=== PATIENT | female | born 1965 | race Caucasian/White ===

== ENCOUNTER 2019-11-01 12:27 | Outpatient (RCR) | payer MEDICAID, SELFPAY | END 2019-11-01 23:59 | disposition home or self-care (01) | LOC: ANHAUDIO 12:27 | PROVIDERS: PCP Internal Medicine Infectious Disease; Visit Provider Internal Medicine Infectious Disease | DX: Z46.1 Encounter for fitting and adjustment of hearing aid (principal) | CPT/HCPCS: 99199 ==

== ENCOUNTER 2020-02-15 16:50 | Emergency (ER) | payer MEDICARE, MEDICAID, SELFPAY ==
--- NOTE | ~2020-02-15 | XR_ITS ---
EXAMINATION: XR chest 1V EXAM DATE: 02/15/2020 19:14 INDICATION: Pacemaker, chest discomfort. Feels like pacemaker is displaced. TECHNIQUE: Portable AP frontal chest x-ray was obtained. Comparison is made to prior examination from 01/20/2019. FINDINGS: There is a dual lead pacemaker/AICD seen with leads projecting over the expected locations of the right atrial appendage and right ventricle. The lungs are clear. There are no pleural effusio ns. Cardiac silhouette is prominent but magnified on this AP technique. There is no pneumothorax s uspected. The bones and soft tissues are unremarkable. IMPRESSION: No acute cardiopulmonary findings. Reviewed, dictated and finalized at location A.
[2020-02-15 18:11] VITALS: BP 144/76; PULSE 72; RESP 15; TEMP 36.2; O2SAT 98
[2020-02-15 19:01] VITALS: BP 115/74; PULSE 72; PULSE 74; PULSE 76; RESP 14; RESP 17; O2SAT 96; O2SAT 98
[2020-02-15 19:15] VITALS: BP 129/78; PULSE 77; RESP 20; O2SAT 95
--- NOTE | 2020-02-15 19:20 | PC.NURSE ---
Report to JARON Johnson, to continue care.
--- NOTE | 2020-02-15 19:43 | ED.GENADULT ---
HPI - General Adult General Chief complaint: Unspecified Stated complaint: SKIN TISSUE MOVED IN MY SHOULDER - PAIN AT SITE Time Seen by Provider: 02/15/20 19:06 Source: patient Mode of arrival: ambulatory Limitations: no limitations History of Present Illness HPI narrative: This patient is a 54 year old female who presents for evaluation of the location of his pacemaker. She states she normally is able to feel her pacemaker in her left upper chest. She states it is more difficult for her to feel it. She reports that she sleeps on her left side with a pillow due to having issues with pacemaker rubbing on her left arm. She reports commonly having soreness at the location of her pacemaker and it was placed in 2013. She denies fever, chills, nausea or vomiting. She reports chronic sob but states her symptoms are not worsening. She does not know of any trauma. Related Data Home Medications Medication Instructions Recorded Confirmed albuterol sulfate [Ventolin HFA] INHALATION 02/15/20 aripiprazole mg 02/15/20 atorvastatin 40 mg PO DAILY 02/15/20 02/15/20 benztropine 0.5 mg PO TID 02/15/20 02/15/20 budesonide-formoterol [Symbicort] INHALATION 02/15/20 buspirone 15 mg PO TID 02/15/20 02/15/20 cholestyramine (with sugar) ea 02/15/20 clonazepam 0.5 mg PO TID 02/15/20 02/15/20 cyclobenzaprine mg 02/15/20 ergocalciferol (vitamin D2) 1,250 mcg PO WEEKLY 02/15/20 02/15/20 escitalopram oxalate mg 02/15/20 famotidine 02/15/20 fluticasone propionate [Flovent INHALATION 02/15/20 HFA] furosemide 02/15/20 isosorbide mononitrate mg PO 02/15/20 levetiracetam PO 02/15/20 losartan-hydrochlorothiazide tablet 02/15/20 magnesium oxide mg 02/15/20 melatonin mg 02/15/20 metoprolol tartrate 02/15/20 nitroglycerin mg 02/15/20 omeprazole 02/15/20 pantoprazole PO 02/15/20 potassium chloride meq PO 02/15/20 tramadol mg 02/15/20 Allergies Allergy/AdvReac Type Severity Reaction Status Date / Time No Known Allergies Allergy Verified 02/15/20 19:06 Review of Systems Review of Systems: All systems reviewed & are unremarkable except as noted in HPI and below PMFSH Past Medical History Medical History (Updated 02/16/20 @ 00:00 by Guille Interiano) Anxiety Depression Hypertension Seizures Surgical History Surgical History (Updated 02/15/20 @ 19:49 by Luciana Edward MD) History of cholecystectomy History of permanent cardiac pacemaker placement Social History Social History Gender identity (if verbalized by the patient): Female Exam Const: General: well developed, alert, awake and Physically active; No acute distress Nutritional Appearance: obese Orientation/consciousness: patient oriented x3 HENMT: Face and sinus: face symmetric Mouth: Yes Normal oral and palatal mucosa present, Yes lip normal, Yes oropharynx normal and Yes moist mucous membranes Throat: uvula midline Chest: Chest palpation & inspection: other (left upper chest, no erythema, no fluctuance, able to feel pacemaker) Resp: Effort & Inspection: normal respiratory effort and able to speak in complete sentences Course Reevaluation(s) Reevaluation #1: I have discussed with patient that pacemaker appears to be in place. On examination, no redness, no induration noted. She is obesity but i can feel pacemaker Date: 02/15/20 Time: 19:49 Vital Signs Vital signs: Vital Signs Temperature 97.2 F L 02/15/20 18:11 Pulse Rate 72 02/15/20 18:11 Respiratory Rate 15 02/15/20 18:11 Blood Pressure 144/76 H 02/15/20 18:11 Pulse Oximetry 98 02/15/20 18:11 Temperature 98.2 F 02/15/20 19:59 Pulse Rate 83 02/15/20 19:59 Respiratory Rate 18 02/15/20 19:59 Blood Pressure 134/81 02/15/20 19:59 Pulse Oximetry 98 02/15/20 19:59 Medical Decision Making Vital Signs Vital Signs: Vital Signs Temperature 97.2 F L 02/15/20 18:11 Pulse Rate 72 02/15/20 18:11 Respiratory Rate 15 02/15/20
[2020-02-15 19:59] VITALS: BP 134/81; PULSE 83; RESP 18; TEMP 36.8; O2SAT 98
== END 2020-02-15 19:59 | disposition home or self-care (01) ==
PROVIDERS: Emergency Provider General Practice; PCP Internal Medicine Infectious Disease
DX: Z45.018 Encounter for adjustment and management of other part of cardiac pacemaker (principal)
CPT/HCPCS: 71045; 99283

== ENCOUNTER 2020-10-03 16:07 | Outpatient (CLI) | payer MEDICARE, MEDICAID, SELFPAY ==
--- NOTE | ~2020-10-03 | XR_ITS ---
XR cervical spine 4-5V DATE: 10/03/2020 16:31 INDICATION: Cervical radiculopathy TECHNIQUE: AP, open-mouth, lateral and swimmer views COMPARISON: None FINDINGS: Diffuse osteopenia. C1 and C2 are normally aligned and the odontoid process is intact. No fracture or dislocation or locked facet is evident. No prevertebral soft tissue swelling. There is prominent degenerative disc disease and uncovertebral joint spurring at C5-6 and C6-7. Left cardiac pacemaker dual leads are noted. IMPRESSION: Prominent degenerative disc disease and uncovertebral joint spurring at C5-6 and C6-7 Reviewed, dictated and finalized at location A. IMPRESSION: Prominent degenerative disc disease and uncovertebral joint spurrin g at C5-6 and C6-7
--- NOTE | ~2020-10-03 | XR_ITS ---
XR lumbar spine 2-3V DATE: 10/03/2020 16:32 INDICATION: Lumbar radiculopathy. No known injury. TECHNIQUE: AP, lateral, coned lateral lumbosacral views COMPARISON: None FINDINGS: There is moderate osteopenia. No fracture or bone destruction is evident. The lumbar pedicles are intact. There is mild degenerative disc disease and lumbosacral interspaces are relatively preserved. There is degenerative change of the lower lumbar apophyseal joints with associated slight grade 1 ant erolisthesis at L4-5. The sacroiliac joints are normal. Status post cholecystectomy. IMPRESSION: Mild degenerative disc disease Reviewed, dictated and finalized at location A.
== END 2020-10-03 16:08 | disposition home or self-care (01) ==
LOC: ANHIMG 16:13
PROVIDERS: PCP Internal Medicine Infectious Disease; Visit Provider Pain Medicine Interventional Pain Medicine
DX: M54.16 Radiculopathy, lumbar region (principal); M54.12 Radiculopathy, cervical region; M51.36 Other intervertebral disc degeneration, lumbar region; M50.322 Other cervical disc degeneration at C5-C6 level
CPT/HCPCS: 72050; 72100

== ENCOUNTER 2021-06-19 14:49 | Emergency (ER) | payer MEDICARE, SELFPAY ==
--- NOTE | ~2021-06-19 | XR_ITS ---
EXAMINATION: XR foot RT min 3V DATE: 06/19/2021 15:24 INDICATION: Right foot pain TECHNIQUE: Dorsoplantar, lateral, and 2 oblique views of the right foot were obtained. COMPARISON: None FINDINGS: There is no fracture, dislocation, or subluxation. Mild osteoarthritis is noted in the midf oot as well as multiple interphalangeal joints. The soft tissues are unremarkable. Posterior and plan tar calcaneal enthesophytes are noted. IMPRESSION: 1. No acute osseous abnormality. Reviewed, dictated and finalized at location A. STAFF
[2021-06-19 14:52] VITALS: BP 147/85; PULSE 93; RESP 16; TEMP 36.6; O2SAT 98
--- NOTE | 2021-06-19 15:14 | ED.EXTPRO ---
HPI - Extremity Problem General Chief complaint: Extremity Problem,Nontraumatic Stated complaint: edema Time Seen by Provider: 06/19/21 15:07 Source: patient Mode of arrival: ambulatory Limitations: no limitations History of Present Illness HPI Narrative: Patient is 55 years old white female presented to the ED complaining of pain of the right foot medially for over a month. Patient is a status post left foot surgery March 2021. Patient been putting more weight on the right foot over the last 2 to 3 months after the surgery.. Patient denies any trauma, fever, chills, nausea, vomiting, pain anywhere else. Patient is disabled Related Data Home Medications Medication Instructions Recorded Confirmed albuterol sulfate [Ventolin HFA] INHALATION 02/15/20 12/04/20 aripiprazole mg 02/15/20 12/04/20 atorvastatin 40 mg PO DAILY 02/15/20 12/04/20 benztropine 0.5 mg PO TID 02/15/20 12/04/20 budesonide-formoterol [Symbicort] INHALATION 02/15/20 12/04/20 buspirone 15 mg PO TID 02/15/20 12/04/20 cholestyramine (with sugar) ea 02/15/20 12/04/20 clonazepam 0.5 mg PO TID 02/15/20 12/04/20 cyclobenzaprine mg 02/15/20 12/04/20 ergocalciferol (vitamin D2) 1,250 mcg PO WEEKLY 02/15/20 12/04/20 escitalopram oxalate mg 02/15/20 12/04/20 famotidine 02/15/20 12/04/20 fluticasone propionate [Flovent INHALATION 02/15/20 12/04/20 HFA] furosemide 02/15/20 12/04/20 isosorbide mononitrate mg PO 02/15/20 12/04/20 losartan-hydrochlorothiazide tablet 02/15/20 12/04/20 magnesium oxide mg 02/15/20 12/04/20 melatonin mg 02/15/20 12/04/20 metoprolol tartrate 02/15/20 12/04/20 nitroglycerin mg 02/15/20 12/04/20 omeprazole 02/15/20 12/04/20 pantoprazole PO 02/15/20 12/04/20 potassium chloride meq PO 02/15/20 12/04/20 tramadol mg 02/15/20 12/04/20 Allergies Allergy/AdvReac Type Severity Reaction Status Date / Time No Known Allergies Allergy Verified 12/04/20 16:16 Review of Systems Review of Systems: CONSTITUTIONAL: Denies fever, chills, or sweats. EYES: Denies visual changes, redness, or discharge. ENT: Denies rhinorrhea, congestion, sore throat, or otalgia. CARDIOVASCULAR: Denies chest pain, palpitations, or edema. RESPIRATORY: Denies cough or dyspnea. GASTROINTESTINAL: Denies abdominal pain, nausea, vomiting, or diarrhea. GENITOURINARY: Denies dysuria or hematuria. SKIN: Denies rash or itching. MUSCULOSKELETAL: Denies back pain, joint pain, or myalgia. NEUROLOGIC: Denies headache, numbness, or weakness. PSYCHIATRIC: Denies anxiety or depression. [facility] Past Medical History Medical History Anxiety Depression Hypertension Seizures Surgical History Surgical History History of cholecystectomy History of permanent cardiac pacemaker placement Social History Social History Smoking status: Never smoker Alcohol intake: never Gender identity (if verbalized by the patient): Female Exam Narrative: General appearance: Well-developed, well-nourished Skin: Normal color Chest and respiratory: Airway patent, no respiratory distress, no accessory muscle use Heart: Regular rate/rhythm Vascular: Normal peripheral pulses, normal capillary refill. Musculoskeletal: Right foot showed diffuse tenderness medially close to the heel area, no bruises, no erythema, no swelling, no deformity. 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
== END 2021-06-19 16:33 | disposition home or self-care (01) ==
LOC: ANHED 16:22
PROVIDERS: Emergency Provider Emergency Medicine; PCP Internal Medicine Infectious Disease
DX: M72.2 Plantar fascial fibromatosis (principal); F41.9 Anxiety disorder, unspecified; F32.A Depression, unspecified; I10 Essential (primary) hypertension; Z95.0 Presence of cardiac pacemaker
CPT/HCPCS: 73630; 99283

== ENCOUNTER 2021-08-06 20:31 | Emergency (ER) | payer MEDICARE, MEDICAID, SELFPAY ==
--- NOTE | ~2021-08-06 | XR_ITS ---
EXAMINATION: XR ankle RT min 3V DATE: 08/07/2021 00:03 INDICATION: Right ankle pain and swelling. TECHNIQUE: 3 views of right ankle were obtained. COMPARISON: Right foot radiographs 06/19/2021 FINDINGS: Bone alignment is normal. No fracture. There is mild osteoarthritis of talonavicular joint. There are enthesophytes at posterior and plantar aspects of calcaneal tuberosity. Ankle soft tissue swelling is noted. IMPRESSION: 1. Mild osteoarthritis of talonavicular joint. Reviewed, dictated and finalized at location A.
[2021-08-06 21:27] VITALS: BP 124/101; PULSE 84; RESP 18; TEMP 36.6; O2SAT 98
[2021-08-06 23:31] VITALS: BP 123/109; PULSE 72; RESP 98; O2SAT 98
[2021-08-07 00:05] LABS: Basophils Percent Auto 0.3 % (0.2-1.2); Eosinophils Absolute Auto 0.2 K/mm3 (0-0.3); Eosinophils Percent Auto 1.3 % (0-4.4); Hematocrit 39.2 % (37.0-47.0); Hemoglobin 11.8 g/dL (12.0-15.0); Immature Granulocyte Absolute 0.07 K/mm3 (0.00-0.031); Immature Granulocyte Percent A 0.6 % (0-0.5); Lymphocytes Absolute Auto 3.15 K/mm3 (0.9-3.2); Mean Corpuscular HGB Conc 30.1 g/dl (32-36); Mean Corpuscular Hemoglobin 24.8 pg (26-34); Mean Corpuscular Volume 82.5 fl (80-100); Mean Platelet Volume 10.8 fl (7.4-10.4); Monocytes Absolute Auto 0.8 K/mm3 (0.1-0.6); Monocytes Percent Auto 6.3 % (2.6-8.5); Neutrophils Absolute Auto 7.9 K/mm3 (1.3-6.7); Neutrophils Percent Auto 65.5 % (45.5-73.1); Platelet Count Result 323 k/mm3 (150-375); Red Blood Count 4.75 M/mm3 (4.2-5.4); Red Cell Distribution Width 16.8 % (11.5-14.5); White Blood Count 12.1 K/mm3 (4.5-10.0)
--- NOTE | 2021-08-07 00:05 | ED.LOWEXIN ---
HPI - Extremity Injury (Lower) General Chief Complaint: Extremity Injury, Lower Stated Complaint: BLE swelling Time Seen by Provider: 08/06/21 23:27 Source: patient Mode of arrival: ambulatory Limitations: no limitations History of Present Illness HPI Narrative: This is a 56 year old female who presents for evaluation of ankle swelling. She reports having bilateral ankle swelling for 1 month. She has been unable to see her PCP for her swelling. She states she was taking water pills 1 year ago for ankle swelling but it was stopped for an unknown reason. She came to ER today because she heard pop in her right ankle and she was having pain with bearing weight. She has since been able to walk and bear weight. She denies chest pain, shortness, nausea, vomiting. Related Data Home Medications Medication Instructions Recorded Confirmed albuterol sulfate [Ventolin HFA] INHALATION 02/15/20 12/04/20 aripiprazole mg 02/15/20 12/04/20 atorvastatin 40 mg PO DAILY 02/15/20 12/04/20 benztropine 0.5 mg PO TID 02/15/20 12/04/20 budesonide-formoterol [Symbicort] INHALATION 02/15/20 12/04/20 buspirone 15 mg PO TID 02/15/20 12/04/20 cholestyramine (with sugar) ea 02/15/20 12/04/20 clonazepam 0.5 mg PO TID 02/15/20 12/04/20 cyclobenzaprine mg 02/15/20 12/04/20 ergocalciferol (vitamin D2) 1,250 mcg PO WEEKLY 02/15/20 12/04/20 escitalopram oxalate mg 02/15/20 12/04/20 famotidine 02/15/20 12/04/20 fluticasone propionate [Flovent INHALATION 02/15/20 12/04/20 HFA] furosemide 02/15/20 12/04/20 isosorbide mononitrate mg PO 02/15/20 12/04/20 losartan-hydrochlorothiazide tablet 02/15/20 12/04/20 magnesium oxide mg 02/15/20 12/04/20 melatonin mg 02/15/20 12/04/20 metoprolol tartrate 02/15/20 12/04/20 nitroglycerin mg 02/15/20 12/04/20 omeprazole 02/15/20 12/04/20 pantoprazole PO 02/15/20 12/04/20 potassium chloride meq PO 02/15/20 12/04/20 tramadol mg 02/15/20 12/04/20 Allergies Allergy/AdvReac Type Severity Reaction Status Date / Time No Known Allergies Allergy Verified 08/06/21 21:32 Review of Systems Review of Systems: All systems reviewed & are unremarkable except as noted in HPI and below PMFSH Past Medical History Medical History Anxiety Depression Hypertension Seizures Surgical History Surgical History History of cholecystectomy History of permanent cardiac pacemaker placement Social History Social History Smoking status: Never smoker Alcohol intake: never Gender identity (if verbalized by the patient): Female Exam Const: General: no acute distress and alert Orientation/consciousness: patient oriented x3 Eyes: EOM: EOMs intact bilaterally Resp: Effort & Inspection: normal respiratory effort and no retractions Auscultation: clear to auscultation bilaterally Cardio: Rate: regular rate Rhythm: regular rhythm Heart sounds: no murmurs Neuro: General: patient oriented x3, moves all extremities and CN's II-XI intact bilaterally Extrem: Other: bilateral mild ankle Course Reevaluation(s) Reevaluation #1: I Discussed with patient no acute fracture on preliminary xray. She will get ankle brace at home and compression socks. I discussed discharge plan and she denies any other questions or concerns. Date: 08/07/21 Time: 00:47 Vital Signs Vital signs: Vital Signs Temperature 97.8 F 08/06/21 21:27 Pulse Rate 84 08/06/21 21:27 Respiratory Rate 18 08/06/21 21:27 Blood Pressure 124/101 H 08/06/21 21:27 Pulse Oximetry 98 08/06/21 21:27 Temperature 97.8 F 08/06/21 21:27 Pulse Rate 72 08/06/21 23:31 Respiratory Rate 98 H 08/06/21 23:31 Blood Pressure 123/109 H 08/06/21 23:31 Pulse Oximetry 98 04/05/22 23:31 MDM - Extremity Injury (Lower) Lab Data Attestation: I reviewed the patient's lab results. Result d
[2021-08-07 00:06] LABS: Alanine Aminotransferase 48 U/L (4-35); Albumin Level 4.2 g/dL (3.5-5.1); Alkaline Phosphatase 209 U/L (38-126); Anion Gap 7 mmol/L (8-16); Aspartate Amino Transferase 63 U/L (14-36); Bilirubin,Total 0.6 mg/dL (0.2-1.3); Blood Urea Nitrogen 15 mg/dL (7-17); Calcium 8.5 mg/dL (8.4-10.2); Carbon Dioxide 29 mmol/L (22-30); Chloride 99 mmol/L (98-107); Estimated CRCL calculation 69 ml/min; Estimated Glomerular Filt Rate 57; Glucose 99 mg/dL (65-110); Potassium 3.6 mmol/L (3.4-5.0); Sodium 135 mmol/L (137-145)
[2021-08-07 00:13] LABS: NT Pro B Type Natriuretic Pept 186 pg/mL (5-100)
== END 2021-08-07 01:13 | disposition home or self-care (01) ==
PROVIDERS: Emergency Provider General Practice; PCP Internal Medicine Infectious Disease
DX: S93.401A Sprain of unspecified ligament of right ankle, initial encounter (principal); M19.90 Unspecified osteoarthritis, unspecified site; F41.9 Anxiety disorder, unspecified; F32.A Depression, unspecified; I10 Essential (primary) hypertension; R56.9 Unspecified convulsions; Z79.899 Other long term (current) drug therapy; Z90.49 Acquired absence of other specified parts of digestive tract; Z95.0 Presence of cardiac pacemaker; X58.XXXA Exposure to other specified factors, initial encounter
CPT/HCPCS: 36415; 73610; 80053; 83880; 85025; 99283

== ENCOUNTER 2022-01-02 14:44 | Emergency (ER) | payer MEDICARE, MEDICAID, SELFPAY ==
[2022-01-02] VITALS (20 sets, daily range): BP systolic 111–140; BP diastolic 66–93; PULSE 72–87; RESP 15–21; TEMP 36.4; O2SAT 92–99
--- NOTE | ~2022-01-02 | XR_ITS ---
XR chest 2V DATE: 01/02/2022 18:23 INDICATION: Dizziness TECHNIQUE: 2 views COMPARISON: 02/15/2020 portable AP chest FINDINGS: Left-sided dual lead pacemaker device with leads overlying right atrium and right ventricle . Heart size appears within upper normal limits. No pulmonary vascular congestion or pleural effusion . No pulmonary infiltrate or consolidation. Osteopenia. Surgical clips, right upper quadrant likely due to cholecystectomy. IMPRESSION: Minimally pacemaker No active cardiopulmonary disease Reviewed, dictated and finalized at location B.
--- NOTE | ~2022-01-02 | CT_ITS ---
EXAMINATION: CT brain wo con DATE: 01/02/2022 19:05 INDICATION: Dizziness TECHNIQUE: Computed tomography (CT) of the head was performed without intravenous contrast. Sagittal and coronal reconstructions were performed. The mA was adjusted according to patient size. Iterative reconstruction technique was employed. The dose-length product was 605.33 mGy-cm. COMPARISON: head CT dated 05/27/2014 FINDINGS: No acute intracranial hemorrhage, acute infarction or abnormal extra axial fluid collection. There is mild scattered white matter hypoattenuation consistent with chronic small vessel ischemic disease. Ventricles are normal and symmetric. No mass/mass effect. The orbits, paranasal sinuses and mastoid a ir cells are normal. IMPRESSION: 1. Mild nonspecific white matter hypoattenuation consistent with chronic small vessel ischemic diseas e. No acute intracranial process. Reviewed, dictated and finalized at location A. IMPRESSION: 1. Mild nonspecific white matter hypoattenuation consistent with chronic small vessel ischemic disease. No acute intracranial process.
--- NOTE | 2022-01-02 14:59 | ECG_ITS ---
Measurements Intervals [place] Rate: 73 P: 4 ID: 189 QRS: 8 QRSD: 85 T: 18 QT: 422 QTc: 466 Interpretive Statements SINUS RHYTHM ELECTRONIC ATRIAL COMPLEX BASELINE ARTIFACT- I, III, AVL ATYPICAL ECG COMPARED TO ECG 01/20/2019 14:13:07 SINUS RHYTHM NOW PRESENT Electronically Signed On 01-02-2022 20:38:39 CDT by Neil Dao D.O.
[2022-01-02 18:45] LABS: Basophils Absolute Auto 0.1 K/mm3 (0.0-0.1); Basophils Percent Auto 0.4 % (0.2-1.2); Eosinophils Absolute Auto 0.2 K/mm3 (0-0.3); Eosinophils Percent Auto 1.6 % (0-4.4); Hematocrit 38.1 % (37.0-47.0); Hemoglobin 11.5 g/dL (12.0-15.0); Immature Granulocyte Absolute 0.06 K/mm3 (0.00-0.031); Immature Granulocyte Percent A 0.4 % (0-0.5); Lymphocytes Absolute Auto 3.26 K/mm3 (0.9-3.2); Lymphocytes Percent Auto 23.1 % (18.3-44.2); Mean Corpuscular HGB Conc 30.2 g/dl (32-36); Mean Corpuscular Volume 82.8 fl (80-100); Mean Platelet Volume 10.3 fl (7.4-10.4); Monocytes Absolute Auto 0.8 K/mm3 (0.1-0.6); Monocytes Percent Auto 5.4 % (2.6-8.5); Neutrophils Absolute Auto 9.8 K/mm3 (1.3-6.7); Neutrophils Percent Auto 69.1 % (45.5-73.1); Platelet Count Result 322 k/mm3 (150-375); White Blood Count 14.1 K/mm3 (4.5-10.0)
[2022-01-02 18:56] LABS: Alanine Aminotransferase 21 U/L (6-35); Albumin Level 4.5 g/dL (3.5-5.1); Alkaline Phosphatase 145 U/L (38-126); Anion Gap 13 mmol/L (8-16); Aspartate Amino Transferase 24 U/L (14-36); Bilirubin,Total 0.4 mg/dL (0.2-1.3); Blood Urea Nitrogen 12 mg/dL (7-17); Calcium 8.5 mg/dL (8.4-10.2); Carbon Dioxide 27 mmol/L (22-30); Chloride 98 mmol/L (98-107); Estimated CRCL calculation 68 ml/min; Estimated Glomerular Filt Rate 57; Glucose 92 mg/dL (65-110); Sodium 138 mmol/L (137-145)
[2022-01-02 18:57] LABS: Appearance Urine Clear (Clear); Bilirubin Urine 1+ (Negative); Blood Urine Negative (Negative); Color Urine Yellow (Yellow); Glucose Urine UA Negative (Negative); Ketones Urine Trace mg/dL (Negative); Leukocyte Esterase Ur 1+ LEU/UL (Negative); Nitrate Urine Positive (Negative); Protein Urine 1+ mg/dL (Negative); Specific Grav Ur >= 1.030 (1.001-1.035); Urobilinogen Urine 0.2 mg/dL (<2.0); pH Urine 5.5 (5.0-9.0)
[2022-01-02 19:07] LABS: Troponin I < 0.012 ng/mL (0.000-0.034)
[2022-01-02 19:11] LABS: Bacteria Urine Trace /hpf; Mucus Urine Few /lpf; Squamous Epithelial Cell Urine Many /hpf (Few)
[2022-01-02 19:13] LABS: Add Urine Microscopic? YES
--- NOTE | 2022-01-02 19:25 | ED.DIZZY ---
HPI - Dizziness General Chief Complaint: Dizziness <Nereida Yusuf PA-C - Last Filed: 01/02/22 22:43> Stated Complaint: dizzy, light headed x 3 weeks <Nereida Yusuf PA-C - Last Filed: 01/02/22 22:43> Time Seen by Provider: 01/02/22 18:36 <Nereida Yusuf PA-C - Last Filed: 01/02/22 22:43> Source: patient <PALMER Hernandez Last Filed: 01/02/22 22:43> Mode of arrival: ambulatory <PALMER Hernandez Last Filed: 01/02/22 22:43> Limitations: no limitations <PALMER Hernandez Last Filed: 01/02/22 22:43> History of Present Illness HPI Narrative: This is a 56 year old female that presents to the ER for lightheadedness. Reports constant lightheadedness ongoing for weeks. Also reports intermittent room spinning dizziness. She has not been taking anything for her symptoms. Reports history of vertigo in the past. Reports intermittent chest pain and shortness of breath over the last week as well. She denies any current chest pain or shortness of breath. Reports she has had a negative stress test in the last year. She also reports urinary frequency. Denies lower extremity edema. <Nereida Yusuf PA-C - Last Filed: 01/02/22 22:43> Related Data Home Medications: Home Medications Medication Instructions Recorded Confirmed albuterol sulfate 90 mcg/actuation inhalation 02/15/20 12/04/20 aerosol inhaler (Ventolin HFA) budesonide-formoterol HFA 160 inhalation 02/15/20 12/04/20 mcg-4.5 mcg/actuation aerosol inhaler (Symbicort) buspirone 15 mg tablet 15 mg PO TID 02/15/20 12/04/20 cholestyramine (with sugar) 4 gram ea 02/15/20 12/04/20 oral powder ergocalciferol (vitamin D2) 1,250 1,250 mcg PO WEEKLY 02/15/20 12/04/20 mcg (50,000 unit) capsule escitalopram oxalate 20 mg tablet mg 02/15/20 12/04/20 aripiprazole 10 mg tablet 10 mg PO QHS 12/16/21 atorvastatin 40 mg tablet 40 mg PO DAILY 12/16/21 benztropine 0.5 mg tablet 0.5 mg PO DAILY 12/16/21 clonazepam 0.5 mg tablet 0.5 mg PO TID PRN 12/16/21 famotidine 40 mg tablet 40 mg PO DAILY 12/16/21 fluticasone propionate 110 1 puff inhalation BID PRN 12/16/21 mcg/actuation HFA aerosol inhaler (Flovent HFA) furosemide 40 mg tablet 40 mg PO BID 12/16/21 isosorbide mononitrate 60 mg 60 mg PO DAILY 12/16/21 tablet,extended release 24 hr losartan 25 mg tablet 25 mg PO DAILY 12/16/21 magnesium oxide 400 mg (241.3 mg 400 mg PO DAILY 12/16/21 magnesium) tablet melatonin 3 mg tablet 3 mg PO QHS 12/16/21 metoprolol tartrate 75 mg tablet 75 mg PO BID 12/16/21 nitroglycerin 0.4 mg sublingual 0.4 mg sublingual ONCE PRN 12/16/21 tablet omeprazole 40 mg capsule,delayed 40 mg PO DAILY 12/16/21 release pantoprazole 40 mg tablet,delayed 40 mg PO DAILY 12/16/21 release potassium chloride 20 mEq 20 meq PO DAILY 12/16/21 tablet,extended release <Nereida Yusuf PA-C - Last Filed: 01/02/22 22:43> Allergies/Adverse Reactions: Allergies Allergy/AdvReac Type Severity Reaction Status Date / Time No Known Allergies Allergy Verified 12/16/21 14:22 <Nereida Yusuf PA-C - Last Filed: 01/02/22 22:43> Review of Systems Review of Systems: CONSTITUTIONAL: Denies fever EYES: Denies visual changes ENT: Denies otalgia. CARDIOVASCULAR: Reports chest pain. Denies edema. RESPIRATORY: Reports dyspnea. GASTROINTESTINAL: Denies vomiting NEUROLOGIC: Denies headache, numbness, or weakness. <PALMER Hernandez Last Filed: 01/02/22 22:43> All systems reviewed & are unremarkable except as noted in HPI and below <Nereida Yusuf PA-C - Last Filed: 01/02/22 22:43> PMFSH Past Medical History Medical History: Medical History (Updated 01/03/22 @ 00:00 by Background Daemon) Anxiety Depression History of asthma History of hyperlipidemia Hypertension Seizures <Nereida Yusuf PA-C - Last Filed: 01/02/22 22:43> Surgical History Surgical History: Surgical History (Reviewed 12/02
--- NOTE | 2022-01-02 19:39 | PC.NURSE ---
Interrogated [employer] Pacemaker
--- NOTE | 2022-01-02 20:02 | PC.NURSE ---
Called [employer] for interrogation report
[2022-01-02 20:05] LABS: NT Pro B Type Natriuretic Pept 94 pg/mL (5-100)
[2022-01-02 20:07] LABS: D Dimer 0.35 ug/mL (<0.48)
[2022-01-02] MEDS: SODIUM CHLORIDE 0.9% IV 500 ML 999 ML IV CONT (20:09)
[2022-01-02] MEDS: ONDANSETRON INJ 4 MG/2 ML VIAL IV PUSH (20:12)
[2022-01-02] MEDS: MECLIZINE HCL 25 MG TABLET PO (20:12)
--- NOTE | 2022-01-02 21:55 | PC.NURSE ---
Ambulated pt in [place]. Steady gait. Denies dizziness. Nereida provider notified.
[2022-01-02 22:13] LABS: Troponin I < 0.012 ng/mL (0.000-0.034)
== END 2022-01-02 22:59 | disposition home or self-care (01) ==
PROVIDERS: Emergency Medicine; Physician Assistant; Emergency Provider Emergency Medicine; PCP Internal Medicine Infectious Disease
DX: N39.0 Urinary tract infection, site not specified (principal); R42 Dizziness and giddiness; J45.909 Unspecified asthma, uncomplicated; E78.5 Hyperlipidemia, unspecified; I10 Essential (primary) hypertension; F41.9 Anxiety disorder, unspecified; F32.A Depression, unspecified; D64.9 Anemia, unspecified; Z95.0 Presence of cardiac pacemaker; R93.0 Abnormal findings on diagnostic imaging of skull and head, not elsewhere classified
CPT/HCPCS: 36415; 70450; 71046; 80053; 81001; 83880; 84484; 85025; 85380; 87086; 93005; 96365; 96367; 96375; 99284; A9270; J0131; J0696; J2405; J7040

== ENCOUNTER 2022-01-10 21:33 | Emergency (ER) | payer MEDICARE, MEDICAID, SELFPAY ==
[2022-01-10] VITALS (7 sets, daily range): BP systolic 116–154; BP diastolic 63–82; PULSE 73–90; RESP 12–19; TEMP 36.4; O2SAT 95–98
--- NOTE | ~2022-01-10 | XR_ITS ---
EXAMINATION: XR chest 1V portable DATE: 01/10/2022 22:06 INDICATION: Cough. TECHNIQUE: frontal view of the chest was obtained. COMPARISON: Chest radiograph dated 01/02/2022 FINDINGS: Small lung volumes. No focal airspace opacities, pulmonary edema, pleural effusion or pneumothorax. B orderline cardiac silhouette likely exaggerated by AP technique and a left paracardial fat pad. Dual lead pacemaker seen with leads projecting over the expected locations of the right atrium and right v entricle. Cholecystectomy clips in right upper quadrant. IMPRESSION: 1. No acute cardiopulmonary disease. Reviewed, dictated and finalized at location A.
--- NOTE | 2022-01-10 21:50 | ED.GENADULT ---
HPI - General Adult General Chief complaint: Shortness of Breath/Dyspnea Stated complaint: FOOD BOLUS Source: RN notes reviewed History of Present Illness HPI narrative: Patient presents emergency department from home via EMS for food impaction. Patient states she was eating a cheeseburger prior to arrival she states she took a bite cheeseburger and swallowed and felt like it became lodged in her throat she has been able to swallow since that time patient's had to spit out her own secretions. States she has had problems with food impactions before in the past states she has had EGDs before in the past denies any fevers or chills notes a feeling of fullness in her mid chest with some mild shortness of breath Related Data Home Medications Medication Instructions Recorded Confirmed albuterol sulfate 90 mcg/actuation inhalation 02/15/20 12/04/20 aerosol inhaler (Ventolin HFA) budesonide-formoterol HFA 160 inhalation 02/15/20 12/04/20 mcg-4.5 mcg/actuation aerosol inhaler (Symbicort) buspirone 15 mg tablet 15 mg PO TID 02/15/20 12/04/20 cholestyramine (with sugar) 4 gram ea 02/15/20 12/04/20 oral powder ergocalciferol (vitamin D2) 1,250 1,250 mcg PO WEEKLY 02/15/20 12/04/20 mcg (50,000 unit) capsule escitalopram oxalate 20 mg tablet mg 02/15/20 12/04/20 aripiprazole 10 mg tablet 10 mg PO QHS 12/16/21 atorvastatin 40 mg tablet 40 mg PO DAILY 12/16/21 benztropine 0.5 mg tablet 0.5 mg PO DAILY 12/16/21 clonazepam 0.5 mg tablet 0.5 mg PO TID PRN 12/16/21 famotidine 40 mg tablet 40 mg PO DAILY 12/16/21 fluticasone propionate 110 1 puff inhalation BID PRN 12/16/21 mcg/actuation HFA aerosol inhaler (Flovent HFA) furosemide 40 mg tablet 40 mg PO BID 12/16/21 isosorbide mononitrate 60 mg 60 mg PO DAILY 12/16/21 tablet,extended release 24 hr losartan 25 mg tablet 25 mg PO DAILY 12/16/21 magnesium oxide 400 mg (241.3 mg 400 mg PO DAILY 12/16/21 magnesium) tablet melatonin 3 mg tablet 3 mg PO QHS 12/16/21 metoprolol tartrate 75 mg tablet 75 mg PO BID 12/16/21 nitroglycerin 0.4 mg sublingual 0.4 mg sublingual ONCE PRN 12/16/21 tablet omeprazole 40 mg capsule,delayed 40 mg PO DAILY 12/16/21 release pantoprazole 40 mg tablet,delayed 40 mg PO DAILY 12/16/21 release potassium chloride 20 mEq 20 meq PO DAILY 12/16/21 tablet,extended release Allergies Allergy/AdvReac Type Severity Reaction Status Date / Time No Known Allergies Allergy Verified 12/16/21 14:22 Review of Systems Review of Systems: Gen.: Denies fevers or chills ENT: Denies congestion Respiratory: Reports mild shortness of breath CV: Denies chest pain or palpitations GI: Reports food impaction Musculoskeletal: Denies back pain or muscle pain Neuro: Denies numbness, tingling, weakness or focal weakness Skin: Denies rash Except as documented, all other systems reviewed and negative [facility] Past Medical History Medical History Anxiety Depression History of asthma History of hyperlipidemia Hypertension Seizures Surgical History Surgical History History of cholecystectomy History of permanent cardiac pacemaker placement Social History Social History Smoking status: Never smoker Alcohol intake: never Gender identity (if verbalized by the patient): Female Exam Narrative: APPEARANCE: No acute distress, nontoxic, resting in bed EYES: EOMI HEENT: Normocephalic, atraumatic, or mucosa moist spitting out own secretions unable to swallow own secretions airway patent RESPIRATORY: No respiratory distress Clear to auscultation bilaterally with no rhonchi wheezing or rales. CARDIOVASCULAR: Regular rate and rhythm without murmurs rubs or gallops. ABDOMINAL: Soft, nontender, nondistended, no rebound or guarding MUSCULOSKELETAl: Moves all extremities. No clubbing,
[2022-01-10] MEDS: GLUCAGON FOR INJ 1 MG VIAL IV PUSH (21:54)
== END 2022-01-10 23:30 | disposition home or self-care (01) ==
PROVIDERS: Emergency Provider Emergency Medicine; PCP Internal Medicine Infectious Disease
DX: T18.128A Food in esophagus causing other injury, initial encounter (principal); I10 Essential (primary) hypertension; E78.5 Hyperlipidemia, unspecified; J45.909 Unspecified asthma, uncomplicated; F41.9 Anxiety disorder, unspecified; F32.A Depression, unspecified; Z95.0 Presence of cardiac pacemaker
CPT/HCPCS: 71045; 96374; 99284; J1610

== ENCOUNTER 2022-10-26 12:07 | Emergency (ER) | payer MEDICARE, MEDICAID, SELFPAY ==
[2022-10-26] VITALS (17 sets, daily range): BP systolic 95–122; BP diastolic 62–83; PULSE 70–81; RESP 11–24; TEMP 36.4; O2SAT 93–97
--- NOTE | ~2022-10-26 | XR_ITS ---
XR chest 2V DATE: 10/26/2022 12:53 INDICATION: Chest pain TECHNIQUE: PA and lateral views COMPARISON: 01/10/2022 portable AP chest FINDINGS: Left-sided dual-lead pacemaker with leads overlying right atrium and right ventricle. Heart size appears within normal range. No pulmonary infiltrate or consolidation is evident. Mild atelectasis is suggested at the left lung b ase. No pleural effusion or pulmonary vascular congestion or pneumothorax. Surgical clips, right upper quadrant, consistent with cholecystectomy. IMPRESSION: Mild atelectasis at the left lung base; otherwise no active cardiopulmonary disease Dual lead left pacemaker Reviewed, dictated and finalized at location A. IMPRESSION: Mild atelectasis at the left lung base; otherwise no active cardiop ulmonary disease Dual lead left pacemaker
--- NOTE | 2022-10-26 12:24 | ED.CHESTPAIN ---
HPI - Chest Pain General Chief Complaint: Chest Pain <Gracia Dey APRN - Last Filed: 10/26/22 17:06> Stated Complaint: cp <Gracia Dey APRN - Last Filed: 10/26/22 17:06> Time Seen by Provider: 10/26/22 12:17 <Gracia Dey DIRECTOR RISK - Last Filed: 10/26/22 17:06> History of Present Illness HPI narrative: 57-year-old female presents to the emergency room today for complaints of left-sided chest pain that started around 1130. She has a history of angina. She says that this feels like previous episodes she has had in the past but usually she can get it to resolve with nitro. She took one of her sublingual nitros when the chest pain started but did not get any relief so she called EMS. She continues to have the pain at this time. She describes it as a sharp pain. No radiation to shoulder neck jaw or back. Denies having any shortness of breath. No numbness or tingling. <Gracia Dey APRN - Last Filed: 10/26/22 17:06> Related Data Home Medications: Home Medications Medication Instructions Recorded Confirmed albuterol sulfate 90 mcg/actuation inhalation 02/15/20 12/04/20 aerosol inhaler (Ventolin HFA) budesonide-formoterol HFA 160 inhalation 02/15/20 12/04/20 mcg-4.5 mcg/actuation aerosol inhaler (Symbicort) buspirone 15 mg tablet 15 mg PO TID 02/15/20 12/04/20 cholestyramine (with sugar) 4 gram ea 02/15/20 12/04/20 oral powder ergocalciferol (vitamin D2) 1,250 1,250 mcg PO WEEKLY 02/15/20 12/04/20 mcg (50,000 unit) capsule escitalopram oxalate 20 mg tablet mg 02/15/20 12/04/20 aripiprazole 10 mg tablet 10 mg PO QHS 12/16/21 atorvastatin 40 mg tablet 40 mg PO DAILY 12/16/21 benztropine 0.5 mg tablet 0.5 mg PO DAILY 12/16/21 clonazepam 0.5 mg tablet 0.5 mg PO TID PRN 12/16/21 famotidine 40 mg tablet 40 mg PO DAILY 12/16/21 fluticasone propionate 110 1 puff inhalation BID PRN 12/16/21 mcg/actuation HFA aerosol inhaler (Flovent HFA) furosemide 40 mg tablet 40 mg PO BID 12/16/21 isosorbide mononitrate 60 mg 60 mg PO DAILY 12/16/21 tablet,extended release 24 hr losartan 25 mg tablet 25 mg PO DAILY 12/16/21 magnesium oxide 400 mg (241.3 mg 400 mg PO DAILY 12/16/21 magnesium) tablet melatonin 3 mg tablet 3 mg PO QHS 12/16/21 metoprolol tartrate 75 mg tablet 75 mg PO BID 12/16/21 nitroglycerin 0.4 mg sublingual 0.4 mg sublingual ONCE PRN 12/16/21 tablet omeprazole 40 mg capsule,delayed 40 mg PO DAILY 12/16/21 release pantoprazole 40 mg tablet,delayed 40 mg PO DAILY 12/16/21 release potassium chloride 20 mEq 20 meq PO DAILY 12/16/21 tablet,extended release multivitamin (Multiple Vitamins 1 tablet PO DAILY 09/08/22 tablet) <Gracia Dey, DIRECTOR RISK - Last Filed: 10/26/22 17:06> Allergies/Adverse Reactions: Allergies Allergy/AdvReac Type Severity Reaction Status Date / Time No Known Allergies Allergy Verified 09/08/22 11:10 <Gracia Dey DIRECTOR RISK - Last Filed: 10/26/22 17:06> Review of Systems Review of Systems: CONSTITUTIONAL: Denies fever, chills, or sweats. EYES: Denies visual changes, redness, or discharge. ENT: Denies rhinorrhea, congestion, sore throat, or otalgia. CARDIOVASCULAR: As per HPI RESPIRATORY: Denies cough or dyspnea. GASTROINTESTINAL: Denies abdominal pain, nausea, vomiting, or diarrhea. GENITOURINARY: Denies dysuria or hematuria. SKIN: Denies rash or itching. MUSCULOSKELETAL: Denies back pain, joint pain, or myalgia. NEUROLOGIC: Denies headache, numbness, dizziness, or weakness. PSYCHIATRIC: Denies anxiety or depression. <Gracia Dey DIRECTOR RISK - Last Filed: 10/26/22 17:06> [facility] Past Medical History Medical History: Medical History Anxiety Depression History of asthma History of hyperlipidemia Hypertension Seizures <Gracia Dey, DIRECTOR RISK - Last Filed: 10/26/22 17:06> Surgical History Surgical History: Surg
--- NOTE | 2022-10-26 12:26 | ECG_ITS ---
Measurements Intervals [place] Rate: 70 P: 119 ND: 236 QRS: 3 QRSD: 88 T: 12 QT: 395 QTc: 427 Interpretive Statements ELECTRONIC ATRIAL PACEMAKER NONSPECIFIC T-WAVE ABNORMALITY ABNORMAL ECG COMPARED TO ECG 01/02/2022 16:57:43 NO SIGNIFICANT CHANGES Electronically Signed On 10-27-2022 10:34:16 CDT by Tae Reynolds M.D.
[2022-10-26] MEDS: NITROGLYCERIN OINTMENT 1 INCH DOSE TRANSDERM (12:55)
[2022-10-26] MEDS: ONDANSETRON INJ 4 MG/2 ML VIAL IV PUSH (12:56)
[2022-10-26] MEDS: MORPHINE SULFATE (*CRX) 4 MG/ML INJ IV PUSH (12:59)
[2022-10-26 13:24] LABS: Basophils Percent Auto 0.4 % (0.2-1.2); Eosinophils Absolute Auto 0.2 K/mm3 (0-0.3); Eosinophils Percent Auto 1.5 % (0-4.4); Hematocrit 39.7 % (37.0-47.0); Hemoglobin 12.1 g/dL (12.0-15.0); Immature Granulocyte Absolute 0.04 K/mm3 (0.00-0.031); Immature Granulocyte Percent A 0.4 % (0-0.5); Lymphocytes Percent Auto 25.2 % (18.3-44.2); Mean Corpuscular HGB Conc 30.5 g/dl (32-36); Mean Corpuscular Hemoglobin 26.5 pg (26-34); Mean Corpuscular Volume 87.1 fl (80-100); Monocytes Absolute Auto 0.8 K/mm3 (0.1-0.6); Monocytes Percent Auto 7.7 % (2.6-8.5); Neutrophils Absolute Auto 6.4 K/mm3 (1.3-6.7); Neutrophils Percent Auto 64.8 % (45.5-73.1); Platelet Count Result 305 k/mm3 (150-375); Red Blood Count 4.56 M/mm3 (4.2-5.4); Red Cell Distribution Width 17.8 % (11.5-14.5); White Blood Count 9.9 K/mm3 (4.5-10.0)
[2022-10-26 13:35] LABS: Alanine Aminotransferase 74 U/L (6-35); Albumin Level 4.1 g/dL (3.5-5.1); Alkaline Phosphatase 108 U/L (38-126); Anion Gap 8 mmol/L (8-16); Aspartate Amino Transferase 97 U/L (14-36); Bilirubin,Total 0.4 mg/dL (0.2-1.3); Blood Urea Nitrogen 8 mg/dL (7-17); Calcium 8.8 mg/dL (8.4-10.2); Carbon Dioxide 28 mmol/L (22-30); Chloride 102 mmol/L (98-107); Estimated CRCL calculation 82 ml/min; Estimated Glomerular Filt Rate > 60; Glucose 77 mg/dL (65-110); Lipase 39 U/L (23-300); Partial Thromboplastin Time 32.6 SECONDS (22.3-36.8); Potassium 4.5 mmol/L (3.4-5.0); Prothrombin Time 13.7 Seconds (11.1-14.7); Sodium 138 mmol/L (137-145)
[2022-10-26 13:45] LABS: NT Pro B Type Natriuretic Pept 138 pg/mL (19.9-100); Troponin I < 0.012 ng/mL (0.000-0.034)
[2022-10-26 13:46] LABS: D Dimer 0.37 ug/mL (<0.48)
[2022-10-26 16:53] LABS: Troponin I < 0.012 ng/mL (0.000-0.034)
== END 2022-10-26 17:50 | disposition home or self-care (01) ==
PROVIDERS: Emergency Provider Nurse Practitioner Family; PCP Internal Medicine Infectious Disease
DX: R07.9 Chest pain, unspecified (principal); F41.8 Other specified anxiety disorders; J45.909 Unspecified asthma, uncomplicated; E78.5 Hyperlipidemia, unspecified; I10 Essential (primary) hypertension
CPT/HCPCS: 36415; 71046; 80053; 83690; 83880; 84484; 85025; 85380; 85610; 85730; 93005; 96374; 96375; 99284; A9270; J2270; J2405

== ENCOUNTER 2023-01-01 10:51 | Outpatient (CLI) | payer MEDICARE, MEDICAID, SELFPAY ==
--- NOTE | ~2023-01-01 | XR_ITS ---
Clinical Indication: Asthma PA and lateral views of the chest: Comparison: 10/26/2022 Findings: The lungs are clear, without evidence of focal consolidation or pleural effusion. Cardiome diastinal silhouette is stable, with pacemaker device. Bones and soft tissues are unremarkable. Impression: Clear lungs. Reviewed, dictated and finalized at location . Impression: Clear lungs.
== END 2023-01-01 10:52 | disposition home or self-care (01) ==
PROVIDERS: PCP Internal Medicine Infectious Disease; Visit Provider Nurse Practitioner
DX: J45.909 Unspecified asthma, uncomplicated (principal)
CPT/HCPCS: 71046

== ENCOUNTER 2023-01-09 10:00 | Outpatient (CLI) | payer MEDICARE, MEDICAID, SELFPAY ==
--- NOTE | 2023-01-12 10:27 | WPDPFTINT ---
PFT Procedure Performed PFT Procedure Performed Spirometry with Pre/Post Bronchodilator Plethysmography (Lung Vol) Diffusing Cap (DLCO) Flow Vol Loop PFT Interpretation Lung volumes were measured with the body plethysmography method. The diminished expiratory reserve volume is related to obesity. The remaining lung volumes are unremarkable. Spirometry showed normal expiratory flow rates and a normal FEV1 to FVC ratio 77%. Following administration of a bronchodilator there was no significant increase in the expiratory flow rates. Lung diffusion capacity is within the normal range at 84% predicted. The flow volume loop is unremarkable. Impression: Spirometry, lung volumes, and lung diffusion capacity all within the normal range.
--- NOTE | 2023-01-12 10:29 | WPDSIXMINUTE ---
Six Minute Walk Procedure Procedure Performed Pulmonary Stress Test (6 min walk) Six Minute Walk Six Minute Walk: This 6 minute walk test was carried out with the patient breathing ambient air. The baseline pre walk oxyhemoglobin saturation was 94%. The patient walked 274 m with no stops during testing. During the walk oxyhemoglobin saturation remained in the range of 92%-95%. The perceived dyspnea on the Valencia scale at baseline was 0.5 and increased to 3 at the end of testing. Impression: No evidence of oxyhemoglobin desaturation on this testing
== END 2023-01-09 10:01 | disposition home or self-care (01) ==
LOC: ANHPFT 10:01
PROVIDERS: PCP Internal Medicine Infectious Disease; Visit Provider Nurse Practitioner
DX: R06.09 Other forms of dyspnea (principal); J45.909 Unspecified asthma, uncomplicated
CPT/HCPCS: 94060; 94618; 94726; 94729

== ENCOUNTER 2023-03-02 11:57 | Outpatient (CLI) | payer MEDICARE, MEDICAID, SELFPAY ==
--- NOTE | 2023-03-03 12:32 | P.METCHAL_ITS ---
Methacholine Procedure Perform Procedure Performed Methacholine Challenge Methacholine Challenge Methacholine Challenge: This is a methacholine challenge test. The test was performed and interpreted in accordance with the 2017 ERS technical standard, endorsed by the ATS, using the GLI 2012 reference equations. Testing was performed with increasing doses of nebulized methacholine following a quadrupling dosage protocol. The methacholine dose was delivered via the [employer] Micromist nebulizer using a 1-minutes tidal breathing protocol. The best post-methacholine FEV1 values were used to determine the change from the post diluent FEV1. The delivered dose of methacholine was used to calculate the provocative dose causing a 20% fall in FEV1 (PD 20). Of note, the patient's medication list states that she took Symbicort at 9:00 p.m., Symbicort at 7:00 a.m. and Incruse at 7:00 a.m. on the day of the study. Findings: Baseline FEV1 2.20 L, 86% predicted. Post diluent FEV1 2.26 L Post 1.81 mcg methacholine FEV1 2.24 L, decreased 1% Post 7.26 mcg methacholine FEV1 2.24 L, decreased 1% Post 29.03 mcg methacholine FEV1 2.25 L, decreased 0% Post 116.1 mcg methacholine FEV1 2.23 L, decreased 2% Post 464.4 mcg methacholine FEV1 2.13 L, decreased 6% Post albuterol nebulization FEV1 2.13 L Impression: The PD20 is > 400 mcg which is categorized as normal airway hyperresponsiveness. There are no prior methacholine challenge studies for comparison
== END 2023-03-02 11:58 | disposition home or self-care (01) ==
LOC: ANHPFT 11:58
PROVIDERS: PCP Internal Medicine Infectious Disease; Visit Provider Nurse Practitioner
DX: J45.909 Unspecified asthma, uncomplicated (principal)
CPT/HCPCS: 94070; J7674

== ENCOUNTER 2023-05-22 13:56 | Emergency (ER) | payer MEDICARE, MEDICAID, SELFPAY ==
--- NOTE | ~2023-05-22 | XR_ITS ---
EXAMINATION: XR chest 1V INDICATION: Shoulder injury, pain TECHNIQUE: Frontal view of the chest is obtained. COMPARISON: None available FINDINGS: The lung volumes are low. The lungs are free of acute opacities. No pleural effusion or pne umothorax. A dual-lead cardiac pacemaker of the left chest wall ends with leads in expected locations . A fracture of the proximal right humerus lobe described on the shoulder radiographs. IMPRESSION: 1. No acute cardiopulmonary abnormality. Reviewed, dictated and finalized at location F. [employer]
--- NOTE | ~2023-05-22 | XR_ITS ---
EXAMINATION: XR shoulder RT min 2V INDICATION: Right shoulder pain TECHNIQUE: Three views of the right shoulder are submitted. COMPARISON: None FINDINGS: There is an acute, traumatic, closed surgical neck fracture of the proximal humerus. The gr eater tuberosity appears to be a separate fracture fragment. There is moderate osteoarthritis of the acromioclavicular joint. Soft tissues are unremarkable. IMPRESSION: 1. Acute surgical neck fracture of the proximal right humerus with greater tuberosity suspected to be a separate fracture fragment. Reviewed, dictated and finalized at location F. NG MACHINE TENDER IMPRESSION: 1. Acute surgical neck fracture of the proximal right humerus with greater tube rosity suspected to be a separate fracture fragment.
[2023-05-22 14:10] VITALS: BP 128/81; PULSE 69; RESP 18; TEMP 36.6; O2SAT 95
--- NOTE | 2023-05-22 17:26 | ED.GENADULT ---
HPI - General Adult General Chief complaint: Extremity Injury, Upper Stated complaint: fall/right arm pain Time Seen by Provider: 05/22/23 16:22 Source: patient Mode of arrival: ambulatory Limitations: no limitations History of Present Illness HPI narrative: This is a 49-year-old female who presents to the ED with chief complaint of right shoulder injury. Reports that she was walking outside today when she slipped on a patch of ice. Reports she fell directly onto the right shoulder and has subsequent pain there. denies numbness, weakness, head injury or any further sites of pain or injury. Related Data Home Medications Medication Instructions Recorded Confirmed albuterol sulfate 90 mcg/actuation inhalation 02/15/20 12/04/20 aerosol inhaler (Ventolin HFA) budesonide-formoterol HFA 160 inhalation 02/15/20 12/04/20 mcg-4.5 mcg/actuation aerosol inhaler (Symbicort) buspirone 15 mg tablet 15 mg PO TID 02/15/20 12/04/20 cholestyramine (with sugar) 4 gram ea 02/15/20 12/04/20 oral powder ergocalciferol (vitamin D2) 1,250 1,250 mcg PO WEEKLY 02/15/20 12/04/20 mcg (50,000 unit) capsule escitalopram oxalate 20 mg tablet mg 02/15/20 12/04/20 aripiprazole 10 mg tablet 10 mg PO QHS 12/16/21 atorvastatin 40 mg tablet 40 mg PO DAILY 12/16/21 benztropine 0.5 mg tablet 0.5 mg PO DAILY 12/16/21 clonazepam 0.5 mg tablet 0.5 mg PO TID PRN 12/16/21 famotidine 40 mg tablet 40 mg PO DAILY 12/16/21 fluticasone propionate 110 1 puff inhalation BID PRN 12/16/21 mcg/actuation HFA aerosol inhaler (Flovent HFA) furosemide 40 mg tablet 40 mg PO BID 12/16/21 isosorbide mononitrate 60 mg 60 mg PO DAILY 12/16/21 tablet,extended release 24 hr losartan 25 mg tablet 25 mg PO DAILY 12/16/21 magnesium oxide 400 mg (241.3 mg 400 mg PO DAILY 12/16/21 magnesium) tablet melatonin 3 mg tablet 3 mg PO QHS 12/16/21 metoprolol tartrate 75 mg tablet 75 mg PO BID 12/16/21 nitroglycerin 0.4 mg sublingual 0.4 mg sublingual ONCE PRN 12/16/21 tablet omeprazole 40 mg capsule,delayed 40 mg PO DAILY 12/16/21 release pantoprazole 40 mg tablet,delayed 40 mg PO DAILY 12/16/21 release potassium chloride 20 mEq 20 meq PO DAILY 12/16/21 tablet,extended release multivitamin (Multiple Vitamins 1 tablet PO DAILY 09/08/22 tablet) Allergies Allergy/AdvReac Type Severity Reaction Status Date / Time No Known Allergies Allergy Verified 05/22/23 13:56 Review of Systems Review of Systems: All systems as dictated in [facility] Past Medical History Medical History Anxiety Depression History of asthma History of hyperlipidemia Hypertension Seizures Surgical History Surgical History History of cholecystectomy History of permanent cardiac pacemaker placement Social History Social History Smoking status: Never smoker Alcohol intake: never Substance use: current Substance use type: does not use Lack of Transportation: No Lack of Food: Sometimes True Current Housing: I Have Housing Concerned About Future Housing: No Difficulty Paying Gas/Electric Bills: No Difficulty Paying for Meds: YES Currently Unemployed: No Education: High School Diploma/GED Difficulty w/ Childcare or Family Care: No Gender identity (if verbalized by the patient): Female Exam Narrative: GENERAL: Well-appearing, well-nourished, and in no acute distress. HEAD: Normocephalic, atraumatic. EYES: PERRLA and EOMI. ENT: Nares clear, no rhinorrhea or epistaxis. Mucous membranes moist. Oropharynx without tonsillar hypertrophy exudate or other lesions. NECK: Supple. No adenopathy or masses. CHEST: No respiratory distress. Clear to auscultation. No wheezes rales or rhonchi HEART: Regular rate and rhythm. No murmur heard. Normal peripheral pulses. ABDOMEN: Soft,
[2023-05-22] MEDS: HYDROcodone/acetaminophen (*CRX) 7.5-325 MG TABLET 1 TAB PO (17:41)
[2023-05-22 17:56] VITALS: BP 146/78; PULSE 75; RESP 18; TEMP 36.6; O2SAT 94
== END 2023-05-22 19:01 | disposition home or self-care (01) ==
PROVIDERS: Emergency Provider Physician Assistant
DX: S42.211A Unspecified displaced fracture of surgical neck of right humerus, initial encounter for closed fracture (principal); J45.909 Unspecified asthma, uncomplicated; E78.5 Hyperlipidemia, unspecified; I10 Essential (primary) hypertension; F41.9 Anxiety disorder, unspecified; F32.A Depression, unspecified; Z95.0 Presence of cardiac pacemaker; Z90.49 Acquired absence of other specified parts of digestive tract; W00.0XXA Fall on same level due to ice and snow, initial encounter
CPT/HCPCS: 71045; 73030; 99284; A4565; A9270

== ENCOUNTER 2023-06-26 00:23 | Emergency (ER) | payer MEDICARE, MEDICAID, SELFPAY ==
--- NOTE | ~2023-06-26 | XR_ITS ---
Clinical Indication: Chest pain PA and lateral views of the chest: Comparison: 05/22/2023 Findings: There are low lung volumes. The lungs are clear, without evidence of focal consolidation or pleural effusion. Cardiomediastinal silhouette is stable, with pacemaker device. Bones and soft tis sues are unremarkable. Impression: Low lung volumes. Clear lungs. Pacemaker device. Reviewed, dictated and finalized at location M. ICES COORDINATOR Impression: Low lung volumes. Clear lungs. Pacemaker device.
[2023-06-26 00:21] VITALS: BP 150/82; PULSE 72; RESP 15; TEMP 36.6; O2SAT 99
--- NOTE | 2023-06-26 00:47 | ED.CHESTPAIN ---
HPI - Chest Pain General Chief Complaint: Chest Pain Stated Complaint: CP Time Seen by Provider: 06/26/23 00:45 Source: patient Limitations: no limitations History of Present Illness HPI narrative: Patient is a 58-year-old female with past medical history asthma (on inhaler) and angina status post pacemaker placement approximately 10 years ago. Which presents with an episode of chest pain and is concerned that his her angina. She took 2 nitro. Pain is located left side of her chest and happened at rest without exertion. She is on isosorbide as well as furosemide 40mg/day, not missing doses. Dental Assistant Instructor Dr Palm. Episode not associated with shortness of breath. She has had a cough but no phlegm. No fevers. Related Data Home Medications Medication Instructions Recorded Confirmed albuterol sulfate 90 mcg/actuation inhalation 02/15/20 05/28/23 aerosol inhaler (Ventolin HFA) budesonide-formoterol HFA 160 inhalation 02/15/20 05/28/23 mcg-4.5 mcg/actuation aerosol inhaler (Symbicort) buspirone 15 mg tablet 15 mg PO TID 02/15/20 05/28/23 cholestyramine (with sugar) 4 gram ea 02/15/20 05/28/23 oral powder ergocalciferol (vitamin D2) 1,250 1,250 mcg PO WEEKLY 02/15/20 05/28/23 mcg (50,000 unit) capsule escitalopram oxalate 20 mg tablet mg 02/15/20 05/28/23 aripiprazole 10 mg tablet 10 mg PO QHS 12/16/21 05/28/23 benztropine 0.5 mg tablet 0.5 mg PO DAILY 12/16/21 05/28/23 clonazepam 0.5 mg tablet 0.5 mg PO TID PRN 12/16/21 05/28/23 famotidine 40 mg tablet 40 mg PO DAILY 12/16/21 05/28/23 furosemide 40 mg tablet 40 mg PO BID 12/16/21 05/28/23 losartan 25 mg tablet 25 mg PO DAILY 12/16/21 05/28/23 magnesium oxide 400 mg (241.3 mg 400 mg PO DAILY 12/16/21 05/28/23 magnesium) tablet melatonin 3 mg tablet 3 mg PO QHS 12/16/21 05/28/23 metoprolol tartrate 75 mg tablet 75 mg PO BID 12/16/21 05/28/23 nitroglycerin 0.4 mg sublingual 0.4 mg sublingual ONCE PRN 12/16/21 05/28/23 tablet omeprazole 40 mg capsule,delayed 40 mg PO DAILY 12/16/21 05/28/23 release potassium chloride 20 mEq 20 meq PO DAILY 12/16/21 05/28/23 tablet,extended release acidophilus 100 million cap PO 05/28/23 05/28/23 cell-pectin, citrus 10 mg capsule ferrous sulfate 325 mg (65 mg 325 mg PO DAILY 05/28/23 05/28/23 iron) tablet (FeroSul) ranolazine 1,000 mg 1,000 mg PO Q12H 05/28/23 05/28/23 tablet,extended release,12 hr umeclidinium 62.5 mcg/actuation 1 inh inhalation DAILY 05/28/23 05/28/23 blister powder for inhalation (Incruse Ellipta) venlafaxine 37.5 mg 37.5 mg PO DAILY 05/28/23 05/28/23 capsule,extended release 24 hr Allergies Allergy/AdvReac Type Severity Reaction Status Date / Time No Known Allergies Allergy Verified 05/28/23 12:13 [facility] Past Medical History Medical History (Updated 06/28/23 @ 11:36 by Marga Chairez MD) Angina pectoris Anxiety Depression History of asthma History of hyperlipidemia Hypertension Pacemaker Prediabetes Seizures Surgical History Surgical History (Updated 06/28/23 @ 11:36 by Marga Chairez MD) History of cholecystectomy History of hysterectomy History of permanent cardiac pacemaker placement 02/04/2014 Family History Family History (Updated 05/28/23 @ 12:14 by Divina Reyes CMA) Other Heart disease Social History Social History (Updated 05/28/23 @ 12:15 by Divina Reyes CMA) Smoking status: Never smoker Alcohol intake: current Alcohol use details: occasional Substance use type: does not use Do You Feel Safe in your Home?: Yes Lack of Transportation: No Lack of Food: Sometimes True Current Housing: I Have Housing Concerned About Future Housing: No Difficulty Paying Gas/Electric Bills: No Difficulty Paying for Meds: No Currently Unemployed: YES Education: High School Diploma/GED Difficulty w/ Childcare or Family Care: No Living arrangements: alone Occupation/Education: unemployed Additional oc
[2023-06-26 00:51] LABS: Basophils Percent Auto 0.2 % (0.2-1.2); Eosinophils Absolute Auto 0.3 K/mm3 (0-0.3); Hematocrit 39.2 % (37.0-47.0); Hemoglobin 12.1 g/dL (12.0-15.0); Immature Granulocyte Absolute 0.04 K/mm3 (0.00-0.031); Immature Granulocyte Percent A 0.3 % (0-0.5); Lymphocytes Absolute Auto 2.78 K/mm3 (0.9-3.2); Lymphocytes Percent Auto 22.8 % (18.3-44.2); Mean Corpuscular HGB Conc 30.9 g/dl (32-36); Mean Corpuscular Hemoglobin 28.7 pg (26-34); Mean Corpuscular Volume 92.9 fl (80-100); Mean Platelet Volume 10.5 fl (7.4-10.4); Monocytes Absolute Auto 0.9 K/mm3 (0.1-0.6); Neutrophils Absolute Auto 8.3 K/mm3 (1.3-6.7); Neutrophils Percent Auto 67.7 % (45.5-73.1); Platelet Count Result 277 k/mm3 (150-375); Red Blood Count 4.22 M/mm3 (4.2-5.4); Red Cell Distribution Width 15.4 % (11.5-14.5); White Blood Count 12.2 K/mm3 (4.5-10.0)
[2023-06-26 01:03] LABS: Alanine Aminotransferase 65 U/L (6-35); Alkaline Phosphatase 175 U/L (38-126); Anion Gap 8 mmol/L (8-16); Aspartate Amino Transferase 30 U/L (14-36); Bilirubin,Total 0.4 mg/dL (0.2-1.3); Blood Urea Nitrogen 12 mg/dL (7-17); Calcium 8.9 mg/dL (8.4-10.2); Carbon Dioxide 26 mmol/L (22-30); Chloride 105 mmol/L (98-107); Estimated CRCL calculation 92 ml/min; Estimated Glomerular Filt Rate > 60; Glucose 143 mg/dL (65-110); Lipase 48 U/L (23-300); Partial Thromboplastin Time 33.4 SECONDS (22.3-36.8); Potassium 3.6 mmol/L (3.4-5.0); Prothrombin Time 13.9 Seconds (11.1-14.7); Sodium 139 mmol/L (137-145)
--- NOTE | 2023-06-26 01:06 | PC.NURSE ---
EMS administered 324 mg baby ASA prior to arrival.
[2023-06-26 01:14] LABS: Troponin I < 0.012 ng/mL (0.000-0.034)
[2023-06-26 02:02] LABS: Influenza A QL RT-PCR Negative (Negative); Influenza B QL RT-PCR Negative (Negative); RSV RNA, RT-PCR Negative (Negative); SARS-CoV-2 RNA PCR Negative (Negative)
[2023-06-26 02:21] LABS: NT Pro B Type Natriuretic Pept 236 pg/mL (19.9-100)
--- NOTE | 2023-06-26 03:24 | ECG_ITS ---
Measurements Intervals [place] Rate: 75 P: 197 PA: 116 QRS: -7 QRSD: 84 T: 16 QT: 418 QTc: 469 Interpretive Statements SINUS RHYTHM MINIMAL VOLTAGE CRITERIA FOR LVH, CONSIDER NORMAL VARIANT [MEETS CRITERIA IN ONE OF: R(aVL), S(V1), R(V5), R(V5/V6)+S(V1)] ABNORMAL RHYTHM ECG COMPARED TO ECG 10/26/2022 12:17:29 ATRIAL PACEMAKER APPEARS TO BE INHIBITED WITH SINUS RHYTHM Electronically Signed On 06-26-2023 12:36:24 MATH AND SCIENCE DIVISION CHAIR by Walter Sanchez M.D.
--- NOTE | 2023-06-26 03:31 | ECG_ITS ---
Measurements Intervals [place] Rate: 74 P: 87 [place]: 208 QRS: -1 QRSD: 94 T: 18 QT: 431 QTc: 479 Interpretive Statements ELECTRONIC ATRIAL PACEMAKER WITH APPROPRIATE SENSING AND CAPTURE ABNORMAL RHYTHM ECG COMPARED TO ECG 06/26/2023 00:41:37 NO SIGNIFICANT CHANGES Electronically Signed On 06-26-2023 12:37:56 WIND TURBINE MECHANIC by Walter Sanchez M.D.
[2023-06-26 03:50] LABS: Troponin I < 0.012 ng/mL (0.000-0.034)
[2023-06-26 04:30] VITALS: BP 131/68; PULSE 74; RESP 17; O2SAT 98
== END 2023-06-26 04:31 | disposition home or self-care (01) ==
PROVIDERS: Emergency Provider Student in an Organized Health Care Education/Training Program
DX: I20.0 Unstable angina (principal); D72.829 Elevated white blood cell count, unspecified; Z20.822 Contact with and (suspected) exposure to COVID-19; J45.909 Unspecified asthma, uncomplicated; I10 Essential (primary) hypertension; E78.5 Hyperlipidemia, unspecified; R73.03 Prediabetes; F41.9 Anxiety disorder, unspecified; F32.A Depression, unspecified; Z95.0 Presence of cardiac pacemaker; Z90.49 Acquired absence of other specified parts of digestive tract; Z90.710 Acquired absence of both cervix and uterus; R94.31 Abnormal electrocardiogram [ECG] [EKG]
CPT/HCPCS: 36415; 71046; 80053; 83690; 83880; 84484; 85025; 85610; 85730; 87637; 93005; 99284

== ENCOUNTER 2023-08-27 07:52 | Outpatient (CLI) | payer MEDICARE, MEDICAID, SELFPAY ==
[2023-08-27 09:17] LABS: Basophils Percent Auto 0.3 % (0.2-1.2); Eosinophils Absolute Auto 0.2 K/mm3 (0-0.3); Eosinophils Percent Auto 1.9 % (0-4.4); Hematocrit 41.7 % (37.0-47.0); Hemoglobin 12.9 g/dL (12.0-15.0); Immature Granulocyte Absolute 0.05 K/mm3 (0.00-0.031); Immature Granulocyte Percent A 0.4 % (0-0.5); Lymphocytes Absolute Auto 2.37 K/mm3 (0.9-3.2); Lymphocytes Percent Auto 20.4 % (18.3-44.2); Mean Corpuscular HGB Conc 30.9 g/dl (32-36); Mean Corpuscular Hemoglobin 28.8 pg (26-34); Mean Corpuscular Volume 93.1 fl (80-100); Mean Platelet Volume 11.5 fl (7.4-10.4); Monocytes Absolute Auto 0.8 K/mm3 (0.1-0.6); Monocytes Percent Auto 6.4 % (2.6-8.5); Neutrophils Absolute Auto 8.2 K/mm3 (1.3-6.7); Neutrophils Percent Auto 70.6 % (45.5-73.1); Platelet Count Result 278 k/mm3 (150-375); Red Blood Count 4.48 M/mm3 (4.2-5.4); Red Cell Distribution Width 15.4 % (11.5-14.5); White Blood Count 11.6 K/mm3 (4.5-10.0)
[2023-08-27 09:56] LABS: Anion Gap 8 mmol/L (4-12); Blood Urea Nitrogen 12 mg/dL (7-17); Calcium 8.8 mg/dL (8.4-10.2); Carbon Dioxide 25 mmol/L (22-30); Chloride 104 mmol/L (98-107); Estimated Glomerular Filt Rate > 60; Glucose 121 mg/dL (65-110); Sodium 137 mmol/L (137-145)
== END 2023-08-27 07:53 | disposition home or self-care (01) ==
LOC: ANHLAB 07:57
PROVIDERS: Visit Provider Internal Medicine Cardiovascular Disease
DX: R06.09 Other forms of dyspnea (principal); R60.0 Localized edema
CPT/HCPCS: 36415; 80048; 85025

== ENCOUNTER 2023-09-10 09:00 | Outpatient (RCR) | payer MEDICARE, MEDICAID, SELFPAY ==
--- NOTE | 2023-06-18 13:58 | PTOPEVAL1 ---
Assessment and note entered by Stalin Castro, PT Evaluation Information Assessment Status Evaluation Diagnosis Right Proximal Humerus Fracture Onset 05/21/23 Subjective Information Reports that she fell on ice at end of May. She is right handed and having difficulty with majority of activity. Pain at rest and activity. Feels she is weak in both the arm and hand. She is sleeping for about 4 hours at a time with the sling. Reported Pain Level Pain Score 7: Self Report Assessment PT Clinical Summary Patient presents with significant loss in shoulder motion and limited by protective protocol. Pain was controlled with motion today. Demonstrates need for postural reinforcement and passive motion as she is apprehensive. No concerns with current HEP. Plan of Care Interventions Hot Pack/Cold Pack,Manual Therapy,Neuro Re- education,Therapeutic Activities,Therapeutic Exercise PT Services Indicated Yes Treatment Frequency and 2x/week for 10 visits Duration These treatments will address the objective and functional deficits as defined above. The patient will be advanced safely and appropriately in order for the patient to progress towards his/her prior level of function. Additional exercises will be introduced and as well as a comprehensive home exercise program upon discharge, if needed, ?to ensure carryover of functional gains achieved in the clinic. This treatment plan has been reviewed and agreement upon by the patient.
--- NOTE | 2023-06-18 13:58 | OPREHPOC ---
Outpatient Therapy Plan of Care This is a Multidisciplinary Plan of Care that may contain components documented by all disciplines (PT, OT, and ST.) PT Problem 1 PT Problem #1 Knowledge Deficit PT Goal 1 Goal [place] with HEP Target Visit 4 PT Problem 2 PT Problem #2 Pain PT Goal 1 Goal Patient will report ability to sleep in bed with 0 /10 pain Target Visit 4 PT Problem 3 PT Problem #3 Impaired Range of Motion PT Goal 1 Goal Patient will achieve 165 degrees of R shoulder flexion when allowed per protocol to assist with active reaching Target Visit 10 PT Goal 2 Goal Patient will achieve 80 degrees of R shoulder external rotation when allowed per protocol to allow for improved dressing Target Visit 10
--- NOTE | 2023-07-03 09:54 | PCPTNOTE ---
faxed blank order to dr, for clarification as to when pt is able to progress from PROM to active assisted and active ROM of shoulder.
--- NOTE | 2023-07-20 11:10 | PCPTNOTE ---
Patient cancelled today's therapy session.
[2023-08-18 08:00] VITALS: BP_SYST 95
--- NOTE | 2023-08-18 08:52 | OPREHPOC ---
Outpatient Therapy Plan of Care This is a Multidisciplinary Plan of Care that may contain components documented by all disciplines (PT, OT, and ST.) PT Problem 1 PT Problem #1 Knowledge Deficit PT Goal 1 Goal Curry with HEP Target Visit 4 Progress Met Comment 08-18-23 progress met goal continue towards goal PT Goal 2 Target Visit 10 PT Problem 2 PT Problem #2 Pain PT Goal 1 Goal Patient will report ability to sleep in bed with 0 /10 pain Target Visit 4 Progress Met Comment 08-18-23 progress met goal NEW GOAL: *pt report pain rating of 3/10 with increased activity level PT Goal 2 Target Visit 10 PT Problem 3 PT Problem #3 Impaired Range of Motion PT Goal 1 Goal Patient will achieve 165 degrees of R shoulder flexion when allowed per protocol to assist with active reaching Target Visit 10 Progress Not Met Comment 08-18-23 progress goal not met NEW goal * active R shoulder flexion in standing 130' PT Goal 2 Goal Patient will achieve 80 degrees of R shoulder external rotation when allowed per protocol to allow for improved dressing Target Visit 10 Progress Not Met Comment 08-18-23 progress goal not met; continue towards goal PT Problem 4 PT Problem #4 Impaired Strength PT Goal 1 Goal 08-18-23 progress NEW GOALS: to increase use of R arm with home and self care activities standing R shoulder x 5 reps 1* flexion to 90' with 4# hand wt
--- NOTE | 2023-08-18 08:52 | PTOPPROG ---
Assessment and note entered by Carolina Wasserman, PT Progress Information Assessment Status Progress Diagnosis Right Proximal Humerus Fracture Onset 05/21/23 Subjective Information shoulder is doing better, but still weak; have been crocheting and doing more; problems opening a jar; PAIN: range of 0-4/10; is sleeping OK at night in the bed; stiff and sore in shoulder, exercises loosen it up and help; problems reaching behind back and across her body is hard to do; Assessment PT Clinical Summary Glendy has received 10 PT sessions. 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 R shoulder active ROM: flexion 95', abduction 85', IR- reach behind back, palm to lateral hip. The goals were partially achieved. Continue PT treatment. Progress strengthening of shoulder. Plan of Care Interventions Hot Pack/Cold Pack,Manual Therapy,Neuro Re- education,Therapeutic Activities,Therapeutic Exercise PT Services Indicated Yes Treatment Frequency and 2x/wk for 10 more visits Duration These treatments will address the objective and functional deficits as defined above. The patient will be advanced safely and appropriately in order for the patient to progress towards his/her prior level of function. Additional exercises will be introduced and as well as a comprehensive home exercise program upon discharge, if needed, ?to ensure carryover of functional gains achieved in the clinic. This treatment plan has been reviewed and agreement upon by the patient.
--- NOTE | 2023-08-20 15:04 | PCPTNOTE ---
Patient no show today.
--- NOTE | 2023-09-01 09:27 | PCPTNOTE ---
NS, Called pt to remind her of her next appt. She was apologetic for forgetting her appt today.
--- NOTE | 2023-09-14 16:11 | PCPTNOTE ---
This treatment is being continued on visit number [id number]. Please see documentation on both accounts to view progress. Completed interventions, outcomes, and problems have been marked as Inactive to facilitate the copying of the Care plan routine for recurring accounts.
== END 2023-09-14 12:38 | disposition home or self-care (01) ==
LOC: ANHPT 09:00
DX: S42.291D Other displaced fracture of upper end of right humerus, subsequent encounter for fracture with routine healing (principal)
CPT/HCPCS: 97016; 97110; 97140; 97161; 97530; 99199

== ENCOUNTER 2023-09-10 10:22 | Outpatient (CLI) | payer MEDICARE, MEDICAID, SELFPAY ==
[2023-09-10 11:28] LABS: Anion Gap 8 mmol/L (4-12); Blood Urea Nitrogen 11 mg/dL (7-17); Calcium 8.7 mg/dL (8.4-10.2); Carbon Dioxide 24 mmol/L (22-30); Chloride 107 mmol/L (98-107); Estimated Glomerular Filt Rate > 60; Glucose 101 mg/dL (65-110); Potassium 3.6 mmol/L (3.4-5.0); Sodium 139 mmol/L (137-145)
== END 2023-09-10 10:23 | disposition home or self-care (01) ==
LOC: ANHLAB 10:25
PROVIDERS: Visit Provider Internal Medicine Cardiovascular Disease
DX: R60.0 Localized edema (principal); R06.09 Other forms of dyspnea
CPT/HCPCS: 36415; 80048

== ENCOUNTER 2023-10-19 10:00 | Outpatient (RCR) | payer MEDICARE, MEDICAID, SELFPAY ==
[2023-09-14 12:39] VITALS: BP_SYST 95
--- NOTE | 2023-09-14 16:12 | PCPTNOTE ---
This treatment is being continued from visit number [id number]. Please see documentation on both accounts to view progress. Completed interventions, outcomes, and problems have been marked as Inactive to facilitate the copying of the Care plan routine for recurring accounts.
--- NOTE | 2023-09-17 10:00 | PTOPPROG ---
Assessment and note entered by Walter Obrien Evaluation Information Assessment Status Progress Diagnosis Right proximal humerus fracture Onset 05/21/23 Subjective Information Pt. reports that she recently saw her doctor. The doctor requested that she continue to work on strength and ROM and provided an order, however she left the order at home. She states that she still notices weakness with reaching overhead and stiffness with reaching behind her back. She has difficulty with lifting anything of minimal weight overhead. She reports that she would like to continue to improve ROM to assist with ease of reaching behind her back and improve strength with reaching overhead. Assessment PT Clinical Summary Mrs. Gorman has attended a total of 17 treatments thus far. Treatment has primarily focused on ROM yazidi thus far. She has demonstrated progress in regards to strength and active mobility, however deficits still remain, making completion of ADL's and IADL's difficult. Recommend continued skilled PT to address remaining deficits in right shoulder strength and mobility to improve pt. overhead function. Continue to focus on remaining goals listed below regarding strength and mobility. Plan of Care Interventions Hot Pack/Cold Pack,Manual Therapy,Neuro Re- education,Patient/Caregiver Educati,Therapeutic Activities,Therapeutic Exercise PT Services Indicated Yes Treatment Frequency and 1x/week x 6 visits Duration These treatments will address the objective and functional deficits as defined above. The patient will be advanced safely and appropriately in order for the patient to progress towards his/her prior level of function. Additional exercises will be introduced and as well as a comprehensive home exercise program upon discharge, if needed, ?to ensure carryover of functional gains achieved in the clinic. This treatment plan has been reviewed and agreement upon by the patient.
--- NOTE | 2023-10-01 08:35 | PCPTNOTE ---
No call No show, reason unknown. AKEran
--- NOTE | 2023-10-01 12:49 | PCPTNOTE ---
Addendum: 10-01-23 Pt came at wrong time this date and was seen at a later time. JACLYNS
--- NOTE | 2023-10-13 10:41 | PCPTNOTE ---
Cancelled due to no transportation.
--- NOTE | 2023-10-19 10:52 | PTOPDC ---
Assessment and note entered by Carolina Wasserman, PT Discharge Report Assessment Status Discharge Diagnosis Right proximal humerus fracture Onset 05/21/23 Subjective Information been doing the exercises at home; still have problems with reaching up into cabinets and across body; is able to do everything she needs to do at home and taking care of herself; ready to be finished with therapy; Reported Pain Level Pain Score Self Report Additional Pain Score Comments pain range of 1-3/10, tight and stiff- pointed to top and lateral shoulder sleeping is not bothered by shoulder pain; increase pain--using arm decrease pain: ibuprofen, rest, have not been using the heat or ice at home- reinforced PRN use for pain control reinforced breaks with crocheting-- is doing about 15 minutes, then take a break; Assessment PT Clinical Summary Glendy has received a total of 23 PT sessions. Compared to the last progress reports: pain now 1-3/10, over top and anterior shoulder and upper biceps; increase use of R UE for home tasks, but reports problems with reaching overhead and across her body; increase ROM and strength of R shoulder; education completed for HEP. R shoulder active/passive ROM: flexion 100'/ 130' and abduction 80'/ 100' standing active ER- reach to back of head; IR- reaching behind back, palm to R SIJ. strength in standing: flexion to 80' with 3# hand wt x 5 reps & abduction to 80' with 2# hand wt x 5 reps. The goals were partially met. Discharge PT services. She is to continue with her HEP. Plan of Care PT Services Indicated No
--- NOTE | 2023-10-30 15:04 | PTOPDC ---
Assessment and note entered by Carolina Wasserman, PT Discharge Report Assessment Status Discharge Diagnosis Right proximal humerus fracture Onset 05/21/23 Subjective Information been doing the exercises at home; still have problems with reaching up into cabinets and across body; is able to do everything she needs to do at home and taking care of herself; ready to be finished with therapy; Assessment PT Clinical Summary Glendy has received a total of 23 PT sessions. Compared to the last progress reports: pain now 1 -3/10, over top and anterior shoulder and upper biceps; increase use of R UE for home tasks, but reports problems with reaching overhead and across her body; increase ROM and strength of R shoulder; education completed for HEP. R shoulder active/passive ROM: flexion 100'/ 130' and abduction 80'/ 100' standing active ER- reach to back of head; IR- reaching behind back, palm to R SIJ. strength in standing: flexion to 80' with 3# hand wt x 5 reps & abduction to 80' with 2# hand wt x 5 reps. The goals were partially met. Discharge PT services. She is to continue with her HEP. Plan of Care PT Services Indicated No
== END 2023-10-19 12:46 | disposition home or self-care (01) ==
LOC: ANHPT 10:00
DX: S42.291D Other displaced fracture of upper end of right humerus, subsequent encounter for fracture with routine healing (principal)
CPT/HCPCS: 97014; 97110; 97140; 97530; 99199; G0283

== ENCOUNTER 2023-10-30 08:04 | Outpatient (CLI) | payer MEDICARE, MEDICAID, SELFPAY ==
--- NOTE | 2023-11-02 11:12 | WPDNEUROLOGY ---
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 This appears mildly formed. Anteriorly low amplitude mixed frequency activity was seen. There is no significant anteroposterior gradient. Hyperventilation was not performed. Photic Stimulation was performed during which no significant abnormal background changes were seen. Stage I and 2 sleep were recorded during which vertex waves sleep spindles and K complexes were seen. No events were driving response was noted. IMPRESSION This is a normal EEG obtained during awake and sleep states.
== END 2023-10-30 08:05 | disposition home or self-care (01) ==
LOC: ANHNEURO 08:05
PROVIDERS: Visit Provider Student in an Organized Health Care Education/Training Program
DX: G40.909 Epilepsy, unspecified, not intractable, without status epilepticus (principal)
CPT/HCPCS: 95816

== ENCOUNTER 2023-11-24 09:02 | Outpatient (CLI) | payer MEDICARE, MEDICAID, SELFPAY ==
--- NOTE | ~2023-11-24 | US_ITS ---
EXAMINATION: US_VDOPREFBI_US DATE: 11/24/2023 10:16 INDICATION: Lower limb swelling TECHNIQUE: Grayscale ultrasound images without and with compression and Doppler ultrasound images of the bilateral lower extremity veins were obtained. COMPARISON: None. FINDINGS: The visualized portions of right common femoral vein, profunda (deep) femoral vein, femoral vein, pop liteal vein, posterior tibial veins, peroneal veins, gastrocnemius vein and greater saphenous vein ou tflow are patent. Right standing venous mapping: reflux seconds duration; vein size. Greater saphenous origin: 0 seconds; 6.3 mm. Greater saphenous mid thigh:------ 0 seconds; 4.3 mm. Greater saphenous below knee:--- 0 seconds; 3.5 mm. Lesser saphenous proximally:------ 0 seconds; 3.2 mm. Lesser saphenous distally: 0 seconds; 2.1 mm. The visualized portions of left common femoral vein, profunda femoral vein, femoral vein, popliteal v ein, posterior tibial veins, peroneal veins, gastrocnemius vein and greater saphenous vein outflow ar e patent. Right standing venous mapping: reflux seconds duration; vein size. Greater saphenous origin: 0 seconds; 8.5 mm. Greater saphenous mid thigh:------ 0.6 seconds; 4.6 mm. Greater saphenous below knee:--- 0 seconds; 2.9 mm. Lesser saphenous proximally:------ 0 seconds; 2.3 mm. Lesser saphenous distally: 0 seconds; 2.0 mm. IMPRESSION: 1. No deep venous thrombosis in either lower limb. 2. No significant reflux in the bilateral greater and lesser saphenous veins. Reviewed, dictated and finalized at location A.
== END 2023-11-24 09:03 | disposition home or self-care (01) ==
LOC: ANHIMG 09:05
PROVIDERS: Visit Provider Nurse Practitioner Adult Health
DX: R60.0 Localized edema (principal)
CPT/HCPCS: 93970

== ENCOUNTER 2024-02-08 14:39 | Outpatient (CLI) | payer MEDICARE, MEDICAID, SELFPAY ==
--- NOTE | ~2024-02-08 | CT_ITS ---
CT of the Abdomen and Pelvis: Indication: Pelvic pain Technique: 2.5 mm axial scans were obtained through the abdomen and pelvis following intravenous adm inistration of 100 cc of Omnipaque 350. Dose reduction technique was used on this scan by utilizing a utomated exposure control and iterative reconstruction technique. The dose-length product (DLP) was 1 158.55 mGy-cm. Findings: Scans through the lung bases demonstrate atelectatic change at the lingula. The liver, spleen, pancreas, adrenals and right kidney are within normal limits. Cholecystectomy clip s present. 2.5 cm probable left renal cyst. No evidence of aortic aneurysm. No lymphadenopathy. No bowel obstruction or bowel wall thickening. There is no evidence to suggest acute appendicitis. Images through the pelvis were performed. Urinary bladder unremarkable. Probable fibroid uterus. Smal l bilateral fat-containing hernias present. No ascites. Impression: No acute abnormality evident. Fibroid uterus. Small fat-containing bilateral inguinal hernias. 2.5 cm probable left renal cyst. Consider ultrasound to confirm cystic lesion. Reviewed, dictated and finalized at location . Impression: No acute abnormality evident. Fibroid uterus. Small fat-containing bilateral inguinal hernias. 2.5 cm probable left renal cyst. Consider ultrasound to confirm cystic lesion.
[2024-02-08 14:57] LABS: Estimated Glomerular Filt Rate > 60
== END 2024-02-08 14:40 | disposition home or self-care (01) ==
LOC: MICIMG 14:41
PROVIDERS: PCP Obstetrics & Gynecology; Visit Provider Obstetrics & Gynecology
DX: R10.2 Pelvic and perineal pain (principal); D25.9 Leiomyoma of uterus, unspecified; K40.20 Bilateral inguinal hernia, without obstruction or gangrene, not specified as recurrent
CPT/HCPCS: 74177; Q9967

== ENCOUNTER 2024-03-03 15:14 | Outpatient (CLI) | payer MEDICARE, MEDICAID, SELFPAY | END 2024-03-03 15:15 | disposition home or self-care (01) | LOC: ANHLAB 15:16 | PROVIDERS: PCP Obstetrics & Gynecology; Visit Provider Nurse Practitioner Adult Health | DX: I10 Essential (primary) hypertension (principal) | CPT/HCPCS: 36415 ==

== ENCOUNTER 2024-07-22 12:46 | Outpatient (CLI) | payer MEDICARE, MEDICAID, SELFPAY ==
--- OUTSIDE RECORDS SUMMARY | 2024-07-22 13:27 | XMS_ITS | Clinical Summary ---
Author Organization [facility] Address [facility] [place] [address] Care Team Providers Care Dyeing Machine Feeder Name Role Phone Carolyn Aggarwal NP Primary Care Provider [phone] Alex Hoskins MD Unavailable Allergies No known active allergies Medications clonazePAM (KlonoPIN) 0.5 mg tabletIndication s:anxiety Take 1 tablet (0.5 mg total) by mouth 2 (two) times a day Active escitalopram (LEXAPRO) 20 mg tabletIndication s:Anxiety with Depression Take 1 tablet (20 mg total) by mouth every morning Active magnesium oxide (MAG-OX) 400 mg (241.3 mg elemental magnesium) tabletIndication s:hypomagnesemia Take 1 tablet (400 mg total) by mouth every morning Active famotidine (PEPCID) 40 mg tabletIndication s:gastroesophage al reflux disease Take 1 tablet (40 mg total) by mouth 2 (two) times a day Active atorvastatin (LIPITOR) 40 mg tabletIndication s:hyperlipidemia Take 1 tablet (40 mg total) by mouth every morning Active omeprazole (PriLOSEC) 40 mg capsuleIndicatio ns:Treatment of Non-Bleeding Gastric Disorder Take 1 capsule (40 mg total) by mouth 2 (two) times a day Active melatonin tablet Take 1 tablet (3 mg total) by mouth nightly Active albuterol HFA (PROVENTIL HFA,VENTOLIN HFA,PROAIR HFA) 90 mcg/actuation inhalerIndicatio ns:Chronic Obstructive Pulmonary Disease Inhale 2 puffs every 6 (six) hours as needed for wheezing Active benztropine (COGENTIN) 0.5 mg tabletIndication s:Parkinsonism Take 1 tablet (0.5 mg total) by mouth every morning 020 Active ergocalciferol (VITAMIN D) 50,000 unit capsuleIndicatio ns:supplement Take 1 capsule (50,000 Units total) by mouth once a week Wednesdays 021 Active losartan (COZAAR) 25 mg tabletIndication s:hypertension Take 1 tablet (25 mg total) by mouth every morning 021 Active FeroSuL 325 mg (65 mg iron) tabletIndication s:supplement Take 1 tablet (325 mg total) by mouth every morning 023 Active venlafaxine XR (EFFEXOR-XR) 37.5 mg 24 hr capsuleIndicatio ns:Anxiety with Depression Take 1 capsule (37.5 mg total) by mouth every morning 023 Active HYDROcodone-acet aminophen (NORCO) 5-325 mg per tabletIndication s:Pain Take 1 tablet by mouth every 6 (six) hours as needed for pain 28 tablet 024 Active ranolazine ER (RANEXA) 1,000 mg 12 hr tablet TAKE 1 TABLET(1000 MG) BY MOUTH TWICE DAILY 180 tablet 3 024 Active torsemide (DEMADEX) 20 mg tablet Take 1 tablet (20 mg total) by mouth 2 (two) times a day 60 tablet 11 024 Active primidone (MYSOLINE) 50 mg tabletIndication s:Essential Tremor Take 1 tablet (50 mg total) by mouth nightly 024 Active diphenoxylate-at ropine (LOMOTIL) 2.5-0.025 mg per tabletIndication s:diarrhea Take 1 tablet by mouth 2 (two) times a day as needed for diarrhea Active gabapentin (NEURONTIN) 300 mg capsuleIndicatio ns:Neuropathic Pain Take 1 capsule (300 mg total) by mouth 2 (two) times a day 024 Active ARIPiprazole (ABILIFY) 10 mg tabletIndication s:Depression Treatment Adjunct Take 1 tablet (10 mg total) by mouth every morning 024 Active busPIRone (BUSPAR) 15 mg tabletIndication s:Generalized Anxiety Disorder Take 1 tablet (15 mg total) by mouth 3 (three) times a day Active levETIRAcetam (KEPPRA) 750 mg tabletIndication s:psuedo-seizure s Take 1 tablet (750 mg total) by mouth 2 (two) times a day Active metoprolol tartrate (LOPRESSOR) 50 mg immediate release tablet TAKE 1 AND 1/2 TABLETS(75 MG) BY MOUTH TWICE DAILY 270 tablet 3 024 Active Safety Lancets 28 gauge misc TEST 3 TIMES A DAY Active cholestyramine (QUESTRAN) 4 gram powderIndication s: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 Take 1 g by mouth 2 (two) times a day with meals 024 Active OneTouch Ultra Test strip 1 each by other route Active ascorbic acid with paige hips 500 mg tabletIndication s:supplement Take 1 tablet/chew tab (500 mg total) by mouth every morning 024 Active potassium chloride ER 20 mEq CR tabletIndication s:supplement Take 1 tablet (20 mEq total) by mouth 2 (two) times a day 180 tablet 025 Active acetaminophen (TYLENOL) 500 mg tablet Take 2 tablets (1,000 mg total) by mouth every 6 (six) hours as needed for pain for up to 30 doses 60 tablet 025 Active ibuprofen (ADVIL,MOTRIN) 600 mg tabletIndication s:Pain Take 1 tablet (600 mg total) by mouth every 6 (six) hours as needed for pain for up to 30 doses 30 tablet 025 Active oxyCODONE (ROXICODONE) 5 mg immediate release tabletIndication s:Pain Take 1 tablet (5 mg total) by mouth every 4 (four) hours as needed for pain for up to 15 doses 15 tablet 025 Active Additional Information Patient not taking.Reported on 07/08/2024 polyethylene glycol (MIRALAX) 17 gram/dose bulk powder Take 17 g by mouth daily As needed to have one bowel movement daily. 510 g 025 Active Additional Information Patient not taking.Reported on 07/08/2024 nitroglycerin (NITROSTAT) 0.4 mg SL tabletIndication s:acute episode of anginal pain Place 1 tablet (0.4 mg total) under the tongue every 5 (five) minutes as needed for chest pain 25 tablet 2 025 Active cholestyramine light 4 gram packet MIX 1 PACKET IN 2-6 OZ OF WATER/NONCARBO NATED BEVERAGE AND DRINK TWICE DAILY 025 Active hydrOXYzine (ATARAX) 25 mg tablet 025 Active isosorbide mononitrate ER (IMDUR) 120 mg 24 hr tablet TAKE 1 TABLET(120 MG) BY MOUTH EVERY MORNING 30 tablet 2 025 Active nitroglycerin (NITROSTAT) 0.[address] 1 tablet (0.4 mg total) under the tongue every 5 (five) minutes as needed for chest pain 25 tablet 3 023 2024 Discontinued(R eorder) isosorbide mononitrate ER (IMDUR) 120 mg 24 hr tabletIndication s:prevention of anginal pain in coronary artery disease Take 1 tablet (120 mg total) by mouth every morning 30 tablet 2 024 2024 Discontinued Active Problems Problem Noted Date Diagnosed Date Post-operative state 06/16/2024 Pelvic mass 03/01/2024 Periodic limb movement disorder 09/23/2023 Localized edema 05/05/2023 Coronary vasospasm 03/04/2023 PAT (paroxysmal atrial tachycardia) 10/08/2022 Sensorineural hearing loss, bilateral 06/20/2022 Sinus tarsi syndrome of right ankle 11/24/2021 Vertigo 10/18/2021 Congenital pes planus 10/04/2021 Polypharmacy 07/03/2021 Mixed hyperlipidemia 07/03/2021 Uncomplicated asthma 07/03/2021 Morbid obesity with BMI of 45.0-49.9, adult /0 06/2021 RORO on CPAP 07/03/2021 Accessory navicular bone of foot 01/11/2021 Tibialis posterior tendinitis 01/11/2021 Sinoatrial node dysfunction (CMS/HCC) 04/06/2020 Pacemaker 12/22/2019 Overview (01/05/2020): [employer] Dual Pacemaker. Dx; SSS, Sinus Bradycardia. DOI 02/04/2014-Dr Smith. Latitude remote monitoring. Other chest pain 11/23/2019 ALEMAN (dyspnea on exertion) 11/23/2019 HTN (hypertension), benign 11/23/2019 Coronary-myocardial bridge 11/23/2019 Chronic fatigue 11/23/2019 Congestive heart failure 07/29/2019 Overweight 06/29/2017 Gonzalez's esophagus 04/21/2017 Depressive disorder 09/03/2016 Seizure disorder 05/14/2015 Gastroesophageal reflux disease 01/09/2015 Atrioventricular block, complete 03/03/2014 Syncope and collapse 03/03/2014 Resolved Problems Problem Noted Date Diagnosed Date Resolved Date Dyslipidemia 11/23/2019 06/25/2022 Encounters Date Type Department Care Team Description 07/12/2024 Telephone [facility] Cardiology [address] [place] [address] [place] [phone] Carlita Huizar NP 07/08/2024 2:00 PM FLEET DIRECTOR Office Visit [facility] Cardiology [address] [place] [address] [place] [phone] Carlita Huizar NP ALEMAN (dyspnea on exertion) (Primary Dx); Edema, lower extremity; Class 3 severe obesity due to excess calories with serious comorbidity and body mass index (BMI) of 45.0 to 49.9 in adult (HCC) 07/07/2024 Telephone [facility] Cardiology [address] [place] [address] [address] [place] [phone] Walter Sanchez MD 07/01/2024 10:10 AM FLEET DIRECTOR Office Visit [facility] [address] [place] [address] 13th [place] [address] Dolores Lopez MD Postop check (Primary Dx) 06/29/2024 7:45 AM FLEET DIRECTOR Ancillary Procedure [facility] Cardiology [facility] [address], [place] [phone] SSS (sick sinus syndrome) (HCC); Pacemaker; Bradycardia 06/22/2024 Results Follow-Up [facility] Medicine 13th [place] [address] Dolores Lopez MD 06/16/2024 5:13 PM FLEET DIRECTOR Anesthesia Event [facility] Operating Room [address] [place] [address] Farida Najera MD Horton Machelle Cindy SHANITA Blackman 06/16/2024 2:20 PM FLEET DIRECTOR - 06/16/2024 5:50 PM FLEET DIRECTOR Surgery [facility] Operating Room [address] [place] [address] Dolores Lopez MD XI EXCISION PELVIC MASS - LAPAROSCOPIC ROBOTIC ASSISTED 06/16/2024 11:08 AM FLEET DIRECTOR - 06/17/2024 12:35 PM FLEET DIRECTOR Hospital [address] [address] Dolores Lopez MD Hagemann, Andrea Ruth, MD Pelvic mass Discharge Disposition: Discharge to home or self care 06/16/2024 Orders Only [address] [address] Dolores Lopez MD 06/16/2024 Orders Only [address] [address] Dolores Lopez MD 06/15/2024 Telephone [facility] [address] [facility] 13th [place] [address] Dolores Lopez MD Surgery Confirmation 06/14/2024 Telephone [facility] [address] [facility] 13th [place] [address] Idania Emmanuel RN 06/10/2024 Telephone [facility] [address] [facility] 13th [place] [address] Myrtle Ellison RN 06/10/2024 Telephone [facility] [address] [facility] 13th [place] [address] Debra Castellanos, JARON 06/09/2024 Telephone [facility] [address] [facility] [address]th [place] [address] Idania Emmanuel RN 06/07/2024 Telephone [facility] Cardiology [address] [facility] [address], [place] [phone] Walter Sanchez MD 05/20/2024 Telephone [facility] [address] [facility] [address]th [place] [address] Debra Castellanos, JARON 05/09/2024 Telephone [facility] [address] [facility] 13th [place] [phone] Debra Castellanos, JARON 05/09/2024 Telephone [facility] Operating Room [address] [place] [address] Dolores Lopez MD 05/06/2024 Telephone [facility] [address] [place] [address] Dolores Loepz MD Surgery Confirmation from Last 3 Months Immunizations Immunization Administration Dates Next Due Influenza, Quadrivalent, Spl it, Intramuscular 01/14/2019,02/19/2017,01/11/2016,03/20 Influenza, Quadrivalent, Spl it, Preservative Free, Intramuscular 02/27/2020,01/14/2018 Influenza, Trivalent, High D ose, Split, Preservative Free, Intramuscular 02/01/2014 Influenza, Trivalent, Preser vative Free, Intramuscular 06/16/2024 Moderna SARS-CoV-2 Monovalen t Vaccination (12+ YRS) 08/28/2020,07/31/2020 Pneumococcal Polysaccharide PPV23 02/01/2014 Tdap 05/04/2008 Surgical History Surgery Date Site/Laterality Comments CARDIAC CATHETERIZATION INSERT / REPLACE / REMOVE PACEMAKER HYSTERECTOMY 06/04/2024 - 07/01/2024 Medical History Medical History Date Comments Hypertension Hyperlipidemia Acid reflux Anxiety Depression Sleep apnea Asthma Family History Medical History Relation Name Comments Diabetes type II Mother Hypertension Mother Relation Name Status Comments Father Mother Alive Social History Tobacco Use Types Packs/Day Years Used Date Smoking Tobacco: Former Cigarettes 0.3 0.1 1 06/1980 - 1981 Smokeless Tobacco: Never Tobacco Cessation:Counseling Given: Not Answered Alcohol Use Standard Drinks/Week Comments Not Currently 0 (1 standard drink = 0.6 oz pur e alcohol) AUDIT-C Answer Date Recorded Q1: How often do you have a drink containing alcohol? Never 04/20/2024 Q2: How many drinks containi ng alcohol do you have on a typical day when you are drinking? Patient does not drink Q3: How often do you have si x or more drinks on one occasion? Never 04/20/2024 Personal Safety Answer Date Recorded Have you ever been in or are you currently in a harmful physical or emotional relationship or is someone making you feel afraid or unsafe? Denies 06/16/2024 Comments No Sex and Gender Information Value Date Recorded Sex Assigned at Not on file Legal Sex Female 3:33 AM FLEET DIRECTOR Gender Identity Not on file Sexual Orientation Not on file Obstetrics History Para Term AB IAB SAB Ectopic Multiple Livin g Live Births 3 3 3 3 Date Outcome GA Total Labor Labor/2nd/3rd Weight Sex Type Anes PTL Lulu A1 A5 Name Clin Term Term Term Last Filed Vital Signs Vital Sign Reading Time Taken Comments Blood Pressure 110/60 07/08/2024 2:07 PM FLEET DIRECTOR Pulse 79 07/08/2024 2:07 PM FLEET DIRECTOR Temperature 36.5 C (97.7 F) 07/01/2024 10:29 AM FLEET DIRECTOR Respiratory Rate 18 06/17/2024 9:00 AM FLEET DIRECTOR Oxygen Saturation 96% 07/08/2024 2:07 PM FLEET DIRECTOR Inhaled Oxygen Concentration - - Weight 121.7 kg (268 lb 4.8 oz) 07/08/2024 2:07 PM FLEET DIRECTOR Height 157.5 cm (5' 2 ) 07/08/2024 2:07 PM FLEET DIRECTOR Body Mass Index 49.07 07/08/2024 2:07 PM FLEET DIRECTOR Plan of Treatment Health Maintenance Due Date Last Done Comments Breast Cancer Screening-Mammogram 1965 Colon Cancer Screening-Colonoscopy 1965 Depression Screening 1965 Hepatitis C Screening 1965 Hepatitis B Screening 1982 Regular Well Visit/Exam 18-64 1982 Zoster Vaccine (1 of 2) 2014 Pneumococcal vaccine <65 (2 of 2 - PCV) 02/01/2015 02/01/2014 DTaP/Tdap/Td Vaccine (2 - Td or Tdap) 05/04/2018 05/04/2008 Covid-19 Vaccine (3 - 2023-2 5 season) 2024 08/28/2020, 07/31/2020 Influenza Vaccine Completed 06/16/2024, , 01/14/2019, Additional history exists Medical Devices Implanted Type Area Pacs Administrator Device Identifier Shelf Expiration Date Model / Serial / Lot Pacemaker Pacemaker Left: Chest Procedures Procedure Name Priority Date/Time Associated Diagnosis Comments DEVICE CHECK - REMOTE Routine 06/30/2024 1:49 PM FLEET DIRECTOR SSS (sick sinus syndrome) (HCC) Pacemaker Bradycardia POCT GLUCOSE DEVICE Routine 06/16/2024 8 :11 PM FLEET DIRECTOR CYTOLOGY Routine 06/16/2024 6:06 PM FLEET DIRECTOR SURGICAL PATHOLOGY Routine 06/16/2024 6: 06 PM FLEET DIRECTOR IA AN PROCEDURE PLACEHOLDER Routine 06/16/2024 6:01 PM FLEET DIRECTOR IA AN PROCEDURE PLACEHOLDER Routine 06/16/2024 5:59 PM FLEET DIRECTOR IA AN ELECTIVE ENDOTRACHEAL AIRWAY Routine 06/16/2024 5:59 PM FLEET DIRECTOR LYSIS OF ADHESIONS 06/16/2024 5: 17 PM FLEET DIRECTOR Pelvic mass Case Notes 03/15@1326- Blank [facility] email sent to Carmen via email (EF) XI SALPINGO/OOPHORECTOM Y - LAPAROSCOPIC ROBOTIC ASSISTED 06/16/2024 5:17 PM FLEET DIRECTOR Pelvic mass Case Notes 03/[email or web address]- Blank [facility] email sent to Carmen via email (EF) XI EXCISION PELVIC MASS - LAPAROSCOPIC ROBOTIC ASSISTED 06/16/2024 5:17 PM FLEET DIRECTOR Pelvic mass Case Notes 03/15@1326- Blank [facility] email sent to Carmen via email (EF) from Last 3 Months Results * DEVICE CHECK - REMOTE (06/30/2024 1:49 PM FLEET DIRECTOR) Anatomical Region Laterality Modality Other Narrative 07/08/2024 8:34 AM FLEET DIRECTOR [employer] Dual Pacemaker. Dx; SSS, Sinus Bradycardia. DOI 02/04/2014-Dr Smith. Latitude remote monitoring. Routine DDD Pacemaker remote. Normal device function. Battery function-Ok, 3.5 years remaining battery life to DYLAN Appropriate lead measurements noted. Presenting rhythm: -VS, regular. AP-24%, CHALK TESTER-0%. 6-Atrial high rate episode noted, longest 1 minute duration, iegm's ATach. No ventricular high rate episodes noted. Medications; Lopressor, Imdur. See scanned report. Office pacemaker f/u 07/26/2025. Latitude remote f/u 09/28/2024. Mitra Emanuel RN us Walter Sanchez MD CV CARDIAC SERVICES PROC EDURES Final Result * POCT glucose (06/16/2024 8:11 PM FLEET DIRECTOR) Glucose, POC 138 70 - 199 mg/dL Blood 06/16/2024 8:11 PM FLEET DIRECTOR 06/16/2024 8:11 PM FLEET DIRECTOR us Dolores Lopez MD LAB POCT ORDERABLES - D SAMMIEICE Final Result [facility] Department [place] [address] * Cytology (06/16/2024 6:06 PM FLEET DIRECTOR) Pelvis (Cytology) 06/16/2024 6:06 PM FLEET DIRECTOR 06/17/2024 8:11 AM FLEET DIRECTOR Narrative 06/21/2024 2:14 PM FLEET DIRECTOR EPIC results best viewed via link to PDF [facility] [place] [address] Note to Patients: This report may contain a detailed description of human tissue sent by a health care provider to the laboratory for pathologic evaluation. The content of this report is essential for diagnosis and may provide important critical findings. This information may be unfamiliar to patients to review without a medical professional present. It is advised that the patient review this report in the presence of a health care provider who can answer questions and explain the details. CYTOPATHOLOGY REPORT FINAL Patient Name: GLENDY GREGG Gender: F : 1965 (Age: 58) [address]: [address] [place] [phone] Hospital #: [id number] Taken:06/16/2024 Received:06/17/2024 Reported: 06/21/2024 Patient Type: [facility] OP In Bed Service: Gynecology Location: [place] [address] Physician(s): Niurka Park NP FINAL DIAGNOSIS A. Pelvic washings: - Negative for malignancy 06/20/2024 14:43 By this signature, I attest that the above diagnosis is based upon my personal examination of the slides(and/or other material indicated in the diagnosis). Marcial Villa M.D. Report Electronically Reviewed and Signed Out By Marcial Villa M.D. 06/21/2024 14:14:03 Baldemar Sevilla [facility](ASCP) Gross Description A. Pelvic washings: 35 ml bloody fluid - 1 Pap stained ThinPrep. (ep) Clinical Diagnosis and History pelvic mass REPORT IMAGES AND SCANNED DOCUMENTS, IF INCLUDED, ONLY VIEWABLE IN PDF VERSION OF REPORT The performance characteristics of some immunohistochemical stains, in-situ hybridization and fluorescence in-situ hybridization tests and immunophenotyping by flow cytometry cited in this report (if any) were determined by the Surgical Pathology and Flow Cytometry Departments at [facility] as part of an ongoing billing and quality technician program and in compliance with federally mandated regulations drawn from the Clinical Laboratory Improvement Act of 1988 (CLIA '88). Some of these tests rely on the use of analyte specific reagents and are subject to specific labeling requirements by the US Food and Drug Administration. Such diagnostic tests may only be performed in a facility that is certified by the Department of Health and Human Services as a high complexity laboratory under CLIA '88. The FDA has determined that such clearance or approval is not necessary. This test is used for clinical purposes. It should not be regarded as investigational or for research. Nevertheless, federal rules concerning the medical use of analyte specific reagents require that the following disclaimer be attached to the report: This test was developed and its performance characteristics determined by the Surgical Pathology and Flow Cytometry Departments of [facility]. It has not been cleared or approved by the U. S. Food and Drug Administration. Dolores Lopez MD LAB CYTOLOGY ORDERABLES Final Result * Surgical pathology (06/16/2024 6:06 PM FLEET DIRECTOR) Ovary(ies) with or without tube, non-tumor 06/16/2024 6:06 PM FLEET DIRECTOR 06/17/2024 8:14 AM FLEET DIRECTOR Narrative 06/21/2024 2:49 PM FLEET DIRECTOR EPIC results best viewed via link to PDF [facility] [place] [address] Note to Patients: This report may contain a detailed description of human tissue sent by a health care provider to the laboratory for pathologic evaluation. The content of this report is essential for diagnosis and may provide important critical findings. This information may be unfamiliar to patients to review without a medical professional present. It is advised that the patient review this report in the presence of a health care provider who can answer questions and explain the details. SURGICAL PATHOLOGY REPORT FINAL Patient Name: GLENDY GREGG Gender: F : 1965 (Age: 58) Address: [address] [place] [phone] Hospital #: [id number] Taken:06/16/2024 Received:06/17/2024 Reported: 06/21/2024 Patient Type: [facility] OP In Bed Service: Gynecology Location: [facility] Physician(s): Dolores Lopez M.D. Carolyn Arroyo NP Diagnosis: A. Ovary and fallopian tube, right, salpingo-oophorectomy - Right ovary with no histopathologic abnormality - Right fallopian tube with paratubal cysts B. Ovary, left, oophorectomy - Ovary with fibroma - No fallopian tube identified in specimen (see comment) jebe/06/21/2024 06:54 By this signature, I attest that the above diagnosis is based upon my personal examination of the slides(and/or other material indicated in the diagnosis). Navid Ritchie M.D., Ph.D. Report Electronically Reviewed and Signed Out By Navid Ritchie M.D., Ph.D. 06/21/2024 14:49:57 Microscopic Description and Comment: Microscopic examination substantiates the diagnosis. Although container B is labeled as left tube and ovary, per the operative note, discussion with the surgeon, and gross examination, there is no left tube present. Case reviewed with Brittani Figueroa MD. Monique Guajardo M.D. History: The patient is a 58-year-old woman who presents with a pelvic/left ovarian mass abutting the vaginal cuff. Operative procedure: Laparoscopic robotic assisted excision of pelvic mass, salpingo-oophorectomy. Specimen(s) Received: A: Right tube & ovary B: Left Tube & ovary Gross Description: Received in two formalin jars labeled with the patient's identifiers. A. Designated right tube and ovary is an intact hilario-damon, glistening and lobular ovary (3.2 g, 2.6 x 1.7 x 1.2 cm) with an overlying convoluted red-hilario fallopian tube with fimbriated end (3.8 x 0.7 cm). The fallopian tube displays multiple opaque paratubal simple cysts clustered near the fimbriated end (0.2-0.8 cm). The attached vascular adnexal soft tissue is red-hilario, soft and grossly free of discrete lesions. Sections through the tube find a patent lumen, and sections through the ovary find the usual features. Final Inspector Motorcyles sections are submitted: A1 = accounting representative ovary; A2 = accounting representative fallopian tube including entire fimbriated end. Jar 1. B. Designated left tube and ovary is a 242 g, 10 x 10 x 7 cm aggregate of irregular essentially homogeneous white-pale red fibrous soft tissue fragments. There is a small amount of attached fibromembranous and fatty soft tissue on one fragment of the mass. No fallopian tube is identified or additionally provided in the container. Sections through the fragments find white-pale red rubbery and fibrous cut surfaces. No unusually soft, hemorrhagic, necrotic or otherwise suspicious foci are identified. No ovarian parenchyma or fallopian tube is identified. Final Inspector Motorcyles sections are submitted in B1-8. Jar 2. sxv/06/17/2024 11:35 PA(s): Alban Justin MS, GREY ([facility])CM By this signature, I attest that the above diagnosis is based upon my personal examination of the slides(and/or other material). Addenda/Procedures The performance characteristics of some immunohistochemical stains, fluorescence in-situ hybridization tests and immunophenotyping by flow cytometry cited in this report (if any) were determined by the Surgical Pathology and Flow Cytometry Departments at [facility] as part of an ongoing billing and quality technician program and in compliance with federally mandated regulations drawn from the Clinical Laboratory Improvement Act of 1988 (CLIA '88). Some of these tests rely on the use of analyte specific reagents and are subject to specific labeling requirements by the US Food and Drug Administration. Such diagnostic tests may only be performed in a facility that is certified by the Department of Health and Human Services as a high complexity laboratory under CLIA '88. The FDA has determined that such clearance or approval is not necessary. This test is used for clinical purposes. It should not be regarded as investigational or for research. Nevertheless, federal rules concerning the medical use of analyte specific reagents require that the following disclaimer be attached to the report: This test was developed and its performance characteristics determined by the Surgical Pathology and Flow Cytometry Departments of [facility]. It has not been cleared or approved by the U. S. Food and Drug Administration. IMAGES AND SCANNED DOCUMENTS, IF INCLUDED, ONLY VIEWABLE IN PDF VERSION OF REPORT us Dolores Lopez MD LAB PATHOLOGY ORDERABLE S Final Result * IA AN PROCEDURE PLACEHOLDER (06/16/2024 6:01 PM FLEET DIRECTOR) Glendy Queen CRNA - 06/16/2024 6:01 PM FLEET DIRECTOR Glendy Del Castillo CRNA 06/16/2024 6:02 PM Peripheral IV Catheter Patient location: OR Staff: Supervising provider: Farida Najera MD Preprocedure prep: Prep solution: chlorhexadine PPE: gloves and provider hat/mask PIV line: Site: hand Catheter size: 18 g Technique: anatomical landmarks Procedure details: good blood return and occlusive dressing applied Number of attempts: 1 Assessment: Events: patient tolerated procedure well with no complications Additional comments: Placed by SUPERVISOR METALIZING us Farida Najera MD ANESTHESIA ORDERABLES Final R esult * IA AN ELECTIVE ENDOTRACHEAL AIRWAY, IA AN PROCEDURE PLACEHOLDER (06/16/2024 5:59 PM FLEET DIRECTOR) Glendy Queen CRNA - 06/16/2024 5:59 PM FLEET DIRECTOR Glendy Del Castillo CRNA 06/16/2024 6:01 PM Airway Patient location: OR Urgency: elective Indications for airway management: anesthesia Difficult airway: no Staff: Supervising provider: Farida Najera MD Placed by: SOLAR FABRICATION TECHNICIAN: Glendy Del Castillo CRNA Emergent airway documentation: Risks and benefits discussed: yes Consent obtained: yes Consent given by: patient Airway prep: Preoxygenated: yes Patient position: sniffing Mask difficulty assessment: 0 - not attempted Spontaneous ventilation during airway: absent Sedation level during airway: GA Final airway details: Final airway type: endotracheal airway Tube type: ETT ETT size: 7.0 mm Cuffed: yes Technique used for successful ETT placement: video laryngoscopy Devices/Methods used in placement: intubating stylet and cricoid pressure Insertion site: oral Video blade type: Sandoval Blade size: 3 Cormack-Lehane (video): grade I - full view of glottis Initial cuff pressure: 30 cm H2O Cuff volume: 7 mL Cuff inflated with: air ETT to teeth: 20 cm Placement verified by: auscultation and CO2 detection Airway secured with: silk tape Number of attempts: 1 us Farida Najera MD ANESTHESIA ORDERABLES Final R esult from Last 3 Months Insurance [facility] MEDIC[facility] ADVANTAGE [employer] [facility] MEDIC[facility] ADVANTAGE Advance Directives For more information, please contact: [phone] * Full Code (Latest Code Status on File) Date Activated Date Inactivated Comments 06/16/2024 10:17 PM 06/17/2024 4:40 PM Care Teams Dyeing Machine Feeder Relationship Specialty Start Date End Date Carolyn Aggarwal NP [facility] [place] [address] PCP - General Family Medicine 11/16/23 Alex Hoskins MD [address] [place] [address] Referring Physician Obstetrics and Gynecology 02/23/24
--- OUTSIDE RECORDS SUMMARY | 2024-07-22 13:27 | XMS_ITS | Clinical Summary ---
Author Organization [facility] Address [address] [place] [address] Care Team Providers Care Drug Coordinator Name Role Phone Unavailable Primary Care Provider Unavailabl e Social History Tobacco Use Types Packs/Day Years Used Date Smoking Tobacco: Never Assessed Comments Unknown Sex and Gender Information Value Date Recorded Sex Assigned at Not on file Legal Sex Female 7:10 PM CDT Gender Identity Not on file Sexual Orientation Not on file Plan of Treatment Health Maintenance Due Date Last Done Comments Cervical Cancer Screening Pa p Smear (Age 30 to 64) Every 3 Years 1964 Colorectal Cancer Screening Colonoscopy (10 Years) 1964 Annual Physical 1967 Hepatitis C 1982 DTaP, Tdap and Td Vaccines ( 1 - Tdap) 1983 Cervical Cancer Screening Pa p with HPV Testing (Age 30 to 64) Every 5 Years 1994 Cervical Cancer Screening with HPV 1994 Mammogram Screening 2004 Zoster Vaccines (1 of 2) 2014 COVID-19 Vaccine (2023-2 5 season) 2024 Influenza Adult (#1) 2024 RSV Immunization or 60+ Years (1 - 1-dose 75+ series) 2039 Meningococcal B Vaccine Aged Out No l onger eligible based on patient's age to complete this topic Meningococcal Vaccine Aged Out No lexie rhys eligible based on patient's age to complete this topic Pneumococcal Vaccine: Pediat rics (0 to 5 Years) and At-Risk Patients (6 to 64 Years) Aged Out No longer eligible b ased on patient's age to complete this topic RSV Immunizations Under 20 Months Aged Out No longer eligible based on patient's age to complete this topic
--- OUTSIDE RECORDS SUMMARY | 2024-07-22 13:27 | XMS_ITS ---
Author Organization [facility] Address [address] [place] [address] Care Team Providers Care Damaged Freight Inspector Name Role Phone Omar REHMAN, Jamee Primary Care Provider UnavailMonique Bloom Unavailable [phone] Brianne Rios Unavailable [phone] Social History Sex Assigned At : Social History Observation Description Sex Assigned At Female Encounters Encounter Location Date Provider Diagnosis [facility] [address] [facility] [address] [place] [address] 07/14/2024 Brianne Rios Plan Of Treatment Next Appt Details Provider Name:Brianne Rios , 08/12/2024 11:00:00 AM, [address], [address], [address], Provider Name:Monique Guadalupe , 10/03/2024 01:00:00 PM, [facility], [address], [address], Provider Name:Brianne Rios , 04/06/2025 02:00:00 PM, [facility], [address], [address], Provider Name:Brianne Rios , 04/20/2025 02:00:00 PM, [facility], [address], [address], Provider Name:Brianne Rios , 05/11/2025 02:00:00 PM, [address], [address], [address], Provider Name:Brianne Rios , 05/18/2025 02:00:00 PM, [address], [address], [place], [address], Provider Name:Brianne Rios , 05/25/2025 02:00:00 PM, [address], [address], [place], [address], Provider Name:Brianne Rios , 06/01/2025 02:00:00 PM, [address], [address], [place], [address], Provider Name:Brianne Rios , 06/08/2025 02:00:00 PM, [address], [address], [place], [address], Provider Name:Brianne Rios , 06/15/2025 02:00:00 PM, [facility], [address], [place], [address], Provider Name:Brianne Rios , 06/22/2025 02:00:00 PM, [address], [address], [place], [address], Provider Name:Brianne Rios , 06/29/2025 02:00:00 PM, [address], [address], [place], [address], Provider Name:Brianne Rios , 07/06/2025 02:00:00 PM, [facility], [address], [place], [address], Provider Name:Brianne Rios , 07/13/2025 02:00:00 PM, [facility], [address], [place], [address], Provider Name:Brianne Rios , 07/20/2025 02:00:00 PM, [address], [address], [place], [address], Provider Name:Brianne Rios , 07/27/2025 02:00:00 PM, [address], [address], [place], [address], Provider Name:Brianne Rios , 08/03/2025 02:00:00 PM, [address], [address], [place], [address], Provider Name:Brianne Rios , 08/10/2025 02:00:00 PM, [address], [address], [place], [address], Provider Name:Brianne Rios , 08/17/2025 02:00:00 PM, [address], [address], [place], [address], Provider Name:Brianne Rios , 08/24/2025 02:00:00 PM, [address], [address], [place], [address], Provider Name:Brianne Rios , 08/31/2025 02:00:00 PM, [address], [address], [place], [address], Provider Name:Brianne Rios , 09/07/2025 02:00:00 PM, [address], [address], [place], [address], Provider Name:Brianne Rios , 09/14/2025 02:00:00 PM, [address], [address], [place], [address], Provider Name:Brianne Rios , 09/21/2025 02:00:00 PM, [address], [address], [place], [address], Progress Notes * LISA GREGGB:[birth year] (59 yo F)Acc No.[id number]:07/14/2024 Patient: LISA WEST Provider: Roverto RIOS LCSW :1965 A ge:59 Y S ex:Female Date:07/14/2024 Phone: Address:[address] [place] [id number] Pcp:Jamee Nelson MD Data: * Chief Complaints: * * Medical History: * Surgical History: * Hospitalization/Major Diagno stic Procedure: * Medications: * Vitals: Assessment: Plan: * Treatment: * Procedure Codes: * Billing Information: * Visit Code: * Procedure Codes: Care Plan Details* Group Therapy Template Group Summary F ocus on negative self-talks and strategies to counter them. How many clients in group 3 Discussion Topic T herapist facilitated a discussion on countering negative self-talk. Group members discussed various comments/strategies they can use to make self-talk healthier. Participation E ngaged Plan a gree to meet for next group PTSD Topic of the day C ountering negative self-talk. * Sign off status: Completed true * Provider: Roverto RIOS LCSW Date: 0 07/14/2024 Generated for Sabine foy/Lupe/Keilaitting on: 0 07/22/2024 01:27 PM CDT
--- OUTSIDE RECORDS SUMMARY | 2024-07-22 13:27 | XMS_ITS | Referral Summary ---
Author Organization [facility] Address [address] [place] [address] Care Team Providers Care Caustic Strength Inspector Name Role Phone Jasen Carolyn Winnie LICENSED MARRIAGE AND FAMILY THERAPIST Primary Care Provider Alex Hoskins MD Unavailable [phone] Encounters Date Type Department Care Team Description 07/12/2024 Telephone [facility] Cardiology [address] [facility] [address] [place] [phone] Carlita Huizar NP 07/08/2024 2:00 PM REPRESENTATIVE PERSONAL SERVICE Office Visit [facility] Cardiology [address] [place] [address] [place] [phone] Carlita Huizar NP ALEMAN (dyspnea on exertion) (Primary Dx); Edema, lower extremity; Class 3 severe obesity due to excess calories with serious comorbidity and body mass index (BMI) of 45.0 to 49.9 in adult (HCC) 07/07/2024 Telephone [facility] Cardiology [address] [place] [phone] Walter Sanchez MD 07/01/2024 10:10 AM REPRESENTATIVE PERSONAL SERVICE Office Visit [facility] Obstetrics and Gynecology [address] [place] [address] Advanced Medicine 13th [place] [address] [place] [address] Dolores Lopez MD Postop check (Primary Dx) 06/29/2024 7:45 AM REPRESENTATIVE PERSONAL SERVICE Ancillary Procedure [facility] Cardiology [address] [place] [address] [place] [phone] SSS (sick sinus syndrome) (HCC); Pacemaker; Bradycardia 06/22/2024 Results Follow-Up [facility] Obstetrics and Gynecology [address] [facility] Advanced Medicine 13th [place] [address] Dolores Lopez MD 06/16/2024 11:08 AM REPRESENTATIVE PERSONAL SERVICE - 06/17/2024 12:35 PM REPRESENTATIVE PERSONAL SERVICE Hospital Encounter [address] [address] Dolores Lopez MD Hagemann, Andrea Ruth, MD Pelvic mass Discharge Disposition: Discharge to home or self care 06/16/2024 Orders Only [address] [address] Dolores Lopez MD 06/16/2024 Orders Only [address] [address] Dolores Lopez MD 06/16/2024 2:20 PM REPRESENTATIVE PERSONAL SERVICE - 06/16/2024 5:50 PM REPRESENTATIVE PERSONAL SERVICE Surgery [facility] Operating Room [address] [place] [address] Dolores Lopez MD XI EXCISION PELVIC MASS - LAPAROSCOPIC ROBOTIC ASSISTED 06/16/2024 5:13 PM REPRESENTATIVE PERSONAL SERVICE Anesthesia Event [facility] Operating Room [address] [place] [address] Farida Najera MD Horton, Cheryl Renee Hill, NP 06/15/2024 Telephone [facility] Obstetrics and Gynecology [address] [facility] Advanced Medicine 13th [place] [phone] Dolores Lopez MD Surgery Confirmation 06/14/2024 Telephone [facility] Obstetrics and Gynecology [address] [facility] Advanced Medicine 13th [place] [phone] Idania Emmanuel, JARON 06/10/2024 Telephone [facility] Obstetrics and Gynecology [address] [facility] Advanced Medicine 13th [place] [phone] Myrtle Ellison, JARON 06/10/2024 Telephone [facility] Obstetrics and Gynecology [address] [place] [phone] Debra Castellanos, JARON 06/09/2024 Telephone [facility] Obstetrics and Gynecology [address] [place] [address] Idania Emmanuel, JARON 06/07/2024 Telephone [facility] Cardiology [address] [place] [phone] Walter Sanchez MD 05/20/2024 Telephone [facility] Obstetrics and Gynecology [address] [place] [phone] Debra Castellanos, JARON 05/09/2024 Telephone [facility] Obstetrics and Gynecology [address] [place] [address] Debra Castellanos, JARON 05/09/2024 Telephone [facility] Operating Room [address] [place] [address] Dolores Lopez MD 05/06/2024 Telephone [facility] Obstetrics and Gynecology [address] [facility] Medicine [facility] [place] [address] Dolores Lopez MD Surgery Confirmation from Last 3 Months Allergies No known active allergies Medications clonazePAM [...] (two) times a day 60 tablet 11 Active primidone (MYSOLINE) 50 mg tabletIndication s:Essential Tremor Take 1 tablet (50 mg total) by mouth nightly Active diphenoxylate-at ropine (LOMOTIL) 2.5-0.025 mg per [...] (10 mg total) by mouth every morning Active busPIRone (BUSPAR) 15 mg tabletIndication s:Generalized Anxiety Disorder Take 1 tablet (15 mg total) by mouth 3 (three) times a day 024 Active levETIRAcetam (KEPPRA) 750 mg tabletIndication s:psuedo-seizure s Take 1 tablet (750 mg total) by mouth 2 (two) times a day Active metoprolol tartrate (LOPRESSOR) 50 mg immediate release tablet TAKE 1 AND 1/2 TABLETS(75 MG) BY MOUTH TWICE DAILY 270 tablet 3 Active Safety Lancets 28 gauge misc TEST [...] 2 (two) times a day 180 tablet Active acetaminophen (TYLENOL) 500 mg tablet Take [...] Morbid obesity with BMI of 45.0-49.9, adult 03/0 06/2021 RORO on CPAP 07/03/2021 Accessory navicular bone of foot 01/11/2021 Tibialis posterior tendinitis 01/11/2021 Sinoatrial node dysfunction (CMS/HCC) 04/06/2020 Pacemaker 12/22/2019 Overview (01/05/2020): [employer] Dual Pacemaker. Dx; SSS, Sinus Bradycardia. [...] Diagnosed Date Resolved Date Dyslipidemia 11/23/2019 06/25/2022 Immunizations Immunization Administration Dates Next Due Influenza, Quadrivalent, Spl it, Intramuscular 01/14/2019,02/19/2017,01/11/2016,03/20 Influenza, Quadrivalent, Spl it, Preservative Free, Intramuscular 02/27/2020,01/14/2018 Influenza, Trivalent, High D ose, Split, Preservative Free, Intramuscular 02/01/2014 Influenza, Trivalent, Preser vative Free, Intramuscular 06/16/2024 Moderna SARS-CoV-2 Monovalen t Vaccination (12+ YRS) 08/28/2020,07/31/2020 Pneumococcal Polysaccharide PPV23 02/01/2014 Tdap 05/04/2008 Social History Tobacco Use Types Packs/Day Years [...] on file Legal Sex Female 3:33 AM REPRESENTATIVE PERSONAL SERVICE Gender Identity Not on file Sexual Orientation Not on file Last Filed Vital Signs Vital Sign Reading Time Taken Comments Blood Pressure 110/60 07/08/2024 2:07 PM REPRESENTATIVE PERSONAL SERVICE Pulse 79 07/08/2024 2:07 PM REPRESENTATIVE PERSONAL SERVICE Temperature 36.5 C (97.7 F) 07/01/2024 10:29 AM REPRESENTATIVE PERSONAL SERVICE Respiratory Rate 18 06/17/2024 9:00 AM REPRESENTATIVE PERSONAL SERVICE Oxygen Saturation 96% 07/08/2024 2:07 PM REPRESENTATIVE PERSONAL SERVICE Inhaled Oxygen Concentration - - Weight 121.7 kg (268 lb 4.8 oz) 07/08/2024 2:07 PM REPRESENTATIVE PERSONAL SERVICE Height 157.5 cm (5' 2 ) 07/08/2024 2:07 PM REPRESENTATIVE PERSONAL SERVICE Body Mass Index 49.07 07/08/2024 2:07 PM REPRESENTATIVE PERSONAL SERVICE Plan of Treatment Not on file Medical Devices Implanted Type Area Warp Changer Device Identifier Shelf Expiration Date Model / Serial / Lot Pacemaker Pacemaker Left: Chest Procedures Procedure Name Priority Date/Time Associated Diagnosis Comments DEVICE CHECK - REMOTE Routine 06/30/2024 1:49 PM REPRESENTATIVE PERSONAL SERVICE SSS (sick sinus syndrome) (HCC) Pacemaker Bradycardia POCT GLUCOSE DEVICE Routine 06/16/2024 8 :11 PM REPRESENTATIVE PERSONAL SERVICE CYTOLOGY Routine 06/16/2024 6:06 PM REPRESENTATIVE PERSONAL SERVICE SURGICAL PATHOLOGY Routine 06/16/2024 6: 06 PM REPRESENTATIVE PERSONAL SERVICE DE AN PROCEDURE PLACEHOLDER Routine 06/16/2024 6:01 PM REPRESENTATIVE PERSONAL SERVICE DE AN PROCEDURE PLACEHOLDER Routine 06/16/2024 5:59 PM REPRESENTATIVE PERSONAL SERVICE DE AN ELECTIVE ENDOTRACHEAL AIRWAY Routine 06/16/2024 5:59 PM REPRESENTATIVE PERSONAL SERVICE LYSIS OF ADHESIONS 06/16/2024 5: 17 PM REPRESENTATIVE PERSONAL SERVICE Pelvic mass Case Notes [email or web address] email sent to Carmen via email (EF) XI SALPINGO/OOPHORECTOM Y - LAPAROSCOPIC ROBOTIC ASSISTED 06/16/2024 5:17 PM REPRESENTATIVE PERSONAL SERVICE Pelvic mass Case Notes [email or web address] email sent to Carmen via email (EF) XI EXCISION PELVIC MASS - LAPAROSCOPIC ROBOTIC ASSISTED 06/16/2024 5:17 PM REPRESENTATIVE PERSONAL SERVICE Pelvic mass Case Notes [email or web address] email sent to Carmen via email (EF) from Last 3 Months Results * DEVICE CHECK - REMOTE (06/30/2024 1:49 PM REPRESENTATIVE PERSONAL SERVICE) Anatomical Region Laterality Modality Other Narrative 07/08/2024 8:34 AM REPRESENTATIVE PERSONAL SERVICE [employer] Dual Pacemaker. Dx; SSS, Sinus Bradycardia. DOI 02/04/2014-Dr Smith. Latitude remote monitoring. Routine DDD Pacemaker remote. Normal device function. Battery function-Ok, 3.5 years remaining battery life to DYLAN Appropriate lead measurements noted. Presenting rhythm: -VS, regular. AP-24%, EMERGENCY DOCTOR-0%. 6-Atrial high rate episode noted, longest 1 minute duration, ie's ATach. No ventricular high rate episodes noted. Medications; Lopressor, Imdur. See scanned report. Office pacemaker f/u 07/26/2025. Latitude remote f/u 09/28/2024. Mitra Emanuel, JARON Walter Sanchez MD CV CARDIAC SERVICES PROC EDURES Final Result * POCT glucose (06/16/2024 8:11 PM REPRESENTATIVE PERSONAL SERVICE) Glucose, POC 138 70 - 199 mg/dL Blood 06/16/2024 8:11 PM REPRESENTATIVE PERSONAL SERVICE 06/16/2024 8:11 PM REPRESENTATIVE PERSONAL SERVICE us Dolores Lopez MD LAB POCT ORDERABLES - D EVICE Final Result [facility] Department [place] [address] * Cytology (06/16/2024 6:06 PM REPRESENTATIVE PERSONAL SERVICE) Pelvis (Cytology) 06/16/2024 6:06 PM REPRESENTATIVE PERSONAL SERVICE 06/17/2024 8:11 AM REPRESENTATIVE PERSONAL SERVICE Narrative 06/21/2024 2:14 PM REPRESENTATIVE PERSONAL SERVICE EPIC results best viewed via link to PDF [facility] [place] [address] Note to Patients: This report may contain [...] Gender: F : 1965 (Age: 58) Address: [address] [place] [phone] Hospital #: [id number] Taken:06/16/2024 Received:06/17/2024 Reported: 06/21/2024 Patient Type: [facility] OP In Bed Service: Gynecology Location: [facility] 705 Physician(s): Niurka Park NP FINAL DIAGNOSIS A. Pelvic washings: - Negative for malignancy kw/06/20/2024 14:43 By this signature, I attest that the above diagnosis is based upon my personal examination of the slides(and/or other material indicated in the diagnosis). Marcial Villa M.D. Report Electronically Reviewed and Signed Out By Marcial Villa M.D. 06/21/2024 14:14:03 Baldemar Sevilla [facility](ASCP) Gross Description A. Pelvic washings: 35 ml [...] Surgical Pathology and Flow Cytometry Departments at [facility] as part of an ongoing quality associate program and in compliance with federally mandated [...] Surgical Pathology and Flow Cytometry Departments of [facility]. It has not been cleared or approved by the U. S. Food and Drug Administration. us Dolores Lopez MD LAB CYTOLOGY ORDERABLES Final Result * Surgical pathology (06/16/2024 6:06 PM REPRESENTATIVE PERSONAL SERVICE) Ovary(ies) with or without tube, non-tumor 06/16/2024 6:06 PM REPRESENTATIVE PERSONAL SERVICE 06/17/2024 8:14 AM REPRESENTATIVE PERSONAL SERVICE Narrative 06/21/2024 2:49 PM REPRESENTATIVE PERSONAL SERVICE EPIC results best viewed via link to PDF [facility], [place] [address] Note to Patients: This report may contain [...] Gender: F : 1965 (Age: 58) Address: [address] [place] [phone] Hospital #: [id number] Taken:06/16/2024 Received:06/17/2024 Reported: 06/21/2024 Patient Type: [facility] OP In Bed Service: Gynecology Location: [place] [address] Physician(s): Niurka Park NP Diagnosis: A. Ovary and fallopian tube, right, salpingo-oophorectomy - Right ovary with no histopathologic abnormality - Right fallopian tube with paratubal cysts B. Ovary, left, oophorectomy - Ovary with fibroma - No fallopian tube identified in specimen (see comment) [facility]/06/21/2024 06:54 By this signature, I attest that the above diagnosis is based upon my personal examination of the slides(and/or other material indicated in the diagnosis). Navid Ritchei M.D., Ph.D. Report Electronically Reviewed and Signed [...] right tube and ovary is an intact hilraio-damon, glistening and lobular ovary (3.2 g, 2.6 [...] through the ovary find the usual features. Box Attacher sections are submitted: A1 = technical service representative ovary; A2 = technical service representative fallopian tube including entire fimbriated end. [...] ovarian parenchyma or fallopian tube is identified. Box Attacher sections are submitted in B1-8. Jar 2. sxv/06/17/2024 11:35 PA(s): Alban Justin MS, GREY ([facility])CM By this signature, I attest that the above diagnosis is based upon my personal examination of the slides(and/or other material). Addenda/Procedures The performance characteristics of some immunohistochemical stains, fluorescence in-situ hybridization tests and immunophenotyping by flow cytometry cited in this report (if any) were determined by the Surgical Pathology and Flow Cytometry Departments at [facility] as part of an ongoing quality associate program and in compliance with federally mandated [...] Surgical Pathology and Flow Cytometry Departments of [facility]. It has not been cleared or approved by the U. S. Food and Drug Administration. IMAGES AND SCANNED DOCUMENTS, IF INCLUDED, ONLY VIEWABLE IN PDF VERSION OF REPORT Dolores Lopez MD LAB PATHOLOGY ORDERABLE S Final Result * DE AN PROCEDURE PLACEHOLDER (06/16/2024 6:01 PM REPRESENTATIVE PERSONAL SERVICE) Glendy Queen CRNA - 06/16/2024 6:01 PM Glendy Alejandre CRNA 06/16/2024 6:02 PM Peripheral IV Catheter Patient location: OR Staff: Supervising provider: Farida Najera MD Preprocedure prep: Prep solution: chlorhexadine PPE: gloves and provider hat/mask PIV line: Site: hand Catheter size: 18 g Technique: anatomical landmarks Procedure details: good blood return and occlusive dressing applied Number of attempts: 1 Assessment: Events: patient tolerated procedure well with no complications Additional comments: Placed by NEWSPAPER SUBSCRIPTION SOLICITOR Farida Najera MD ANESTHESIA ORDERABLES Final R esult * DE AN ELECTIVE ENDOTRACHEAL AIRWAY, DE AN PROCEDURE PLACEHOLDER (06/16/2024 5:59 PM REPRESENTATIVE PERSONAL SERVICE) Glendy Queen CRNA - 06/16/2024 5:59 PM Glendy Alejandre CRNA 06/16/2024 6:01 PM Airway Patient location: OR Urgency: elective Indications for airway management: anesthesia Difficult airway: no Staff: Supervising provider: Farida Najera MD Placed by: KEITH: Glendy Del Castillo CRNA Emergent airway documentation: [...] with: silk tape Number of attempts: 1 Farida Najera MD ANESTHESIA ORDERABLES Final R esult from Last 3 Months Insurance [facility] MED[employer] ADVANTAGE IDPA IDPA [facility] MEDIC[facility] AD[employer] Advance Directives For more information, please contact: [phone] * Full Code (Latest Code Status on File) Date Activated Date Inactivated Comments 06/16/2024 10:17 PM 06/17/2024 4:40 PM Care Teams Caustic Strength Inspector Relationship Specialty Start Date End Date Carolyn Aggarwal NP [address] [place], [place] [id number] PCP - General Family Medicine 11/16/23 Alex Hoskins MD [address] [place] [address] Referring Physician Obstetrics and Gynecology 02/23/24
--- OUTSIDE RECORDS SUMMARY | 2024-07-22 13:27 | XMS_ITS ---
Author Organization [facility] Address [address] [place] [address] Care Team Providers Care Box Car Bracer Name Role Phone Omar REHMAN, Jamee Primary Care Provider UnavailMonique Bloom Unavailable [phone] Brianne Rios Unavailable [phone] Social History Sex Assigned At : Social History Observation Description Sex Assigned At Female Encounters Encounter Location Date Provider Diagnosis [facility] [address] [facility] [address] [place] [address] 07/21/2024 Brianne Rios Plan Of Treatment Next Appt Details Provider Name:Brianne Rios , 08/12/2024 11:00:00 AM, [address], [address], [address], Provider Name:Monique Guadalupe , 10/03/2024 01:00:00 PM, [facility], [address], [address], Provider Name:Brianne Rios , 04/06/2025 02:00:00 PM, [facility], [address], [address], Provider Name:Brianne Rios , 04/20/2025 02:00:00 PM, [facility] [address], [address], Provider Name:Brianne Rios , 05/11/2025 02:00:00 PM, [address], [address], [address], Provider Name:Brianne Rios , 05/18/2025 02:00:00 PM, [address], [address], [place], [address], Provider Name:Brianne Rios , 05/25/2025 02:00:00 PM, [address], [address], [place], [address], Provider Name:Brianne Rios , 06/01/2025 02:00:00 PM, [address], [address], [place], [address], Provider Name:Brianne Rios , 06/08/2025 02:00:00 PM, [address], [address], [place], [address], Provider Name:Brianne Rios , 06/15/2025 02:00:00 PM, [facility], [place], [address], Provider Name:Brianne Rios , 06/22/2025 02:00:00 PM, [address], [address], [place], [address], Provider Name:Brianne Rios , 06/29/2025 02:00:00 PM, [address], [address], [place], [address], Provider Name:Brianne Rios , 07/06/2025 02:00:00 PM, [facility], [place], [address], Provider Name:Brianne Rios , 07/13/2025 02:00:00 PM, [facility], [place], [address], Provider Name:Brianne Rios , 07/20/2025 02:00:00 PM, [address], [address], [place], [address], Provider Name:Brianne Rios , 07/27/2025 02:00:00 PM, [address], [address], [place], [address], Provider Name:Brianne Rios , 08/03/2025 02:00:00 PM, [address], [address], [place], [address], Provider Name:Brianne Rios , 08/10/2025 02:00:00 PM, [address], [address], [place], [address], Provider Name:Brianne Rios , 08/17/2025 02:00:00 PM, [address], [address], [place], [address], Provider Name:Brianne Rios , 08/24/2025 02:00:00 PM, [address], [address], [place], [address], Provider Name:Brianne Rios , 08/31/2025 02:00:00 PM, [address], [address], [place], [address], Provider Name:Brianne Rios , 09/07/2025 02:00:00 PM, [address], [address], [place], [address], Provider Name:Brianne Rios , 09/14/2025 02:00:00 PM, [address], [address], [place], [address], Provider Name:Brianne Rios , 09/21/2025 02:00:00 PM, [address], [address], [place], [address], Progress Notes * LISA GREGGB:[birth year] (59 yo F)Acc No.[id number]:07/21/2024 Patient: LISA WEST Provider: Roverto RIOS LCSW :1965 A ge:59 Y S ex:Female Date:07/21/2024 Phone: Address:[address] [place], [place] [phone] Pcp:Jamee Nelson MD Data: * Chief Complaints: * * Medical History: * Surgical History: * Hospitalization/Major Diagno stic Procedure: * Medications: * Vitals: Assessment: Plan: * Treatment: * Procedure Codes: * Billing Information: * Visit Code: * Procedure Codes: Care Plan Details* Group Therapy Template Group Summary T herapist facilitated a discussion on cognitive distortions and how they negatively impact self-talk. The group discussed the various distortions and then utilized presented strategies to counter them. How many clients in group 4 Discussion Topic c ountering cognitive distortions Participation E daniiaged Plan a gree to meet for next group PTSD Topic of the day T he role of cognitive distortion in negative self-talk * Sign off status: Completed true * Provider: Roverto RIOS LCSW Date: 0 07/21/2024 Generated for Sabine foy/Lupe/Keilaitting on: 07/22/2024 01:27 PM CDT
--- OUTSIDE RECORDS SUMMARY | 2024-07-22 13:27 | XMS_ITS | Encounter Summary ---
Author Organization [facility] Healthcare Address [address] [place] [address] Care Team Providers Care Director Mba Name Role Phone Carolyn Aggarwal RENTAL SALES REPRESENTATIVE Primary Care Provider [phone] Alex Hoskins MD Unavailable [phone] Encounter Details Date Type Department Care Team ([facility] st Contact Info) Description 07/12/2024 Telephone [facility] Medical Group Cardiology [address] [place] [address] Carlita Huizar NP [address] [place] [address] Social History Tobacco Use Types Packs/Day Years Used Date Smoking Tobacco: Former Cigarettes 0.3 0.1 1 06/1980 - 1981 Smokeless Tobacco: Never Alcohol Use Standard Drinks/Week Comments Not Currently [...] on file 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 * Telephone Encounter - Jael Smith - 07/22/2024 12:07 PM CDT Pt requesting lab orders be sent to lab. Contact: * Telephone Encounter - Tod Orona RN - 07/22/2024 11:56 AM CDT LM on VM. Advised callback to discuss lab preference. * Telephone Encounter - Carlita Huizar NP - 07/22/2024 11:43 AM CDT Thank you for following up. Yes, please call her to tell her we haven't been able to get a responsefrom PCP office, so I would like her to have the BNP drawn. If she wants to do it the day she comesback for the echocardiogram, that would be fine. Thank you. * Telephone Encounter - Tod Orona RN - 07/13/2024 2:58 PM CDT SURESHVijay JORI Attempted to call for records. Sent through multiple menus and people. Records requested. Their customer solutions representative stated that he would send a message to the appropriate people and they would contact us back. * Telephone Encounter - Carlita Huizar NP - 07/12/2024 4:04 PM CDT I saw this patient last week because apparently PCP told her she had early stages of heart failure.Patient thought that PCP had a lab test results indicating this (BNP??). Will you please call PCP office to ask them if they have a BNP result? I wanted to try to find this out before sending patientfor a repeat blood test. Thanks. documented in this encounter Plan of Treatment Scheduled Orders Name Type Priority Associated Diagnoses Orde r Schedule Pro B-type natriuretic peptide Lab Routine Congestive heart failure, unspecified HF chronicity, unspecified heart failure type (HCC) Expected: 07/25/2024, Expires: 07/22/2025 documented as of this encounter Visit Diagnoses Diagnosis Congestive heart failure, unspecified HF chronicity, unspecified heart failure type (HCC)- Primary documented in this encounter Care Teams Director Mba Relationship Specialty Start Date End Date Carolyn Aggarwal NP [facility] [place] [address] PCP - General Family Medicine 11/16/23 Alex Hoskins MD [address] [place] [address] Referring Physician Obstetrics and Gynecology 02/23/24 documented as of this encounter
--- OUTSIDE RECORDS SUMMARY | 2024-07-22 13:27 | XMS_ITS | Encounter Summary ---
Author Organization [facility] Address [address] [place] [address] Phone Care Team Providers Care Cooker Mechanic Name Role Phone Carolyn Aggarwal NP Primary Care Provider [phone] Alex Hoskins MD Unavailable [phone] Encounter Details Date Type Department Care Team (Late st Contact Info) Description 06/22/2024 Results Follow-Up [facility] Obstetrics and Gynecology [address] [facility] 13th [place] [address] [place] [address] Dolores Lopez MD [id number] [place] [address] Social History Tobacco Use Types Packs/Day Years [...] on file 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
--- OUTSIDE RECORDS SUMMARY | 2024-07-22 13:28 | XMS_ITS ---
Author Organization [facility] Address [facility] [facility] [address] [place] [address] Care Team Providers Care Program Writer Name Role Phone Jamee Nelson MD Primary Care Provider Unavailab Monique Armstrong Unavailable [phone] Brianne Rios Unavailable [phone] REASON FOR VISIT Confirmed, bipolar disorder, anxiety, trauma, OCD Medications Medication SIG (Take, Route, Frequency, Duration) Notes Start Date End Date Status Escitalopram Oxalate 20 MG 1 tablet Oral Once a day for 90 days Active busPIRone HCl 15 MG TAKE 1 TABLET BY KAREN TH THREE TIMES DAILY for 90 Active clonazePAM 0.5 MG 1 tablet Oral Twice a day for 30 days 07/11/2024 Active ARIPiprazole 10 MG TAKE 1 TABLET BY KAREN TH EVERY DAY AT BEDTIME Oral Once a day for 90 days Active Social History Tobacco Use: Social History Observation Description Date Details (start date - stop date) Never Smoker NA - NA Sex Assigned At : Social History Observation Description Sex Assigned At Female Tobacco Control (Standard) Question Answer Notes Tobacco use: Nonsmoker Encounters Encounter Location Date Provider Diagnosis [facility] [employer] [place] [id number] [facility] [address] [place] [address] 07/22/2024 Brianne Rios Encounter for screening for depression Z13.31 ; Bipolar disorder, current episode depressed, mild F31.31 ; Generalized anxiety disorder F41.1 ; Post traumatic stress disorder (PTSD) F43.10 and Mixed obsessional thoughts and acts F42.2 Assessments Encounter Date Diagnosis (ICD Code) Assessment Notes Treatment Notes Treatment Clinical Notes Section Notes 07/22/2024 Encounter for screening for depression (ICD-10 - Z13.31) 07/22/2024 Bipolar disorder, current episode depressed, mild (ICD-10 - F31.31) 07/22/2024 Generalized anxiety disorder (ICD-10 - F41.1) 07/22/2024 Post traumatic stress disorder (PTSD) (ICD-10 - F43.10) 07/22/2024 Mixed obsessional thoughts and acts (ICD-10 - F42.2) 07/22/2024 Other Client reports an increase in panic attacks. There have been some issues between her and her roommate. Primarily it has to do with client not being motivated to do much in regard to household tasks. Therapist actively listened to client and asked questions for clarification. Therapist then utilized a cognitive behavioral intervention to help client explore strategies to improve motivation to help with household tasks more often without compromising her physical health issues (getting dressed every day and utilizing a timer to spend 15 minutes every hour to chip away at a task, having a talk with her roommate about her intentions and her need to be spoken to, not yelled at). PHQ=4 minimal ANNE-MARIE=5 minimal Plan Of Treatment Next Appt Details Follow Up: 2 Weeks, Reason: therapy follow up Provider Name:Brianne Rios , 08/12/2024 11:00:00 AM, [address], [address], [address], Provider Name:Monique Guadalupe , 10/03/2024 01:00:00 PM, [address], [facility] [address] [place], [address], Provider Name:Brianne Rios , 04/06/2025 02:00:00 PM, [address], [facility] [address] [place], [address], Provider Name:Brianne Rios , 04/20/2025 02:00:00 PM, [address], [address], [address], Provider Name:Brianne Rios , 05/11/2025 02:00:00 PM, [address], [address], [address], Provider Name:Brianne Rios , 05/18/2025 02:00:00 PM, [address], [address], [place], [address], Provider Name:Brianne Rios , 05/25/2025 02:00:00 PM, [address], [address], [place], [address], Provider Name:Brianne Rios , 06/01/2025 02:00:00 PM, [address], [address], [place], [address], Provider Name:Brianne Rios , 06/08/2025 02:00:00 PM, [address], [address], [place], [address], Provider Name:Brianne Rios , 06/15/2025 02:00:00 PM, [address], [address], [place], [address], Provider Name:Brianne Rios , 06/22/2025 02:00:00 PM, [address], [address], [place], [address], Provider Name:Brianne Rios , 06/29/2025 02:00:00 PM, [address], [address], [place], [address], Provider Name:Brianne Rios , 07/06/2025 02:00:00 PM, [address], [address], [place], [address], Provider Name:Brianne Rios , 07/13/2025 02:00:00 PM, [address], [address], [place], [address], Provider Name:Brianne Rios , 07/20/2025 02:00:00 PM, [address], [address], [place], [address], Provider Name:Brianne Rios , 07/27/2025 02:00:00 PM, [address], [address], [place], [address], Provider Name:Brianne Rios , 08/03/2025 02:00:00 PM, [address], [address], [place], [address], Provider Name:Brianne Rios , 08/10/2025 02:00:00 PM, [address], [address], [place], [address], Provider Name:Brianne Rios , 08/17/2025 02:00:00 PM, [address], [address], [place], [address], Provider Name:Brianne Rios , 08/24/2025 02:00:00 PM, [address], [address], [place], [address], Provider Name:Brianne Rios , 08/31/2025 02:00:00 PM, [facility], [address], [place], [address], Provider Name:Brianne Rios , 09/07/2025 02:00:00 PM, [facility], [facility] [address], [place], [address], Provider Name:Brianne Rios , 09/14/2025 02:00:00 PM, [facility] [address], [facility] [address], [place], [address], Provider Name:Brianne Rios , 09/21/2025 02:00:00 PM, [facility] [address], [facility] [address], [place], [address], Progress Notes * LISA GREGGB:[birth year] (59 yo F)Acc No.[id number]:07/22/2024 Patient: LISA WEST Provider: Roverto RIOS LCSW :1965 A ge:59 Y S ex:Female Date:07/22/2024 Phone: Address:[address] [place] [id number] Pcp:Jamee Nelson MD Data: * Time Tracker: * Date Start Time End Time Duration User Type Captured By Mode Notes 07/22/2024 10:57 AM 11:44 AM 00:47:00 Therapist Brianne Riosual * Chief Complaints: * 1 . Confirmed. 2. Bipolar disorder. 3. Anxiety. 4. Trauma. 5. OCD. * HPI: F unctional Status: Client is here today for psychotherapy to treat anxiety, bipolar d/o, trauma, and OCD issues. Based on our session, I think the patient is making moderate progress. At this time I do not recommend changes to the treatment plan. I do not t hink the patient poses significant risk of harm to self or others at this time. Discussed continued treatment with patient. D epression Screening: ANNE-MARIE-7 (2018 Edition) F eeling nervous, anxious, or on edge?More than half the days, N ot being able to stop or control worrying N ot at all, W orrying too much about different things S everal days, T rouble relaxing S everal days, Being so restless that it is hard to sit still N ot at all, B ecoming easily annoyed or irritable S everal days, F eeling afraid as if something awful might happen N ot at all, T otal ANNE-MARIE-7 Score 5 , I f you checked any problems, how difficult have they made it for you to do your work, take care of things at home, or get along with other people? N ot difficult at all, I nterpretation of Total ( 5 to 9) Mild. [place]-Suicide Severity Rating Scale: Suicide Risk (CSRS-screener) i n the past one month Have you wished you were or wished you could go to sleep and not wake up? N o, i n the past one month Have you actually had any thoughts of killing yourself? N o, H ave you ever done anything, started to do anything, or prepared to do anything to end your life? N o. D epression screening: PHQ-9 L ittle interest or pleasure in doing things N ot at all, F eeling down, depressed, or hopeless S everal days, T rouble falling or staying asleep, or sleeping too much S everal days, F eeling tired or having little energy S everal days, P oor appetite or overeating N ot at all, F eeling bad about yourself or that you are a failure, or have let yourself or your family down S everal days, T rouble concentrating on things, such as reading the newspaper or watching television S ever, M oving or speaking so slowly that other people could have noticed; or the opposite, being so fidgety or restless that you have been moving around a lot more than usual N ot at all, T houghts that you would be better off or of hurting yourself in some way N ot at all, T otal Score 4, I nterpretation M inimal Depression. I ntervention D epression Screening Findings N egative, S uicide Risk Assessment Performed 0 07/22/2024 Client denies plan or intent to harm herself at this time per PHQ & CSSR. * Behavioral History: P ast psychiatric Hospitalization:Yes. H istory of suicidal attempt?:No. * Family History: M other: Diabetes mellitus , Anxiety disorder . B rother: Substance abuse , Alcohol abuse , Schizophrenia . S on: . son OD. * Social History: T obacco Use: T obacco Control (Standard) T obacco use: N onsmoker. M igrated Social History: M igrated Social History: Alcohol Intake: Occasional 04/13/2023,Tobacco Years: Never smoker 06/10/2018,Smoking Status: 0 06/05/2023. * Medications: T aking busPIRone HCl 15 MG Tablet TAKE 1 TABLET BY MOUTH THREE TIMES DAILY , Taking Escitalopram Oxalate 20 MG Tablet 1 tablet Oral Once a day , Taking ARIPiprazole 10 MG Tablet TAKE 1 TABLET BY MOUTH EVERY DAY AT BEDTIME Oral Once a day , Taking clonazePAM 0.5 MG Tablet 1 tablet Oral Twice a day , Medication List reviewed and reconciled with the patient * Examination: P sychiatry: C lient is somewhat unkempt and oriented X 3. Assessment: * Assessment: 1. B ipolar disorder, current episode depressed, mild - F31.31 (Primary) 2 .?Encounter for screening for depression - Z13.31 3 . G eneralized anxiety disorder - F41.1 4 . P ost traumatic stress disorder (PTSD) - F43.10 5. M ixed obsessional thoughts and acts - F42.2 Plan: * Treatment: * Procedure Codes: 9 0834 PSYCHOTHERAPY W/PATIENT 45 MINUTES, 41468 BEHAV ASSMT W/SCORE & DOCD/STAND INSTRUMENT * Follow Up: 2 Weeks (Reason: therapy follow up) * Billing Information: * Visit Code: * Procedure Codes: 87398 PSYCHOTHERAPY W/PATIENT 45 MINUTES. 88901 BEHAV ASSMT W/SCORE & DOCD/STAND INSTRUMENT. * Sign off status: Completed Signatures: No Ad Hoc Signature Added true * Provider: Roverto RISO LCSW Date: 07/22/2024 Generated for Sabine foy/Lupe/Almaransmkeith on: 07/22/2024 01:28 PM CDT History and Physical Notes * HPI (History of Present Illness) Category Sub-Category Detail Notes Category Not es Depression screening PHQ-9 Little inte rest or pleasure in doing things: Not at all Feeling down, depressed, or hopeless: Se veral days Trouble falling or staying asleep, or sl eeping too much: Several days Feeling tired or having little energy: S everal days Poor appetite or overeating: Not at all Feeling bad about yourself o r that you are a failure, or have let yourself or your family down: Several days Trouble concentrating on thi ngs, such as reading the newspaper or watching television: Several days Moving or speaking so slowly that other people could have noticed; or the opposite, being so fidgety or restless that you have been moving around a lot more than usual: Not at all Thoughts that you would be b holden off or of hurting yourself in some way: Not at all Total Score: 4 Interpretation: Minimal Depression Intervention Depression Screening Findings: N egative Suicide Risk Assessment Perf ormed: 07/22/2024 Client denies plan or intent to harm herself at this time per PHQ & CSSR Depression Screening ANNE-MARIE-7 (2018 Edition) Feelin g nervous, anxious, or on edge: More than half the days Not being able to stop or control worryi ng: Not at all Worrying too much about different things : Several days Trouble relaxing: Several days Being so restless that it is hard to sit still: Not at all Becoming easily annoyed or irritable: Se veral days Feeling afraid as if something awful ninfa ht happen: Not at all Total ANNE-MARIE-7 Score: 5 If you checked any problems, how difficult have they made it for you to do your work, take care of things at home, or get along with other people?: Not difficult at all Interpretation of Total: (5 to 9) Mild [place]-Suicide Severity Rating Scale Suicide Risk (CSRS-screener) in the past one month Have you wished you were or wished you could go to sleep and not wake up?: No in the past one month Have y ou actually had any thoughts of killing yourself?: No Have you ever done anything, started to do anything, or prepared to do anything to end your life?: No Examination Category Sub-Category Detail Notes Category Not es Psychiatry Client is somew hat unkempt and oriented X 3
--- OUTSIDE RECORDS SUMMARY | 2024-07-22 13:28 | XMS_ITS | CONTINUITY OF CARE DOCUMENT ---
Author Name alfred simon Address Unknown Organization [facility] Address [address] [place] [address] Phone [phone] Care Team Providers Care Shot Man Name Role Phone Sarah REHMAN, Caleb Unavailable [phone] MARY ARIAS MD Unavailable [phone] MARY ARIAS MD Unavailable PROBLEMS Condition Status Date Provider Notes Exposure to SARS-associated coronavirus active Caleb Smith MD Sleep apnea, obstructive, mild active Glendy Mims RN Fatigue active Wander Mendiola RN Chest pain- cath 02/17 nl co rs EF 60, nl lv, nl l renal , 2 renals on right nl active Nelson Almeida MD Family History of Hypertension: completed - To parmjit Almeida MD Syncope and collapse active Caleb goncalves MD Sick sinus syndrome active Caleb canas MD 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 Caleb Smith MD Hypertension active ? Caleb Smith MD Gonzalez's esophagus active Nelson Almeida MD Overweight active Nelson Almeida MD Edema active Nelson Almeida MD CHF- diastolic active Chato Duggan ENCOUNTERS Date Type Provider Location Encounter Diag nosis - In-person encounter Office Visit Caleb Smith MD [facility] - In-person encounter Office Visit C[facility] - In-person encounter Office Visit Caleb Smith MD [facility] - In-person encounter Office Visit Caleb Smith MD [facility] - In-person encounter Office Visit Caleb Smith MD [facility] CHF- diastolic - In-person encounter Office Visit Caleb Smith MD [facility] - In-person encounter Office Visit Nelson Almeida MD [facility] - In-person encounter Office Visit Caleb Smith MD [facility] Status Post Dual chamber pacemaker - [employer] - In-person encounter Office Visit Nelson Almeida MD [facility] - In-person encounter Office Visit Caleb Smith MD [facility] - In-person encounter Office Visit Caleb Smith MD [facility] - In-person encounter Office Visit Nelson Almeida MD [facility] OverweightEdema - In-person encounter Office Visit Nelson Almeida MD [facility] Gonzalez's esophagus - In-person encounter Office Visit Caleb Smith MD [facility] - In-person encounter Office Visit Nelson Almeida MD [facility] Angina pectoris inf wall ischemia on stress test - In-person encounter Office Visit Nelson Almeida MD [facility] - In-person encounter Office Visit Caleb Smith MD [facility] - In-person encounter Office Visit Caleb Smith MD [facility] - In-person encounter Office Visit [facility] - In-person encounter Office Visit Caleb Smith MD [facility] - In-person encounter Office Visit Caleb Smith MD [facility] HyperlipidemiaHypertension - In-person encounter Office Visit Caleb Smith MD [facility] - In-person encounter Office Visit Nelson Almeida MD [facility] - In-person encounter Office Visit Caleb Smith MD [facility] Angina pectoris inf wall ischemia on stress test - In-person encounter Office Visit Caleb Smith MD [facility] Status Post Dual chamber pacemaker - [employer] - In-person encounter Office Visit Nelson Almeida MD [facility] Seizure disorder - In-person encounter Office Visit Blaze Ayala MD [facility] - In-person encounter Office Visit Caleb Smith MD [facility] - In-person encounter Office Visit Nelson Almeida MD [facility] AV block complete s/p PPM dual chamber b[employer] scientificGERD - In-person encounter Office Visit Nelson Almeida MD [facility] Chest pain- cath 02/17 nl cors EF 60, nl lv, nl l renal , 2 renals on right nlFamily History of Hypertension: - In-person encounter Office Visit Caleb Smith MD [facility] Chest pain- cath 02/17 nl cors EF 60, nl lv, nl l renal , 2 renals on right nlAV block complete s/p PPM dual chamber [employer] - In-person encounter Office Visit Caleb Smith MD [facility] - In-person encounter Office Visit Caleb Smith MD [facility] Shortness of breath - In-person encounter Office Visit Caleb Smith MD [facility] - In-person encounter Office Visit Caleb Smith MD [facility] Syncope and collapseSick sinus syndromeAV block complete s/p PPM dual chamber Disconnect - In-person encounter Office Visit Caleb Smith MD [facility] Chest pain- cath 02/17 nl cors EF 60, nl lv, nl l renal , 2 renals on right nl VITAL SIGNS Date Observation Value Provider Body Mass Index (Ratio) 41.15 kg/m2 Jord jamaal Duggan blood pressure, diastolic 79 mm[Hg] Cy jarrodaztutu Grover blood pressure, systolic 144 mm[Hg] Jocelyn eugene Grover blood pressure, cuff size regular Cy jarrodwes Grover pulse rate 95 /min Kristytutu Powers l respiratory rate E&M 18 /min Kristytutu Grover oxygen saturation, oximetry 92 % Kristy Grover weight E&M 255 [lb_av] Kristy Martbel l height E&M 66 [in_i] Kristy Martbel l Body Mass Index (Ratio) 42.12 kg/m2 Jord en Urban blood pressure, cuff size regular Cy jarrodnikitatutu Grover blood pressure, diastolic 78 mm[Hg] Cy ntaza Grover blood pressure, systolic 128 mm[Hg] Jocelyn eugene Grover pulse rate 90 /min Kristy Martbel l oxygen saturation, oximetry 95 % Kristy Grover respiratory rate E&M 18 /min Kristy Grover weight E&M 261 [lb_av] Kristy Priya l height E&M 66 [in_i] Kristy Martbel l temperature site temporal Denise Tank sley temperature E&M 96.8 [degF] Denise Tanks maria victoria Body Mass Index (Ratio) 41.96 kg/m2 Jord en Urban pulse rate 76 /min Lauren Block oxygen saturation, oximetry 98 % Lauren Block blood pressure, diastolic 70 mm[Hg] Br ittany Block blood pressure, systolic 116 mm[Hg] Jossie ttany Block respiratory rate E&M 16 /min [facility] temperature E&M 97.3 [degF] Idania Puhs e height E&M 66 [in_i] Lauren Block weight E&M 260 [lb_av] Lauren Block Body Mass Index (Ratio) 42.44 kg/m2 Jord en Urban blood pressure, diastolic 82 mm[Hg] Cy ntnikitaa Grover blood pressure, systolic 133 mm[Hg] Jocelyn eugene Grover pulse rate 80 /min Kristy clark oxygen saturation, oximetry 97 % Kristyeugene Grover respiratory rate E&M 20 /min Kristy Grover weight E&M 263 [lb_av] Kristy Martbel l blood pressure, cuff size regular Cy ntwes Grover height E&M 66 [in_i] Kristy Martbel l temperature site temporal Denise Tank sley temperature E&M 96.4 [degF] Denise Tanks maria victoria Body Mass Index (Ratio) 40.57 kg/m2 Jord en Urban blood pressure, diastolic 113 mm[Hg] Naty Bates blood pressure, systolic 168 mm[Hg] Brandee Bates pulse rate 71 /min Ye aviles weight E&M 251.4 [lb_av] Ye hernandez height E&M 66 [in_i] Ye aviles Body Mass Index (Ratio) 39.38 kg/m2 Morgan Duggan blood pressure, diastolic 82 mm[Hg] Naty Bates blood pressure, systolic 132 mm[Hg] Brandee Bates oxygen saturation, oximetry 97 % Ye Bates respiratory rate E&M 18 /min Godfrey Bates pulse rate 71 /min Ye aviles weight E&M 244 [lb_av] Ye aviles height E&M 66 [in_i] Ye aviles Body Mass Index (Ratio) 39.54 kg/m2 Jorge Almeida MD blood pressure, diastolic 72 mm[Hg] Erasmo Camara blood pressure, systolic 126 mm[Hg] Josefa Camara oxygen saturation, oximetry 95 % Jessi Camara pulse rate 123 /min Jessi Randhawa height E&M 66 [in_i] Jessi Randhawa weight E&M 245 [lb_av] Wander Mendiola RN Body Mass Index (Ratio) 39.54 kg/m2 Julius mclain Blu blood pressure, diastolic 80 mm[Hg] Eligio mercedes Anaya blood pressure, systolic 118 mm[Hg] Zee Byrneam oxygen saturation, oximetry 98 % Ranjith Anaya respiratory rate E&M 16 /min Ranjith Anaya pulse rate 70 /min [place] Anaya weight E&M 245 [lb_av] Ranjith Anaya height E&M 66 [in_i] Ranjith Anaya Body Mass Index (Ratio) 37.76 kg/m2 Jorge Almeida MD blood pressure, cuff size regular Cy derrell Grover blood pressure, diastolic 80 mm[Hg] Cy derrell Grover blood pressure, systolic 120 mm[Hg] Jocelyn Grover oxygen saturation, oximetry 99 % Kristy Grover respiratory rate E&M 16 /min Kristy Grover pulse rate 70 /min Kristy clark weight E&M 234 [lb_av] Kristy clark height E&M 66 [in_i] Kristy clark Body Mass Index (Ratio) 36.47 kg/m2 Julius Hurt blood pressure, cuff size regular Cy derrell Grover blood pressure, diastolic 78 mm[Hg] Klaus Grover blood pressure, systolic 100 mm[Hg] Jocelyn Grover oxygen saturation, oximetry 97 % Kristy Grover respiratory rate E&M 16 /min Kristy Grover pulse rate 76 /min Kristy clark weight E&M 226 [lb_av] Kristy clark height E&M 66 [in_i] Kristy clark Body Mass Index (Ratio) 39.06 kg/m2 Will evaristo Ewa Mena blood pressure, cuff size large Ke rri Gruenenfelder blood pressure, diastolic 80 mm[Hg] Ke rri Gruenenfelder blood pressure, systolic 108 mm[Hg] Gabriela ri Leonor oxygen saturation, oximetry 98 % Christine Tamikonfrebecca respiratory rate E&M 20 /min Christine Rhett guerrier pulse rate 92 /min Christine Alfonzo lder weight E&M 242 [lb_av] Christine Ruthannnenfe lder height E&M 66 [in_i] Christine Mejía melindaer pulse rate #2 64 [facility] blood pressure, cox tolic, second observation 79 mm[Hg] [facility] blood pressure, syst olic, second observation 105 mm[Hg] [facility] oxygen saturation, oximetry 98 % [facility] pulse rate 64 /min [facility] blood pressure, diastolic 79 mm[Hg] Vi [facility] blood pressure, systolic 105 mm[Hg] Jose [facility] pulse rate #2 61 [facility] blood pressure, cox tolic, second observation 76 mm[Hg] [facility] blood pressure, syst olic, second observation 114 mm[Hg] [facility] oxygen saturation, oximetry 98 % [facility] pulse rate 61 /min [facility] blood pressure, diastolic 76 mm[Hg] Vi [facility] blood pressure, systolic 114 mm[Hg] Jose sheikh [facility] Body Mass Index (Ratio) 38.73 kg/m2 Jorge Almeida MD blood pressure, diastolic 80 mm[Hg] [facility] blood pressure, systolic 110 mm[Hg] Hallie alejandre Harper oxygen saturation, oximetry 98 % [facility] respiratory rate E&M 16 /min [facility] blood pressure, cuff size regular [facility] Harper pulse rate 74 /min Janna weight E&M 240 [lb_av] Janna Tahmina height E&M 66 [in_i] [facility] pulse rate #2 56 [facility] blood pressure, cox tolic, second observation 76 mm[Hg] [facility] blood pressure, syst olic, second observation 114 mm[Hg] [facility] oxygen saturation, oximetry 98 % Bradley bid pulse rate 56 /min [facility] d blood pressure, diastolic 76 mm[Hg] [facility] blood pressure, systolic 114 mm[Hg] Jose doveria Tebid pulse rate #2 62 [facility] d blood pressure, cox tolic, second observation 80 mm[Hg] [facility] d blood pressure, syst olic, second observation 118 mm[Hg] [facility], [facility]ximetry 98 % [facility] d pulse rate 62 /min [facility] d blood pressure, diastolic 80 mm[Hg] Vi [facility] d blood pressure, systolic 118 mm[Hg] Jose kori Tebid pulse rate #2 65 [facility] blood pressure, cox tolic, second observation 77 mm[Hg] [facility] d blood pressure, syst olic, second observation 110 mm[Hg] [facility], oximetry 98 % [facility] pulse rate 65 /min [facility] d blood pressure, diastolic 77 mm[Hg] Vi [facility] Tebid blood pressure, systolic 110 mm[Hg] Jose sheikh Tebid pulse rate #2 57 [facility] d blood pressure, cox tolic, second observation 71 mm[Hg] [facility], syst olic, second observation 124 mm[Hg] [facility] oxygen [facility], oximetry 98 % Oneyda d pulse rate 57 /min [facility], diastolic 71 mm[Hg] Vi ctoria Tebid blood pressure, systolic 124 mm[Hg] Jose doveria Tebid pulse rate #2 60 [facility] d blood pressure, cox tolic, second observation 78 mm[Hg] [facility] syst [facility]lic, second observation 116 mm[Hg] Oneyda bid oxygen saturation, oximetry 98 % Oneyda d pulse rate 60 /min [facility] d blood pressure, diastolic 78 mm[Hg] Vi ctoria Tebid blood pressure, systolic 116 mm[Hg] Jose kori Tebid pulse rate #2 62 [facility] d blood pressure, cox tolic, second observation 76 mm[Hg] Oneyda d blood pressure, syst olic, second observation 109 mm[Hg] Oney[place] d oxygen saturation, oximetry 98 % Oneyda pulse rate 62 /min [facility] blood pressure, diastolic 76 mm[Hg] Vi ctoria Tebid blood pressure, systolic 109 mm[Hg] Jose kori Tebid pulse rate #2 61 [facility] blood pressure, cox tolic, second observation 68 mm[Hg] Oneyda d blood pressure, syst olic, second observation 105 mm[Hg] Oney[place] d oxygen saturation, oximetry 98 % [facility] pulse rate 61 /min [facility] blood pressure, diastolic 68 mm[Hg] Vi ctoria Tebid blood pressure, systolic 105 mm[Hg] Jose kori Tebid pulse rate #2 64 [facility], cox tolic, second observation 67 mm[Hg] [facility], syst olic, second observation 128 mm[Hg] Oneyda bid oxygen saturation, oximetry 98 % [facility] pulse rate 64 /min [facility], diastolic 67 mm[Hg] Vi ctoria Tebid blood pressure, systolic 128 mm[Hg] Jose kori Tebid pulse rate #2 58 Oneyda blood pressure, cox tolic, second observation 73 mm[Hg] Oneyda blood pressure, syst olic, second observation 119 mm[Hg] Oneyda oxygen saturation, oximetry 98 % Oneyda pulse rate 58 /min [facility] blood pressure, diastolic 73 mm[Hg] Vi ctoria d blood pressure, systolic 119 mm[Hg] Jose kori d pulse rate #2 61 [facility] blood pressure, cox tolic, second observation 80 mm[Hg] Oneyda blood pressure, syst olic, second observation 124 mm[Hg] Oneyda oxygen saturation, oximetry 98 % Oneyda pulse rate 61 /min [facility] blood pressure, diastolic 80 mm[Hg] Vi [facility] Ted blood pressure, systolic 124 mm[Hg] Jose kori d pulse rate #2 64 [facility] blood pressure, cox tolic, second observation 79 mm[Hg] Oneyda blood pressure, syst olic, second observation 133 mm[Hg] Oneyda oxygen saturation, oximetry 98 % Oneyda pulse rate 64 /min [facility] blood pressure, diastolic 79 mm[Hg] Vi ctoria Ted blood pressure, systolic 133 mm[Hg] Jose kori Ted pulse rate #2 73 [facility] blood pressure, cox tolic, second observation 90 mm[Hg] Oneyda d blood pressure, syst olic, second observation 127 mm[Hg] Oneyda d oxygen saturation, oximetry 98 % [facility] pulse rate 73 /min [facility] blood pressure, diastolic 90 mm[Hg] Vi ctoria Tebid blood pressure, systolic 127 mm[Hg] Jose sheikh [facility] pulse rate #2 71 [facility] blood pressure, cox tolic, second observation 79 mm[Hg] [facility] blood pressure, syst olic, second observation 128 mm[Hg] [facility] oxygen saturation, oximetry 98 % [facility] pulse rate 71 /min [facility] blood pressure, diastolic 79 mm[Hg] Vi [facility] Ted blood pressure, systolic 128 mm[Hg] [facility]2 68 [facility] blood pressure, cox tolic, second observation 79 mm[Hg] [facility] blood pressure, syst olic, second observation 134 mm[Hg] [facility] oxygen saturation, oximetry 98 % [facility] pulse rate 68 /min [facility] blood pressure, diastolic 79 mm[Hg] Vi [facility] Ted blood pressure, systolic 134 mm[Hg] Jose [facility] Body Mass Index (Ratio) 37.44 kg/m2 Jorge Almeida MD blood pressure, resting Yes Jorge Almeida MD blood pressure, cuff size regular Ke sarah Galvez blood pressure, diastolic 80 mm[Hg] Ke rri Leonor blood pressure, systolic 127 mm[Hg] Gabriela Galvez oxygen saturation, oximetry 98 % Christine Galvez respiratory rate E&M 18 /min Christine guerrier pulse rate 85 /min Christine Mejía [facility] weight E&M 232 [lb_av] Christine Mejía [facility] height E&M 66 [in_i] Christine Mejía [facility] pulse rate #2 63 [facility] blood pressure, cox tolic, second observation 74 mm[Hg] [facility], syst olic, second observation 126 mm[Hg] [facility] oxygen saturation, oximetry 98 % [facility] pulse rate 63 /min [facility] blood pressure, diastolic 74 mm[Hg] Vi ksoria Tebid blood pressure, systolic 126 mm[Hg] [facility] #2 65 [facility] blood pressure, cox tolic, second observation 79 mm[Hg] [facility] blood pressure, syst olic, second observation 128 mm[Hg] [facility] oxygen saturation, oximetry 98 % [facility] pulse rate 65 /min [facility] blood pressure, diastolic 79 mm[Hg] Vi [facility] Tebid blood pressure, systolic 128 mm[Hg] [facility] Tebid pulse rate #2 77 [facility] blood pressure, cox tolic, second observation 75 mm[Hg] [facility] blood pressure, syst olic, second observation 121 mm[Hg] [facility] oxygen saturation, oximetry 98 % [facility] pulse rate 77 /min [facility] blood pressure, diastolic 75 mm[Hg] Vi [facility] Tebid blood pressure, systolic 121 mm[Hg] Jose kori Tebid pulse rate #2 64 [facility] blood pressure, cox tolic, second observation 85 mm[Hg] [facility] blood pressure, syst olic, second observation 128 mm[Hg] [facility] oxygen saturation, oximetry 98 % [facility] pulse rate 64 /min [facility] blood pressure, diastolic 85 mm[Hg] Vi ksoria Tebid blood pressure, systolic 128 mm[Hg] Jose kori Tebid pulse rate #2 68 Oneyda Tebid blood pressure, cox tolic, second observation 75 mm[Hg] [facility] blood [facility], syst olic, second observation 132 mm[Hg] [facility] oxygen saturation, oximetry 98 % [facility] pulse rate 68 /min [facility] blood pressure, diastolic 75 mm[Hg] Vi ctoria Tebid blood pressure, systolic 132 mm[Hg] Jose kori Tebid pulse rate #2 68 [facility] blood pressure, cox tolic, second observation 78 mm[Hg] [facility] blood pressure, syst olic, second observation 132 mm[Hg] [facility] oxygen saturation, oximetry 98 % [facility] pulse rate 68 /min [facility] blood pressure, diastolic 78 mm[Hg] Vi [facility] Tebid blood pressure, systolic 132 mm[Hg] Jose kori Tebid pulse rate #2 65 [facility] d blood pressure, cox tolic, second observation 79 mm[Hg] [facility] blood pressure, syst olic, second observation 112 mm[Hg] [facility] oxygen saturation, oximetry 98 % [facility] pulse rate 65 /min [facility] blood pressure, diastolic 79 mm[Hg] Vi ctoria Tebid blood pressure, systolic 112 mm[Hg] Jose kori Tebid pulse rate #2 65 [facility] d blood pressure, cox tolic, second observation 77 mm[Hg] [facility] blood [facility], syst olic, second observation 122 mm[Hg] [facility] oxygen saturation, oximetry 98 % [facility] pulse rate 65 /min [facility] blood pressure, diastolic 77 mm[Hg] Vi ctoria Tebid blood pressure, systolic 122 mm[Hg] Jose kori Ted pulse rate #2 68 [facility] blood pressure, cox tolic, second observation 79 mm[Hg] Oneyda blood pressure, syst olic, second observation 132 mm[Hg] Oneyda oxygen saturation, oximetry 98 % Oneyda pulse rate 68 /min Oneyda blood pressure, diastolic 79 mm[Hg] Vi ctoria Ted blood pressure, systolic 132 mm[Hg] Jose kori Ted pulse rate #2 74 [facility] blood pressure, cox tolic, second observation 75 mm[Hg] Oneyda blood pressure, syst olic, second observation 129 mm[Hg] [facility] oxygen saturation, oximetry 98 % Oneyda pulse rate 74 /min Oneyda blood pressure, diastolic 75 mm[Hg] Vi [facility] d blood pressure, systolic 129 mm[Hg] Jose kori d pulse rate #2 69 [facility] blood pressure, cox tolic, second observation 76 mm[Hg] [facility] blood pressure, syst olic, second observation 119 mm[Hg] Noeyda oxygen saturation, oximetry 98 % O[place] pulse rate 69 /min Oneyda blood pressure, diastolic 76 mm[Hg] [facility] blood pressure, systolic 119 mm[Hg] Jose kori d Body Mass Index (Ratio) 36.47 kg/m2 Freedom Smith MD pulse rate #2 70 [facility] blood pressure, cox tolic, second observation 88 mm[Hg] [facility] blood pressure, syst olic, second observation 126 mm[Hg] [facility] oxygen saturation, oximetry 98 % [facility] pulse rate 70 /min [facility] blood pressure, diastolic 88 mm[Hg] [facility] Tebid blood pressure, systolic 126 mm[Hg] Jose kori Ted pulse rate #2 62 [facility] blood pressure, cox tolic, second observation 77 mm[Hg] [facility] blood pressure, syst olic, second observation 134 mm[Hg] [facility] oxygen saturation, oximetry 98 % [facility] pulse rate 62 /min [facility] blood [facility], diastolic 77 mm[Hg] [facility], [facility] mm[Hg] Jose kori Ted blood pressure, cuff size regular Ke rri Leonor blood pressure, diastolic 86 mm[Hg] Ke rri Leonor blood pressure, systolic 125 mm[Hg] Gabriela Galvez oxygen saturation, oximetry 96 % Christine Galvez respiratory rate E&M 18 /min Christine guerrier pulse rate 71 /min Christine Mejía [facility] weight E&M 226 [lb_av] Christine Mejía [facility] height E&M 66 [in_i] Christine Mejía [facility] pulse rate #2 70 [facility] blood pressure, cox tolic, second observation 85 mm[Hg] [facility] blood pressure, syst olic, second observation 118 mm[Hg] [facility] oxygen saturation, oximetry 98 % [facility] pulse rate 70 /min [facility] blood pressure, diastolic 85 mm[Hg] Vi [facility] Tebid blood pressure, systolic 118 mm[Hg] Jose [facility] pulse rate #2 68 [facility] blood pressure, cox tolic, second observation 75 mm[Hg] [facility] blood pressure, syst olic, second observation 120 mm[Hg] [facility] oxygen saturation, oximetry 98 % [facility] pulse rate 68 /min [facility] blood pressure, diastolic 75 mm[Hg] [facility], [facility]Hg[facility] (Ratio) 36.80 kg/m2 Jorge Almeida MD blood pressure, cuff size regular Ke sarah Galvez blood pressure, diastolic 92 mm[Hg] Ke sarah Galvez blood pressure, systolic 141 mm[Hg] Gabriela Galvez oxygen saturation, oximetry 97 % Christine Galvez respiratory rate E&M 18 /min Christine guerrier pulse rate 74 /min Christine Mejía [facility] weight E&M 228 [lb_av] Christine Mejía [facility] height E&M 66 [in_i] Christine Mejía [facility] Body Mass Index (Ratio) 36.63 kg/m2 Jorge Almeida MD blood pressure, cuff size regular Ke sarah Galvez blood pressure, diastolic 70 mm[Hg] Ke genaroi Leonor blood pressure, systolic 110 mm[Hg] Gabriela Galvez oxygen saturation, oximetry 98 % Christine Galvez respiratory rate E&M 16 /min Christine guerrier pulse rate 75 /min Christine lawrence weight E&M 227 [lb_av] Christine Alfonzo [facility] height E&M 66 [in_i] Christine Alfonzo [facility] Body Mass Index (Ratio) 36.63 kg/m2 Freedom Smith MD blood pressure, cuff size regular Ke rri Leonor blood pressure, diastolic 92 mm[Hg] Ke rri Leonor blood pressure, systolic 151 mm[Hg] Gabriela dixon Leonor oxygen saturation, oximetry 98 % Christine Leonor respiratory rate E&M 18 /min Christine Rhett guerrier pulse rate 76 /min Christine Alfonzo [facility] weight E&M 227 [lb_av] Christine Alfonzo [facility] height E&M 66 [in_i] Christine Alfonzo [facility] Body Mass Index (Ratio) 36.76 kg/m2 Freedom Smith MD blood pressure, diastolic 82 mm[Hg] Naty Bates blood pressure, systolic 125 mm[Hg] Brandee Bates oxygen saturation, oximetry 95 % Ye Bates respiratory rate E&M 18 /min Godfrey Bates pulse rate 80 /min Ye aviles weight E&M 227.8 [lb_av] Ye hernandez height E&M 66 [in_i] Ye aviles Body Mass Index (Ratio) 36.96 kg/m2 Jorge Almeida MD respiratory rate E&M 18 /min Tiffany Edward pulse rate 72 /min Tifafny Edward oxygen saturation, oximetry 97 % Tiffany Edward blood pressure, diastolic 80 mm[Hg] Silvino Edward blood pressure, systolic 118 mm[Hg] Jesse Edward blood pressure, cuff size regular Silvino Edward weight E&M 229 [lb_av] Tiffany Edward height E&M 66 [in_i] Tiffany Edward blood pressure, diastolic 74 mm[Hg] Morales Foleyhley blood pressure, systolic 112 mm[Hg] Dakotah Foleyhley pulse rate 80 /min Jennifer Foleyhley oxygen saturation, oximetry 97 % Jennifer Foleyhley respiratory rate E&M 18 /min Jennifer Foleyhley Body Mass Index (Ratio) 38.18 kg/m2 Bryce Foleyhley weight E&M 236.6 [lb_av] Jennifer ramírez blood pressure, diastolic 60 mm[Hg] Naty Bates blood pressure, systolic 100 mm[Hg] Brandee Bates pulse rate 72 /min Ye aviles oxygen saturation, oximetry 98 % Ye Bates respiratory rate E&M 18 /min Godfrey Bates Body Mass Index (Ratio) 37.99 kg/m2 Kira Paulo weight E&M 235.4 [lb_av] Ye hernandez pulse rate #2 70 Oneyda Moralesrobinson blood pressure, cox tolic, second observation 79 mm[Hg] [facility], second observation 122 mm[Hg] [facility], oximetry 98 % [facility] pulse rate 70 /min [facility] blood pressure, diastolic 79 mm[Hg] Vi ctoria Moralesrobinson blood pressure, systolic 122 mm[Hg] Jose Nielsenbirobinson pulse rate #2 70 Oneyda Moralesrobinson blood pressure, cox tolic, second observation 82 mm[Hg] Oneyda Te blood pressure, syst olic, second observation 125 mm[Hg] Oneyda oxygen saturation, oximetry 98 % Oneyda pulse rate 70 /min Oneyda blood pressure, diastolic 82 mm[Hg] Vi ctoria Tebid blood pressure, systolic 125 mm[Hg] Jose kori Tebid pulse rate #2 68 [facility] blood pressure, cox tolic, second observation 85 mm[Hg] Oneyda blood pressure, syst olic, second observation 119 mm[Hg] Bradley oxygen saturation, oximetry 98 % Oneyda pulse rate 68 /min Oneyda blood pressure, diastolic 85 mm[Hg] Vi ctoria Ted blood pressure, systolic 119 mm[Hg] Jose doveria Ted pulse rate #2 74 Bradley blood pressure, cox tolic, second observation 87 mm[Hg] Bradley blood pressure, syst olic, second observation 119 mm[Hg] Bradley oxygen saturation, oximetry 98 % Bradley pulse rate 74 /min Bradley blood pressure, diastolic 87 mm[Hg] Vi ctoria Ted blood pressure, systolic 119 mm[Hg] Jose doveria Ted pulse rate #2 73 Bradley blood pressure, cox tolic, second observation 81 mm[Hg] Bradley blood pressure, syst olic, second observation 128 mm[Hg] Oneyda oxygen saturation, oximetry 98 % Bradley pulse rate 73 /min Bradley blood pressure, diastolic 81 mm[Hg] Vi ctoria Tebid blood pressure, systolic 128 mm[Hg] Jose doveria Tebid pulse rate #2 69 Bradley Te blood pressure, cox tolic, second observation 72 mm[Hg] Oneyda blood pressure, syst olic, second observation 124 mm[Hg] Oneyda oxygen saturation, oximetry 98 % Oneyda pulse rate 69 /min Oneyda blood pressure, diastolic 72 mm[Hg] Vi ctoria Tebid blood pressure, systolic 124 mm[Hg] Jose kori Tebid pulse rate #2 71 Bradley blood pressure, cox tolic, second observation 76 mm[Hg] Oneyda blood pressure, syst olic, second observation 124 mm[Hg] Oneyda oxygen saturation, oximetry 98 % Oneyda pulse rate 71 /min Oneyda blood pressure, diastolic 76 mm[Hg] Vi ctoria Ted blood pressure, systolic 124 mm[Hg] Jose kori Tebid pulse rate #2 76 Bradley blood pressure, cox tolic, second observation 82 mm[Hg] Oneyda blood pressure, syst olic, second observation 135 mm[Hg] Oneyda oxygen saturation, oximetry 98 % Oneyda pulse rate 76 /min Oneyda blood pressure, diastolic 82 mm[Hg] Vi ctoria Tebid blood pressure, systolic 135 mm[Hg] Jose kori Tebid pulse rate #2 71 Bradley blood pressure, cox tolic, second observation 79 mm[Hg] Oneyda d blood pressure, syst olic, second observation 137 mm[Hg] Onedya d oxygen saturation, oximetry 98 % Oneyda pulse rate 71 /min Bradley blood pressure, diastolic 79 mm[Hg] Vi ctoria Tebid blood pressure, systolic 137 mm[Hg] Jose kori Tebid pulse rate 70 /min Idania Short oxygen saturation, oximetry 96 % Idania Short respiratory rate E&M 18 /min Idania Short blood pressure, diastolic 88 mm[Hg] Me gilson Short blood pressure, systolic 130 mm[Hg] Kim Short Body Mass Index (Ratio) 38.09 kg/m2 Padmaja Short weight E&M 236.0 [lb_av] Idania Short pulse rate #2 74 [facility] blood pressure, cox tolic, second observation 82 mm[Hg] [facility] blood pressure, syst olic, second observation 131 mm[Hg] [facility] oxygen saturation, oximetry 98 % [facility] pulse rate 74 /min [facility] blood pressure, diastolic 82 mm[Hg] Vi ctoria Tebid blood pressure, systolic 131 mm[Hg] Jose doveria Tebid pulse rate #2 72 [facility] blood pressure, cox tolic, second observation 82 mm[Hg] [facility], syst [facility]lic, second observation 133 mm[Hg] [facility], oximetry 98 % [facility] pulse rate 72 /min [facility], diastolic 82 mm[Hg] Vi ctoria Tebid blood pressure, systolic 133 mm[Hg] Jose kori Tebid pulse rate #2 69 [facility], cox tolic, second observation 84 mm[Hg] [facility], syst olic, second observation 136 mm[Hg] [facility], oximetry 98 % [facility] pulse rate 69 /min [facility], diastolic 84 mm[Hg] Vi ctoria Tebid blood pressure, systolic 136 mm[Hg] Jose kori Tebid pulse rate #2 72 Bradley bid blood pressure, cox tolic, second observation 81 mm[Hg] Bradley d blood pressure, syst olic, second observation 132 mm[Hg] [facility], oximetry 98 % [facility] pulse [facility] 72 /min [facility], diastolic 81 mm[Hg] Vi ctoria Tebid blood pressure, systolic 132 mm[Hg] Jose kori Tebid pulse rate #2 69 Bradley d blood pressure, cox tolic, second observation 81 mm[Hg] [facility], syst olic, second observation 132 mm[Hg] [facility] oxygen [facility], oximetry 98 % [facility] pulse rate 69 /min [facility] blood pressure, diastolic 81 mm[Hg] Vi ctoria Tebid blood pressure, systolic 132 mm[Hg] Jose doveria Tebid pulse rate #2 71 [facility] blood pressure, cox tolic, second observation 93 mm[Hg] [facility] blood [facility], syst olic, second observation 135 mm[Hg] [facility] oxygen [facility], oximetry 98 % [facility] pulse rate 71 /min Bradley Tebid blood pressure, diastolic 93 mm[Hg] Vi ctoria Tebid blood pressure, systolic 135 mm[Hg] Jose doveria Tebid pulse rate #2 70 [facility], cox tolic, second observation 86 mm[Hg] [facility] blood [facility], syst olic, second observation 125 mm[Hg] [facility] oxygen [facility], oximetry 98 % [facility] pulse rate 70 /min [facility] blood pressure, diastolic 86 mm[Hg] Vi ctoria Tebid blood pressure, systolic 125 mm[Hg] Jose kori Tebid pulse rate #2 68 Bradley d blood pressure, cox tolic, second observation 93 mm[Hg] [facility], syst olic, second observation 128 mm[Hg] [facility] oxygen [facility], oximetry 98 % Bradley bid pulse rate 68 /min Bradley Tebid blood pressure, diastolic 93 mm[Hg] Vi ctoria Tebid blood pressure, systolic 128 mm[Hg] Jose kori Tebid pulse rate #2 74 [facility] blood pressure, cox tolic, second observation 72 mm[Hg] [facility] blood pressure, syst olic, second observation 117 mm[Hg] [facility], oximetry 98 % Bradley pulse rate 74 /min Bradley blood pressure, diastolic 72 mm[Hg] Vi ctoria Tebid blood pressure, systolic 117 mm[Hg] Jose kori Tebid pulse rate #2 70 [facility] blood pressure, cox tolic, second observation 69 mm[Hg] [facility], syst olic, second observation 128 mm[Hg] Bradley Tebid oxygen saturation, oximetry 98 % [facility] pulse rate 70 /min [facility], diastolic 69 mm[Hg] Vi ctoria Tebid blood pressure, systolic 128 mm[Hg] Jose kori Tebid pulse rate #2 70 [facility] blood [facility], cox tolic, second observation 82 mm[Hg] [facility] blood [facility], syst olic, second observation 117 mm[Hg] [facility] oxygen [facility], oximetry 98 % Bradley Tebid pulse rate 70 /min Oneyda Tebid blood pressure, diastolic 82 mm[Hg] Vi ctoria Tebid blood pressure, systolic 117 mm[Hg] Jose kori Tebid pulse rate #2 74 Bradley Tebid blood pressure, cox tolic, second observation 72 mm[Hg] Oneyda Tebid blood pressure, syst olic, second observation 111 mm[Hg] Oneyda Tebid oxygen saturation, oximetry 98 % Bradley Tebid pulse rate 74 /min Bradley Tebid blood pressure, diastolic 72 mm[Hg] Vi ctoria Tebid blood pressure, systolic 111 mm[Hg] Jose kori Tebid pulse rate #2 71 Bradley Tebid blood pressure, cox tolic, second observation 79 mm[Hg] Bradley Tebid blood pressure, syst olic, second observation 114 mm[Hg] Bradley Tebid oxygen saturation, oximetry 98 % Bradley Tebid pulse rate 71 /min Bradley Tebid blood pressure, diastolic 79 mm[Hg] Vi ctoria Tebid blood pressure, systolic 114 mm[Hg] Jose kori Tebid pulse rate #2 70 Bradley Tebid blood pressure, cox tolic, second observation 84 mm[Hg] Oneyda Tebid blood pressure, syst olic, second observation 125 mm[Hg] Bradley Tebid oxygen saturation, oximetry 98 % Bradley Tebid pulse rate 70 /min Bradley Tebid blood pressure, diastolic 84 mm[Hg] Vi ctoria Tebid blood pressure, systolic 125 mm[Hg] Jose kori Tebid pulse rate #2 70 Bradley Tebid blood pressure, cox tolic, second observation 85 mm[Hg] Bradley blood pressure, syst olic, second observation 133 mm[Hg] [facility] oxygen saturation, oximetry 98 % [facility] pulse rate 70 /min Bradley blood pressure, diastolic 85 mm[Hg] Vi ctoria Ted blood pressure, systolic 133 mm[Hg] Jose kori Te blood pressure, diastolic 85 mm[Hg] Ok gilson [facility] blood pressure, systolic 135 mm[Hg] Kim duenas [facility] pulse rate 70 /min Idania [facility] oxygen saturation, oximetry 96 % Idania [facility] respiratory rate E&M 16 /min Idania [facility] Body Mass Index (Ratio) 38.25 kg/m2 Padmaja nunez [facility] weight E&M 237 [lb_av] Idania [facility] pulse rate #2 74 [facility] blood pressure, cox tolic, second observation 91 mm[Hg] [facility] blood pressure, syst olic, second observation 139 mm[Hg] [facility] oxygen saturation, oximetry 98 % [facility] pulse rate 74 /min [facility] blood pressure, diastolic 91 mm[Hg] Vi ctoria Ted blood pressure, systolic 139 mm[Hg] Jose doveria Ted pulse rate #2 74 [facility] blood pressure, cox tolic, second observation 70 mm[Hg] [facility] blood pressure, syst olic, second observation 121 mm[Hg] [facility] oxygen saturation, oximetry 98 % [facility] pulse rate 74 /min [facility] blood pressure, diastolic 70 mm[Hg] Vi ctoria Ted blood pressure, systolic 121 mm[Hg] Jose doveria Ted pulse rate #2 68 [facility] blood pressure, cox tolic, second observation 75 mm[Hg] [facility] blood pressure, syst olic, second observation 119 mm[Hg] [facility] oxygen saturation, oximetry 98 % [facility] pulse rate 68 /min [facility] blood pressure, diastolic 75 mm[Hg] Vi ctoria Tebid blood pressure, systolic 119 mm[Hg] Jose kori Tebid pulse rate #2 76 [facility] blood pressure, cox tolic, second observation 79 mm[Hg] [facility] blood pressure, syst olic, second observation 120 mm[Hg] [facility] oxygen saturation, oximetry 98 % [facility] pulse rate 76 /min [facility] blood pressure, diastolic 79 mm[Hg] Vi ctoria Tebid blood pressure, systolic 120 mm[Hg] Jose kori Tebid pulse rate #2 70 [facility] blood pressure, cox tolic, second observation 72 mm[Hg] [facility] blood pressure, syst olic, second observation 133 mm[Hg] [facility] oxygen saturation, oximetry 98 % [facility] pulse rate 70 /min [facility] blood pressure, diastolic 72 mm[Hg] Vi ctoria Tebid blood pressure, systolic 133 mm[Hg] Jose kori Tebid pulse rate #2 76 [facility] blood pressure, cox tolic, second observation 81 mm[Hg] [facility] blood [facility], syst olic, second observation 120 mm[Hg] [facility] oxygen saturation, oximetry 98 % [facility] pulse rate 76 /min [facility] blood pressure, diastolic 81 mm[Hg] Vi ctoria Tebid blood pressure, systolic 120 mm[Hg] Jose kori Tebid pulse rate #2 63 [facility], cox tolic, second observation 73 mm[Hg] [facility] blood [facility], syst olic, second observation 118 mm[Hg] [facility], oximetry 98 % [facility] pulse [facility] 67 /min [facility] blood [facility], diastolic 76 mm[Hg] Vi ctoria Tebid blood pressure, systolic 120 mm[Hg] Jose kori Tebid pulse rate #2 64 [facility] blood [facility], cox tolic, second observation 69 mm[Hg] [facility] blood pressure, syst olic, second observation 124 mm[Hg] [facility] oxygen [facility], oximetry 98 % [facility] pulse rate 64 /min [facility] blood pressure, diastolic 69 mm[Hg] Vi [facility] Tebid blood pressure, systolic 124 mm[Hg] [facility] #2 72 Bradley Ted blood pressure, cox tolic, second observation 78 mm[Hg] [facility] blood [facility], syst olic, second observation 123 mm[Hg] [facility], oximetry 98 % [facility] pulse rate 72 /min Bradley Tebid blood pressure, diastolic 78 mm[Hg] Vi ctoria Tebid blood pressure, systolic 123 mm[Hg] Jose kori Tebid pulse rate #2 70 Bradley Tebid blood pressure, cox tolic, second observation 73 mm[Hg] Bradley Tebid blood pressure, syst olic, second observation 139 mm[Hg] [facility], oximetry 98 % [facility] pulse rate 70 /min [facility] blood [facility], diastolic 73 mm[Hg] Vi ctoria Tebid blood pressure, systolic 139 mm[Hg] Jose kori Tebid pulse rate #2 70 [facility] blood pressure, cxo tolic, second observation 72 mm[Hg] [facility] blood [facility], syst olic, second observation 116 mm[Hg] [facility] oxygen saturation, oximetry 98 % [facility] pulse rate 70 /min [facility] blood pressure, diastolic 72 mm[Hg] Vi bonita Tebid blood pressure, systolic 116 mm[Hg] Jose sheikh Tebid oxygen saturation, oximetry 98 % Idania Brewer blood pressure, diastolic 88 mm[Hg] Ok gilson Brewer blood pressure, systolic 137 mm[Hg] Kim duenas Brewer pulse rate 84 /min Idania Brewer respiratory rate E&M 16 /min Idania Brewer Body Mass Index (Ratio) 38.41 kg/m2 Padmaja nunez Brewer weight E&M 238 [lb_av] Idania Brewer blood pressure, diastolic 89 mm[Hg] Naty Bates blood pressure, systolic 136 mm[Hg] Brandee Bates pulse rate 76 /min Ye aviles oxygen saturation, oximetry 97 % Ye Bates respiratory rate E&M 18 /min Godfrey Bates Body Mass Index (Ratio) 36.73 kg/m2 KiraDonna Bates weight E&M 227.6 [lb_av] Ye hernandez blood pressure, diastolic 86 mm[Hg] Naty Bates blood pressure, systolic 135 mm[Hg] Brandee Bates pulse rate 75 /min Ye aviles oxygen saturation, oximetry 97 % Ye Bates respiratory rate E&M 18 /min Godfrey Bates Body Mass Index (Ratio) 36.38 kg/m2 Glendy Bates weight E&M 225.4 [lb_av] Ye blancon blood pressure, diastolic, left arm 78 mm [Hg] Idania Brewer blood pressure, systolic, left arm 118 mm [Hg] Idania Brewer blood pressure, diastolic, right arm 84 m m[Hg] Idania Brewer blood pressure, systolic, right arm 122 m m[Hg] Idania Brewer blood pressure, diastolic 78 mm[Hg] Ok glison blood pressure, systolic 118 mm[Hg] Kim duenas Brewer pulse rate 70 /min Idania Brewer oxygen saturation, oximetry 98 % [facility] respiratory rate E&M 15 /min Idania Brewer Body Mass Index (Ratio) 34.86 kg/m2 Padmaja nunez Brewer weight E&M 216 [lb_av] Idania Brewer blood pressure, diastolic 93 mm[Hg] Naty Bower Bates blood pressure, systolic 140 mm[Hg] Brandee Can Bates pulse rate 70 /min Ye Red[place] traci oxygen saturation, oximetry 98 % Ye Palomoenson respiratory rate E&M 18 /min Godfrey Bates Body Mass Index (Ratio) 35.18 kg/m2 Glendy Bates weight E&M 218 [lb_av] Ye Redmond tatumon blood pressure, diastolic 87 mm[Hg] Naty Palomoenson blood pressure, systolic 141 mm[Hg] Brandee Palomoenson Body Mass Index (Ratio) 33.83 kg/m2 Glendy Thompson Bates pulse rate 69 /min Ye [place] traci oxygen saturation, oximetry 97 % Ye Bates respiratory rate E&M 18 /min Godfrey Bates weight E&M 209.6 [lb_av] Ye hernandez Body Mass Index (Ratio) 31.15 kg/m2 Padmaja nunez Brewer blood pressure, diastolic 85 mm[Hg] Me riggins Brewer blood pressure, systolic 132 mm[Hg] Kim duenas Brewer pulse rate 80 /min Idania Brewer oxygen saturation, oximetry 98 % Idania Brewer respiratory rate E&M 15 /min Idania Brewer weight E&M 193 [lb_av] Idania Brewer Body Mass Index (Ratio) 32.08 kg/m2 Miladyterri Escobar blood pressure, diastolic 91 mm[Hg] Jose A cerda Luz blood pressure, systolic 138 mm[Hg] Milady العراقي Luz pulse rate 80 /min Jennifer Henaodney oxygen saturation, oximetry 98 % Jennifer Henaodney respiratory rate E&M 18 /min Jennifer Henaodney weight E&M 198.8 [lb_av] Jose Adulce maria Luz Body Mass Index (Ratio) 31.47 kg/m2 Serrano i Leonor blood pressure, diastolic 80 mm[Hg] Ke rri Leonor blood pressure, systolic 120 mm[Hg] Gabriela ri Leonor pulse rate 72 /min Christine Alfonzo lawrenceer oxygen saturation, oximetry 98 % Christine Leonor respiratory rate E&M 16 /min Christine Rhett guerrier weight E&M 195 [lb_av] Christine Alfonzo lder Body Mass Index (Ratio) 31.63 kg/m2 Anea adam Brown blood pressure, diastolic 95 mm[Hg] An js [place] blood pressure, systolic 145 mm[Hg] Ane atris Rj pulse rate 86 /min Aneatris Rj oxygen saturation, oximetry 99 % Aneatris Rj respiratory rate E&M 18 /min Aneatri s Rj weight E&M 196 [lb_av] Aneatris [facility] Body Mass Index (Ratio) 30.99 kg/m2 Anea adam [facility] blood pressure, diastolic 93 mm[Hg] An js [place] blood pressure, systolic 143 mm[Hg] Ane atris [facility] pulse rate 70 /min Aneatris [facility] oxygen saturation, oximetry 98 % Rosalinaatrivanna [facility] respiratory rate E&M 17 /min Aneatri s [facility] weight E&M 192 [lb_av] Rosalinaatrivanna [facility] Body Mass Index (Ratio) 28.89 kg/m2 Radha hunter Edward pulse rate 98 /min Tiffany [place] oxygen saturation, oximetry 93 % [facility] respiratory rate E&M 16 /min [facility] weight E&M 179 [lb_av] [facility] blood pressure, diastolic 92 mm[Hg] Ta hussein Edward blood pressure, systolic 147 mm[Hg] Molina bia [place] Body Mass Index (Ratio) 29.21 kg/m2 Serrano i Leonor blood pressure, diastolic 100 mm[Hg] Ke rri Leonor blood pressure, systolic 142 mm[Hg] Gabriela Galvez pulse rate 84 /min Christine victor oxygen saturation, oximetry 98 % Christine Galvez respiratory rate E&M 20 /min Christine guerrier weight E&M 181 [lb_av] Christine victor height E&M 66 [in_i] Christine Mejía lder ALLERGIES No Known Drug Allergies RESULTS Date Observation Value Provider Reference Range Interpretation Location prothrombin time (patient) 10.7 s [facility] 9.1-12.0 international normalized ratio (INR) 1.0 [facility] 0.8-1.2 lipoprotein, beta, serum, point, quantitative, calculated 46 mg/dL [facility] 0-99 very low density lipoproteins 30 mg/dL [facility] 5-40 HDL cholesterol, serum 59 mg/dL [facility] >39 triglyceride, serum, random 149 mg/dL [facility] 0-149 cholesterol, serum 135 mg/dL [facility] 116-560 9264/06/ 13 calcium, serum 9.5 mg/dL [facility] 8.7-10.2 carbon dioxide, venous blood 26 mmol/L [facility] 20-29 chloride, serum 98 mmol/L [facility] 96-106 potassium, serum 4.2 mmol/L [facility] 3.5-5.2 sodium, serum 140 mmol/L [facility] [phone]/06/ 13 urea nitrogen/creatinine ratio, serum 9 [facility] 9-23 eGFR if 101 mL/min/{1 .73_m2} [facility] >59 eGFR if not 87 mL/min/{1 .73_m2} [facility] >59 creatinine, serum 0.77 mg/dL [facility] 0.57-1.00 urea nitrogen, blood 7 mg/dL [facility] 6-24 blood glucose, random 104 mg/dL [facility] 65-99 High basophil count, absolute 0.0 x10E3/uL [facility] 0.0-0.2 Eosinophil Absolute Count 0.2 X10E3/UL [facility] 0.0-0.4 monocyte count, blood, automated 0.8 X10E3/UL [facility] 0.1-0.9 lymphocyte count, blood, automated 3.0 X10E3/UL [facility] 0.7-3.1 Absolute Neutrophils 8.1 X10E3/UL [facility] 1.4-7.0 High basophils as percent of blood leukocytes 0 % [facility] Not Estab. eosinophils as percent of blood leukocytes 2 % [facility] Not Estab. monocytes as percent of blood leukocytes 6 % [facility] Not Estab. lymphocytes as percent of blood leukocytes 25 % [facility] Not Estab. neutrophils as percent of blood leukocytes 67 % [facility] Not Estab. platelet count 355 X10E3/UL [facility] [phone]/06/ 13 red blood cell distribution width 14.7 % [facility] 11.7-15.4 mean corpuscular hemoglobin concentration, RBC 31.0 G/DL [facility] 31.5-35.7 Low mean corpuscular hemoglobin, RBC 25.5 pg [facility] 26.6-33.0 Low mean corpuscular volume, RBC 82 fL [facility] 79-97 hematocrit, blood 35.8 % [facility] 34.0-46.6 hemoglobin, blood 11.1 g/dL [facility] 11.1-15.9 erythrocyte (RBC) count 4.36 X10E6/UL [facility] 3.77-5.28 leukocyte count, blood 12.1 X10E3/UL [facility] 3.4-10.8 High pro brain natriuretic peptide 203 pg/mL [facility] 0-287 magnesium, serum 2.2 mg/dL [facility] 1.6-2.3 alanine aminotransferase (SGPT), serum 19 1/L [facility] 0-32 aspartate aminotransferase (SGOT), serum 21 1/L [facility] 0-40 alkaline phosphatase, serum 133 1/L [facility] 39-117 High bilirubin, serum, total 0.2 mg/dL [facility] 0.0-1.2 albumin/globulin ratio, serum 1.3 [facility] 1.2-2.2 globulin, serum 2.9 [facility] 1.5-4.5 albumin, serum 3.9 g/dL [facility] 3.8-4.9 protein, total, serum 6.8 g/dL [facility] 6.0-8.5 calcium, serum 8.8 mg/dL [facility] 8.7-10.2 carbon dioxide, venous blood 25 mmol/L [facility] 20-29 chloride, serum 99 mmol/L [facility] 96-106 potassium, serum 4.2 mmol/L [facility] 3.5-5.2 sodium, serum 140 mmol/L [facility] [phone]/03/ 26 urea nitrogen/creatinine ratio, serum 9 [facility] 9-23 eGFR if 95 mL/min/{1 .73_m2} [facility] >59 eGFR if not 82 mL/min/{1 .73_m2} [facility] >59 creatinine, serum 0.81 mg/dL [facility] 0.57-1.00 urea nitrogen, blood 7 mg/dL [facility] 6-24 blood glucose, random 133 mg/dL [facility] 65-99 High pro brain natriuretic peptide 107 pg/mL [facility] 0-249 alanine aminotransferase (SGPT), serum 22 1/L [facility] 0-32 aspartate aminotransferase (SGOT), serum 20 1/L [facility] 0-40 alkaline phosphatase, serum 122 1/L [facility] 39-117 High bilirubin, serum, total 0.2 mg/dL [facility] 0.0-1.2 albumin/globulin ratio, serum 1.9 [facility] 1.2-2.2 globulin, serum 2.4 [facility] 1.5-4.5 albumin, serum 4.5 g/dL [facility] 3.5-5.5 protein, total, serum 6.9 g/dL [facility] 6.0-8.5 calcium, serum 9.2 mg/dL [facility] 8.7-10.2 carbon dioxide, venous blood 27 mmol/L [facility] 20-29 chloride, serum 101 mmol/L [facility] 96-106 potassium, serum 4.0 mmol/L [facility] 3.5-5.2 sodium, serum 144 mmol/L [facility] [phone]/11/ 19 urea nitrogen/creatinine ratio, serum 6 [facility] 9-23 Low eGFR if 95 mL/min/{1 .73_m2} [facility] >59 eGFR if not 83 mL/min/{1 .73_m2} [facility] >59 creatinine, serum 0.81 mg/dL [facility] 0.57-1.00 urea nitrogen, blood 5 mg/dL [facility] 6-24 Low blood glucose, random 87 mg/dL [facility] 65-99 lipoprotein, beta, serum, point, quantitative, calculated 65 mg/dL [facility] 0-99 very low density lipoproteins 19 mg/dL [facility] 5-40 HDL cholesterol, serum 72 mg/dL [facility] >39 triglyceride, serum, random 97 mg/dL [facility] 0-149 cholesterol, serum 156 mg/dL [facility] [phone]/11/ 17 alanine aminotransferase (SGPT), serum 49 1/L [facility] 0-32 High aspartate aminotransferase (SGOT), serum 27 1/L [facility] 0-40 alkaline phosphatase, serum 133 1/L [facility] 39-117 High bilirubin, serum, total <0.2 mg/dL [facility] 0.0-1.2 albumin/globulin ratio, serum 1.5 [facility] 1.2-2.2 globulin, serum 2.6 [facility] 1.5-4.5 albumin, serum 4.0 g/dL [facility] 3.5-5.5 protein, total, serum 6.6 g/dL [facility] 6.0-8.5 calcium, serum 8.7 mg/dL [facility] 8.7-10.2 carbon dioxide, venous blood 27 mmol/L [facility] 20-29 chloride, serum 97 mmol/L [facility] 96-106 potassium, serum 3.9 mmol/L [facility] 3.5-5.2 sodium, serum 140 mmol/L [facility] [phone]/11/ 17 urea nitrogen/creatinine ratio, serum 13 [facility] 9-23 eGFR if 71 mL/min/{1 .73_m2} [facility] >59 eGFR if not 61 mL/min/{1 .73_m2} [facility] >59 creatinine, serum 1.04 mg/dL [facility] 0.57-1.00 High urea nitrogen, blood 13 mg/dL [facility] 6-24 blood glucose, random 111 mg/dL [facility] 65-99 High coagulation managed by Wander Mendiola RN international normalized ratio (INR) 1.1 Wander Mendiola RN Normal prothrombin time (patient) 13.1 s Wander Mendiola RN pro brain natriuretic peptide 175 pg/mL [facility] 0-450 thyroid stimulating hormone, serum 0.73 ?IU/ ML [facility] 0.27-4.20 very low density lipoproteins 22.2 mg/dL [facility] 5.0-40.0 LDL/HDL (low-density lipoprotein/high-den sity lipoprotein) ratio 1 mg/dL [facility] 0-5 lipoprotein, beta, serum, point, quantitative, calculated 57 mg/dL [facility] 0-100 HDL cholesterol, serum 63 mg/dL [facility] 45-65 cholesterol, serum 142 mg/dL [facility] 0-200 triglyceride, serum, fasting 111 mg/dL [facility] 0-150 Estimated Glomerular Filtration Rate (calc) 98 (?) [facility] >59 chloride, serum 101 mmol/L [facility] 98-107 potassium, serum 3.3 mmol/L [facility] 3.5-5.1 Low sodium, serum 141 mmol/L [facility] 940-500 2697/10/ 23 creatinine, serum 0.7 mg/dL [facility] 0.5-0.9 carbon dioxide, venous blood 28 mmol/L [facility] 22-29 albumin, serum 4.3 g/dL [facility] 3.5-5.2 calcium, serum 8.9 mg/dL [facility] 8.6-10.2 aspartate aminotransferase (SGOT), serum 21 1/L [facility] 0-32 alkaline phosphatase, serum 105 1/L [facility] 40-130 alanine aminotransferase (SGPT), serum 21 1/L [facility] 0-33 protein, total, serum 7.0 g/dL [facility] 6.6-8.7 bilirubin, serum, total 0.3 mg/dL [facility] 0.0-1.2 urea nitrogen, blood 6 mg/dL [facility] 6-20 blood glucose, random 92 mg/dL [facility] 74-99 hemoglobin A1C, blood, as % of total hemoglobin 5.9 % [facility] 4.0-5.6 High platelet count 289 THOUSAND/ UL [facility] [phone]/10/ 23 Absolute Basophils 0.0 CELLS/UL [facility] 0.0-0.2 Absolute Monocytes 0.5 CELLS/UL [facility] 0.2-1.0 Absolute Lymphocytes 1.68 CELLS/UL [facility] 0.85-3.90 Absolute Neutrophils 4.6 CELLS/UL [facility] 1.5-7.8 mean corpuscular volume, RBC 92 fL [facility] 75-100 mean corpuscular hemoglobin concentration, RBC 31 G/DL [facility] 31-38 mean corpuscular hemoglobin, RBC 29 pg [facility] 25-35 hematocrit, blood 38 % [facility] 35-55 hemoglobin, blood 11.9 g/dL [facility] 11.5-16.5 erythrocyte count, whole blood 4.2 MILLION/U L [facility] 3.5-5.5 HISTORY OF MEDICATION USE Medication Status Instructions Dates Provider Indications Com ments ranolazine 1,000 mg tablet extended release 12 hr active TAKE 1 TABLET BY MOUTH TWICE DAILY FOR CHRONIC ANGINA 01/18 Kyle Preciado FUROSEMIDE 40 MG TABS active TAKE 1 TABLET BY MOUTH TWICE DAILY 08/12 Jessi Freitas BUSPIRONE HCL 5 MG ORAL TABLET active take 1 tab twice a day 10/13 Kristy Grover CYCLOBENZAPRINE HCL 10 MG ORAL TABLET active take 1 tab every8 hours as needed 09/08 Kristy Grover BENZTROPINE MESYLATE 0.5 MG ORAL TABLET active 1 tab once daily Ye Bates ARIPIPRAZOLE 10 MG ORAL TABLET active 1 tab at bedtime Ye Bates BUSPIRONE HCL 5 MG ORAL TABLET active take 1 tab twice a day 09/08 Kristy Grover ESCITALOPRAM OXALATE 20 MG ORAL TABLET active 1 tab once daily Ye Bates RANITIDINE HCL 300 MG ORAL TABLET active ONE TAB DAILY Ye Bates VITAMIN D (ERGOCALCIFEROL) 27400 UNIT ORAL CAPSULE active Take once a week Kristy Grover MAGNESIUM OXIDE 400 MG ORAL TABLET active ONE TAB once A DAY 06/29 Nelson Almeida MD FUROSEMIDE 80 MG ORAL TABLET active take 1 1/2 tab daily 06/29 Kristy Grover RANITIDINE HCL 150 MG ORAL TABLET completed TK 1 T PO QD PRN 09/01 - 01/18 Ye Bates #60, 60 days supply, Prescribed by SANCHO ZURITA, Filled 06/06/2017 SERTRALINE HCL 100 MG ORAL TABLET completed TAKE ONE TABLET BY MOUTH ONCE DAILY 06/20 - 01/18 Christine Galvez #30, 30 days supply, Filled 06/20/2017 CHOLESTYRAMINE 4 GM/DOSE ORAL POWDER active DIRECTED 06/09 Janna Tahmina #756, 90 days supply, Prescribed by SANCHO ZURITA, Filled 06/17/2017 ARIPIPRAZOLE 5 MG ORAL TABLET active 3 tabs once daily 06/07 Ye Bates #90, 90 days supply, Prescribed by IGOR GANDARA, Filled 04/17/2017 LEVETIRACETAM 500 MG ORAL TABLET active one pill twice a day 06/22 Christine Galvez HYDROCHLOROTHIAZIDE 25 MG ORAL TABLET completed ONE TAB DAILY - 06/29 Nelson Almeida MD POTASSIUM CHLORIDE 20MEQ ER TABLETS active TAKE 1 TABLET BY MOUTH TWICE DAILY 05/13 Catrachita Cortes LOSARTAN POTASSIUM-HCTZ 50-12.5 MG ORAL TABLET active take one pill a day Christine Galvez ZOLOFT 100 MG ORAL TABLET completed take one pill a day - 01/18 Ye Bates [facility] MELATONIN 3 MG ORAL TABLET active take one pill at bedtime Christine Galvez CLONAZEPAM 0.5 MG ORAL TABLET active 1 tag 3 times daily 10/21 Ye Bates PANTOPRAZOLE SODIUM 40 MG ORAL TABLET DELAYED RELEASE active once a day 06/22 Christine Galvez OMEPRAZOLE 40 MG ORAL CAPSULE DELAYED RELEASE completed TAKE ONE DAILY - 01/18 Tiffany RICE HFA 108 (90 BASE) MCG/ACT INHALATION AEROSOL SOLUTION active 2 puffs every 4-6 hours Christine Galvez CHOLESTYRAMINE 4 GM ORAL PACKET completed twice daily 10/23 - 06/13 Kristy Grover LOSARTAN POTASSIUM 25 MG ORAL TABLET completed once daily 09/20 - Nelson Almeida MD VENTOLIN HFA 108 (90 Base) MCG/ACT INHALATION AEROSOL SOLUTION completed 2 puffs every 4-6 hours 09/20 - Jennifer Bennett FLUTICASONE PROPIONATE 50 MCG/ACT NASAL SUSPENSION active daily 09/20 Idania Brewer LISINOPRIL 5 MG ORAL TABLET completed ONE TAB DAILY AT NIGHT 06/01 - 09/20 Idaniahenrique Brewer Ranexa 1,000 mg tablet extended release 12 hr completed ONE TAB. TWICE DAILY for chronic angina 10/23 - 01/18 Nelson Almeida MD RANITIDINE HCL 150 MG ORAL TABLET completed ONE TAB TWICE DAILY 01/09 - Jennifer Bennett ATORVASTATIN CALCIUM 40 MG ORAL TABLET active take 1 tab daily 09/08 Kirsty Grover CLONAZEPAM 0.5 MG ORAL TABLET completed twice daily - 01/18 Ye Bates RANEXA 500 MG ORAL TABLET EXTENDED RELEASE 12 HOUR completed ONE TAB. TWICE DAILY for chronic angina 11/30 - 05/14 Kwaku Tiwari RN ISOSORBIDE MONONITRATE 30MG ER TABS active TAKE 1 TABLET BY MOUTH EVERY DAY 01/19 Iraj Nelson PAXIL 40 MG ORAL TABLET completed ONE TAB. DAILY - 01/18 Christine Galvez METOPROLOL TARTRATE 50 MG ORAL TABLET active 1 tab po twice daily 07/10 Caleb Smith MD DIAZEPAM 2 MG ORAL TABLET completed 1 tab 3x daily - 01/18 Christine Galvez MECLIZINE HCL 25 MG ORAL TABLET completed 1 tab 3x daily 06/23 - 01/18 Christine Galvez OMEPRAZOLE 40 MG ORAL CAPSULE DELAYED RELEASE completed 1 tab daily - 01/18 Christine Galvez ATORVASTATIN CALCIUM 40 MG ORAL TABLET completed 1 tab daily - 01/18 Christine Galvez LEVETIRACETAM 500 MG ORAL TABLET completed twice daily 05/07 - 01/18 Christine Galvez METOPROLOL TARTRATE 25 MG ORAL TABLET completed 2 tab s twice daily 06/23 - 07/10 Glendy Joyce RN NITROGLYCERIN 0.4MG SUB TAB 25 active ONE TABLET UNDER TONGUE NEEDED FOR CHEST PAIN. MAY REPEAT EVERY 5 MINUTES FOR 3 TOTAL DOSES. IF NO RELIEF AFTER 3RD DOSE, GO TO ER. 11/09 Raman Smith ASPIRIN 81 MG ORAL TABLET completed ONE TAB. DAILY - 06/22 Nelson Almeida MD CEPHALEXIN 500 MG ORAL CAPSULE completed take one pill 4 times a day till gone - Tiffany Edward HYDROCODONE-ACETAMI NOPHEN 5-325 MG ORAL TABLET completed take as needed for pain - 01/18 Leti De La Rosa ACETAMINOPHEN EXTRA STRENGTH TABLET completed as needed for pain - 01/18 Tiffany Edward SOCIAL HISTORY Date Observation Value Provider smoking status Never smoker [facility] social history reviewed E&M revi ewed - no changes required [facility] social history reviewed E&M revi ewed - no changes required [facility] smoking status Never smoker Kristy good social history reviewed E&M revi ewed - no changes required [facility] smoking status Never smoker Lauren Obi domínguez social history reviewed E&M revi ewed - no changes required [facility] smoking status Never smoker Kristy Jose Cruz good social history reviewed E&M revi ewed - no changes required [facility] smoking status Never smoker Ye Mohit rogers number of grandchildren Caleb Duggan social history reviewed E&M revi ewed - no changes required [facility] smoking status Never smoker Ye Rueda ken number of grandchildren Nelson Almeida MD social history E&M S moking History: P linden has never smoked. Nelson Almeida MD smoking status Never smoker Jessi Ocampo social history reviewed E&M revi ewed - no changes required Jessi Camara social history reviewed E&M revi ewed - no changes required Demetrio Hurt social history E&M S moking History: Sigifredo cheatham has never smoked. Demetrio Hurt alcohol use no Ranjith Anaya drug use, illicit, d rug of choice cocaine [place] Anaya drug use yes Ranjith Anaya smoking status Never smoker Ranjith Can m social history E&M S moking History: P linden has never smoked. Nelson Almeida MD social history reviewed E&M revi ewed - no changes required Nelson Almeida MD alcohol use no Kristy Priya clark drug use, illicit, d rug of choice cocaine Kristy Grover drug use yes Kristy Priya clark smoking status Never smoker Kristy good social history reviewed E&M revi ewed - no changes required Demetrio Hurt social history E&M S moking History: Sigifredo cheatham has never smoked. Demetrio Hurt alcohol use no Kristy Priya l drug use, illicit, d rug of choice cocaine Kristy Grover drug use yes Kristy Priya clark smoking status Never smoker Kristy good number of grandchildren Caleb Mena social history E&M S moking History: Sigifredo cheatham has never smoked. Matthew Mena social history reviewed E&M revi ewed - no changes required Matthew Mena alcohol use no Christine Alfonzo lder drug use, illicit, d rug of choice cocaine Christine Leonor drug use yes Christine Alfonzo lder smoking status Never smoker Christine Mcnair lalita social history reviewed E&M revi ewed - no changes required Nelson Almeida MD social history reviewed E&M revi ewed - no changes required Nelson Almeida MD social history E&M Smoking Histo ry: P linden has never smoked. Nelson Almeida MD alcohol use no Christine Alfonzo melindaer drug use, illicit, d rug of choice cocaine Christine Jenifferrebecca drug use yes Christine Alfonzo er smoking status Never smoker Christine Mcnair lalita alcohol use no Christine Alfonzo er drug use, illicit, d rug of choice cocaine Christine Rikyjohn drug use yes Christine Jenifferdisha er smoking status Never smoker Christine Mcnair laltia social history reviewed E&M revi ewed - no changes required Nelson Almeida MD alcohol use no Christine Rikycrystaldisha er drug use, illicit, d rug of choice cocaine Christine Rikyjohn drug use yes Christine Alfonzo er smoking status Never smoker Christine Beaverssarah celis social history reviewed E&M revi ewed - no changes required Nelson Almeida MD alcohol use no Christine Alfonzo er drug use, illicit, d rug of choice cocaine Christine Ruthannmariann drug use yes Christine Alfonzo melinda smoking status Never smoker Christine Morrisonterri celis smoking status Never smoker Sarahi Coronado social history E&M S moking History: P linden has never smoked. Sarahi Coronado social history reviewed E&M revi ewed - no changes required Sarahi Coronado alcohol use no Christine Gruenenfe lder drug use, illicit, d rug of choice cocaine Christine Swifttremayneerasmo drug use yes Christine Mejía lder alcohol use no Ye Redmond nschance drug use, illicit, d rug of choice cocaine Ye Bates drug use yes Ye Redmond nschance smoking status Never smoker Ye Rueda ken social history reviewed E&M revi ewed - no changes required Nelson Almeida MD number of grandchildren Nelson Almeida MD S max Smith MD alcohol use no Caleb goncalves MD drug use, illicit, d rug of choice cocaine Caleb Smith MD drug use yes Caleb goncalves MD smoking status Never smoker Caleb abarca MD social history E&M Smoking Histo ry: P linden has never smoked. Caleb Smith MD social history reviewed E&M revi ewed - no changes required Caleb Smith MD social history reviewed E&M revi ewed - no changes required Caleb Smith MD social history E&M Smoking Histo ry: Patient has never smoked. Caleb Smith MD alcohol use no Ye Redmond traci drug use, illicit, d rug of choice cocaine Ye Bates drug use yes Ye Redmond traci smoking status Never smoker Ye Rueda ken number of grandchildren Caleb Melgoza social history reviewed E&M revi ewed - no changes required Cornel Melgoza social history E&M Smoking Histo ry: P atidalmis has never smoked. Cornel Melgoza alcohol use no Idania Short drug use, illicit, d rug of choice cocaine Idania Short drug use yes Idania Short smoking status Never smoker Idania Short smoking status Never smoker Idania murray social history reviewed E&M revi ewed - no changes required Idania Brewer alcohol use no Idania Brewer drug use, illicit, d rug of choice cocaine Idania Brewer drug use yes Idania Brewer social history reviewed E&M revi ewed - no changes required Caleb Smith MD alcohol use no Idania Brewer drug use, illicit, d rug of choice cocaine Idania Brewer drug use yes Idania Brewer smoking status Never smoker Idania Whitaker terri social history reviewed E&M revi ewed - no changes required Caleb Smith MD alcohol use no Ye Redmond tatumchance drug use, illicit, d rug of choice cocaine Ye Bates drug use yes Ye aviles smoking status Never smoker Ye Wilson social history reviewed E&M revi ewed - no changes required Nelson Almeida MD alcohol use no Ye Redmond traci drug use, illicit, d rug of choice cocaine Ye Bates drug use yes Ye Redmond tatumchance smoking status Never smoker Ye Rueda ammyangie drug use, illicit, d rug of choice cocaine Blaze Ayala MD drug use yes Blaze Ayala MD social history E&M Smoking Histo ry: P linden has never smoked. Blaze Ayala MD social history reviewed E&M revi ewed - no changes required Blaze Ayala MD alcohol use no Idania Osman smoking status Never smoker Idania Whitaker terri social history E&M moking Histor y: Sigifredo cheatham has never smoked. Caleb Smith MD social history reviewed E&M revi ewed - no changes required Caleb Smith MD alcohol use no Ye Redmond nschance smoking status Never smoker Ye Wilson social history reviewed E&M revi ewed - no changes required Nelson Almeida MD alcohol use no Ye Redmond traci smoking status Never smoker Ye Rueda ken social history reviewed E&M revi ewed - no changes required Nelson Almeida MD alcohol use no Idania Brewer smoking status Never smoker Idania Whitaker terri social history E&M Patient has n ever smoked. Smoking History: P linden has never smoked. Caleb Smith MD social history reviewed E&M revi ewed - no changes required Caleb Smith MD alcohol use no Caleb goncalves MD smoking status Never smoker Caleb abarca MD social history reviewed E&M revi ewed - no changes required Caleb Smith MD alcohol use no Christine victor smoking status Never smoker Christine celis social history reviewed E&M revi ewed - no changes required Caleb Smith MD social history reviewed E&M revi ewed - no changes required Caleb Smith MD smoking status Never smoker Tiffany Edward FUNCTIONAL STATUS Date Observation Value Provider HRA, CV Assess/Plan, Angina (inactive) Management Plan continue current therapy [facility] HRA, CV Assess/Plan, Angina (inactive) Management Plan continue current therapy [facility] HRA, CV Assess/Plan, Angina (inactive) Management Plan continue current therapy Chato Urban HRA, CV Assess/Plan, Angina (inactive) Management Plan continue current therapy Chato Urban HRA, CV Assess/Plan, Angina (inactive) Management Plan continue current therapy Caleb Smith MD HRA, CV Assess/Plan, Angina (inactive) Management Plan continue current therapy Chato Duggan HRA, CV Assess/Plan, Angina (inactive) Management Plan continue current therapy Demetrio Hurt HRA, CV Assess/Plan, Angina (inactive) Management Plan continue current therapy Nelson Almeida MD HRA, CV Assess/Plan, Angina (inactive) Management Plan continue current therapy Demetrio Hurt HRA, CV Assess/Plan, Angina (inactive) Management Plan continue current therapy Matthew Ewa Rajesh HRA, CV Assess/Plan, Angina (inactive) Management Plan continue current therapy Nelson Almeida MD HRA, CV Assess/Plan, Angina (inactive) Management Plan continue current therapy Nelson Almeida MD HRA, CV Assess/Plan, Angina (inactive) Management Plan continue current therapy Nelson Almeida MD HRA, CV Assess/Plan, Angina (inactive) Management Plan continue current therapy Nelson Almeida MD HRA, CV Assess/Plan, Angina (inactive) Management Plan continue current therapy Nelson Almeida MD HRA, CV Assess/Plan, Angina (inactive) Management Plan antianginal therapy Caleb Smith MD HRA, CV Assess/Plan, Angina (inactive) Management Plan continue current therapy, antianginal therapy Caleb Smith MD HRA, CV Assess/Plan, Angina (inactive) Management Plan continue current therapy Caleb Smith MD HRA, CV Assess/Plan, Angina (inactive) Management Plan continue current therapy Nelson Almeida MD MENTAL STATUS Date Observation Value Provider energy level yes Oneyda Tebid energy level yes Oneyda Tebid energy level yes Oneyda Tebid energy level yes Oneyda Tebid energy level yes Oneyda Tebid energy level yes Oneyda Tebid energy level yes Oneyda Tebid energy level yes Oneyda Tebid energy level yes Bradley Tebid energy level yes Bradley Tebid energy level yes Bradley Tebid energy level yes Bradley Tebid energy level yes Bradley Tebid energy level yes Bradley Tebid energy level yes Bradley Tebid energy level yes Bradley Tebid energy level yes Bradley Tebid energy level yes Bradley Tebid energy level yes Bradley Tebid energy level yes Bradley Tebid energy level yes Bradley Tebid energy level yes Bradley Tebid energy level yes Bradley Tebid energy level yes Bradley Tebid energy level yes Bradley Tebid energy level yes Bradley Tebid energy level yes Bradley Tebid energy level yes Bradley Tebid energy level yes Bradley Tebid energy level no Bradley Tebid energy level yes Bradley Tebid energy level yes Bradley Tebid energy level yes Bradley Tebid energy level yes Bradley Tebid energy level yes Bradley Tebid energy level yes Bradley Tebid energy level yes Bradley Tebid energy level yes Bradley Tebid energy level yes Bradley Tebid energy level yes Bradley Tebid energy level yes Bradley Tebid energy level yes Bradley Tebid energy level yes Bradley Tebid energy level yes Bradley Tebid energy level yes Bradley Tebid energy level yes Bradley Tebid energy level yes Bradley Tebid energy level yes Bradley Tebid energy level yes Oneyda Tebid energy level yes Oneyda Tebid energy level yes Oneyda Tebid energy level yes Oneyda Tebid energy level yes Oneyda Tebid energy level yes Oneyda Tebid energy level yes Oneyda Tebid energy level yes Oneyda Tebid energy level yes Oneyda Tebid energy level yes Oneyda Tebid energy level yes Oneyda Tebid energy level yes Oneyda Tebid energy level yes Oneyda Tebid energy level yes Oneyda Tebid energy level yes Oneyda Tebid energy level no Oneyda Tebid energy level no Oneyda Tebid energy level yes Oneyda Tebid FAMILY HISTORY Family Member Condition Mother Family History of Co ronary Artery Disease: Mother Family History of Hy pertension: Mother Family History of Di abetes: INSURANCE PROVIDERS Payer name Policy type / Coverage type [place] [employer] party ID [employer] MEDICARE ADVANTAGE PLAN 2 HMO HMO [id number] [facility] Medicaid 0 [id number] ADVANCE DIRECTIVES Name Date DISCUSSED - NO DECISION MADE TREATMENT PLAN Date Name Performer hospital follow up : H er updated medication list for this problem includes: Losartan Potassium-hctz 50-12.5 Mg Oral Tablet (Losartan potassium-hctz) ..... Take one pill a day Furosemide 80 Mg Oral Tablet (Furosemide) ..... Take 1 1/2 tab daily Isosorbide Mononitrate 30mg Er Tabs (Isosorbide mononitrate) ..... Take 1 tablet by mouth every day Metoprolol Tartrate 50 Mg Oral Tablet (Metoprolol tartrate) ..... 1 tab po twice daily Ranexa 1000 Mg Oral Tablet Extended Release 12 Hour (Ranolazine) ..... One tab. twice daily for chronic angina Nitroglycerin 0.4mg Sub Tab 25 (Nitroglycerin) ..... One tablet under tongue as needed for chest pain. may repeat every 5 minutes for 3 total doses. if no relief after 3rd dose, go to er. [facility] follow up :Okay for EGD next week Caleb Smith MD hospital follow up : H er updated medication list for this problem includes: Losartan Potassium-hctz 50-12.5 Mg Oral Tablet (Losartan potassium-hctz) ..... Take one pill a day Furosemide 80 Mg Oral Tablet (Furosemide) ..... Take 1 1/2 tab daily Metoprolol Tartrate 50 Mg Oral Tablet (Metoprolol tartrate) ..... 1 tab po twice daily Caleb Smith MD hospital follow up : has no CAD. Has bridging in LAD teritory H er updated medication list for this problem includes: Isosorbide Mononitrate 30mg Er Tabs (Isosorbide mononitrate) ..... Take 1 tablet by mouth every day Metoprolol Tartrate 50 Mg Oral Tablet (Metoprolol tartrate) ..... 1 tab po twice daily Ranexa 1000 Mg Oral Tablet Extended Release 12 Hour (Ranolazine) ..... One tab. twice daily for chronic angina Nitroglycerin 0.4mg Sub Tab 25 (Nitroglycerin) ..... One tablet under tongue as needed for chest pain. may repeat every 5 minutes for 3 total doses. if no relief after 3rd dose, go to er. Orders: E KG (CPT-50446) 9 9212 Minor (CPT-27557) Caleb Smith MD hospital follow up Caleb abarca MD Cardiology: B P today: 128/78 P rior BP: 116/70 (09/16/2019) Labs Reviewed: C reat: 0.81 (07/28/2019) C hol: 156 (03/20/2018) HDL: 72 (03/20/2018) Her updated medication list for this problem includes: Losartan Potassium-hctz 50-12.5 Mg Oral Tablet (Losartan potassium-hctz) ..... Take one pill a day Furosemide 80 Mg Oral Tablet (Furosemide) ..... Take 1 1/2 tab daily Metoprolol Tartrate 50 Mg Oral Tablet (Metoprolol tartrate) ..... 1 tab po twice daily [facility] Cardiology: H er updated medication list for this problem includes: Losartan Potassium-hctz 50-12.5 Mg Oral Tablet (Losartan potassium-hctz) ..... Take one pill a day Furosemide 80 Mg Oral Tablet (Furosemide) ..... Take 1 1/2 tab daily Metoprolol Tartrate 50 Mg Oral Tablet (Metoprolol tartrate) ..... 1 tab po twice daily [facility] Cardiology: H er updated medication list for this problem includes: Losartan Potassium-hctz 50-12.5 Mg Oral Tablet (Losartan potassium-hctz) ..... Take one pill a day Furosemide 80 Mg Oral Tablet (Furosemide) ..... Take 1 1/2 tab daily Isosorbide Mononitrate 30mg Er Tabs (Isosorbide mononitrate) ..... Take 1 tablet by mouth every day Metoprolol Tartrate 50 Mg Oral Tablet (Metoprolol tartrate) ..... 1 tab po twice daily Ranexa 1000 Mg Oral Tablet Extended Release 12 Hour (Ranolazine) ..... One tab. twice daily for chronic angina Nitrostat 0.4 Mg Sublingual Tablet Sublingual (Nitroglycerin) ..... Apply one tab under tongue every 5 minutes for 3 total doses as needed for chest pain. if no relief after 3rd dose, go to er [facility] Electrophysiology: H er updated medication list for this problem includes: Losartan Potassium-hctz 50-12.5 Mg Oral Tablet (Losartan potassium-hctz) ..... Take one pill a day Furosemide 80 Mg Oral Tablet (Furosemide) ..... Take 1 1/2 tab daily Metoprolol Tartrate 50 Mg Oral Tablet (Metoprolol tartrate) ..... 1 tab po twice daily BP today: 116/70 P rior BP: 133/82 (09/09/2019) Labs Reviewed: C reat: 0.81 (07/28/2019) C hol: 156 (03/20/2018) HDL: 72 (03/20/2018) [facility] Electrophysiology [facility] Electrophysiology: H er updated medication list for this problem includes: Losartan Potassium-hctz 50-12.5 Mg Oral Tablet (Losartan potassium-hctz) ..... Take one pill a day Furosemide 80 Mg Oral Tablet (Furosemide) ..... Take 1 1/2 tab daily Metoprolol Tartrate 50 Mg Oral Tablet (Metoprolol tartrate) ..... 1 tab po twice daily [facility] Electrophys[facility]:If stress test is negative would recommend endoscopy [facility] Cardiology: B P today: 133/82 P rior BP: 168/113 (07/29/2019) Labs Reviewed: C reat: 0.81 (07/28/2019) C hol: 156 (03/20/2018) HDL: 72 (03/20/2018) Her updated medication list for this problem includes: Losartan Potassium-hctz 50-12.5 Mg Oral Tablet (Losartan potassium-hctz) ..... Take one pill a day Furosemide 80 Mg Oral Tablet (Furosemide) ..... Take 1 1/2 tab daily Metoprolol Tartrate 50 Mg Oral Tablet (Metoprolol tartrate) ..... 1 tab po twice daily [facility] Cardiology:pt was ad vised to lose weight for better health. Extensive weight loss plan was discussed [facility] Cardiology: H er updated medication list for this problem includes: Losartan Potassium-hctz 50-12.5 Mg Oral Tablet (Losartan potassium-hctz) ..... Take one pill a day Furosemide 80 Mg Oral Tablet (Furosemide) ..... Take 1 1/2 tab daily Isosorbide Mononitrate 30mg Er Tabs (Isosorbide mononitrate) ..... Take 1 tablet by mouth every day Metoprolol Tartrate 50 Mg Oral Tablet (Metoprolol tartrate) ..... 1 tab po twice daily Ranexa 1000 Mg Oral Tablet Extended Release 12 Hour (Ranolazine) ..... One tab. twice daily for chronic angina Nitrostat 0.4 Mg Sublingual Tablet Sublingual (Nitroglycerin) ..... Take as directed Orders: E KG (CPT-02764) F VC - 96411 (65740) F RC - 42618 (00144) D LCO - 92516 (23537) S tress Regadenoson (CPT-51157) [facility] Cardiology: H er updated medication list for this problem includes: Isosorbide Mononitrate 30mg Er Tabs (Isosorbide mononitrate) ..... Take 1 tablet by mouth every day Metoprolol Tartrate 50 Mg Oral Tablet (Metoprolol tartrate) ..... 1 tab po twice daily Ranexa 1000 Mg Oral Tablet Extended Release 12 Hour (Ranolazine) ..... One tab. twice daily for chronic angina Nitrostat 0.4 Mg Sublingual Tablet Sublingual (Nitroglycerin) ..... Take as directed Orders: F VC - 84307 (61673) F - 25799 (82235) D LCO - 55004 (16089) S tress Regadenoson (CPT-84377) [facility] Electrophysiology: H er updated medication list for this problem includes: Atorvastatin Calcium 80 Mg Oral Tablet (Atorvastatin calcium) ..... 1 tab once daily Cholestyramine 4 Gm/dose Oral Powder (Cholestyramine) ..... As directed [facility] Electrophysiology:no recent epis odes [facility] Electrophysiology: H er updated medication list for this problem includes: Losartan Potassium-hctz 50-12.5 Mg Oral Tablet (Losartan potassium-hctz) ..... Take one pill a day Furosemide 40 Mg Oral Tablet (Furosemide) ..... One tab daily Metoprolol Tartrate 50 Mg Oral Tablet (Metoprolol tartrate) ..... 1 tab po twice daily [facility] Electrophysiology: B P today: 168/113 P rior BP: 132/82 (03/25/2019) Labs Reviewed: C reat: 0.81 (07/28/2019) C hol: 156 (03/20/2018) HDL: 72 (03/20/2018) Her updated medication list for this problem includes: Losartan Potassium-hctz 50-12.5 Mg Oral Tablet (Losartan potassium-hctz) ..... Take one pill a day Furosemide 40 Mg Oral Tablet (Furosemide) ..... One tab daily Metoprolol Tartrate 50 Mg Oral Tablet (Metoprolol tartrate) ..... 1 tab po twice daily [facility] Electrophysiology:co ntinue all current medications, H er updated medication list for this problem includes: Isosorbide Mononitrate 30mg Er Tabs (Isosorbide mononitrate) ..... Take 1 tablet by mouth every day Metoprolol Tartrate 50 Mg Oral Tablet (Metoprolol tartrate) ..... 1 tab po twice daily Ranexa 1000 Mg Oral Tablet Extended Release 12 Hour (Ranolazine) ..... One tab. twice daily for chronic angina Nitrostat 0.4 Mg Sublingual Tablet Sublingual (Nitroglycerin) ..... Take as directed [facility] Electrophysiology: C ontinue furosemide 80 mg daily. Restrict fluid intake to 64 oz daily. [facility] Electrophysiology:NO RMAL DEVICE FUNCITON W ELL HEALING SCAR [facility] Electrophysiology [facility] Electrophysiology [facility] Electrophysiology: B P today: 132/82 P rior BP: 126/72 (03/21/2019) Labs Reviewed: C reat: 0.81 (03/22/2019) C hol: 156 (03/20/2018) HDL: 72 (03/20/2018) [facility] Cardiology Nelson Almeida MD Cardiology Nelson Almeida MD Cardiology Nelson Almeida MD Cardiology:Continue furosemide 80 mg daily. Restrict fluid intake to 64 oz daily. Nelson Almeida MD Electrophysiology: B P today: 118/80 P rior BP: 120/80 (04/12/2018) Labs Reviewed: C reat: 1.04 (03/20/2018) C hol: 156 (03/20/2018) HDL: 72 (03/20/2018) Her updated medication list for this problem includes: Losartan Potassium-hctz 50-12.5 Mg Oral Tablet (Losartan potassium-hctz) ..... Take one pill a day Furosemide 40 Mg Oral Tablet (Furosemide) ..... One tab daily Metoprolol Tartrate 50 Mg Oral Tablet (Metoprolol tartrate) ..... 1 tab po twice daily Demetrio Hurt Electrophysiology: C azk standing venous dopplers. R x 20-30mm compression stockings given to patient today. Orders: V enous Doppler Bilateral LE - Reflux (CPT-70101) 9 9214 MOD Complex (CPT-60381) S chedule Followup (*) Demetrio Hurt Electrophysiology: s /p DC PPM. Her updated medication list for this problem includes: Isosorbide Mononitrate Er 30 Mg Oral Tablet Extended Release 24 Hour (Isosorbide mononitrate) ..... One tab. daily Metoprolol Tartrate 50 Mg Oral Tablet (Metoprolol tartrate) ..... 1 tab po twice daily Ranexa 1000 Mg Oral Tablet Extended Release 12 Hour (Ranolazine) ..... One tab. twice daily for chronic angina Nitrostat 0.4 Mg Sublingual Tablet Sublingual (Nitroglycerin) ..... Take as directed [facility] Blu Electrophysiology: I mplanted 02/2014. N ormal function. Demetrio Hurt Cardiology follow up Nelson cooper MD Cardiology follow up Nelson cooper MD Cardiology follow up Nelson cooper MD Cardiology follow up Nelson cooper MD Cardiology follow up Nelson cooper MD Electrophysiology fo llow up :Orders: 9 9215 HIGH Complex (CPT-50813) S chedule Followup (*) Her updated medication list for this problem includes: Losartan Potassium-hctz 50-12.5 Mg Oral Tablet (Losartan potassium-hctz) ..... Take one pill a day Furosemide 40 Mg Oral Tablet (Furosemide) ..... One tab daily Metoprolol Tartrate 50 Mg Oral Tablet (Metoprolol tartrate) ..... 1 tab po twice daily Demetrio Hurt Electrophysiology fo llow up :BP today: 100/78 P rior BP: 108/80 (09/18/2017) Labs Reviewed: C reat: 0.7 (02/23/2017) C hol: 142 (02/23/2017) HDL: 63 (02/23/2017) T (02/23/2017) Her updated medication list for this problem includes: Losartan Potassium-hctz 50-12.5 Mg Oral Tablet (Losartan potassium-hctz) ..... Take one pill a day Furosemide 40 Mg Oral Tablet (Furosemide) ..... One tab daily Metoprolol Tartrate 50 Mg Oral Tablet (Metoprolol tartrate) ..... 1 tab po twice daily Demetrio Blu Electrophysiology fo llow up :Orders: 9 9215 HIGH Complex (CPT-12560) S chedule Followup (*) Her updated medication list for this problem includes: Atorvastatin Calcium 40 Mg Oral Tablet (Atorvastatin calcium) ..... Once daily Cholestyramine 4 Gm/dose Oral Powder (Cholestyramine) ..... As directed Cholestyramine 4 Gm Oral Packet (Cholestyramine) ..... Twice daily Demetrio Blu Electrophysiology fo llow up :Orders: 9 9215 HIGH Complex (CPT-89616) S chedule Followup (*) Her updated medication list for this problem includes: Isosorbide Mononitrate Er 30 Mg Oral Tablet Extended Release 24 Hour (Isosorbide mononitrate) ..... One tab. daily Metoprolol Tartrate 50 Mg Oral Tablet (Metoprolol tartrate) ..... 1 tab po twice daily Ranexa 1000 Mg Oral Tablet Extended Release 12 Hour (Ranolazine) ..... One tab. twice daily for chronic angina Nitrostat 0.4 Mg Sublingual Tablet Sublingual (Nitroglycerin) ..... Take as directed Dem[facility]rio Hurt Electrophysiology [facility] Follow up faxed 10/15/17/kk:As above. W ill repeat echo in 6 months. Matthew Mena Electrophysiology spital Follow up faxed 10/15/17/kk:Device functioning well. L eft sided chest pain over pacer site. C hest evaluation yesterday in ED showed no abnormalities. I mproved with nitro. C ontinue Ranexa. Matthew Mena Electrophysiology [facility] up faxed 10/15/17/kk [facility] Matthew Mcneil Rajesh Electrophysiology [facility] Follow up faxed 10/15/17/kk: H er updated medication list for this problem includes: Atorvastatin Calcium 40 Mg Oral Tablet (Atorvastatin calcium) ..... Once daily Cholestyramine 4 Gm/dose Oral Powder (Cholestyramine) ..... As directed Cholestyramine 4 Gm Oral Packet (Cholestyramine) ..... Twice daily Matthew Mcneil Rajesh Electrophysiology [facility] Follow up faxed 10/15/17/kk: B P today: 108/80 P rior BP: 105/79 (06/30/2017) Labs Reviewed: C reat: 0.7 (02/23/2017) C hol: 142 (02/23/2017) HDL: 63 (02/23/2017) T (02/23/2017) Matthew Mena Cardiology Nelson Almeida MD Cardiology Nelson Almeida MD Cardiology Nelson Almeida MD Cardiology: B P today: 110/80 P rior BP: 114/76 (06/22/2017) Labs Reviewed: C reat: 0.7 (02/23/2017) C hol: 142 (02/23/2017) HDL: 63 (02/23/2017) T (02/23/2017) Nelson Almeida MD Cardiology:Patient s nacks often, but believes her weight gain is due to fluid retention causing her swelling. A djusted diuretic and advised to limit snacking to healthier snacks. Nelson Almeida MD Cardiology [facility] Follow up To parmjit Almeida MD Cardiology [facility] Follow up :S top ASA. Nelson Almeida MD Cardiology [facility] Follow up To parmjit Almeida MD Cardiology [facility] Follow up To parmjit Almeida MD Cardiology [facility] Follow up :Scheduled for f/u at [place]. Nelson Almeida MD Cardiology [facility] Follow up To parmjit Almeida MD Electrophysiology [facility] Follow up : O rders: F VC - 29030 (69866) F RC - 22824 (17009) D LCO - 06207 (85572) S [facility] Study Home (CPT-58305) 9 5233 MOD Complex (CPT-45300) Caleb Smith MD Electrophysiology [facility] Follow up : B P today: 125/86 P rior BP: 118/85 (03/19/2017) Labs Reviewed: C reat: 0.7 (02/23/2017) C hol: 142 (02/23/2017) HDL: 63 (02/23/2017) T (02/23/2017) Caleb Smith MD Electrophysiology [facility] Follow up : H er updated medication list for this problem includes: Aspirin 81 Mg Oral Tablet (Aspirin) ..... One tab. daily Metoprolol Tartrate 50 Mg Oral Tablet (Metoprolol tartrate) ..... 1 tab po twice daily Isosorbide Mononitrate Er 30 Mg Oral Tablet Extended Release 24 Hour (Isosorbide mononitrate) ..... One tab. daily Ranexa 1000 Mg Oral Tablet Extended Release 12 Hour (Ranolazine) ..... One tab. twice daily for chronic angina Nitrostat 0.4 Mg Sublingual Tablet Sublingual (Nitroglycerin) ..... Take as directed C HOL: 142 (02/23/2017) HDL: 63 (02/23/2017) T (02/23/2017) H gb: 11.9 (02/23/2017) HCT: 38 (02/23/2017) Platelets: 289 THOUSAND/UL (02/23/2017) B UN: 6 (02/23/2017) Creat: 0.7 (02/23/2017) Na+: 141 (02/23/2017) K+: 3.3 (02/23/2017) Cl: 101 (02/23/2017) PT: 13.1 (03/02/2017) INR: 1.1 (03/02/2017) T SH: 0.73 ?IU/ML (02/23/2017) Caleb Smith MD Cardiology Follow up Nelson cooper MD Cardiology Follow up Nelson cooper MD Cardiology Follow up Nelson cooper MD Cardiology Follow up Nelson cooper MD Cardiology Follow up Nelson cooper MD Cardiology Follow up Nelson cooper MD Cardiology Follow up Nelson cooper MD Cardiology Follow up Nelson cooper MD Cardiology Follow up Nelson cooper MD Cardiology Follow up Nelson cooper MD Cardiology Follow up : H er updated medication list for this problem includes: Aspirin 81 Mg Tabs (Aspirin) ..... One tab. daily Metoprolol Tartrate 50 Mg Oral Tabs (Metoprolol tartrate) ..... 1 tab po twice daily Losartan Potassium 25 Mg Oral Tabs (Losartan potassium) ..... Once daily [facility] Cardiology Follow up :Sharp substernal chest pain episdoes lasting minutes, resolving with rest. Will arrange for adenosine stress test. O rders: 9 9214 MOD Complex (CPT-70603) S TR - Adenosine (CPT-92664) S TR - Adenosine (CPT-20488) [facility] Cardiology Follow up : H er updated medication list for this problem includes: Atorvastatin Calcium 40 Mg Oral Tabs (Atorvastatin calcium) ..... Once daily Cholestyramine 4 Gm Oral Pack (Cholestyramine) ..... Twice daily [facility] Cardiology: H er updated medication list for this problem includes: Aspirin 81 Mg Tabs (Aspirin) ..... One tab. daily Metoprolol Tartrate 50 Mg Oral Tabs (Metoprolol tartrate) ..... 1 tab po twice daily Losartan Potassium 25 Mg Oral Tabs (Losartan potassium) ..... Once daily BP today: 125/82 P rior BP: 118/80 (04/22/2016) Caleb Smith MD Cardiology Nelson Almeida MD Cardiology Nelson Almeida MD Cardiology Nelson Almeida MD Cardiology Nelson Almeida MD Cardiology Nelson Almeida MD EP faxed 02/25/16:no rmal device site - no erythema or swelling Caleb Smith MD EP faxed 02/25/16:di d very well with ECP will schedule again when insurance approves Her updated medication list for this problem includes: Aspirin 81 Mg Tabs (Aspirin) ..... One tab. daily Metoprolol Tartrate 50 Mg Oral Tabs (Metoprolol tartrate) ..... 1 tab po twice daily Isosorbide Mononitrate Cr 30 Mg Tb24 (Isosorbide mononitrate) ..... One tab. daily Ranexa 1000 Mg Tb12 (Ranolazine) ..... One tab. twice daily for chronic angina Nitrostat 0.4 Mg Sl Subl (Nitroglycerin) ..... Take as directed Caleb Smith MD EP faxed 02/25/16 Caleb wagner MD EP faxed 02/25/16: H er updated medication list for this problem includes: Aspirin 81 Mg Tabs (Aspirin) ..... One tab. daily Metoprolol Tartrate 50 Mg Oral Tabs (Metoprolol tartrate) ..... 1 tab po twice daily Isosorbide Mononitrate Cr 30 Mg Tb24 (Isosorbide mononitrate) ..... One tab. daily Ranexa 1000 Mg Tb12 (Ranolazine) ..... One tab. twice daily for chronic angina Nitrostat 0.4 Mg Sl Subl (Nitroglycerin) ..... Take as directed Caleb Smith MD EP faxed 02/25/16:di d very well with ECP will schedule again when insurance approves Her updated medication list for this problem includes: Aspirin 81 Mg Tabs (Aspirin) ..... One tab. daily Metoprolol Tartrate 50 Mg Oral Tabs (Metoprolol tartrate) ..... 1 tab po twice daily Isosorbide Mononitrate Cr 30 Mg Tb24 (Isosorbide mononitrate) ..... One tab. daily Ranexa 1000 Mg Tb12 (Ranolazine) ..... One tab. twice daily for chronic angina Nitrostat 0.4 Mg Sl Subl (Nitroglycerin) ..... Take as directed Orders: 9 9213 LTD. Complex (CPT-87813) S chedule Followup (*) Caleb Smith MD EP faxed 12/15/15:Not compliant A joseph Melgoza EP faxed 12/15/15:No angina Meme stephanie Melgoza EP faxed 12/15/15: O rders: S NOMED-CT: [id number] Current Medications Documented (SCT-[id number]) 9 9213 LTD. Complex (CPT-69271) Cornel Melgoza EP faxed 12/15/15: O rders: S NOMED-CT: [id number] Current Medications Documented (SCT-[id number]) E KG (CPT-15911) 9 9213 LTD. Complex (CPT-41968) Cornel Melgoza Cardiology faxed 11/02 12/17:Her updated medication list for this problem includes: Aspirin 81 Mg Tabs (Aspirin) ..... One tab. daily Metoprolol Tartrate 50 Mg Oral Tabs (Metoprolol tartrate) ..... 1 tab po twice daily Isosorbide Mononitrate Cr 30 Mg Tb24 (Isosorbide mononitrate) ..... One tab. daily Ranexa 1000 Mg Tb12 (Ranolazine) ..... One tab. twice daily for chronic angina Nitrostat 0.4 Mg Sl Subl (Nitroglycerin) ..... Take as directed Orders: S NOMED-CT: [id number] Current Medications Documented (SCT-[id number]) E KG (CPT-78114) 9 9213 LTD. Complex (CPT-72168) Cornel Melgoza Cardiology Nelson Almeida MD Cardiology Nelson Almeida MD Cardiology Nelson Almeida MD EP:Not compliant with treatment. Cornel Melgoza EP:Pt has some episo lalit of angina that are similar to episodes she had previously. Stress test was normal and cardiac cath in 11/15 showed no significant CAD but bridging of the mid-distal LAD. & #13;This patient has angina (defined as chest pain, chest discomfort, or pain in arms, neck, jaw, shoulder, or back, and may include symptoms of shortness of breath, fatigue, dizziness, nausea, or diaphoresis) of [place] Cardiovascular Society Class III (defined as symptoms with everyday living activities, i.e. moderate limitation) or [place] Cardiovascular Society Class IV (defined as inability to perform any activity without angina or angina at rest, i.e. severe limitation). T his patient?s angina is disabling and in my opinion is not readily amenable to surgical intervention by PTCA or cardiac bypass because the patient's coronary anatomy is not readily amenable to such procedures. Cornel Melgoza EP:Pt has some episo lalit of angina that are similar to episodes she had previously. Stress test was normal and cardiac cath in 11/15 showed no significant CAD but bridging of the mid-distal LAD Caleb Smith MD EP:Pt had another sy ncopal episode on the . Cardiac enzymes were negative and BMP, CBC and hepatic panel were all within normal limits. Caleb Smith MD Cardiology Nelson Almeida MD Cardiology Nelson Almeida MD Cardiology Nelson Almeida MD Cardiology Nelson Almeida MD Cardiology Nelson Almeida MD Cardiology (LF):Cont inues to complain of syncopal and presyncopal episodes, usually while standing. She's not orthostatic today. Neurological consult is pending. If no findings by neurologist, will consider a tilt table test Cornel Melgoza EP-Faxed 02/08/1518 Caleb hayes MD EP-Faxed 02/08/1518 Caleb hayes MD EP-Faxed 02/08/1518 Caleb hayes MD EP-Faxed 02/08/15 0818:Obtaining full PFT's. Caleb Smith MD Cardiology:f/up with RUTH marie MD Cardiology Nelson Almeida MD Cardiology:f/up with neuro , pacemaker check and carotid doppler negative Nelson Almeida MD Cardiology Nelson Almeida MD Hospital Follow up f axed 08/07/14 @ 16:20: H er updated medication list for this problem includes: Metoprolol Tartrate 50 Mg Oral Tabs (Metoprolol tartrate) ..... 1 tab po twice daily Aspirin 81 Mg Tabs (Aspirin) ..... One tab. daily Caleb Smith MD Hospital Follow up f axed 08/07/14 @ 16:20: T he following medications were removed from the medication list: Diazepam 2 Mg Oral Tabs (Diazepam) ..... 1 tab 3x daily Her updated medication list for this problem includes: Metoprolol Tartrate 50 Mg Oral Tabs (Metoprolol tartrate) ..... 1 tab po twice daily Nitrostat 0.4 Mg Sl Subl (Nitroglycerin) ..... Take as directed Aspirin 81 Mg Tabs (Aspirin) ..... One tab. daily Orders: S chedule Followup (*) Caleb Smith MD Hospital Follow up f axed 08/07/14 @ 16:20: H er updated medication list for this problem includes: Metoprolol Tartrate 50 Mg Oral Tabs (Metoprolol tartrate) ..... 1 tab po twice daily Nitrostat 0.4 Mg Sl Subl (Nitroglycerin) ..... Take as directed Aspirin 81 Mg Tabs (Aspirin) ..... One tab. daily Orders: E KG (CPT-33611) S chedule Followup (*) Caleb Smith MD [facility] follow up faxed 06/26/14 1215: H er updated medication list for this problem includes: Diazepam 2 Mg Oral Tabs (Diazepam) ..... 1 tab 3x daily Metoprolol Tartrate 25 Mg Tabs (Metoprolol tartrate) ..... 2 tab s twice daily Nitrostat 0.4 Mg Sl Subl (Nitroglycerin) ..... Take as directed Aspirin 81 Mg Tabs (Aspirin) ..... One tab. daily Orders: E KG (CPT-44188) S chedule Followup (*) Caleb Smith MD hos follow up faxed 06/26/14 1215: H er updated medication list for this problem includes: Metoprolol Tartrate 25 Mg Tabs (Metoprolol tartrate) ..... 2 tab s twice daily Nitrostat 0.4 Mg Sl Subl (Nitroglycerin) ..... Take as directed Aspirin 81 Mg Tabs (Aspirin) ..... One tab. daily Orders: E KG (CPT-01536) S chedule Followup (*) Caleb Smith MD hos follow up faxed 06/26/14 1215 Caleb Smith MD hos follow up faxed 06/26/14 1215 Caleb Smith MD hos follow up faxed 06/26/14 1215 Caleb Smith MD hos follow up faxed 06/26/14 1215 Caleb Smith MD EP follow up Caleb canas MD EP follow up Caleb canas MD EP follow up:normal recent device function-was checked Caleb Smith MD CP visit:permanent p acemaker implantation 02/04/2014 at [facility] by H er updated medication list for this problem includes: Aspirin 81 Mg Tabs (Aspirin) ..... One tab. daily Caleb Smith MD CP visit: O rders: E KG (CPT-32182) S chedule Followup (*) S TR - Adenosine (85047) Her updated medication list for this problem includes: Aspirin 81 Mg Tabs (Aspirin) ..... One tab. daily Orders: E KG (CPT-23611) G lobal No Charge (CPT-62632) S chedule Followup (*) S TR - Adenosine (66869) Caleb Smith MD CP visit: O rders: E KG (CPT-54903) S chedule Followup (*) S TR - Adenosine (64637) Her updated medication list for this problem includes: Aspirin 81 Mg Tabs (Aspirin) ..... One tab. daily Caleb Smith MD CP visit Caleb canas MD CP visit:permanent p acemaker implantation 02/04/2014 at [facility] by SK O rders: G lobal No Charge (CPT-13132) S chedule Followup (*) e Prescribe - Check this box if eRx is used (CPT-G8553) Caleb Smith MD Date Name COVID19 nasal swab ( LC) PROTHROMBIN TIME WIT H INR LIPID PANEL CBC (INCLUDES DIFF/P LT) BASIC METABOLIC PANE L W/EGFR Stress Regadenoson DLCO - 50807 FRC - 12410 FVC - 72350 PROBNP, N TERMINAL CBC (INCLUDES DIFF/P LT) COMPREHENSIVE METABO LIC PANEL, W/EGFR MAGNESIUM PROBNP, N TERMINAL COMPREHENSIVE METABO LIC PANEL, W/EGFR MAGNESIUM PROBNP, N TERMINAL COMPREHENSIVE METABO LIC PANEL, W/EGFR Complete Echo PROBNP, N TERMINAL COMPREHENSIVE METABO LIC PANEL, W/EGFR PROBNP, N TERMINAL COMPREHENSIVE METABO LIC PANEL, W/EGFR Venous Doppler Bilat eral LE - Reflux LIPID PANEL COMPREHENSIVE METABO LIC PANEL, W/EGFR Complete Echo Sleep Study Titratio n DLCO - 46007 FRC - 61174 FVC - 72073 TSH, 3RD GENERATION W/REFLEX TO FT4 HEMOGLOBIN A1c CBC (INCLUDES DIFF/P LT) COMPREHENSIVE METABO LIC PANEL, W/EGFR BASIC METABOLIC PANE L W/EGFR PROBNP, N TERMINAL LIPID PANEL D-DIMER, QUANTITATIV E STR - Adenosine DLCO - 40649 FRC - 76074 FVC - 74491 ECP Commercial Complete Echo DLCO - 78690 FRC - 78153 FVC - 39506 Complete Echo Spirometry STR - Adenosine HISTORY OF PROCEDURES Procedure Date Procedure Name Provider Procedure Notes S tatus Schedule Followup Caleb wagner MD Please schedule a follow-up appointment with me in 6 months. completed EKG Caleb canas MD completed EKG Caleb canas MD completed FVC / MVV with bronchodilator - 85132 Caleb Smith MD completed FRC - 71253 Caleb canas MD completed SpO2 w/o 6min walk/titration Caleb Smith MD completed DLCO - 96501 Caleb canas MD completed Regadenoson, 4 units Caleb mahajan MD completed Cardiolite, 2 units Caleb vargas MD completed SPECT Images Caleb canas MD completed Stress EKG Caleb canas MD completed EKG Caleb canas MD completed EKG Caleb canas MD completed Schedule Followup Caleb wagner MD labs, telemedicine or regular fu this week completed EKG Nelson Almeida MD completed ICM Interrogation, Remote (Prof) Saulius Kalvaitis MD INTERROGATION EVAL REMOTE </30 D CV MNTR SYS completed ICM Interrogation, Remote (Tech) Saulius Kalvaitis MD INTERROGATION EVAL REMOTE </30 D TECH REVIEW completed ICM Interrogation, Remote (Prof) Saulius Kalvaitis MD INTERROGATION EVAL REMOTE </30 D CV MNTR SYS completed ICM Interrogation, Remote (Tech) Saulius Kalvaitis MD INTERROGATION EVAL REMOTE </30 D TECH REVIEW completed ICM Interrogation, Remote (Prof) Saulius Kalvaitis MD INTERROGATION EVAL REMOTE </30 D CV MNTR SYS completed Pacemaker Interrogation, Remote (Tech) Saulius Kalvaitis MD INTERROGATION REMOTE </90 D BARREL FILLER HEAD REVIEW completed Pacemaker Interrogation, Remote (Prof) Saulius Kalvaitis MD INTERROGATION EVAL REMOTE </90 D 1/2/DRIER AND PULVERIZER TENDER LEAD P completed ICM Interrogation, Remote (Prof) Saulius Kalvaitis MD INTERROGATION EVAL REMOTE </30 D CV MNTR SYS completed ICM Interrogation, Remote (Tech) Saulius Kalvaitis MD INTERROGATION EVAL REMOTE </30 D TECH REVIEW completed Schedule Followup Caleb wagner MD in 6 mo completed EKG Caleb canas MD completed ICM Interrogation, Remote (Prof) Saulius Stanleyvaitis MD INTERROGATION EVAL REMOTE </30 D CV MNTR SYS completed ICM Interrogation, Remote (Tech) Saulius Kalvaitis MD INTERROGATION EVAL REMOTE </30 D TECH REVIEW completed ICM Interrogation, Remote (Prof) Saulius Kalvaitis MD INTERROGATION EVAL REMOTE </30 D CV MNTR SYS completed Pacemaker Interrogation, Remote (Tech) Saulius Kalvaitis MD INTERROGATION REMOTE </90 D BARREL FILLER HEAD REVIEW completed Pacemaker Interrogation, Remote (Prof) Saulius Kalvaitis MD INTERROGATION EVAL REMOTE </90 D 1/2/DRIER AND PULVERIZER TENDER LEAD P completed ICM Interrogation, Remote (Prof) Saulius Kalvaitis MD INTERROGATION EVAL REMOTE </30 D CV MNTR SYS completed ICM Interrogation, Remote (Tech) Saulius Kalvaitis MD INTERROGATION EVAL REMOTE </30 D TECH REVIEW completed ICM Interrogation, Remote (Prof) Saulius Kalvaitis MD INTERROGATION EVAL REMOTE </30 D CV MNTR SYS completed ICM Interrogation, Remote (Tech) Saulius Kalvaitis MD INTERROGATION EVAL REMOTE </30 D TECH REVIEW completed ICM Interrogation, Remote (Prof) Saulius Kalvaitis MD INTERROGATION EVAL REMOTE </30 D CV MNTR SYS completed ICM Interrogation, Remote (Tech) Saulius Kalvaitis MD INTERROGATION EVAL REMOTE </30 D TECH REVIEW completed EKG Nelson Almeida MD completed ICM Interrogation, Remote (Prof) Saulius Stanleyvaitis MD INTERROGATION EVAL REMOTE </30 D CV MNTR SYS completed ICM Interrogation, Remote (Tech) Saulius Kalvaitis MD INTERROGATION EVAL REMOTE </30 D TECH REVIEW completed Schedule Followup Caleb wagner MD in 6 mo completed EKG Caleb canas MD completed ICM Interrogation, Remote (Prof) Saulius Estrellaitis INTERROGATION EVAL REMOTE </30 D CV MNTR SYS completed Pacemaker Interrogation, Remote (Tech) Saulius Kalvaitis MD INTERROGATION REMOTE </90 D BARREL FILLER HEAD REVIEW completed Pacemaker Interrogation, Remote (Prof) Saulius Kalvaitis MD INTERROGATION EVAL REMOTE </90 D 1/2/DRIER AND PULVERIZER TENDER LEAD P completed ICM Interrogation, Remote (Prof) Saulius Kalvaitis MD INTERROGATION EVAL REMOTE </30 D CV MNTR SYS completed ICM Interrogation, Remote (Tech) Saulius Kalvaitis MD INTERROGATION EVAL REMOTE </30 D TECH REVIEW completed ICM Interrogation, Remote (Prof) Saulius Kalvaitis MD INTERROGATION EVAL REMOTE </30 D CV MNTR SYS completed ICM Interrogation, Remote (Tech) Caleb Smith MD INTERROGATION EVAL REMOTE </30 D TECH REVIEW completed ICM Interrogation, Remote (Prof) Caleb Smith MD INTERROGATION EVAL REMOTE </30 D CV MNTR SYS completed Pacemaker Interrogation, Remote (Tech) Caleb Smith MD INTERROGATION REMOTE </90 D BARREL FILLER HEAD REVIEW completed Pacemaker Interrogation, Remote (Prof) Caleb Smith MD INTERROGATION EVAL REMOTE </90 D 1/2/DRIER AND PULVERIZER TENDER LEAD P completed EKG Caleb canas MD completed ICM Interrogation, Remote (Prof) Nelson Almeida MD INTERROGATION EVAL REMOTE </30 D CV MNTR SYS completed ICM Interrogation, Remote (Tech) Nelson Almeida MD INTERROGATION EVAL REMOTE </30 D TECH REVIEW completed ICM Interrogation, Remote (Prof) Nelson Almeida MD INTERROGATION EVAL REMOTE </30 D CV MNTR SYS completed ICM Interrogation, Remote (Tech) Nelson Almeida MD INTERROGATION EVAL REMOTE </30 D TECH REVIEW completed ICM Interrogation, Remote (Prof) Nelson Almeida MD INTERROGATION EVAL REMOTE </30 D CV MNTR SYS completed ICM Interrogation, Remote (Tech) Nelson Almeida MD INTERROGATION EVAL REMOTE </30 D TECH REVIEW completed ICM Interrogation, Remote (Prof) Nelson Almeida MD INTERROGATION EVAL REMOTE </30 D CV MNTR SYS completed Pacemaker Interrogation, Remote (Tech) Nelson Almeida MD INTERROGATION REMOTE </90 D BARREL FILLER HEAD REVIEW completed Pacemaker Interrogation, Remote (Prof) Nelson Almeida MD INTERROGATION EVAL REMOTE </90 D 1/2/DRIER AND PULVERIZER TENDER LEAD P completed SNOMED-CT: [id number] Current Medications Documented Nelson Almeida MD completed FVC / MVV with bronchodilator - 13997 Nelson Almeida MD completed FRC - 90048 Nelson Almeida MD complete d SpO2 - 69125 Nelson Almeida MD complet ed DLCO - 06833 Nelson Almeida MD complet ed ICM Interrogation, Remote (Prof) Nelson Almeida MD INTERROGATION EVAL REMOTE </30 D CV MNTR SYS completed ICM Interrogation, Remote (Tech) Nelson Almeida MD INTERROGATION EVAL REMOTE </30 D TECH REVIEW completed EKG Caleb canas MD completed SNOMED-CT: 986583101456741 Current Medications Documented Caleb Smith MD completed ICM Interrogation, Remote (Prof) Nelson Almeida MD INTERROGATION EVAL REMOTE </30 D CV MNTR SYS completed Pacemaker Interrogation, Remote (Tech) Nelson Almeida MD INTERROGATION REMOTE </90 D BARREL FILLER HEAD REVIEW completed Pacemaker Interrogation, Remote (Prof) Nelson Almeida MD INTERROGATION EVAL REMOTE </90 D 1/2/DRIER AND PULVERIZER TENDER LEAD P completed EKG Nelson Almeida MD completed SNOMED-CT: 612338892295760 Current Medications Documented Nelson Almeida MD completed ICM Interrogation, Remote (Prof) Caleb Smith MD INTERROGATION EVAL REMOTE </30 D CV MNTR SYS completed ICM Interrogation, Remote (Tech) Caleb Smith MD INTERROGATION EVAL REMOTE </30 D TECH REVIEW completed ICM Interrogation, Remote (Prof) Caleb Smith MD INTERROGATION EVAL REMOTE </30 D CV MNTR SYS completed ICM Interrogation, Remote (Tech) Caleb Smith MD INTERROGATION EVAL REMOTE </30 D TECH REVIEW completed ICM Interrogation, Remote (Prof) Caleb Smith MD INTERROGATION EVAL REMOTE </30 D CV MNTR SYS completed Pacemaker Interrogation, Remote (Tech) Caleb Smith MD INTERROGATION REMOTE </90 D BARREL FILLER HEAD REVIEW completed Pacemaker Interrogation, Remote (Prof) Caleb Smith MD INTERROGATION EVAL REMOTE </90 D 1/2/DRIER AND PULVERIZER TENDER LEAD P completed Stress EKG Jabari Monteiro MD completed Regadenoson, 4 units Caleb mahajan MD completed Cardiolite, 2 units Saulius Petar vargas MD completed SPECT Images Deep Hannon MD completed SNOMED-CT: [id number] Physical Exam, Performed: Pulse Exam of Foot Nelson Almeida MD completed EKG Nelson Almeida MD completed SNOMED-CT: 425348436770227 Current Medications Documented Nelson Almeida MD completed ICM Interrogation, Remote (Prof) Caelb Smith MD INTERROGATION EVAL REMOTE </30 D CV MNTR SYS completed ICM Interrogation, Remote (Tech) Caleb Smith MD INTERROGATION EVAL REMOTE </30 D TECH REVIEW completed EKG Caleb canas MD completed SNOMED-CT: 997580662380904 Current Medications Documented Caleb Smith MD completed ICM Interrogation, Remote (Prof) Caleb Smith MD INTERROGATION EVAL REMOTE </30 D CV MNTR SYS completed ICM Interrogation, Remote (Tech) Caleb Smith MD INTERROGATION EVAL REMOTE </30 D TECH REVIEW completed ICM Interrogation, Remote (Prof) Caleb Smith MD INTERROGATION EVAL REMOTE </30 D CV MNTR SYS completed Pacemaker Interrogation, Remote (Tech) Caleb Smith MD INTERROGATION REMOTE </90 D BARREL FILLER HEAD REVIEW completed Pacemaker Interrogation, Remote (Prof) Caleb Smith MD INTERROGATION EVAL REMOTE </90 D 1/2/DRIER AND PULVERIZER TENDER LEAD P completed ICM Interrogation, Remote (Prof) Caleb Smith MD INTERROGATION EVAL REMOTE </30 D CV MNTR SYS completed ICM Interrogation, Remote (Tech) Caleb Smith MD INTERROGATION EVAL REMOTE </30 D TECH REVIEW completed BLOOD COUNT HEMOGLOBIN Caleb yang MD completed FVC - 73477 Caleb canas MD completed FRC - 78580 Caleb canas MD completed DLCO - 56452 Caleb canas MD completed Schedule Followup Caleb wagner MD completed EKG Caleb canas MD completed SNOMED-CT: 785956155518034 Current Medications Documented Caleb Smith MD completed ICM Interrogation, Remote (Prof) Nelson Almeida MD INTERROGATION EVAL REMOTE </30 D CV MNTR SYS completed ICM Interrogation, Remote (Tech) Nelson Almeida MD INTERROGATION EVAL REMOTE </30 D TECH REVIEW completed SNOMED-CT: 32962812 Physical Exam, Performed: Pulse Exam of Foot Nelson Almeida MD completed SNOMED-CT: 195736529468178 Current Medications Documented Nelson Almeida MD completed ICM Interrogation, Remote (Prof) Caleb Smith MD INTERROGATION EVAL REMOTE </30 D CV MNTR SYS completed Pacemaker Interrogation, Remote (Tech) Caleb Smith MD INTERROGATION REMOTE </90 D BARREL FILLER HEAD REVIEW completed Pacemaker Interrogation, Remote (Prof) Caleb Smith MD INTERROGATION EVAL REMOTE </90 D 1/2/DRIER AND PULVERIZER TENDER LEAD P completed Schedule Followup Caleb wagner MD in 5 months completed EKG Caleb canas MD completed SNOMED-CT: 759138204193618 Current Medications Documented Caleb Smith MD completed ICM Interrogation, Remote (Prof) Caleb Smith MD INTERROGATION EVAL REMOTE </30 D CV MNTR SYS completed ICM Interrogation, Remote (Tech) Caleb Smith MD INTERROGATION EVAL REMOTE </30 D TECH REVIEW completed ICM Interrogation, Remote (Prof) Caleb Smith MD INTERROGATION EVAL REMOTE </30 D CV MNTR SYS completed ICM Interrogation, Remote (Tech) Caleb Smith MD INTERROGATION EVAL REMOTE </30 D TECH REVIEW completed EKG Caleb canas MD completed SNOMED-CT: 246881481989083 Current Medications Documented Caleb Smith MD completed ICM Interrogation, Remote (Prof) Nelson Almeida MD INTERROGATION EVAL REMOTE </30 D CV MNTR SYS completed Pacemaker Interrogation, Remote (Tech) Nelson Almeida MD INTERROGATION REMOTE </90 D BARREL FILLER HEAD REVIEW completed Pacemaker Interrogation, Remote (Prof) Nelson Almeida MD INTERROGATION EVAL REMOTE </90 D 1/2/DRIER AND PULVERIZER TENDER LEAD P completed EKG Caleb canas MD completed SNOMED-CT: 860114073067829 Current Medications Documented Caleb Smith MD completed ICM Interrogation, Remote (Prof) Nelson Almeida MD INTERROGATION EVAL REMOTE </30 D CV MNTR SYS completed ICM Interrogation, Remote (Tech) Nelson Almeida MD INTERROGATION EVAL REMOTE </30 D TECH REVIEW completed SNOMED-CT: 81222462 Physical Exam, Performed: Pulse Exam of Foot Nelson Almeida MD completed SNOMED-CT: 136156730751814 Current Medications Documented Nelson Almeida MD completed ICM Interrogation, Remote (Prof) Nelson Almeida MD INTERROGATION EVAL REMOTE </30 D CV MNTR SYS completed ICM Interrogation, Remote (Tech) Nelson Almeida MD INTERROGATION EVAL REMOTE </30 D TECH REVIEW completed EKG Caleb canas MD completed SNOMED-CT: 439393496964328 Current Medications Documented Caleb Smith MD completed ICM Interrogation, Remote (Prof) Rancho Dixon MD INTERROGATION EVAL REMOTE </30 D CV MNTR SYS completed Pacemaker Interrogation, Remote (Tech) Rancho Dixon MD INTERROGATION REMOTE </90 D BARREL FILLER HEAD REVIEW completed Pacemaker Interrogation, Remote (Prof) Rancho Dixon MD INTERROGATION EVAL REMOTE </90 D 1/2/DRIER AND PULVERIZER TENDER LEAD P completed ICM Interrogation, Remote (Prof) Rancho Dixon MD INTERROGATION EVAL REMOTE </30 D CV MNTR SYS completed ICM Interrogation, Remote (Tech) Rancho Dxion MD INTERROGATION EVAL REMOTE </30 D TECH REVIEW completed ICM Interrogation, Remote (Prof) Rancho Dixon MD INTERROGATION EVAL REMOTE </30 D CV MNTR SYS completed ICM Interrogation, Remote (Tech) Rancho Dixon MD INTERROGATION EVAL REMOTE </30 D TECH REVIEW completed Schedule Followup Caleb wagner MD 6 months completed EKG Caleb canas MD completed SNOMED-CT: 015488153020662 Current Medications Documented aCleb Smith MD completed SNOMED-CT: 29264899 Physical Exam, Performed: Pulse Exam of Foot Nelson Almeida MD completed SNOMED-CT: 927664014718992 Current Medications Documented Nelson Almeida MD completed ICM Interrogation, Remote (Prof) Caleb Smith MD INTERROGATION EVAL REMOTE </30 D CV MNTR SYS completed Pacemaker Interrogation, Remote (Tech) Claeb Smith MD INTERROGATION REMOTE </90 D BARREL FILLER HEAD REVIEW completed Pacemaker Interrogation, Remote (Prof) Caleb Smith MD INTERROGATION EVAL REMOTE </90 D 1/2/DRIER AND PULVERIZER TENDER LEAD P completed ICM Interrogation, Remote (Prof) Caleb Smith MD INTERROGATION EVAL REMOTE </30 D CV MNTR SYS completed ICM Interrogation, Remote (Tech) Caleb Smith MD INTERROGATION EVAL REMOTE </30 D TECH REVIEW completed SNOMED-CT: 024406296075531 Current Medications Documented Blaze Ayala MD completed ICM Interrogation, Remote (Prof) Caleb Smith MD INTERROGATION EVAL REMOTE </30 D CV MNTR SYS completed ICM Interrogation, Remote (Tech) Caleb Smith MD INTERROGATION EVAL REMOTE </30 D TECH REVIEW completed FVC - 90473 Caleb canas MD completed FRC - 17690 Caleb canas MD completed DLCO - 04898 Caleb canas MD completed SNOMED-CT: 09457929 Physical Exam, Performed: Pulse Exam of Foot Caleb Smith MD completed SNOMED-CT: 843503272 Smoking Cessation Counseling Caleb Smith MD completed EKG Caleb canas MD completed SNOMED-CT: 170416985904943 Current Medications Documented Caleb Smith MD completed ICM Interrogation, Remote (Prof) Caleb Smith MD INTERROGATION EVAL REMOTE </30 D CV MNTR SYS completed Pacemaker Interrogation, Remote (Tech) Caleb Smith MD INTERROGATION REMOTE </90 D BARREL FILLER HEAD REVIEW completed Pacemaker Interrogation, Remote (Prof) Caleb Smith MD INTERROGATION EVAL REMOTE </90 D 1/2/DRIER AND PULVERIZER TENDER LEAD P completed Holter, 24 or 48 Nelson Almeida MD com pleted EKG Nelson Almeida MD completed ICM Interrogation, Remote (Prof) Caleb Smith MD INTERROGATION EVAL REMOTE </30 D CV MNTR SYS completed ICM Interrogation, Remote (Tech) Caleb Smith MD INTERROGATION EVAL REMOTE </30 D TECH REVIEW completed ICM Interrogation, Remote (Prof) Caleb Smith MD INTERROGATION EVAL REMOTE </30 D CV MNTR SYS completed ICM Interrogation, Remote (Tech) Caleb Smith MD INTERROGATION EVAL REMOTE </30 D TECH REVIEW completed ICM Interrogation, Remote (Prof) Caleb Smith MD INTERROGATION EVAL REMOTE </30 D CV MNTR SYS completed Pacemaker Interrogation, Remote (Tech) Caleb Smith MD INTERROGATION REMOTE </90 D BARREL FILLER HEAD REVIEW completed Pacemaker Interrogation, Remote (Prof) Caleb Smith MD INTERROGATION EVAL REMOTE </90 D 1/2/DRIER AND PULVERIZER TENDER LEAD P completed EKG Caleb canas MD completed ICM Interrogation, Remote (Prof) Caleb Smith MD INTERROGATION EVAL REMOTE </30 D CV MNTR SYS completed ICM Interrogation, Remote (Tech) Caleb Smith MD INTERROGATION EVAL REMOTE </30 D TECH REVIEW completed Schedule Followup Caleb wagner MD with SK in 6 months. completed EKG Caleb canas MD completed ICM Interrogation, Remote (Prof) Caleb Smith MD INTERROGATION EVAL REMOTE </30 D CV MNTR SYS completed ICM Interrogation, Remote (Tech) Caleb Smith MD INTERROGATION EVAL REMOTE </30 D TECH REVIEW completed [facility] - 98594 Caleb canas MD completed Schedule Followup Caleb wagner MD fu in 6 months completed EKG Caleb canas MD completed ICM Interrogation, Remote (Prof) Caleb Smith MD INTERROGATION EVAL REMOTE </30 D CV MNTR SYS completed Pacemaker Interrogation, Remote (Tech) Caleb Smith MD INTERROGATION REMOTE </90 D BARREL FILLER HEAD REVIEW completed Pacemaker Interrogation, Remote (Prof) Caleb Smith MD INTERROGATION EVAL REMOTE </90 D 1/2/DRIER AND PULVERIZER TENDER LEAD P completed Schedule Followup Caleb wagner MD Please schedule a follow-up appointment with me in 3 months. completed EKG Caleb canas MD completed ICM Interrogation, Remote (Prof) Caleb Smith MD INTERROGATION EVAL REMOTE </30 D CV MNTR SYS completed ICM Interrogation, Remote (Tech) Caleb Smith MD INTERROGATION EVAL REMOTE </30 D TECH REVIEW completed ICM Interrogation, Remote (Prof) Caleb Smith MD INTERROGATION EVAL REMOTE </30 D CV MNTR SYS completed ICM Interrogation, Remote (Tech) Caleb Smith MD INTERROGATION EVAL REMOTE </30 D TECH REVIEW completed ePrescribe - Check t his box if eRx is used Caleb Smith MD completed Schedule Followup Caleb wagner MD fu in 3 months with SK completed EKG Caleb canas MD completed EKG Caleb canas MD completed
--- OUTSIDE RECORDS SUMMARY | 2024-07-22 13:29 | XMS_ITS ---
Author Name Raymundo Aggarwallee ann Leivae Address [address] [place] [address] [facility], Address [address] [place] [address] Care Team Providers Care Mortgage Loan Interviewer Name Role Phone Carolyn Aggarwal Primary Care Physician Carolyn Orozco Preferred Provider Unavailabl e Allergies and Adverse Reactions Name Reaction Notes NO KNOWN DRUG ALLERGIES Plan of Treatment Planned Activity Comments Planned Date Planned Time Plan /Goal Screening mammography of bot h breasts, two views 02/20/2023 12:00 AM MORGAN w/ creatinine 10/13/2023 12:00 AM MORGAN w/ creatinine 10/13/2023 12:00 AM DEXA scan axial skeleton 11/06/2023 12:00 AM Colorectal cancer screening; fecal occult blood test, immunoassay, 1-3 simultaneous 12/16/2023 1:16 PM Colorectal cancer screening; fecal occult blood test, immunoassa 11/12/2023 12:00 AM Helicobacter pylori Antibodi es, IgA, IgG, IgM - [facility] only 11/12/2023 12:00 AM Hepatitis panel 02/02/2024 12:00 AM Hepatitis panel 02/02/2024 12:00 AM Hepatitis panel 02/02/2024 12:00 AM Herpes Simplex Virus (HSV) T ypes 1 and 2-Specific Antibodies, IgG With Reflex to Supplemental HSV-2 Testing 02/02/2024 12:00 AM Herpes Simplex Virus (HSV) T ypes 1 and 2-Specific Antibodies, IgG With Reflex to Supplemental HSV-2 Testing 02/02/2024 12:00 AM MORGAN w/ creatinine 03/28/2024 12:00 AM MORGAN w/ creatinine 03/28/2024 12:00 AM [facility], In-Center Only 12/10/2022 10:57 AM Medications Active Name Start Date Estimated Comple tion Date SIG Comments levetiracetam 500 mg tablet take 1 tablet (500 mg) by oral route 2 times per day metoprolol tartrate 75 mg tablet take 1 tablet (75 mg) by oral route 2 times per day ranolazine ER 1,000 mg tablet,extended release,12 hr take 1 tablet (1,000 mg) by oral route 2 times per day Torsemide 20 mg tablet 02/02/2024 01/23/2025 Take 1 tablet by mouth 2 times a day Losartan 25 mg tablet 02/18/2024 02/12/2025 Take1 pill in the morning. Gabapentin 300 mg capsule 02/23/2024 02/17/2025 Ta ke 1 pill in the morning and 1 pill in the evening. Atorvastatin 40 mg tablet 03/14/2024 03/09/2025 ta ke 1 tablet (40 mg) by oral route once daily ergocalciferol (vitamin D2) 06/28/2024 10/18/2024 TAKE 1 CAPSULE BY MOUTH EVERY WEEK DIRECTED oxycodone 5 06/30/2024 acetaminophen 500 06/30/2024 ibuprofen 600 06/30/2024 Abilify Oral Tablet 10 MG 06/30/2024 06/25/2025 Ta ke 1 tablet by mouth daily Memantine HCl Oral Tablet 5 MG 06/30/2024 07/30/2024 Take 1 pill in the morning. Magnesium Oxide -Mg Supplement Oral Tablet 400 (240 Mg) MG 07/11/2024 11/08/2024 TAKE 1 TABLET BY MOUTH EVERY DAY Name Start Date Expiration Date SIG Comments Albuterol 2.5 mg/3 mL (0.083%) solution 04/16/2023 04/10/2024 1 vial inhaled via nebulization every 4-6 hours as needed for wheezing FeroSul 325 mg tablet 06/01/2023 09/29/2023 take one pill daily Omeprazole 40 mg delayed release capsule 10/13/2023 12/12/2023 Take 1 capsule (40mg total) by mouth 2 times a day Magnesium Oxide 400 mg tablet 12/07/2023 02/05/2024 TAKE 1 TABLET BY KAREN TH EVERY DAY [employer] V[employer] ID = REIMBURSEMENT CODE 12/07/2023 12/01/2024 Use to check blood sugars once daily REMINDER enter Diagnosis Code here: R73.03 _ dc Isopropyl Alcohol Topical 70% pad 12/07/2023 12/01/2024 Use when checking bl ood sugars once daily dc Discontinued Name Start Date Discontinued Date SIG Comment s acidophilus 100 million cell-pectin, citrus 10 mg capsule 02/23/2024 Take by mouth dc albuterol sulfate HFA 90 mcg/actuation aerosol inhaler 02/23/2024 inhale 1 puff (90 mcg) by inhalation route every 6 hours as needed dc aripiprazole 15 mg tablet 02/23/2024 ta ke 1 tablet (15 mg) by oral route once daily dc benztropine 0.5 mg tablet 02/23/2024 ta ke 1 tablet (0.5 mg) by mouth daily dc budesonide-formoterol HFA 160 mcg-4.5 mcg/actuation aerosol inhaler 02/02/2024 inhale 2 puffs by inhalation route 2 times per day in the morning and evening dc buspirone 15 mg tablet 06/30/2024 take 3 tablets (15mg total) by mouth 3 tomes a day dc cholestyramine (bulk) powder 02/23/2024 use as directed dc clonazepam 0.5 mg tablet 02/23/2024 rupa e 1 tablet (0.5 mg) by oral route 2 times per day dc ergocalciferol (vitamin D2) 1,250 mcg (50,000 unit) capsule 03/28/2024 Take one capsule by mouth ever week as directed dc escitalopram 20 mg tablet 02/23/2024 ta ke 1 tablet (20 mg) by oral route once daily dc famotidine 40 mg tablet 02/23/2024 take 1 tablet (40 mg) by oral route 2 times per day dc FeroSul 325 mg (65 mg iron) tablet 02/23/2024 take 1 tablet (325 mg) by oral route once daily dc fluticasone propionate 110 mcg/actuation HFA aerosol inhaler 02/23/2024 inhale 1 puff (two) times a day rinse mouth with water after use. Do not swallow. dc furosemide 40 mg tablet 02/02/2024 take 1 tablet (40 mg) by oral route once daily dc Incruse Ellipta 62.5 mcg/actuation powder for inhalation 02/02/2024 inhale 1 puff (62.5 mcg) by inhalation route once daily at the same time each day dc isosorbide mononitrate ER 60 mg tablet,extended release 24 hr 02/23/2024 take 1 tablet (60 mg ) by mouth daily dc magnesium oxide 400 mg (241.3 mg magnesium) tablet 02/23/2024 take 1 tablet by ora l route daily dc melatonin 3 mg tablet 02/23/2024 take 1 tablet by oral route nightly dc nitroglycerin oral 02/23/2024 Place 1 t ablet (0.4 mg total) under the tongue every 5 minutes as needed for chest pain. dc omeprazole 40 mg capsule,delayed release 03/28/2024 Take 1 capsule ( 40mg total) by mouth 2 times a day dc potassium chloride oral 02/23/2024 Take 1 tablet (20MEQ) by mouth twice daily dc OneTouch Delica Lancets 30G Miscellaneous STERILE 12/07/2023 02/23/2024 Use to test Bl ood Sugars daily. REMINDER enter Diagnosis Code here:____R73.03 ____ dc Magnesium Oxide -Mg Supplement Oral Tablet 400 (240 Mg) MG 05/12/2024 06/30/2024 TAKE 1 TABLET BY MOUTH EVERY DAY dc hydrOXYzine HCl Oral Tablet 25 MG 05/13/2024 06/30/2024 Take 1 pill in the morning, 1 pill in the afternoon and 1 pill in the evening as needed for anxiety dc Problem List Description Status Onset Class 3 severe obesity due t o excess calories with serious comorbidity and body mass index (BMI) of 40.0 to 44.9 in adult Active 11/21/2022 HTN (hypertension) Active 11/21/2022 HLD (hyperlipidemia) Active 11/21/2022 GERD (gastroesophageal reflux disease) Active 11/25/2022 Seasonal allergies Active 11/25/2022 CHF (congestive heart failure) Active Atypical angina Active 12/10/2022 Hypertensive CHF Active 12/10/2022 Sinoatrial node dysfunction Active 2022 Presence of cardiac pacemaker Active 12/10/2022 Anxiety Active 12/10/2022 Mild episode of recurrent major depressive disor edvin Active 02/25/2023 PTSD (post-traumatic stress disorder) Active 02/27/2023 Mild episode of recurrent major depressive disor edvin Active 02/27/2023 PTSD (post-traumatic stress disorder) Active 02/27/2023 Mild episode of recurrent major depressive disor edvin Active 02/27/2023 Prediabetes Active 04/20/2023 Ambulates with cane Active 04/20/2023 Chronic diarrhea Active 11/12/2023 Lower extremity edema Active 11/12/2023 Neuropathy Active 11/12/2023 Obstructive sleep apnea Active COPD (chronic obstructive pulmonary disease) Act naomi 02/03/2024 Class 3 severe obesity due t o excess calories with serious comorbidity and body mass index (BMI) of 45.0 to 49.9 in adult Active 02/03/2024 Shortness of breath Active 02/23/2024 Pelvic mass Active 03/28/2024 Seizures Active 06/30/2024 MCI (mild cognitive impairment) Active 06/30/2024 Vital Signs Date Time BP-Sys(mm[Hg] BP-Krystle(mm[Hg]) HR(bpm) RR(rpm) Temp WT HT HC BMI BSA BMI Percentile O2 Sat(%) 2024 8:54: 00 AM 132 mm[Hg] 78 mm[Hg] 89 {beats}/ min 22 rpm 98.00 6 F 260 .25 4 lbs 64. 016 in 44.6 501 kg/m 2 2.30 91 m2 98 % 03/28 11:21 :00 AM 113 mm[Hg] 76 mm[Hg] 80 {beats}/ min 20 rpm 98.49 2 F 267 .37 9 lbs 64. 016 in 45.8 7 kg/m 2 2.34 m2 96 % 02/22 10:31 :00 AM 102 mm[Hg] 59 mm[Hg] 70 {beats}/ min 18 rpm 98.49 2 F 270 .00 4 lbs 64. 016 in 46.3 2 kg/m 2 2.35 m2 92 % 2023 11:24 :00 AM 108 mm[Hg] 60 mm[Hg] 75 {beats}/ min 97.7 F 269 .37 9 lbs 64. 016 in 46.2 157 kg/m 2 2.34 92 m2 95 % 7/11/ 2024 9:04: 00 AM 127 mm[Hg] 72 mm[Hg] 98.1 F 271 .5 lbs 64 in 46.6 0 kg/m 2 2.36 m2 97 % 2023 3:23: 00 PM 168 mm[Hg] 77 mm[Hg] 83 {beats}/ min 20 rpm 97.39 4 F 266 .37 9 lbs 64. 016 in 45.7 01 kg/m 2 2.33 61 m2 97 % 04/20 2:58: 00 PM 136 mm[Hg] 75 mm[Hg] 70 {beats}/ min 16 rpm 96.60 2 F 255 .25 4 lbs 64. 016 in 43.7 9 kg/m 2 2.29 m2 97 % 02/20 1:01: 00 PM 136 mm[Hg] 87 mm[Hg] 71 {beats}/ min 16 rpm 97.89 8 F 245 .50 4 lbs 64. 016 in 42.1 195 kg/m 2 2.24 27 m2 97 % 023 10:54 :00 AM 117 mm[Hg] 72 mm[Hg] 70 {beats}/ min 18 rpm 97.89 8 F 248 .12 9 lbs 64. 016 in 42.5 7 kg/m 2 2.25 m2 98 % 2022 1:23: 00 PM 144 mm[Hg] 75 mm[Hg] 72 {beats}/ min 98.49 2 F 247 .12 9 lbs 64. 016 in 42.3 983 kg/m 2 2.25 01 m2 97 % Social History Name Description Comments Tobacco Never smoker Marital Status: Single Lives Alone History of Procedures Date Ordered Description Order Status 02/27/2023 11:03 AM UPR/L XTREMITY ART 2 LEVELS Reviewed 02/20/2023 12:00 AM Administration of in fluenza vaccine in Medicare patient Reviewed 02/20/2023 12:00 AM FLU VAC NO PRSV 4 IVAN 3 YRS+ Reviewed 04/20/2023 12:00 AM COMPLETE CBC W/AUTO DIFF WBC Returned 04/20/2023 12:00 AM COMPREHEN METABOLIC PANEL Re turned 04/20/2023 12:00 AM LIPID PANEL Returned 04/20/2023 3:16 PM GLYCOSYLATED HEMOGLOBIN TEST Reviewed 10/13/2023 4:06 PM GLYCOSYLATED HEMOGLOBIN TEST R eviewed 10/13/2023 12:00 AM COMPREHEN METABOLIC PANEL Ret urned 10/13/2023 12:00 AM VITAMIN D 25 HYDROXY Returned 10/13/2023 12:00 AM MICROALBUMIN QUANTITATIVE Ret urned 10/13/2023 12:00 AM ASSAY OF URINE CREATININE Ret urned 10/13/2023 12:00 AM LIPID PANEL Returned 10/13/2023 12:00 AM ASSAY THYROID STIM HORMONE Re turned 10/13/2023 12:00 AM COMPLETE CBC W/AUTO DIFF WBC Returned 10/13/2023 12:00 AM HIV-1 AG W/HIV-1 & HIV-2 AB R eturned 10/13/2023 12:00 AM HEPATITIS C AB TEST Returned 10/13/2023 12:00 AM ASSAY OF NATRIURETIC PEPTIDE Returned 11/12/2023 9:09 AM GLYCOSYLATED HEMOGLOBIN TEST R eviewed 11/12/2023 12:00 AM IADNA-DNA/RNA PROBE TQ 10-12 R eturned 11/12/2023 12:00 AM C DIFF AMPLIFIED PROBE Return ed 02/02/2024 12:00 AM GLYCOSYLATED HEMOGLOBIN TEST Reviewed 02/03/2024 8:52 PM GLYCOSYLATED HEMOGLOBIN TEST R eviewed 02/23/2024 12:00 AM COMPLETE CBC W/AUTO DIFF WBC Returned 02/23/2024 12:00 AM HEPATITIS B SURFACE AG EIA R eturned 02/23/2024 12:00 AM [id number] TOTAL Re turned 02/23/2024 12:00 AM HERPES SIMPLEX TYPE 1 TEST R eturned 02/23/2024 12:00 AM HERPES SIMPLEX TYPE 2 TEST R eturned 06/30/2024 12:00 AM GLYCOSYLATED HEMOGLOBIN TEST Reviewed 06/30/2024 12:00 AM MICROALBUMIN QUANTITATIVE Ret urned 06/30/2024 12:00 AM ASSAY OF URINE CREATININE Ret urned 06/30/2024 9:17 AM GLUCOSE BLOOD TEST Reviewed 06/30/2024 10:31 AM GLYCOSYLATED HEMOGLOBIN TEST Reviewed 06/30/2024 12:00 AM DSCHRG MED/CURRENT MED MERGE Reviewed 06/30/2024 12:00 AM Post Discharge Visit Reviewed 11/19/2022 12:00 AM ASSAY OF PARATHORMONE Returne d 11/19/2022 12:00 AM COMPLETE CBC AUTOMATED Return ed 11/19/2022 12:00 AM COMPREHEN METABOLIC PANEL Ret urned 11/19/2022 12:00 AM VITAMIN D 25 HYDROXY Returned 11/19/2022 12:00 AM MICROALBUMIN QUANTITATIVE Ret urned 11/19/2022 12:00 AM ASSAY OF URINE CREATININE Ret urned 11/19/2022 12:00 AM LIPID PANEL Returned 11/19/2022 12:00 AM ASSAY THYROID STIM HORMONE Re turned 11/19/2022 12:00 AM VITAMIN B-12 Returned 12/10/2022 12:00 AM Annual Visit ([id number]) Reviewed Results Summary Date and Description Results 09/17/2022 12:00 AM LVEF % 50-70% 11/19/2022 1:36 PM BP Monitor @home Yes 11/19/2022 1:40 PM PHQ-2 0 11/19/2022 1:40 PM AUDIT - C 0Marijuana Use 0Drug Use/Rx Abuse 0 11/19/2022 1:41 PM VES - 13 2 11/19/2022 1:42 PM SDOH - Housing Rach rns NoSDOH - Food Access Concerns (Run Out of Food Now) YesSDOH - Food Access Concerns (Ran Out of Food in Last 2 Months) YesSDOH - Medication Assistance NoSDOH - Health Literacy NoSDOH - Loneliness Score 3 11/19/2022 1:46 PM Mini - Cog 3 11/26/2022 9:52 AM CHOLESTEROL, TOTAL 1 57.0 mg/dLHDL CHOLESTEROL 62.0 mg/dLTRIGLYCERIDES 127.0 mg/dLLDL-CHOLESTEROL 74.0 mg/dLCHOL/HDLC RATIO 2.50 RatioNON HDL CHOLESTEROL 95.0 mg/dLGLUCOSE 90.0 mg/dLUREA NITROGEN (BUN) 8.0 mg/dLCREATININE 0.850 mg/dLEGFR 79.0 mL/min/1.73m BUN/CREATININE RATIO NOT APPLICABLE (calc)SODIUM 137.0 mmol/LPOTASSIUM 4.50 mmol/LCHLORIDE 102.0 mmol/LCARBON DIOXIDE 23.0 mmol/LCALCIUM 9.10 mg/dLPROTEIN, TOTAL 7.10 g/dLALBUMIN 4.10 g/dLGLOBULIN 3.0 g/dLALBUMIN/GLOBULIN RATIO 1.40 (calc)BILIRUBIN, TOTAL 0.60 mg/dLALKALINE PHOSPHATASE 114 U/LAST 26 U/LALT 37 U/LCREATININE, RANDOM URINE 0.270 mg/mLALBUMIN, URINE <0.2ALBUMIN/CREATININE RATIO, RANDOM URINE NOTEWHITE BLOOD CELL COUNT 11.70 x10E3/uLRED BLOOD CELL COUNT 4.720 x10E6/uLHEMOGLOBIN 13.10 g/dLHEMATOCRIT 40.80 %MCV 86.40 fLMCH 27.80 pgMCHC 32.10 g/dLRDW 16.30 %PLATELET COUNT 215.0 x10E3/uLMPV 11.20 fLTSH 1.19VITAMIN B12 426.0 pg/mLPARATHYROID HORMONE, INTACT 58.0 pg/mLVITAMIN D,25-OH,TOTAL,IA 59.0 ng/mL 12/10/2022 10:56 AM BP Monitor @home Yes 12/10/2022 4:08 PM [facility] Right Foot 1.090 UnitsQuantaFlo Left Foot 1.050 Units 02/20/2023 1:03 PM SDOH - Housing Rach rns YesSDOH - Food Access Concerns (Run Out of Food Now) YesSDOH - Food Access Concerns (Ran Out of Food in Last 2 Months) YesSDOH - Medication Assistance NoSDOH - Health Literacy NoSDOH - Loneliness Score 8 02/20/2023 1:04 PM Influenza: Given 02/27/2023 11:03 AM [facility] Right 1.09 0 UnitsQuantaflo Left 1.050 Units 03/16/2023 4:00 PM Mammogram: Result: B I-RADS 2 04/20/2023 3:16 PM Hemoglobin A1c 5.70 % 04/29/2023 1:14 PM CHOLESTEROL, TOTAL 1 40.0 mg/dLHDL CHOLESTEROL 63.0 mg/dLTRIGLYCERIDES 146.0 mg/dLLDL-CHOLESTEROL 54.0 mg/dLCHOL/HDLC RATIO 2.20 RatioNON HDL CHOLESTEROL 77.0 mg/dLGLUCOSE 71.0 mg/dLUREA NITROGEN (BUN) 8.0 mg/dLCREATININE 0.660 mg/dLEGFR 102.0 mL/min/1.73m BUN/CREATININE RATIO SEE NOTE: (calc)SODIUM 139.0 mmol/LPOTASSIUM 4.30 mmol/LCHLORIDE 105.0 mmol/LCARBON DIOXIDE 26.0 mmol/LCALCIUM 8.60 mg/dLPROTEIN, TOTAL 6.80 g/dLALBUMIN 3.90 g/dLGLOBULIN 2.90 g/dLALBUMIN/GLOBULIN RATIO 1.30 (calc)BILIRUBIN, TOTAL 0.30 mg/dLALKALINE PHOSPHATASE 105 U/LAST 22 U/LALT 25 U/LWHITE BLOOD CELL COUNT 10.90 x10E3/uLRED BLOOD CELL COUNT 4.20 x10E6/uLHEMOGLOBIN 12.40 g/dLHEMATOCRIT 38.30 %MCV 91.20 fLMCH 29.50 pgMCHC 32.40 g/dLRDW 14.50 %PLATELET COUNT 248.0 x10E3/uLMPV 11.80 fLABSOLUTE NEUTROPHILS 7140 cells/uLABSOLUTE LYMPHOCYTES 2769 cells/uLABSOLUTE MONOCYTES 730 cells/uLABSOLUTE EOSINOPHILS 229 cells/uLABSOLUTE BASOPHILS 33 cells/uLNEUTROPHILS 65.50 %LYMPHOCYTES 25.40 %MONOCYTES 6.70 %EOSINOPHILS 2.10 %BASOPHILS 0.30 %CHOLESTEROL, TOTAL 140.0 mg/dLHDL CHOLESTEROL 63.0 mg/dLTRIGLYCERIDES 146.0 mg/dLLDL-CHOLESTEROL 54.0 mg/dLCHOL/HDLC RATIO 2.20 RatioNON HDL CHOLESTEROL 77.0 mg/dLGLUCOSE 71.0 mg/dLUREA NITROGEN (BUN) 8.0 mg/dLCREATININE 0.660 mg/dLEGFR 102.0 mL/min/1.73m BUN/CREATININE RATIO SEE NOTE: (calc)SODIUM 139.0 mmol/LPOTASSIUM 4.30 mmol/LCHLORIDE 105.0 mmol/LCARBON DIOXIDE 26.0 mmol/LCALCIUM 8.60 mg/dLPROTEIN, TOTAL 6.80 g/dLALBUMIN 3.90 g/dLGLOBULIN 2.90 g/dLALBUMIN/GLOBULIN RATIO 1.30 (calc)BILIRUBIN, TOTAL 0.30 mg/dLALKALINE PHOSPHATASE 105 U/LAST 22 U/LALT 25 U/LWHITE BLOOD CELL COUNT 10.90 x10E3/uLRED BLOOD CELL COUNT 4.20 x10E6/uLHEMOGLOBIN 12.40 g/dLHEMATOCRIT 38.30 %MCV 91.20 fLMCH 29.50 pgMCHC 32.40 g/dLRDW 14.50 %PLATELET COUNT 248.0 x10E3/uLMPV 11.80 fLABSOLUTE NEUTROPHILS 7140 cells/uLABSOLUTE LYMPHOCYTES 2769 cells/uLABSOLUTE MONOCYTES 730 cells/uLABSOLUTE EOSINOPHILS 229 cells/uLABSOLUTE BASOPHILS 33 cells/uLNEUTROPHILS 65.50 %LYMPHOCYTES 25.40 %MONOCYTES 6.70 %EOSINOPHILS 2.10 %BASOPHILS 0.30 % 10/13/2023 3:27 PM Pain Scale 0 10/13/2023 3:28 PM AUDIT - C 0Marijuana Use 0Drug Use/Rx Abuse 0 10/13/2023 3:28 PM PHQ-2 0 10/13/2023 3:28 PM PHQ-9 0 10/13/2023 3:29 PM VES - 13 1 10/13/2023 3:31 PM BP Monitor @home Yes 10/13/2023 3:33 PM CHOLESTEROL, TOTAL 1 31.0 mg/dLHDL CHOLESTEROL 57.0 mg/dLTRIGLYCERIDES 141.0 mg/dLLDL-CHOLESTEROL 52.0 mg/dLCHOL/HDLC RATIO 2.30 RatioNON HDL CHOLESTEROL 74.0 mg/dLGLUCOSE 97.0 mg/dLUREA NITROGEN (BUN) 11.0 mg/dLCREATININE 0.750 mg/dLEGFR 92.0 mL/min/1.73m BUN/CREATININE RATIO SEE NOTE: (calc)SODIUM 139.0 mmol/LPOTASSIUM 4.10 mmol/LCHLORIDE 104.0 mmol/LCARBON DIOXIDE 27.0 mmol/LCALCIUM 8.80 mg/dLPROTEIN, TOTAL 6.60 g/dLALBUMIN 3.90 g/dLGLOBULIN 2.70 g/dLALBUMIN/GLOBULIN RATIO 1.40 (calc)BILIRUBIN, TOTAL 0.30 mg/dLALKALINE PHOSPHATASE 122 IU/LAST 11 U/LALT 16 U/LCREATININE, RANDOM URINE 0.460 mg/mLALBUMIN, URINE <0.2ALBUMIN/CREATININE RATIO, RANDOM URINE NOTEWHITE BLOOD CELL COUNT 12.0 x10E3/uLRED BLOOD CELL COUNT 4.290 x10E6/uLHEMOGLOBIN 12.50 g/dLHEMATOCRIT 39.10 %MCV 91.10 fLMCH 29.10 pgMCHC 32.0 g/dLRDW 13.90 %PLATELET COUNT 263.0 x10E3/uLMPV 11.40 fLABSOLUTE NEUTROPHILS 7680 cells/uLABSOLUTE LYMPHOCYTES 3120 cells/uLABSOLUTE MONOCYTES 912 cells/uLABSOLUTE EOSINOPHILS 264 cells/uLABSOLUTE BASOPHILS 24 cells/uLNEUTROPHILS 64.0 %LYMPHOCYTES 26.0 %MONOCYTES 7.60 %EOSINOPHILS 2.20 %BASOPHILS 0.20 %HEPATITIS C ANTIBODY NON-REACTIVEHIV AG/AB, 4TH GEN NON-REACTIVEB TYPE NATRIURETIC PEPTIDE (BNP) 41.0 pg/mLTSH 1.55VITAMIN D,25-OH,TOTAL,IA 54.0 ng/mL 11/12/2023 9:09 AM Hemoglobin A1c 5.90 % 11/27/2023 11:43 AM CLOSTRIDIUM DIFFICIL E TOXINB,QL REAL TIME PCR NOT DETECTED 12/04/2023 12:36 PM CAMPYLOBACTER GROUP NOT DETECTEDSALMONELLA SPECIES NOT DETECTEDSHIGELLA SPECIES NOT DETECTEDVIBRIO GROUP NOT DETECTEDYERSINIA ENTEROCOLITICA NOT DETECTEDSHIGA TOXIN 1 NOT DETECTEDSHIGA TOXIN 2 NOT DETECTEDNOROVIRUS GI/GII NOT DETECTEDROTAVIRUS A NOT DETECTED 02/02/2024 12:00 AM Lower Extremity Exam : PAD Neg Symptoms / Pos Exam 02/02/2024 11:26 AM BP Monitor @home Yes 02/02/2024 11:28 AM PHQ-9 6 02/02/2024 11:30 AM SDOH - Unhoused Gael YOON - Housing Concerns NoSDOH - Utilities NoSDOH - Food Access Concerns (Run Out of Food Now) YesSDOH - History Food Insecurity NoSDOH - Medication Assistance NoSDOH - Health Literacy NoSDOH - Transportation YesSDOH - Safety YesSDOH - Physical Abuse History NoSDOH - Mental Abuse History NoSDOH - Urgent Need NoSDOH - Loneliness Score 7 02/03/2024 8:52 PM Hemoglobin A1c 6.10 % 02/23/2024 12:00 AM Lower Extremity Exam : PAD Pos Symptoms / Pos Exam 02/23/2024 10:32 AM BP Monitor @home Yes 02/23/2024 11:01 AM WHITE BLOOD CELL COU NT 7.90 x10E3/uLRED BLOOD CELL COUNT 4.170 x10E6/uLHEMOGLOBIN 12.20 g/dLHEMATOCRIT 39.50 %MCV 94.70 fLMCH 29.30 pgMCHC 30.90 g/dLRDW 14.30 %PLATELET COUNT 261.0 x10E3/uLMPV 11.20 fLABSOLUTE NEUTROPHILS 5767 cells/uLABSOLUTE LYMPHOCYTES 1509 cells/uLABSOLUTE MONOCYTES 474 cells/uLABSOLUTE EOSINOPHILS 126 cells/uLABSOLUTE BASOPHILS 24 cells/uLNEUTROPHILS 73.0 %LYMPHOCYTES 19.10 %MONOCYTES 6.0 %EOSINOPHILS 1.60 %BASOPHILS 0.30 %[id number] QN 161.0 mg/dLHEPATITIS B SURFACE ANTIGEN NON-REACTIVEHSV 1 IGG, TYPE SPECIFIC AB 32.90 IndexHSV 2 IGG, TYPE SPECIFIC AB 18.90 Index 03/28/2024 12:00 AM Lower Extremity Exam : PAD Neg Symptoms / Pos Exam 03/28/2024 11:38 AM BP Monitor @home Yes 06/30/2024 12:00 AM Creyos Dementia Asse ssment Potential MCICreyos Screener Positive 06/30/2024 8:58 AM Pain Scale 4 06/30/2024 8:59 AM AUDIT - C 0Marijuana Use 0Drug Use/Rx Abuse 0 06/30/2024 8:59 AM SDOH - Unhoused Gael YOON - Housing Concerns NoSDOH - Utilities NoSDOH - Food Access Concerns (Run Out of Food Now) YesSDOH - History Food Insecurity YesSDOH - Food Insecurity Service Awareness YesSDOH - Medication Assistance NoSDOH - Health Literacy NoSDOH - Transportation YesSDOH - Safety YesSDOH - Physical Abuse History NoSDOH - Mental Abuse History NoSDOH - Urgent Need NoSDOH - Loneliness Score 4 06/30/2024 9:02 AM PHQ-9 2 06/30/2024 10:24 AM CREATININE, RANDOM U RINE 0.230 mg/mLALBUMIN, URINE 0.2ALBUMIN/CREATININE RATIO, RANDOM URINE 9 06/30/2024 10:31 AM Hgb A1c Fr Bld 6.10 % History Of Immunizations Name Date Admin Mfg Name Mfg Code Trade Name Lot# Route Inj Vis Given Vis Pub CVX Influenza 02/21/20 23 sanofi pasteur PMC FLUZONE [id number] MA Intramuscular Left Arm 023 021 150 History of Past Illness Name Date of Onset Comments Class 3 severe obesity due t o excess calories with serious comorbidity and body mass index (BMI) of 40.0 to 44.9 in adult 11/21/2022 11/19/2022-BMI 42.40-En couraged diet modification and regular exercise-Records requested-Will monitor HTN (hypertension) 11/21/2022 11/19/2022-BP today 144/75-Managed with Losartan 25 mg and Metoprolol 75 mg-Encouraged proper BP management -Will monitor HLD (hyperlipidemia) 11/21/2022 11/19/2022- Managed with Atorvastatin 40 mg-Encouraged diet modification and regular exercise-Records requested-Will monitor GERD (gastroesophageal reflu x disease) 11/25/2022 11/19/2022-Managed with Famotidine 40 mg -Encouraged diet modification-Records requested-Will monitor Seasonal allergies 11/25/2022 11/19/2022-Ma naged with Fluticasone -Records requested-Will monitor CHF (congestive heart failure) 12/10/2022 0 12/10/[id number] 09/17/2022: Moderate concentric left ventricular hypertrophy-Managed with Losartan 25 mg and Metoprolol 75 mg-Encouraged proper BP management -Will monitor Atypical angina 12/10/2022 12/10/2022-Stabl e -Managed with Nitroglycerin 0.4 mg-Will monitor Hypertensive CHF 12/10/2022 12/10/2022-BP t cira 117/72-Managed with Losartan 25 mg and Metoprolol 75 mg-Encouraged proper BP management -Will monitor Sinoatrial node dysfunction 12/10/2022 08/0 01/2023-Per Cardiology notes-Pacemaker present-Encouraged regular f/u with Cardiology at [facility]-Will monitor Presence of cardiac pacemaker 12/10/2022-2/2 tp SA node dysfunction-Encouraged regular f/w with cardiology-Will monitor Anxiety 12/10/2022 12/10/2022-Stabl e-Not currently managed with medications-Offered services-Will monitor sxs 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 02/27/2023 02/20/20233961-Drfqltm-MDJ-2: 0 11/19/22 -History provided per patient-Managed with Buspirone 15 mg, Clonazepam 0.5 mg, Escitalopram Oxalate 20 mg -Current follows with Monique Wellington in [place] who manages her medications-Discussed BHS today-Will monitor sxs PTSD (post-traumatic stress disorder) 02/27/2023 02/20/20238466-Tkrvbtm-Gxd patient-Encouraged regular compliance with with Buspirone 15 mg, Clonazepam 0.5 mg, Escitalopram Oxalate 20 mg -Current follows with Monique Wellington in [place] who manages her medications-Will monitor Prediabetes 04/20/2023 04/20/2023- svp research and strategic analysis courtney- A1C: 5.7 (04/20/2023)- pt denies taking any DM2 medications- encouraged diabetes-compliant diet, regular exercise, and plenty of water- will continue to monitor and f/u Ambulates with cane 04/20/2023 04/20/2023- chronic- per PE: cane present due to fall precautions- encouraged fall precautions- will continue to monitor and f/u Chronic diarrhea 11/12/2023 11/12/2023- Chr onic - Pt c/o chronic diarrhea- Follows GI and was prescribed clostridium powder which was to no relief - Ordered H. Pylori, C Diff and GI PCR to assess status, provided these to pt. We also sent her home with a FIT test, education provided.- Encouraged high fiber diet and adequate water intake- Red flag s/s reviewed. Encouraged to go to ER should sxs worsen. - CTM Lower extremity edema 11/12/2023 11/12/2023 - Chronic, onset since 07/2023- Pt c/o LLE bilaterally - Manages with Furosemide 40mg - Follows Cardiology, last appt in 07/2023. She discussed sxs with her Specialist who she reports told her to keep legs elevated- Encouraged leg elevation, low salt diet, use of compression socks and continue Furosemide as prescribed - CTM Neuropathy 11/12/2023 11/12/2023- Acut e, onset for 2 weeks- A1C 5.9% (11/12/2023)- Pt c/o New onset of sharp pain and numbness in toes for the past 1-2 weeks- PER PE: Severe decreased sensation in bilateral lower feet. 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 - Manages with Albuterol and Flovent, continue- Medical records requested - CTM Class 3 severe obesity due t o excess calories with serious comorbidity and body mass index (BMI) of 45.0 to 49.9 in adult 02/03/2024 02/02/2024- Chronic- BM I today: 46.22- Co-morbidities : CHF, COPD, HTN- Diet/ exercise discussed- CTM Shortness of breath 02/23/2024 02/23/2024 - chronic- pt reported shortness of breath, wheezing often- pt denies smoking, never smoked, but her roommate smokes- no hx of asthma- pt reported the presence of phlegm- 02/23/2024: CDQ-17 , Normal- currently managed with albuterol inhaler- encouraged to continue use inhaler- will f/u and ctm Pelvic mass 03/28/2024 03/28/2024-chron ic -c/o pain with movement and walking due to pelvic mass.-pt is scheduled for hysterectomy and mass removal on May 09. No biopsy performed prior to surgery. -Plan to check for cancer post-operatively.-Advised to continue current medications.-Encouraged to keep up with surgery as planned. -f/u, ctm Seizures 06/30/2024 06/30/2024-chron ic, controlled-noted per [facility] EMR-pt currently manages with KEPPRA-f/u, ctm MCI (mild cognitive impairment) 06/30/2024 06/30/2024 Preventive Care Nov 19 2022 1:47PM Morbid (severe) obesity due to excess calories Nov 19 2022 1:47PM Body mass index [BMI] 40.0-4 4.9, adult Nov 19 2022 1:47PM HTN (hypertension) Nov 19 2022 1:47PM HLD (hyperlipidemia) Nov 19 2022 1:47PM Encounter for drug therapy Nov 19 2022 1:47PM GERD (gastroesophageal reflu x disease) Nov 19 2022 1:47PM Seasonal allergies Nov 19 2022 1:47PM HLD (hyperlipidemia) Dec 10 2022 10:57AM Callus of foot Dec 10 2022 11:13AM Ringing in ear, bilateral Dec 10 2022 11:19AM Encounter for annual general medical examination with abnormal findings in adult Dec 10 2022 11:03AM Morbid (severe) obesity due to excess calories Dec 10 2022 11:03AM Body mass index [BMI] 40.0-4 4.9, adult Dec 10 2022 11:03AM GERD (gastroesophageal reflu x disease) Dec 10 2022 11:03AM HLD (hyperlipidemia) Dec 10 2022 11:03AM Seasonal allergies Dec 10 2022 11:03AM Hypertensive heart disease w ith heart failure Dec 10 2022 11:03AM CHF (congestive heart failure) Dec 10 2022 11:03A M Atypical angina Dec 10 2022 11:03AM Sinoatrial node dysfunction Dec 10 2022 11:03AM Presence of cardiac pacemaker Dec 10 2022 11:03AM Anxiety Dec 10 2022 11:03AM Flu Vaccine (Fluzone Regular Dose) Feb 20 2023 1:08PM Screening mammogram Feb 20 2023 1:26PM Colonoscopy (referral needed) Feb 20 2023 1:26PM Anxiety Feb 20 2023 1:08PM PTSD (post-traumatic stress disorder) Feb 20 2023 1:08PM 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 Feb 20 2023 1:08PM HLD (hyperlipidemia) Apr 20 2023 8:55AM Hypertensive heart disease w ith heart failure Apr 20 2023 8:55AM Drug therapy Apr 20 2023 8:55AM Screening for diabetes mellitus Apr 20 2023 8:55 AM Morbid (severe) obesity due to excess calories Apr 20 2023 3:11PM Body mass index [BMI] 40.0-4 4.9, adult Apr 20 2023 3:11PM Prediabetes Apr 20 2023 3:11PM Ambulates with cane Apr 20 2023 3:11PM Callus of foot Jul 13 2023 3:59PM Encounter for drug therapy Oct 13 2023 10:04AM Encounter for screening for lipoid disorders Oct 13 2023 10:04AM Encounter for screening for cardiovascular disorders Oct 13 2023 10:04AM Encounter for vitamin defici ency screening Oct 13 2023 10:04AM Admission for laboratory examination Oct 13 2023 10:04AM CHF (congestive heart failure) Oct 13 2023 10:04 AM HLD (hyperlipidemia) Oct 13 2023 10:04AM HTN (hypertension) Oct 13 2023 10:04AM Prediabetes Oct 13 2023 10:04AM Colon cancer screening Oct 13 2023 3:32PM Encounter for annual general medical examination with abnormal findings in adult Oct 13 2023 3:32PM Presence of cardiac pacemaker Oct 13 2023 3:32PM Morbid (severe) obesity due to excess calories Oct 13 2023 3:32PM Body mass index [BMI] 45.0-4 9.9, adult Oct 13 2023 3:32PM Tremor Oct 13 2023 3:32PM Nov 06 2023 4:29PM Chronic diarrhea Nov 12 2023 8:54AM Atypical angina Nov 12 2023 8:54AM CHF (congestive heart failure) Nov 12 2023 8:54A M Morbid (severe) obesity due to excess calories Nov 12 2023 8:54AM Body mass index [BMI] 45.0-4 9.9, adult Nov 12 2023 8:54AM Hypertensive heart disease w ith heart failure Nov 12 2023 8:54AM 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 Nov 12 2023 8:54AM Prediabetes Nov 12 2023 8:54AM Presence of cardiac pacemaker Nov 12 2023 8:54AM Encounter for FIT (fecal immunochemical test) screening Nov 12 2023 8:54AM Lower extremity edema Nov 12 2023 8:54AM Neuropathy Nov 12 2023 8:54AM Obstructive sleep apnea Nov 12 2023 8:54AM Anxiety Nov 12 2023 8:54AM Sinoatrial node dysfunction Nov 12 2023 8:54AM Encounter for other specifie d special examinations Feb 02 2024 9:53AM Morbid (severe) obesity due to excess calories Feb 02 2024 9:53AM Body mass index [BMI] 40.0-4 4.9, adult Feb 02 2024 9:53AM HTN (hypertension) Feb 02 2024 9:53AM Encounter for drug therapy Feb 02 2024 9:53AM Feb 02 2024 11:54AM Morbid (severe) obesity due to excess calories Feb 02 2024 11:32AM Body mass index [BMI] 45.0-4 9.9, adult Feb 02 2024 11:32AM CHF (congestive heart failure) Feb 02 2024 11:32A M Chronic diarrhea Feb 02 2024 11:32AM Obstructive sleep apnea Feb 02 2024 11:32AM COPD (chronic obstructive pulmonary disease) Feb 02 2024 11:32AM Hypertensive heart disease w ith heart failure Feb 02 2024 11:32AM CHF (congestive heart failure) Feb 23 2024 9:24A M COPD (chronic obstructive pulmonary disease) Feb 23 2024 9:24AM HLD (hyperlipidemia) Feb 23 2024 9:24AM HTN (hypertension) Feb 23 2024 9:24AM Encounter for drug therapy Feb 23 2024 9:24AM Encounter for other specifie d special examinations Feb 23 2024 9:24AM Lower extremity edema Feb 23 2024 10:43AM Neuropathy Feb 23 2024 10:43AM Shortness of breath Feb 23 2024 10:43AM Encounter for drug therapy Mar 28 2024 8:45AM Lower extremity edema Mar 28 2024 11:40AM Pelvic mass Mar 28 2024 11:40AM Anxiety Mar 28 2024 11:40AM Atypical angina Mar 28 2024 11:40AM CHF (congestive heart failure) Mar 28 2024 11:40 AM Obesity, class 3 Mar 28 2024 11:40AM Morbid (severe) obesity due to excess calories Mar 28 2024 11:40AM Body mass index [BMI] 45.0-4 9.9, adult Mar 28 2024 11:40AM HLD (hyperlipidemia) Mar 28 2024 11:40AM Hypertensive heart disease w ith heart failure Mar 28 2024 11:40AM Neuropathy Mar 28 2024 11:40AM Encounter for drug therapy Jun 30 2024 8:23AM 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 Jun 30 2024 9:17AM Other specified counseling Jun 30 2024 9:17AM CHF (congestive heart failure) Jun 30 2024 9:17A M Obesity, class 3 Jun 30 2024 9:17AM Morbid (severe) obesity due to excess calories Jun 30 2024 9:17AM Body mass index [BMI] 40.0-4 4.9, adult Jun 30 2024 9:17AM Hypertensive heart disease w ith heart failure Jun 30 2024 9:17AM 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 Jun 30 2024 9:17AM Pelvic mass Jun 30 2024 9:17AM COPD (chronic obstructive pulmonary disease) Jun 30 2024 9:17AM Sinoatrial node dysfunction Jun 30 2024 9:17AM Seizures Jun 30 2024 9:17AM MCI (mild cognitive impairment) Jun 30 2024 9:17 AM Payers Insurance Name Company Name Plan Name Plan Number Policy Number Policy Group Number Start Date [facility] - [id number] Tuesday, 2023 [facility] [place] [id number] Thursday, 2023 Medicare - [place] Medicare Part B - [facility] [id number] Thursday [facility]) - [id number] AARPAdtvge HMO OON [id number] N/A Medicaid - [place] Medicaid - [facility] [id number] Monday, 2022 [facility]) - [id number] Tuesday, 2022 History of Encounters Visit Date Visit Type Provider 06/30/2024 In Office Visit Carolyn Aggarwal N P 06/30/2024 In Office Visit Carolyn Aggarwal N P 03/28/2024 In Office Visit Carolyn Palomo P 02/23/2024 In Office Visit Carolyn Palomo P 02/02/2024 In Office Visit Carolyn Aggarwal N P 11/12/2023 In Office Visit 11/12/2023 In Office Visit 11/12/2023 In Office Visit Carolyn Aggarwal N P 10/13/2023 In Office Visit Carolyn Aggarwal N P 04/29/2023 In Office Visit Visits C. Lab Ot her 04/20/2023 In Office Visit Dayana Rodriguez ar INSULATOR TESTER 02/20/2023 In Office Visit Dayana Rodriguez ar INSULATOR TESTER 12/10/2022 In Office Visit Dayana Rodriguez ar INSULATOR TESTER 11/26/2022 In Office Visit Visits C. Lab Ot her 11/19/2022 In Office Visit Dayanaallan Rodriguez ar INSULATOR TESTER
--- OUTSIDE RECORDS SUMMARY | 2024-07-22 13:29 | XMS_ITS | Data Portability ---
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 Name Role Phone MARY ARIAS Primary Care Provider MARY ARIAS Referring Provider Assessment Encounter Date Assessment Date Assessment LastModified by Organization Details LastModified Time 09/23/2023 09/23/2023 Assessment: Mild OSAHS, AHI = 8 PLMD Plan: The following were reviewed and explained to the patient: primary care/referral note PFT 02/14/21 nl FEV1/FVC, FEV1 1.92 L (76%), TLC 3.29 L (67%), RV 0.64 L (35%), DLCO 55%, DLCO/VA 108% PFT 01/09/23 nl FEV1/FVC, FEV1 2.21 L (86%), TLC 4.21 L (83%), RV 1.42 L (72%), DLCO 84%, DLCO/VA 101% Methacholine challenge test 03/02/23 (-) methacholine challenge test Chest CT 03/18/21 BLL atelectasis [facility] home sleep study 01/22/15 AHI = 8 [facility] titration sleep study 03/27/15 sleep onset = 43.5 minutes, REM onset = 169.5 minutes, Respironics large Clari View full face mask @ 7-15 cmH2O, PLMI = 7 Discontinue budesonide/formete rol and Incruse Ellipta. Keep albuterol HFA as needed. Elevation in periodic limb movement index may be contributed by escitalopram and venlafaxine. Non-pharmacologic therapy options for periodic limb movement disorder include avoidance of aggravating drugs and substances, mental alerting activities, short daily hemodialysis for patients in renal failure, exercise, leg massage, stretching calf muscles, use of a weighted blanket and applied heat. Patient will cut down on caffeine intake. We will check BUN, Creatinine, Vitamin E, Vitamin B12, RBC folate, Iron, TIBC, Ferritin, ESR, Magnesium, Hgb and Hct levels. PAP compliance downloaded and interpreted x 20 minutes. Data reviewed and explained to the patient. Average apnea/hypopnea index (AHI) is 2.7. Patient used PAP > 4 hours 64% of the time. PAP is set at 7-15 cmH2O. PAP will remain at 7-15 cmH2O. Oxygen supplementation: none Patient is benefiting from PAP therapy. Encouraged patient to maintain PAP use more than 70% of the time. Statement of PAP use and benefits will be sent to the home care store. Educated the patient on problems and solutions associated with positive airway pressure (PAP) use. Difficulty tolerating pressure, mask leaks, intolerance of interface, nasal congestion, claustrophobic response, dry mouth, and unintentional mask removal during sleep were covered. Dry mouth is a normal occurrence for people who just start out on PAP therapy because they are not used to air blowing in to the throat to hold open. Dry mouth is exacerbated for people who wear nasal PAP mask and whose jaw drops open during sleep. Not only does this create a much less efficient therapy because of leakage, it also causes dry mouth. There are a couple solutions to help prevent this type of problem. A simple solution would be to wear a chinstrap which essentially holds the jaw in place. A second solution would be a switch to a full face mask which covers both the nose and mouth. Although this is another easy solution, using a full face mask for some could seem claustrophobic or confining. There is no silver bullet solution as no single mask is right for everybody. Sometimes it takes a bit of experimentation to find a PAP mask which best meets the patient's needs as well as fits comfortably. Another tactic is to use a humidifier on your PAP machine. Most new PAP machines have integrated humidifiers. Humidification is moe when dealing with symptoms of dry mouth because the humidifier can supply both warm and room temperate air. Even a small amount of humidity in the airflow will help nasal passages to stay hydrated. If a person is using both a full face mask and a PAP machine with a heated humidifier and is still experiencing dry mouth, an ill-fitted PAP mask might be causing the problem. Leakage can be caused by a mask that is to large or small, the wrong style mask, the cushion is degraded or simply because the mask's straps aren't adjusted correctly. If leakage occurs, dry air from the room can leak in while humidification escapes. The result is reduced humidification within the circuit and resulting in dry throat and mouth. Finally, beyond factors involving the PAP machine and mask, dry mouth can also be caused or worsened by dehydration. The general recommendation to during eight 8 oz. glasses of water a day might be too little for many people. When people drink large amounts of coffee or other caffeine beverages, or sweat a lot during the day, making sure to rehydrate is an important part of PAP therapy. Provided the patient with a list of local home care stores where positive airway pressure (PAP) units, accoutrement's, and services are available. Home care store selection is based on patient's insurance carrier. Patient will setup an appointment with [facility] for supplies and pressure adjustments. A major predictor of success with use of PAP is follow-up with both the respiratory supplier and the treating physician. The download results can show the treating physician information about adherence to treatment, residual AHI while on treatment and presence of large mask leakage. This information is especially helpful if the patient has residual sleepiness despite treatment. General information on sleep disordered breathing, evaluation of sleep disordered breathing, treatment with PAP therapy, and living with PAP therapy were covered. We discussed with the patient the impact of weight on: Sleep disordered breathing Hypertension Hyperlipidemia Hepatic steatosis Thoracic DDD We discussed with the patient the benefit of PAP therapy on: Sleep disordered breathing Depression/Anxiety Hypertension Educated the patient on sleep hygiene measures. Relaxing rituals to rest easy, understanding foods with positive and negative impact on sleep, creating a peaceful sleep environment, timing of exercise, using herbal sleep aids, and practicing sleep-friendly meditation were covered. To determine how much sleep is needed, the patient will assess where she falls on the spectrum, examine what lifestyle factor such as stress is affecting the quality and quantity of sleep. In general, adults need 7-9 hours of sleep. Educated the patient regarding foods that promote sleep. These include but are not limited to cherries, bananas, toast, oatmeal, and warm milk. Educated the patient regarding foods and drinks to avoid before bedtime. These include but are not limited to aged cheese, chocolate, spicy foods, tomato-based sauces, soy, ginseng tea and processed meat. Advocated influenza vaccination annually and pneumonia vaccination YOEL. Advocated weight loss through diet and exercise. Patient's ideal body weight according to height and gender is up to 130 lbs. Encouraged patient to adjust caloric intake to maintain/achieve ideal body weight, emphasizing on fruits, vegetables, whole grains, and fat-free or low-fat products. These include lean meats, poultry, fish, beans, eggs, and nuts and foods that are low in saturated fats, trans-fats, cholesterol, salt (sodium), and glycemic index. Stressed the importance of regular exercise up to the patient's capacity limits. In this case, we recommend 20 min daily walking, 2 days a week of resistance training. Patient to monitor BP daily and bring records to PCP for further management. Follow-up: 3 weeks Not available 09/25/2023 15:26:09 10/14/2023 10/14/2023 Assessment: Mild OSAHS, AHI = 8 Iron deficiency PLMD Plan: The following were reviewed and explained to the patient: PFT 02/14/21 nl FEV1/FVC, FEV1 1.92 L (76%), TLC 3.29 L (67%), RV 0.64 L (35%), DLCO 55%, DLCO/VA 108% PFT 01/09/23 nl FEV1/FVC, FEV1 2.21 L (86%), TLC 4.21 L (83%), RV 1.42 L (72%), DLCO 84%, DLCO/VA 101% Methacholine challenge test 03/02/23 (-) methacholine challenge test Chest CT 03/18/21 BLL atelectasis [facility] home sleep study 01/22/15 AHI = 8 [facility] titration sleep study 03/27/15 sleep onset = 43.5 minutes, REM onset = 169.5 minutes, Respironics large Clari View full face mask @ 7-15 cmH2O, PLMI = 7 ESR 09/23/23 35 mm/hr Ferritin 09/23/23 32 ng/mL Keep albuterol HFA as needed. Elevation in periodic limb movement index may be contributed by escitalopram and venlafaxine. Non-pharmacologic therapy options for periodic limb movement disorder include avoidance of aggravating drugs and substances, mental alerting activities, short daily hemodialysis for patients in renal failure, exercise, leg massage, stretching calf muscles, use of a weighted blanket and applied heat. Patient will cut down on caffeine intake. BUN, Creatinine, Vitamin E, Vitamin B12, RBC folate, Iron, TIBC, Magnesium, Hgb and Hct levels are within normal limits. Average AHI = 2.5 PAP is set at 7-15 cmH2O. PAP will remain at 7-15 cmH2O. Oxygen supplementation: none Patient is benefiting from PAP therapy. Encouraged patient to maintain PAP use more than 70% of the time. Statement of PAP use and benefits will be sent to the home care store. Educated the patient on problems and solutions associated with positive airway pressure (PAP) use. Difficulty tolerating pressure, mask leaks, intolerance of interface, nasal congestion, claustrophobic response, dry mouth, and unintentional mask removal during sleep were covered. Dry mouth is a normal occurrence for people who just start out on PAP therapy because they are not used to air blowing in to the throat to hold open. Dry mouth is exacerbated for people who wear nasal PAP mask and whose jaw drops open during sleep. Not only does this create a much less efficient therapy because of leakage, it also causes dry mouth. There are a couple solutions to help prevent this type of problem. A simple solution would be to wear a chinstrap which essentially holds the jaw in place. A second solution would be a switch to a full face mask which covers both the nose and mouth. Although this is another easy solution, using a full face mask for some could seem claustrophobic or confining. There is no silver bullet solution as no single mask is right for everybody. Sometimes it takes a bit of experimentation to find a PAP mask which best meets the patient's needs as well as fits comfortably. Another tactic is to use a humidifier on your PAP machine. Most new PAP machines have integrated humidifiers. Humidification is moe when dealing with symptoms of dry mouth because the humidifier can supply both warm and room temperate air. Even a small amount of humidity in the airflow will help nasal passages to stay hydrated. If a person is using both a full face mask and a PAP machine with a heated humidifier and is still experiencing dry mouth, an ill-fitted PAP mask might be causing the problem. Leakage can be caused by a mask that is to large or small, the wrong style mask, the cushion is degraded or simply because the mask's straps aren't adjusted correctly. If leakage occurs, dry air from the room can leak in while humidification escapes. The result is reduced humidification within the circuit and resulting in dry throat and mouth. Finally, beyond factors involving the PAP machine and mask, dry mouth can also be caused or worsened by dehydration. The general recommendation to during eight 8 oz. glasses of water a day might be too little for many people. When people drink large amounts of coffee or other caffeine beverages, or sweat a lot during the day, making sure to rehydrate is an important part of PAP therapy. Provided the patient with a list of local home care stores where positive airway pressure (PAP) units, accoutrement's, and services are available. Home care store selection is based on patient's insurance carrier. Patient will setup an appointment with [facility] for supplies and pressure adjustments. A major predictor of success with use of PAP is follow-up with both the respiratory supplier and the treating physician. The download results can show the treating physician information about adherence to treatment, residual AHI while on treatment and presence of large mask leakage. This information is especially helpful if the patient has residual sleepiness despite treatment. General information on sleep disordered breathing, evaluation of sleep disordered breathing, treatment with PAP therapy, and living with PAP therapy were covered. We discussed with the patient the impact of weight on: Sleep disordered breathing Hypertension Hyperlipidemia Hepatic steatosis Thoracic DDD We discussed with the patient the benefit of PAP therapy on: Sleep disordered breathing Depression/Anxiety Hypertension Educated the patient on sleep hygiene measures. Relaxing rituals to rest easy, understanding foods with positive and negative impact on sleep, creating a peaceful sleep environment, timing of exercise, using herbal sleep aids, and practicing sleep-friendly meditation were covered. To determine how much sleep is needed, the patient will assess where she falls on the spectrum, examine what lifestyle factor such as stress is affecting the quality and quantity of sleep. In general, adults need 7-9 hours of sleep. Educated the patient regarding foods that promote sleep. These include but are not limited to cherries, bananas, toast, oatmeal, and warm milk. Educated the patient regarding foods and drinks to avoid before bedtime. These include but are not limited to aged cheese, chocolate, spicy foods, tomato-based sauces, soy, ginseng tea and processed meat. Advocated influenza vaccination annually and pneumonia vaccination YOEL. Advocated weight loss through diet and exercise. Patient's ideal body weight according to height and gender is up to 130 lbs. Encouraged patient to adjust caloric intake to maintain/achieve ideal body weight, emphasizing on fruits, vegetables, whole grains, and fat-free or low-fat products. These include lean meats, poultry, fish, beans, eggs, and nuts and foods that are low in saturated fats, trans-fats, cholesterol, salt (sodium), and glycemic index. Stressed the importance of regular exercise up to the patient's capacity limits. In this case, we recommend 20 min daily walking, 2 days a week of resistance training. Patient to monitor BP daily and bring records to PCP for further management. Follow-up: 3 months, January 2024 Not available 10/14/2023 12:06:26 01/14/2024 01/14/2024 Assessment: Mild OSAHS, AHI = 8 Iron deficiency PLMD Plan: The following were reviewed and explained to the patient: PFT 02/14/21 nl FEV1/FVC, FEV1 1.92 L (76%), TLC 3.29 L (67%), RV 0.64 L (35%), DLCO 55%, DLCO/VA 108% PFT 01/09/23 nl FEV1/FVC, FEV1 2.21 L (86%), TLC 4.21 L (83%), RV 1.42 L (72%), DLCO 84%, DLCO/VA 101% Methacholine challenge test 03/02/23 (-) methacholine challenge test Chest CT 03/18/21 BLL atelectasis [facility] home sleep study 01/22/15 AHI = 8 [facility] titration sleep study 03/27/15 sleep onset = 43.5 minutes, REM onset = 169.5 minutes, Respironics large Clari View full face mask @ 7-15 cmH2O, PLMI = 7 ESR 09/23/23 35 mm/hr Ferritin 09/23/23 32 ng/mL Ferritin 01/14/24 58 ng/mL Keep albuterol HFA as needed. Elevation in periodic limb movement index may be contributed by escitalopram and venlafaxine. Non-pharmacologic therapy options for periodic limb movement disorder include avoidance of aggravating drugs and substances, mental alerting activities, short daily hemodialysis for patients in renal failure, exercise, leg massage, stretching calf muscles, use of a weighted blanket and applied heat. Patient will cut down on caffeine intake. BUN, Creatinine, Vitamin E, Vitamin B12, RBC folate, Iron, TIBC, Magnesium, Hgb and Hct levels are within normal limits. Patient will continue FeSO4 325 mg + Vit C 500 mg daily to keep the ferritin > 75 ng/ml. Check ferritin one week before return. We will hold off on dopaminergic therapy for now. Average AHI = 2.5 PAP is set at 7-15 cmH2O. PAP will be reset at 7-14 cmH2O. Keep ramp off. Oxygen supplementation: none Patient is benefiting from PAP therapy. Encouraged patient to maintain PAP use more than 70% of the time. Statement of PAP use and benefits will be sent to the home care store. Educated the patient on problems and solutions associated with positive airway pressure (PAP) use. Difficulty tolerating pressure, mask leaks, intolerance of interface, nasal congestion, claustrophobic response, dry mouth, and unintentional mask removal during sleep were covered. Dry mouth is a normal occurrence for people who just start out on PAP therapy because they are not used to air blowing in to the throat to hold open. Dry mouth is exacerbated for people who wear nasal PAP mask and whose jaw drops open during sleep. Not only does this create a much less efficient therapy because of leakage, it also causes dry mouth. There are a couple solutions to help prevent this type of problem. A simple solution would be to wear a chinstrap which essentially holds the jaw in place. A second solution would be a switch to a full face mask which covers both the nose and mouth. Although this is another easy solution, using a full face mask for some could seem claustrophobic or confining. There is no silver bullet solution as no single mask is right for everybody. Sometimes it takes a bit of experimentation to find a PAP mask which best meets the patient's needs as well as fits comfortably. Another tactic is to use a humidifier on your PAP machine. Most new PAP machines have integrated humidifiers. Humidification is moe when dealing with symptoms of dry mouth because the humidifier can supply both warm and room temperate air. Even a small amount of humidity in the airflow will help nasal passages to stay hydrated. If a person is using both a full face mask and a PAP machine with a heated humidifier and is still experiencing dry mouth, an ill-fitted PAP mask might be causing the problem. Leakage can be caused by a mask that is to large or small, the wrong style mask, the cushion is degraded or simply because the mask's straps aren't adjusted correctly. If leakage occurs, dry air from the room can leak in while humidification escapes. The result is reduced humidification within the circuit and resulting in dry throat and mouth. Finally, beyond factors involving the PAP machine and mask, dry mouth can also be caused or worsened by dehydration. The general recommendation to during eight 8 oz. glasses of water a day might be too little for many people. When people drink large amounts of coffee or other caffeine beverages, or sweat a lot during the day, making sure to rehydrate is an important part of PAP therapy. Provided the patient with a list of local home care stores where positive airway pressure (PAP) units, accoutrement's, and services are available. Home care store selection is based on patient's insurance carrier. Patient will setup an appointment with [facility] for supplies and pressure adjustments. A major predictor of success with use of PAP is follow-up with both the respiratory supplier and the treating physician. The download results can show the treating physician information about adherence to treatment, residual AHI while on treatment and presence of large mask leakage. This information is especially helpful if the patient has residual sleepiness despite treatment. General information on sleep disordered breathing, evaluation of sleep disordered breathing, treatment with PAP therapy, and living with PAP therapy were covered. We discussed with the patient the impact of weight on: Sleep disordered breathing Hypertension Hyperlipidemia Hepatic steatosis Thoracic DDD We discussed with the patient the benefit of PAP therapy on: Sleep disordered breathing Depression/Anxiety Hypertension Educated the patient on sleep hygiene measures. Relaxing rituals to rest easy, understanding foods with positive and negative impact on sleep, creating a peaceful sleep environment, timing of exercise, using herbal sleep aids, and practicing sleep-friendly meditation were covered. To determine how much sleep is needed, the patient will assess where she falls on the spectrum, examine what lifestyle factor such as stress is affecting the quality and quantity of sleep. In general, adults need 7-9 hours of sleep. Educated the patient regarding foods that promote sleep. These include but are not limited to cherries, bananas, toast, oatmeal, and warm milk. Educated the patient regarding foods and drinks to avoid before bedtime. These include but are not limited to aged cheese, chocolate, spicy foods, tomato-based sauces, soy, ginseng tea and processed meat. Advocated influenza vaccination annually and pneumonia vaccination YOEL. Advocated weight loss through diet and exercise. Patient's ideal body weight according to height and gender is up to 130 lbs. Encouraged patient to adjust caloric intake to maintain/achieve ideal body weight, emphasizing on fruits, vegetables, whole grains, and fat-free or low-fat products. These include lean meats, poultry, fish, beans, eggs, and nuts and foods that are low in saturated fats, trans-fats, cholesterol, salt (sodium), and glycemic index. Stressed the importance of regular exercise up to the patient's capacity limits. In this case, we recommend 20 min daily walking, 2 days a week of resistance training. Patient to monitor BP daily and bring records to PCP for further management. Follow-up: 3 months, April 2024 [facility] Not available 01/14/2024 13:37:09 04/14/2024 04/14/2024 Assessment: Mild OSAHS, AHI = 8 Iron deficiency PLMD Plan: The following were reviewed and explained to the patient: PFT 02/14/21 nl FEV1/FVC, FEV1 1.92 L (76%), TLC 3.29 L (67%), RV 0.64 L (35%), DLCO 55%, DLCO/VA 108% PFT 01/09/23 nl FEV1/FVC, FEV1 2.21 L (86%), TLC 4.21 L (83%), RV 1.42 L (72%), DLCO 84%, DLCO/VA 101% Methacholine challenge test 03/02/23 (-) methacholine challenge test Chest CT 03/18/21 BLL atelectasis [facility] home sleep study 01/22/15 AHI = 8 [facility] titration sleep study 03/27/15 sleep onset = 43.5 minutes, REM onset = 169.5 minutes, Respironics large Clari View full face mask @ 7-15 cmH2O, PLMI = 7 ESR 09/23/23 35 mm/hr Ferritin 09/23/23 32 ng/mL Ferritin 01/14/24 58 ng/mL Ferritin 04/14/24 57 ng/mL Keep albuterol HFA as needed. Elevation in periodic limb movement index may be contributed by escitalopram and venlafaxine. Non-pharmacologic therapy options for periodic limb movement disorder include avoidance of aggravating drugs and substances, mental alerting activities, short daily hemodialysis for patients in renal failure, exercise, leg massage, stretching calf muscles, use of a weighted blanket and applied heat. Patient will cut down on caffeine intake. BUN, Creatinine, Vitamin E, Vitamin B12, RBC folate, Iron, TIBC, Magnesium, Hgb and Hct levels are within normal limits. Patient will continue FeSO4 325 mg + Vit C 500 mg daily to keep the ferritin > 75 ng/ml. Check ferritin one week before return. We will hold off on dopaminergic therapy for now. PAP compliance downloaded and interpreted x 20 minutes. Data reviewed and explained to the patient. Average apnea/hypopnea index (AHI) is 3.6 Patient used PAP > 4 hours 50% of the time. PAP is set at 7-14 cmH2O. PAP will remain at 7-14 cmH2O. Keep ramp off. Oxygen supplementation: none Patient is benefiting from PAP therapy. Encouraged patient to maintain PAP use more than 70% of the time. Statement of PAP use and benefits will be sent to the home care store. Educated the patient on problems and solutions associated with positive airway pressure (PAP) use. Difficulty tolerating pressure, mask leaks, intolerance of interface, nasal congestion, claustrophobic response, dry mouth, and unintentional mask removal during sleep were covered. Dry mouth is a normal occurrence for people who just start out on PAP therapy because they are not used to air blowing in to the throat to hold open. Dry mouth is exacerbated for people who wear nasal PAP mask and whose jaw drops open during sleep. Not only does this create a much less efficient therapy because of leakage, it also causes dry mouth. There are a couple solutions to help prevent this type of problem. A simple solution would be to wear a chinstrap which essentially holds the jaw in place. A second solution would be a switch to a full face mask which covers both the nose and mouth. Although this is another easy solution, using a full face mask for some could seem claustrophobic or confining. There is no silver bullet solution as no single mask is right for everybody. Sometimes it takes a bit of experimentation to find a PAP mask which best meets the patient's needs as well as fits comfortably. Another tactic is to use a humidifier on your PAP machine. Most new PAP machines have integrated humidifiers. Humidification is moe when dealing with symptoms of dry mouth because the humidifier can supply both warm and room temperate air. Even a small amount of humidity in the airflow will help nasal passages to stay hydrated. If a person is using both a full face mask and a PAP machine with a heated humidifier and is still experiencing dry mouth, an ill-fitted PAP mask might be causing the problem. Leakage can be caused by a mask that is to large or small, the wrong style mask, the cushion is degraded or simply because the mask's straps aren't adjusted correctly. If leakage occurs, dry air from the room can leak in while humidification escapes. The result is reduced humidification within the circuit and resulting in dry throat and mouth. Finally, beyond factors involving the PAP machine and mask, dry mouth can also be caused or worsened by dehydration. The general recommendation to during eight 8 oz. glasses of water a day might be too little for many people. When people drink large amounts of coffee or other caffeine beverages, or sweat a lot during the day, making sure to rehydrate is an important part of PAP therapy. Provided the patient with a list of local home care stores where positive airway pressure (PAP) units, accoutrement's, and services are available. Home care store selection is based on patient's insurance carrier. Patient will setup an appointment with [facility] for supplies and pressure adjustments. A major predictor of success with use of PAP is follow-up with both the respiratory supplier and the treating physician. The download results can show the treating physician information about adherence to treatment, residual AHI while on treatment and presence of large mask leakage. This information is especially helpful if the patient has residual sleepiness despite treatment. General information on sleep disordered breathing, evaluation of sleep disordered breathing, treatment with PAP therapy, and living with PAP therapy were covered. We discussed with the patient the impact of weight on: Sleep disordered breathing Hypertension Hyperlipidemia Hepatic steatosis Thoracic DDD We discussed with the patient the benefit of PAP therapy on: Sleep disordered breathing Depression/Anxiety Hypertension Educated the patient on sleep hygiene measures. Relaxing rituals to rest easy, understanding foods with positive and negative impact on sleep, creating a peaceful sleep environment, timing of exercise, using herbal sleep aids, and practicing sleep-friendly meditation were covered. To determine how much sleep is needed, the patient will assess where she falls on the spectrum, examine what lifestyle factor such as stress is affecting the quality and quantity of sleep. In general, adults need 7-9 hours of sleep. Educated the patient regarding foods that promote sleep. These include but are not limited to cherries, bananas, toast, oatmeal, and warm milk. Educated the patient regarding foods and drinks to avoid before bedtime. These include but are not limited to aged cheese, chocolate, spicy foods, tomato-based sauces, soy, ginseng tea and processed meat. Advocated influenza vaccination annually and pneumonia vaccination YOEL. Advocated weight loss through diet and exercise. Patient's ideal body weight according to height and gender is up to 130 lbs. Encouraged patient to adjust caloric intake to maintain/achieve ideal body weight, emphasizing on fruits, vegetables, whole grains, and fat-free or low-fat products. These include lean meats, poultry, fish, beans, eggs, and nuts and foods that are low in saturated fats, trans-fats, cholesterol, salt (sodium), and glycemic index. Stressed the importance of regular exercise up to the patient's capacity limits. In this case, we recommend 20 min daily walking, 2 days a week of resistance training. Patient to monitor BP daily and bring records to PCP for further management. Follow-up: 3 months, July 2024 Not available 04/28/2024 12:32:01 Plan of Treatment Reminders Order Date Submit Date Provider Last Modified By Organization Details Last Modified Time Details Appointments None recorded. Lab ferritin, serum or plasma 2023 025 [facility] (Lab), [address] [place], [address], 5 14:00:38 ferritin, serum or plasma 2023 024 [facility] (Lab), [address] [place], [address], 4 13:58:27 ferritin, serum or plasma 2023 024 [facility] (Lab), [address] [place], [address], 4 12:33:39 iron + TIBC + ferritin, serum 2023 024 [facility] (Lab), [address] [place], [address], 4 20:02:41 folate, RBC 2023 024 [facility] (Lab), [address] [place], [address], 4 15:45:10 vitamin B12, serum 2023 024 [email or web address] 5 [facility] (Lab), [address] [place], [address], 4 09:29:53 ESR (erythrocy te sedimentat ion rate), blood 2023 024 [id number] 5 [facility] (Lab), [address] [place], [address], 4 09:29:53 hemoglobin + hematocrit , blood 2023 024 [id number] 5 [facility] (Lab), [address] [place], [address], 4 09:29:53 bun (blood urea nitrogen), serum or plasma 2023 024 [id number] 5 [facility] (Lab), [address] [place], [address], 4 09:29:53 creatinine , serum or plasma 2023 024 [email or web address] 5 [facility] (Lab), [address] [place], [address], 4 09:29:54 magnesium, serum or plasma 2023 024 5 [facility] (Lab), [address] [place], [address], 4 09:29:54 vitamin E, serum 2023 024 [email or web address] 5 [facility] (Lab), [address] [place], [address], 4 09:29:54 Referral None recorded. Procedures None recorded. Surgeries None recorded. Imaging None recorded. Medication Orders Vitamin C 500 mg tablet 2023 024 [place] [id number], [address], [place], [id number], 4 12:48:19 ferrous sulfate 325 mg (65 mg iron) tablet [email or web address] [facility], [address], [place], [id number], 4 12:48:28 Vitamin C 500 mg tablet 2023 024 [place] [id number], [address], [place], [id number], 4 11:46:57 ferrous sulfate 325 mg (65 mg iron) tablet 2023 024 [place], [address], [place], [id number], 4 11:46:55 Vitamin C 500 mg tablet 2023 024 [place] [facility][id number], [address], [place], [id number], 4 11:35:13 ferrous sulfate 325 mg (65 mg iron) tablet 2023 024 [facility], [address], [place], [place], [id number], 4 11:35:13 Patient TargetsNo targets recorded. Patient InstructionsNo instructions recorded. Reason for Referral None Reported. Results Created Date Observation Date Name Description Value Unit Range Abnormal Flag Note LastModifiedBy Organization Detail LastModifiedTime 03/06/2003/02/2023 metha choli ne chall enge* No observ ation record ed. [address] ([facility]) [address] [place] [address] [address], [place], [address], 03/08/2023 20:20:10 09/01/19 24 01/22/2015 home sleep study No observ ation record ed. BAR[facility] Not Available 2023 09:29:12 09/01/19 24 03/27/2015 polys omnog bev, titra tion study No observ ation record ed. BARCODE Not Available 2023 09:29:14 Result Notes None recorded. Problems Name Problem SNOMED Code Status Onset Date Resolution Date Notes Provider Name and Address Organization Details Recorded Time Periodic limb movement disorder 854310348 Active 2023 David Bedoya MD [address], [employer], [place], [address] , [place] 4 16:31:37 Iron deficiency 10235536 Active 2023 David Bedoya MD [address], [address], [place], [address] , [place] 4 11:34:22 Accessory navicular bone of foot 721943076 Active 2020 Not Available [facility] 3 00:51:48 Sinus tarsi syndrome of right ankle 2665779384590 9107 Active 2021 Not Available [facility] 3 00:51:48 Tibialis posterior tendinitis 778020350 Active 2020 Not Available [facility] 3 00:51:49 Congenital pes planus 70537223 Active 2021 Not Available [facility] 3 00:51:49 Depressive disorder 48696696 Active 2016 Not Available [facility] 3 00:51:49 Body mass index 40+ - severely obese 395042584 Active 2017 Not Available [facility] 3 00:51:49 Essential hypertensi on 75134183 Active 2016 Not Available [facility] 3 00:51:50 Obstructiv e sleep apnea syndrome 75018921 Active Not Available [facility] 3 00:51:50 Ex-smoker 5429378 Active 2016 Not Available [facility] 3 00:51:50 Notes:Medical History: Depre ssion/Anxiety Bilateral hearing loss/tinnitus Rhinitis Eosinophils 140/uL AAT PiMM 167 mg% BLL atelectasis Obesity with mild OSAHS, AHI = 8, 01/22/15 on [facility] CPAP [facility] Hypertension Hyperlipidemia Hepatic steatosis PLMD Vit D deficiency Thoracic DDD Congenital pes planus Procedure History: AVA 1998 Cholecystectomy 1999 SSS s/p PPP 2013 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 Procedures Surgical History Date Name Laterality Status Provider Name and Address Organization Details Recorded Time operative procedure on foot completed Not Available [facility] 07/02/2022 00:43:11 Imaging Results Imaging Date Name Status LastModified by Organization Details LastModified Time 03/02/2023 methacholine challenge* completed [email or web address] [place] [address] ([facility]) [address], [place], [address], 03/08/2023 20:20:10 01/22/2015 home sleep study completed BARCODE Informat ion not available 09/01/2023 09:29:12 03/27/2015 polysomnogram, titration study completed [facility] Information not available 09/01/2023 09:29:14 Procedure Notes None recorded. Medical Equipment None Reported. Allergies No known drug allergies Medications Name Sig Start Date Stop Date Status Note LastModified by Organization Details LastModified Time alcohol pads 70 % pads 10/13 completed Not Available Not Available Not Available safety lancets 28g misc 04/03 completed Not Available Not Available Not Available losartan 50 mg tablet TK 1 T PO D 12/02 completed Not Available Not Available Not Available cyclobenzap rine 10 mg tablet 12/31 completed Not Available Not Available Not Available amoxicillin 500 mg capsule TAKE 1 CAPSULE BY MOUTH TWICE DAILY 02/27 completed Not Available Not Available Not Available furosemide 40 mg tablet Take 1 tablet every day by oral route. active Not Available Not Available No t Available cholestyram ine (bulk) powder 10/13 completed Not Available Not Available Not Available atorvastati n 40 mg tablet Take 1 tablet every day by oral route. active Not Available Not Available No t Available buspirone 5 mg tablet Take 1 tablet twice a day by oral route. 10/13 completed Not Available Not Available Not Available primidone 50 mg tablet active Not Available Not Available Not Available venlafaxine ER 37.5 mg capsule,ext ended release 24 hr TAKE 1 CAPSULE BY MOUTH DAILY WITH FOOD active Not Available Not Available No t Available benztropine 0.5 mg tablet Take 1 tablet twice a day by oral route. active Not Available Not Available No t Available torsemide 20 mg tablet active Not Available Not Available Not Available albuterol sulfate 2.5 mg/3 mL (0.083 %) solution for nebulizatio n INHALE 1 VIAL VIA NEBULIZAT ION EVERY 4-6 HOURS NEEDED FOR WHEEZING active Not Available Not Available No t Available Vitamin C 500 mg tablet Take 1 tablet by oral route. 2023 active Not Available Not Available Not Avai lable trazodone 50 mg tablet active Not Available Not Available Not Available azithromyci n 250 mg tablet active Not Available Not Available Not Available ibuprofen 800 mg tablet Take 1 tablet 3 times a day by oral route as needed for 20 days. 04/03 completed Not Available Not Available Not Available Lidocaine Viscous 2 % mucosal solution 12/02 completed Not Available Not Available Not Available levetiracet am 500 mg tablet TAKE 1 TABLET BY MOUTH TWICE DAILY 07/13 completed Not Available Not Available Not Available ranitidine 300 mg tablet TK 1 T PO D 11/20 completed Not Available Not Available Not Available hydrocodone 5 mg-acetamin ophen 325 mg tablet TAKE 1 TABLET BY MOUTH EVERY 6 HOURS NEEDED FOR PAIN active Not Available Not Available No t Available Q-Dryl 25 mg capsule active Not Available Not Available N ot Available meloxicam 15 mg tablet TAKE 1 TABLET BY MOUTH EVERY DAY NEEDED 02/27 completed Not Available Not Available Not Available famotidine 40 mg tablet Take 1 tablet every day by oral route. active Not Available Not Available No t Available isosorbide mononitrate ER 30 mg tablet,exte nded release 24 hr TK 1 T PO QD 04/03 completed Not Available Not Available Not Available clonazepam 0.5 mg tablet TAKE 1 TABLET BY MOUTH TWICE DAILY NEEDED active Not Available Not Available No t Available Alcohol Pads TEST 3 TIMES A DAY 07/13 completed Not Available Not Available Not Available sertraline 100 mg tablet TK 1 T PO QD 11/20 completed Not Available Not Available Not Available clonazepam 1 mg tablet active Not Available Not Available Not Available diphenoxyla te-atropine 2.5 mg-0.025 mg tablet TAKE 1 TABLET BY MOUTH TWICE DAILY NEEDED 07/13 completed Not Available Not Available Not Available penicillin V potassium 500 mg tablet active Not Available Not Available Not Available metronidazo le 500 mg tablet 09/03 completed Not Available Not Available Not Available melatonin 3 mg tablet TK 1 T PO QD HS 02/27 completed Not Available Not Available Not Available acetaminoph en 300 mg-codeine 30 mg tablet Take 1 tablet every 8 hours by oral route as needed for 7 days. 02/27 completed Not Available Not Available Not Available ciprofloxac in 500 mg tablet 07/05 completed Not Available Not Available Not Available sulfamethox azole 800 mg-trimetho prim 160 mg tablet active Not Available Not Available Not Available omeprazole 40 mg capsule,del ayed release Take 1 capsule every day by oral route. active Not Available Not Available No t Available aspirin 81 mg tablet,henrry yed release 06/03 completed Not Available Not Available Not Available tramadol 50 mg tablet TK 1 TO 2 TS PO Q 8 TO 12 H PRN active Not Available Not Available No t Available quetiapine 100 mg tablet 11/20 completed Not Available Not Available Not Available triamcinolo ne acetonide 0.1 % topical cream 11/20 completed Not Available Not Available Not Available amoxicillin 500 mg tablet TAKE 1 TABLET BY MOUTH EVERY 8 HOURS UNTIL ALL TAKEN. 10/13 completed Not Available Not Available Not Available Cholestyram ine Light 4 gram powder for susp in a packet MIX 1 PACKET IN 2-6 OZ OF WATER/NON CARBONATE D BEVERAGE AND DRINK TWICE DAILY active Not Available Not Available No t Available isosorbide mononitrate ER 120 mg tablet,exte nded release 24 hr active Not Available Not Available Not Available meloxicam 7.5 mg tablet active Not Available Not Available Not Available oxycodone-a cetaminophe n 5 mg-325 mg tablet TAKE 1 TABLET BY MOUTH EVERY 6 HOURS active Not Available Not Available No t Available isosorbide mononitrate ER 60 mg tablet,exte nded release 24 hr 10/13 completed Not Available Not Available Not Available potassium chloride 20 mEq oral packet Take 1 packet 4 times a day by oral route. 10/13 completed Not Available Not Available Not Available potassium chloride ER 20 mEq tablet,exte nded release(par t/cryst) TK 1 T PO BID. active Not Available Not Available No t Available famotidine 20 mg tablet TK 1 T PO 1 TIME PER DAY active Not Available Not Available No t Available magnesium oxide 400 mg (241.3 mg magnesium) tablet TAKE 1 TABLET BY MOUTH EVERY DAY active Not Available Not Available No t Available levetiracet am 250 mg tablet 11/20 completed Not Available Not Available Not Available OneTouch Ultra Test strips TEST 3 TIMES A DAY 07/13 completed Not Available Not Available Not Available meclizine 25 mg tablet TAKE 1 TABLET BY MOUTH THREE TIMES DAILY FOR 5 DAYS NEEDED 12/31 completed Not Available Not Available Not Available diazepam 2 mg tablet active Not Available Not Available No t Available benzonatate 100 mg capsule TK 1 C PO TID FOR 7 DAYS UTD 09/03 completed Not Available Not Available Not Available paroxetine 30 mg tablet active Not Available Not Available Not Available paroxetine 20 mg tablet TK 1 T PO QD B MEALS 09/03 completed Not Available Not Available Not Available pantoprazol e 40 mg tablet,henrry yed release TK 1 T PO D 11/20 completed Not Available Not Available Not Available venlafaxine 37.5 mg tablet Take 1 tablet twice a day by oral route. 10/13 completed Not Available Not Available Not Available naproxen sodium 550 mg tablet active Not Available Not Available No t Available ranitidine 150 mg tablet TK 1 T PO QD 11/20 completed Not Available Not Available Not Available buspirone 10 mg tablet TK 1 T PO TID WC active Not Available Not Available No t Available promethazin e 25 mg tablet TAKE 1/2 TABLET BY MOUTH EVERY 6 HOURS NEEDED FOR NAUSEA 12/31 completed Not Available Not Available Not Available losartan 25 mg tablet TAKE 1 TABLET BY MOUTH IN THE MORNING active Not Available Not Available No t Available metoprolol tartrate 50 mg tablet TK 1 T PO BID active Not Available Not Available No t Available nitroglycer in 0.[address] 1 TABLET UNDER THE TONGUE EVERY 5 MINUTES NEEDED FOR CHEST PAIN active Not Available Not Available No t Available gabapentin 300 mg capsule TAKE 1 CAPSULE BY MOUTH IN THE MORNING AND IN THE EVENING active Not Available Not Available No t Available diclofenac sodium 75 mg tablet,henrry yed release Take 1 tablet twice a day by oral route as needed for 30 days. 02/27 completed Not Available Not Available Not Available hydroxyzine HCl 25 mg tablet active Not Available Not Available Not Available acetaminoph en 300 mg-codeine 60 mg tablet TAKE 1 TABLET BY MOUTH 1 TO 2 TIMES DAILY NEEDED FOR LOWER BACK PAIN active Not Available Not Available No t Available levetiracet am 750 mg tablet TAKE 1 TABLET BY MOUTH EVERY 12 HOURS active Not Available Not Available No t Available lisinopril 5 mg tablet 03/11 completed Not Available Not Available Not Available hydrochloro thiazide 25 mg tablet 12/02 completed Not Available Not Available Not Available ergocalcife rol (vitamin D2) 1,250 mcg (50,000 unit) capsule TAKE 1 CAPSULE BY MOUTH EVERY WEEK DIRECTED active Not Available Not Available No t Available azelastine 137 mcg (0.1 %) nasal spray USE 2 SPRAYS IN EACH NOSTRIL TWICE DAILY 02/27 completed Not Available Not Available Not Available ibuprofen 600 mg tablet TAKE 1 TABLET BY MOUTH EVERY 6 HOURS NEEDED FOR PAIN 10/13 completed Not Available Not Available Not Available polyethylen e glycol 3350 17 gram/dose oral powder MIX AND DRINK DIRECTED ON PREP SHEET 12/31 completed Not Available Not Available Not Available albuterol sulfate HFA 90 mcg/actuati on aerosol inhaler INHALE 2 PUFFS BY MOUTH EVERY 8 HOURS NEEDED FOR SHORTNESS OF BREATH active Not Available Not Available No t Available paroxetine 40 mg tablet TK 1 T PO QD 06/03 completed Not Available Not Available Not Available ipratropium bromide 42 mcg (0.06 %) nasal spray USE 2 SPRAYS IN EACH NOSTRIL THREE TIMES DAILY DIRECTED 02/27 completed Not Available Not Available Not Available losartan 50 mg-hydrochl orothiazide 12.5 mg tablet TAKE 1 TABLET BY MOUTH EVERY DAY 12/31 completed Not Available Not Available Not Available fluticasone propionate 50 mcg/actuati on nasal spray,suspe nsion USE 1 SPRAY(S) IN EACH NOSTRIL ONCE DAILY NEEDED 02/27 completed Not Available Not Available Not Available sertraline 50 mg tablet 11/20 completed Not Available Not Available Not Available naproxen 500 mg tablet 02/26 completed Not Available Not Available Not Available buspirone 15 mg tablet TAKE 1 TABLET BY MOUTH THREE TIMES DAILY active Not Available Not Available No t Available escitalopra m 10 mg tablet TK 1 T PO QD IN THE MORNING 11/20 completed Not Available Not Available Not Available escitalopra m 20 mg tablet TAKE 1 TABLET BY MOUTH DAILY active Not Available Not Available No t Available aripiprazol e 10 mg tablet TAKE 1 TABLET BY MOUTH EVERY DAY AT BEDTIME active Not Available Not Available No t Available aripiprazol e 15 mg tablet TAKE 1 TABLET BY MOUTH EVERY DAY AT BEDTIME 10/13 completed Not Available Not Available Not Available aripiprazol e 5 mg tablet TK 1 T PO QD HS active Not Available Not Available No t Available cholestyram ine (with sugar) 4 gram oral powder DISSOLVE 1 SCOOP INTO 2-6 OUNCES OF WATER AND DRINK BY MOUTH TWICE DAILY 07/13 completed Not Available Not Available Not Available memantine 5 mg tablet TAKE 1 TABLET BY MOUTH IN THE MORNING active Not Available Not Available No t Available escitalopra m 5 mg tablet 11/20 completed Not Available Not Available Not Available Spiriva with HandiHaler 18 mcg and inhalation capsules INHALE THE CONTENTS OF 1 CAPSULE VIA INHALATIO N DEVICE EVERY DAY DIRECTED 02/26 completed Not Available Not Available Not Available Flovent HFA 110 mcg/actuati on aerosol inhaler INL 1 PUFF PO BID UTD active Not Available Not Available No t Available melatonin 10/13 completed Not Available Not Available Not Available Centrum Silver OTC Multivita min, takes daily 08/25 completed Not Available Not Available Not Available hydrocodone 5 mg-acetamin ophen 300 mg tablet TAKE 1 TABLET BY MOUTH EVERY DAY AT BEDTIME NEEDED FOR PAIN 10/13 completed Not Available Not Available Not Available Ranexa 500 mg tablet,exte nded release active Not Available Not Available Not Available aripiprazol e 15 mg disintegrat ing tablet Place 1 tablet every day by transling ual route. 10/13 completed Not Available Not Available Not Available hydrochloro thiazide 12.5 mg tablet TAKE 1 TABLET BY MOUTH DAILY 02/27 completed Not Available Not Available Not Available budesonide- formoterol HFA 160 mcg-4.5 mcg/actuati on aerosol inhaler Inhale 2 puffs twice a day by inhalatio n route. 09/22 completed Not Available Not Available Not Available peg 3350 240 gram-electr olytes 22.72 gram-6.72 g-5.84 g powdr for soln 09/03 completed Not Available Not Available Not Available FeroSul 325 mg (65 mg iron) tablet TAKE 1 TABLET BY MOUTH EVERY DAY active Not Available Not Available No t Available Cholestyram ine Light 4 gram oral powder USE 1 SCOOP UTD BID 12/25 completed Not Available Not Available Not Available ranolazine ER 1,000 mg tablet,exte nded release,12 hr TAKE 1 TABLET BY MOUTH TWICE DAILY FOR CHRONIC ANGINA active Not Available Not Available No t Available omeprazole 20 mg tablet,henrry yed release 09/03 completed Not Available Not Available Not Available azelastine 205.5 mcg (0.15 %) nasal spray [place] 2 sprays twice a day by intranasa l route for 30 days. active Not Available Not Available No t Available Probiotic OTC, takes daily 08/25 completed Not Available Not Available Not Available Safety Lancets 28 gauge TEST 3 TIMES A DAY 07/13 completed Not Available Not Available Not Available potassium chloride ER 20 mEq tablet,exte nded release TK 1 T PO BID active Not Available Not Available No t Available Incruse Ellipta 62.5 mcg/actuati on powder for inhalation Inhale 1 puff every day by inhalatio n route. 09/22 completed Not Available Not Available Not Available metoprolol tartrate 75 mg tablet Take 1 tablet twice a day by oral route. 12/31 completed Not Available Not Available Not Available metoprolol succinate ER 50 mg capsule sprinkle, ext. release 24 hr Take 1 capsule every day by oral route. 10/13 completed Not Available Not Available Not Available [facility] Check-It COVID-19 Home Test kit COVID 10/13 completed Not Available Not Available Not Available ranolazine ER 1,000 mg granules,ex tended release in packet Take 1 packet twice a day by oral route. 10/13 completed Not Available Not Available Not Available Vitals Date Recorded Body temperature Provider Name a nd Address Organization Details Last Updated DateTime 02/27/2023 97.2 [degF] Ashley Hair MA [facility] [place] [facility] 02/27/2023 15:09:59 Date Recorded Body weight Heart rate Oxygen saturation Oxygen saturation in Arterial blood by Pulse oximetry Systolic blood pressure Diastolic blood pressure Provider Name and Address Organization Details Last Updated DateTime 3 438119. 98 g 77 /min 97 % 97 % 124 mm[Hg] 76 mm[Hg] Ashlie Love MA [facility] [place] [facility] 3 15:21:02 Date Recorded Body height Body mass index (BMI) Body weight Heart rate Oxygen saturation Oxygen saturation in Arterial blood by Pulse oximetry Systolic blood pressure Diastolic blood pressure Provider Name and Address Organization Details Last Updated DateTime 4 162.56 cm 45.8 kg/m2 229562. 16 g 74 /min 96 % 96 % 122 mm[Hg] 70 mm[Hg] Biju Arroyo CMA [facility] [place] [facility] 4 15:45:30 Date Recorded Body temperature Heart rate Respiratory rate Provider Name and Address Organization Details Last Updated DateTime 09/23/2023 97.6 [degF] 74 /min 15 /min David Bedoya MD [address] [place] [address], [address], [place], [address] [place] [facility] 09/23/2023 16:41:51 Date Recorded Body height Body mass index (BMI) Body weight Body temperature Oxygen saturation Oxygen saturation in Arterial blood by Pulse oximetry Heart rate Systolic blood pressure Diastolic blood pressure Provider Name and Address Organization Details Last Updated DateTime 4 162.56 cm 45.5 kg/m2 817937. 98 g 97.8 [degF] 97 % 97 % 72 /min 122 mm[Hg] 68 mm[Hg] Biju Arroyo [facility] [place] [facility] 4 10:47:02 Date Recorded Heart rate Respiratory rate Provider N connie and Address Organization Details Last Updated DateTime 10/14/2023 72 /min 15 /min David Bedoya MD [address], [address], [place], [address] [place] [facility] 10/14/2023 11:39:16 Date Recorded Body height Body mass index (BMI) Body weight Heart rate Oxygen saturation Oxygen saturation in Arterial blood by Pulse oximetry Body temperature Systolic blood pressure Diastolic blood pressure Provider Name and Address Organization Details Last Updated DateTime 4 162.56 cm 45.7 kg/m2 733196. 57 g 75 /min 95 % 95 % 98 [degF] 120 mm[Hg] 68 mm[Hg] Biju Arroyo [facility] [place] [facility] 4 11:11:48 Date Recorded Heart rate Respiratory rate Provider Stacia connie and Address Organization Details Last Updated DateTime 01/14/2024 75 /min 14 /min David Bedoya MD [address], [address], [place], [address] [employer] 01/14/2024 11:57:22 Date Recorded Body height Body mass index (BMI) Body weight Heart rate Oxygen saturation Oxygen saturation in Arterial blood by Pulse oximetry Body temperature Systolic blood pressure Diastolic blood pressure Provider Name and Address Organization Details Last Updated DateTime 4 162.56 cm 46.2 kg/m2 058058. 35 g 73 /min 94 % 94 % 98.2 [degF] 122 mm[Hg] 70 mm[Hg] Alisha Ace MA [facility] [place] [facility] 12:29:28 Date Recorded Heart rate Respiratory rate Provider Stacia rosales and Address Organization Details Last Updated DateTime 04/14/2024 73 /min 15 /min David Bedoya MD [address] [facility], [address], [place], [address], [facility] [employer] [facility] 04/14/2024 12:52:36 Social History Question Answer Notes LastModified by Organizat ion Details LastModified Time Tobacco Smoking Status Former Smoker Alisha Ace MA null, [facility] [employer] [facility] 12/12/2022 14:22:46 What Is Your Level Of Alcohol Consumption? None Information not available 04/14/2024 What Is Your Level Of Caffeine Consumption? Heavy Information not available 04/14/2024 In The 14 Days Before Symptom Onset, Have You Had Close Contact With A Laboratory-confir med COVID-19 While That Case Was Ill? No [id number] Information not available 07/02/2022 In The 14 Days Before Symptom Onset, Have You Had Close Contact With A Person Who Is Under Investigation For COVID-19 While That Person Was Ill? No [id number] Information not available 07/02/2022 What Type Of Diet Are You Following? CARDIAC Information not available 04/14/2024 Do You Have An Electrostatic Air Filter? 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 16+yearssincel astcigarette Information not available 12/12/2022 Do You Have A Humidifier? No Information not available 04/14/2024 Do You Have Moisture Problems In Your Home? No Information not available 04/14/2024 What Was The Date Of Your Most Recent Tobacco Screening? 04/14/2024 Information not available 04/14/2024 Do You Have Any Pets? Yes Information not available 04/14/2024 Do You Have Smoke And Carbon Monoxide Detectors In Your Home? Yes Information not available 04/14/2024 Are You Passively Exposed To Smoke? Yes Information no t available 04/14/2024 Do You Feel Stressed (tense, Restless, Nervous, Or Anxious, Or Unable To Sleep At Night)? [id number] Information not available 09/23/2023 Do You Use Any Illicit Or Recreational Drugs? No Information not available 04/14/2024 Do You Use Sunscreen Routinely? No Information not available 04/14/2024 Have You Recently Traveled Abroad? No [id number] Information not available 07/02/2022 Sex: Unknown Functional Status Question Answer Note LastModified by Organizat ion Details LastModified Time What is your exercise level? Occasional [id number] Information not available 07/02/2022 Mental Status None recorded. Family History Relationship Description Onset Age of this Age Resolved Age Notes LastModified by Organization Details LastModified Time Mother Diabetes mellitus [email or web address] Not available 2023 15:56:33 Mother Stented coronary artery Not available 2023 15:56:45 Maternal Grandmother Coronary arterioscler osis Not available 2023 16:24:09 Maternal Grandfather Malignant neoplasm of urinary bladder Not available 2023 16:24:25 Father Schizophreni a Not available 2023 16:25:17 Brother Schizophreni a Not available 2023 16:25:32 Brother Alcoholism Not availabl e 09/23/2023 16:26:02 Sister Schizophreni a Not available 2023 16:25:34 Sister Alcoholism Not available 09/23/2023 16:25:46 Sister Cocaine user Not availab le 09/23/2023 16:25:55 Medical History Condition Response ARTHRITIS Y ALLERGIES/HAYFEVER Y HIGH CHOLESTEROL / HYPERLIPIDEMIA Y BACK / NECK PROBLEMS Y DEPRESSION (INCLUDING POST ) Y SEIZURES/EPILEPSY Y ANXIETY DISORDER Y OBESITY Y Gynecological HistoryNo gynecological history recorded. Obstetrics History GPAL:G 0 P 0 0 0 0 Immunizations Vaccine Type Date Status Note Provider Nam e and Address Organization Details Recorded Time COVID-19, mRNA, LNP-S, PF, 100 mcg/0.5mL dose or 50 mcg/0.25mL dose 08/28/2020 completed Not Available [employer] 3 01:03:02 COVID-19, mRNA, LNP-S, PF, 100 mcg/0.5mL dose or 50 mcg/0.25mL dose 07/31/2020 completed Not Available [facility] 3 01:03:02 Influenza, split virus, quadrivalent, PF 02/27/2020 completed Not Available [facility] 3 01:03:03 Past Encounters Encounter ID Performer Location Encounter Start Date Encounter Closed Date Diagnosis/Indication Diagnosis SNOMED-CT Code Diagnosis ICD10 Code Diagnosis Note [id number] [facility] [place] [address] [place] [address] 12/31/2020 00:00:00 12/31/2020 13:28:39 [id number] _ATHENA_M IGRATION_ DEFAULT_1 _1 , 01/11/2021 00:00:00 01/11/2021 11:24:46 [id number] _ATHENA_M IGRATION_ DEFAULT_1 _1 , 02/08/2021 00:00:00 02/10/2021 14:14:36 [id number] [facility] [place] [address] [place] [address] 03/18/2021 00:00:00 03/22/2021 13:38:55 [id number] [facility] [place] [address] [place] [address] 04/01/2021 00:00:00 04/01/2021 21:40:32 [id number] [facility] [place] [address] [place] [address] 04/02/2021 00:00:00 04/02/2021 13:26:04 [id number] _ATHENA_M IGRATION_ DEFAULT_1 _1 , 04/12/2021 00:00:00 04/16/2021 11:32:29 [id number] _ATHENA_M IGRATION_ DEFAULT_1 _1 , 10/04/2021 00:00:00 10/04/2021 12:40:27 [id number] _ATHENA_M IGRATION_ DEFAULT_1 _1 , 11/22/2021 00:00:00 11/24/2021 12:27:51 [id number] [facility] [place] [address] [place] [address] 12/12/2022 14:08:08 12/12/2022 15:59:19 Asthma 471358915 J45.909 RAST and IGE normal.Alp hickman 1 normal MMPFT completed ep eat PFT and walk testing orderedRep eat CXRContinu e inhaled therapy - Symbicort and IncruseIns tructed on techniqueD iscussed reportable signs and symptoms.R TC in 2 months, PRN for concerns. Obstructiv e sleep apnea syndrome 49932073 G47.33 Download for the last year with 87% compliance with use greater than 4 hoursShe is on APAP with median pressure 5.2 and AHI 1.3She has good use and clinical benefit.OS A is well correctedE ncouraged 100% compliance with all sleepFollo w with PCM for labsAdvise d good sleep habits and patterns:- Set a goal for at least 7 to 8 hours of sleep time per day.-Use the bed mainly for sleep and to go to bed only when tired. If unable to fall asleep after 30 minutes, patient should get out of bed but should not engage in any activity that requires sustained mental alertness. -Maintain a regular bedtime and wake-up time even on weekends-A void excessive naps during the daytime. If a nap is necessary, limit it to no more than 30 minutes.-M inimize environmen [place] noise, bright lights, and extremes in bedroom temperatur e.-Avoid alcohol, caffeinate d beverages, and nicotine products for at least 6 hours prior to bedtime.-A void strenuous exercise and large meals for at least 4 hours prior to bedtime. Dyspnea on exertion 6084 5006 R06.09 Multifacto ralWeight loss Increase exercise Quantifero n GOLD negative. IGG and BNP normalRech belkis 6MWT [id number] SAGAR Piña [facility] [place] Man [address] [place] [address] 02/27/2023 15:09:04 02/27/2023 15:48:44 Asthma 843486932 J45.909 RAST and IGE normal.Alp hickman 1 normal MMPFT completed ep eat PFT normalRepe at CXR normalCont inue inhaled therapy - Symbicort and IncruseIns tructed on techniqueD iscussed reportable signs and symptoms.S he should follow up in 6 months Dyspnea on exertion 6084 5006 R06.09 Multifacto ralWeight lossIncrea se exerciseQu antiferon GOLD negative.I GG and BNP [id number] normalOrde r for nebulizer for PRN use today [id number] David Bedoya MD [facility] [place] [address] [address] 09/23/2023 15:27:41 09/23/2023 16:53:03 Periodic limb movement disorder 163504929 G47.61 D50.8 E83.42 Obstructiv e sleep apnea syndrome 08835566 G47.33 [id number] [facility] [address] [address] 10/14/2023 10:25:02 10/15/2023 08:57:22 Obstructive sleep apnea syndrome 84369161 G47.33 Iron deficiency 64375300 E61.1 [id number] David Bedoya MD [address] [address] 01/14/2024 10:49:42 01/15/2024 11:29:53 Iron deficiency 97664884 E61.1 Obstructiv e sleep apnea syndrome 84689238 G47.33 [id number] David Bedoya MD [address] [address] 04/14/2024 12:07:29 05/02/2024 12:53:43 Iron deficiency 53799208 E61.1 Obstructiv e sleep apnea syndrome 05996208 G47.33 Health Concerns Section Related Observation LastModified by Organization Detai ls LastModified Time None Recorded Concern Status LastModified by Organization Details LastModified Time None Recorded Advance Directives Directive None Recorded Payers Encounter Date Sequence Insurance Name Policy Number Policy Cooper Covered Member ID Cooper Member ID Guarantor Name 02/27/2023 1 [facility] (MEDICARE REPLACEMENT/ ADVANTAGE - PPO) [id number] Glendy Houstontter [id number] Glendy Carty Sherif 02/27/2023 2 [place] [employer] Glendy Bustamante Sherif [id number] Glendy Carty Sherif 09/23/2023 1 [facility] (MEDICARE REPLACEMENT/ ADVANTAGE - PPO) [id number] Glendy Bustamante Sherif [id number] Glendy Carty Sherif 09/23/2023 2 [place] [facility] [place] [facility] Glendy Bustamante Sherif [id number] Glendy Carty Sherif 10/14/2023 1 [facility] (MEDICARE REPLACEMENT/ ADVANTAGE - PPO) [id number] Glendy Bustamante Sherif [id number] Glendy Carty Sherif 10/14/2023 2 [place] [facility] [place] Glendy Bustamante Sherif [id number] Glendy Carty Sherif 01/14/2024 1 [facility] (MEDICARE REPLACEMENT/ ADVANTAGE - PPO) [id number] Glendy Bustamante Sherif [id number] Glendy Carty Sherif 01/14/2024 2 [place] Glendy Bustamante Sherif [id number] Glendy Carty Sherif 04/14/2024 1 [facility] (MEDICARE REPLACEMENT/ ADVANTAGE - PPO) [id number] Glendy Bustamante Sherif [id number] Glendy Carty Sherif 04/14/2024 2 [place] Glendy Bustamante Sherif [id number] Glendy Carty Sherif Notes Date Note Type Note Provider Name and Address Organization Details Recorded Time 02/27/2023 text/html Glendy presents to day to follow up on dyspnea, cough, RORO, asthmaContinues to report activity limitations due to dyspneaShe can not dress or bathe without shortness of breath, this is unchanged in the last yearCough reaction to strong scents.Denies hemoptysis and chest pain.Compliant with CPAP machine nightly.Continues to report significant fatigue.Reports she sleeps well, does wake feeling like she is restedShe has not had an exacerbation this year requiring steroids or antibiotics.Largely unchanged symptomsShe has had recent cardiology workup Nereida Molina, [employer] [address] [facility], [address], [place], [address], [place] [facility] [employer] 03/30/2023 12:41:07 09/23/2023 text/html Primary care/Ref erring provider: Dayana Mc NP During the [facility] home sleep study on 01/22/15, AHI = 8. During the [facility] titration sleep study on 03/27/15, sleep onset = 43.5 minutes, REM onset = 169.5 minutes, Respironics large Clari View full face mask @ 7-15 cmH2O, PLMI = 7 At home since 02/27/23, the patient uses a Resvent iBreeze Auto CPAP Machine with Heated Humidifier. The patient does not need the ramp to start low and go up slowly on the pressure anymore. There is some xerostomia in a.m. There is no hose/mask condensation with water. The patient wears a full face mask without chin strap. There is no claustrophobia, no nostril/nose bridge irritation, no facial rash, no facial numbness, no nosebleeding. The patient feels more refreshed upon waking and daytime alertness is improved. Energy levels are sustained for the remainder of the day. At home, the patient sleeps from 11:30 pm to 6:30 am and wakes up without an alarm. Snoring: heavy, since . Snorting: no Choking: no Coughing: yes Gasping: yes Gagging: no Sighing: no Witnessed apnea: yes Twitching or jerking of leg(s), arm(s), body, head: yes Teeth grinding: no Teeth clenching: no Sleeptalking: no Sleepwalking: no Sleep crying: no Bedwetting: no Tongue/lip/gum/cheek biting: no Sleeping with open mouth: yes Sleep paralysis: no Hypnagogic hallucinations: no Hypnopompic hallucinations: no Vivid dreams: yes Difficulty with sleep onset: yes Difficulty with sleep maintenance: yes Sleep interruptions: dreams Patient wakes up with: fatigue, xerostomia, hoarse voice, jaw pain, dexterity impairment Daytime cataplexy: no Morning hypersomnolence: no Afternoon hypersomnolence: yes Caffeine sources in diet: tea 108 oz per day, soda 2 cans per day, chocolate 1 candy bar per day Associated medical and psychiatric conditions: Congestive heart failure: no Coronary artery disease: no Myocardial infarction: no Hypertension: yes Stroke: no Bronchial asthma: no Chronic obstructive pulmonary disease: no Depression: yes Bipolar disorder: no Anxiety: yes Panic disorder: no Posttraumatic stress disorder: no Attention deficit and hyperactivity disorder: no Obsessive Compulsive disorder: no Schizophrenia: no Schizoaffective disorder: no Personality disorder: no Chronic analgesic use: no Chronic sedative/hypnotic use: no EPWORTH SLEEPINESS SCALE (ESS) CHANCE OF DOZING SCORE 0 = would never doze 1 = slight chance of dozing 2 = moderate chance of dozing 3 = high chance of dozing SITUATION AND CHANCE OF DOZING Sitting and reading - 2 Watching television - 2 Sitting inactive in a public place (e.g. a theater or meeting) - 2 As a passenger in a car for an hour without a break - 2 Lying down to rest in the afternoon when circumstances permit - 2 Sitting and talking to someone - 2 Sitting quietly after lunch without alcohol - 2 In a car, while stopped for a few minutes in the traffic - 2 TOTAL SCORE 16 Subjectively, patient has a moderate chance of dozing. David Bedoya MD [address] [place] [address], [address], [facility] 09/25/2023 15:26:14 10/14/2023 text/html Primary care/Ref erring provider: Dayana Mc NP During the [facility] home sleep study on 01/22/15, AHI = 8. During the [facility] titration sleep study on 03/27/15, sleep onset = 43.5 minutes, REM onset = 169.5 minutes, Respironics large Clari View full face mask @ 7-15 cmH2O. PLMI = 7 and she is here to go over her lab workup. At home since 09/23/23, the patient uses a Resvent iBreeze Auto CPAP Machine with Heated Humidifier. The patient does not need the ramp to start low and go up slowly on the pressure anymore. There is some xerostomia in a.m. There is no hose/mask condensation with water.The patient wears a full face mask without chin strap. There is no claustrophobia, no nostril/nose bridge irritation, no facial rash, no facial numbness, no nosebleeding. The patient feels more refreshed upon waking and daytime alertness is improved. Energy levels are sustained for the remainder of the day. At home, the patient sleeps from 11:30 pm to 6:30 am and wakes up without an alarm. Snoring: heavy, since .Snorting: noChoking: noCoughing: yesGasping: yesGagging: noSighing: noWitnessed apnea: yesTwitching or jerking of leg(s), arm(s), body, head: yesTeeth grinding: noTeeth clenching: noSleeptalking: noSleepwalking: noSleep crying: noBedwetting: noTongue/lip/gum/cheek biting: noSleeping with open mouth: yesSleep paralysis: noHypnagogic hallucinations: noHypnopompic hallucinations: noVivid dreams: yesDifficulty with sleep onset: yesDifficulty with sleep maintenance: yesSleep interruptions: dreamsPatient wakes up with: fatigue, xerostomia, hoarse voice, jaw pain, dexterity impairmentDaytime cataplexy: noMorning hypersomnolence: noAfternoon hypersomnolence: yesCaffeine sources in diet: tea 108 oz per day, soda 2 cans per day, chocolate 1 candy bar per day Associated medical and psychiatric conditions:Congestive heart failure: noCoronary artery disease: noMyocardial infarction: noHypertension: yesStroke: noBronchial asthma: noChronic obstructive pulmonary disease: noDepression: yesBipolar disorder: noAnxiety: yesPanic disorder: noPosttraumatic stress disorder: noAttention deficit and hyperactivity disorder: noObsessive Compulsive disorder: noSchizophrenia: noSchizoaffective disorder: noPersonality disorder: noChronic analgesic use: noChronic sedative/hypnotic use: no EPWORTH SLEEPINESS SCALE (ESS) CHANCE OF DOZING SCORE0 = would never doze1 = slight chance of dozing2 = moderate chance of dozing3 = high chance of dozing SITUATION AND CHANCE OF DOZINGSitting and reading - 3Watching television - 3Sitting inactive in a public place (e.g. a theater or meeting) - 2As a passenger in a car for an hour without a break - 1Lying down to rest in the afternoon when circumstances permit - 2Sitting and talking to someone - 1Sitting quietly after lunch without alcohol - 1In a car, while stopped for a few minutes in the traffic - 1TOTAL SCORE 14Subjectively, patient has a moderate chance of dozing. David Bedoya MD [address] [place] [address], [phone], [facility] [employer] 10/14/2023 12:06:35 01/14/2024 text/html Primary care/Ref erring provider: Carolyn Arroyo NP During the [facility] home sleep study on 01/22/15, AHI = 8. During the [facility] titration sleep study on 03/27/15, sleep onset = 43.5 minutes, REM onset = 169.5 minutes, Respironics large Clari View full face mask @ 7-15 cmH2O. PLMI = 7 and she is on iron supplements. At home since 10/14/23, the patient uses a Resvent iBreeze Auto CPAP Machine with Heated Humidifier. The patient does not need the ramp to start low and go up slowly on the pressure anymore. There is some xerostomia in a.m. There is no hose/mask condensation with water.The patient wears a full face mask without chin strap. There is no claustrophobia, no nostril/nose bridge irritation, no facial rash, no facial numbness, no nosebleeding. The patient feels more refreshed upon waking and daytime alertness is improved. Energy levels are sustained for the remainder of the day. At home, the patient sleeps from 11:30 pm to 6:30 am and wakes up without an alarm. Snoring: heavy, since .Snorting: noChoking: noCoughing: yesGasping: yesGagging: noSighing: noWitnessed apnea: yesTwitching or jerking of leg(s), arm(s), body, head: yesTeeth grinding: noTeeth clenching: noSleeptalking: noSleepwalking: noSleep crying: noBedwetting: noTongue/lip/gum/cheek biting: noSleeping with open mouth: yesSleep paralysis: noHypnagogic hallucinations: noHypnopompic hallucinations: noVivid dreams: yesDifficulty with sleep onset: yesDifficulty with sleep maintenance: yesSleep interruptions: dreamsPatient wakes up with: fatigue, xerostomia, hoarse voice, jaw pain, dexterity impairmentDaytime cataplexy: noMorning hypersomnolence: noAfternoon hypersomnolence: yesCaffeine sources in diet: tea 108 oz per day, soda 2 cans per day, chocolate 1 candy bar per day Associated medical and psychiatric conditions:Congestive heart failure: noCoronary artery disease: noMyocardial infarction: noHypertension: yesStroke: noBronchial asthma: noChronic obstructive pulmonary disease: noDepression: yesBipolar disorder: noAnxiety: yesPanic disorder: noPosttraumatic stress disorder: noAttention deficit and hyperactivity disorder: noObsessive Compulsive disorder: noSchizophrenia: noSchizoaffective disorder: noPersonality disorder: noChronic analgesic use: noChronic sedative/hypnotic use: no EPWORTH SLEEPINESS SCALE (ESS) CHANCE OF DOZING SCORE0 = would never doze1 = slight chance of dozing2 = moderate chance of dozing3 = high chance of dozing SITUATION AND CHANCE OF DOZINGSitting and reading - 2Watching television - 2Sitting inactive in a public place (e.g. a theater or meeting) - 2As a passenger in a car for an hour without a break - 2Lying down to rest in the afternoon when circumstances permit - 2Sitting and talking to someone - 2Sitting quietly after lunch without alcohol - 2In a car, while stopped for a few minutes in the traffic - 0TOTAL SCORE 14Subjectively, patient has a moderate chance of dozing. David Bedoya MD [address], [place] [address], [place], [address], [place] - [facility] 01/14/2024 13:37:25 04/14/2024 text/html Primary care/Ref erring provider: Carolyn Arroyo NP During the [facility] home sleep study on 01/22/15, AHI = 8. During the [facility] titration sleep study on 03/27/15, sleep onset = 43.5 minutes, REM onset = 169.5 minutes, Respironics large Clari View full face mask @ 7-15 cmH2O. PLMI = 7 and she is on iron supplements. At home since 01/14/24, the patient uses a Resvent iBreeze Auto CPAP Machine with Heated Humidifier. The patient does not need the ramp to start low and go up slowly on the pressure anymore. There is some xerostomia in a.m. There is no hose/mask condensation with water.The patient wears a Respironics medium Clari View full face mask without chin strap. There is no claustrophobia, no nostril/nose bridge irritation, no facial rash, no facial numbness, no nosebleeding. The patient feels more refreshed upon waking and daytime alertness is improved. Energy levels are sustained for the remainder of the day. At home, the patient sleeps from 11:30 pm to 6:30 am and wakes up without an alarm. Snoring: heavy, since .Snorting: noChoking: noCoughing: yesGasping: yesGagging: noSighing: noWitnessed apnea: yesTwitching or jerking of leg(s), arm(s), body, head: yesTeeth grinding: noTeeth clenching: noSleeptalking: noSleepwalking: noSleep crying: noBedwetting: noTongue/lip/gum/cheek biting: noSleeping with open mouth: yesSleep paralysis: noHypnagogic hallucinations: noHypnopompic hallucinations: noVivid dreams: yesDifficulty with sleep onset: yesDifficulty with sleep maintenance: yesSleep interruptions: dreamsPatient wakes up with: fatigue, xerostomia, hoarse voice, jaw pain, dexterity impairmentDaytime cataplexy: noMorning hypersomnolence: noAfternoon hypersomnolence: yesCaffeine sources in diet: tea 108 oz per day, soda 2 cans per day, chocolate 1 candy bar per day Associated medical and psychiatric conditions:Congestive heart failure: noCoronary artery disease: noMyocardial infarction: noHypertension: yesStroke: noBronchial asthma: noChronic obstructive pulmonary disease: noDepression: yesBipolar disorder: noAnxiety: yesPanic disorder: noPosttraumatic stress disorder: noAttention deficit and hyperactivity disorder: noObsessive Compulsive disorder: noSchizophrenia: noSchizoaffective disorder: noPersonality disorder: noChronic analgesic use: noChronic sedative/hypnotic use: no EPWORTH SLEEPINESS SCALE (ESS) CHANCE OF DOZING SCORE0 = would never doze1 = slight chance of dozing2 = moderate chance of dozing3 = high chance of dozing SITUATION AND CHANCE OF DOZINGSitting and reading - 1Watching television - 3Sitting inactive in a public place (e.g. a theater or meeting) - 2As a passenger in a car for an hour without a break - 2Lying down to rest in the afternoon when circumstances permit - 3Sitting and talking to someone - 2Sitting quietly after lunch without alcohol - 2In a car, while stopped for a few minutes in the traffic - 0TOTAL SCORE 15Subjectively, patient has a moderate chance of dozing. David Bedoya MD [address] [address], [place], [address], [facility] 04/28/2024 12:32:40 OBGyn Episode No OBEpisode recorded.
[2024-07-22 13:49] LABS: NT Pro B Type Natriuretic Pept 105 pg/mL (19.9-100)
== END 2024-07-22 12:47 | disposition home or self-care (01) ==
PROVIDERS: Visit Provider Nurse Practitioner Adult Health
DX: I50.9 Heart failure, unspecified (principal)
CPT/HCPCS: 36415; 83880

== ENCOUNTER 2025-01-17 12:56 | Outpatient (CLI) | payer MEDICARE, MEDICAID, SELFPAY ==
--- NOTE | ~2025-01-17 | CT_ITS ---
EXAMINATION: CT thoracic lumbar wo con, 01/17/2025 14:00 CDT HISTORY: M54.6 - Pain in thoracic spine COMPARISON: No comparisons available. Technique: Axial images were obtained of the spine per protocol. One or more of the following dose reduction techniques were used: automated exposure control, adjustment of the mA and/or kV according to patient size, use of iterative reconstruction technique. Unless otherwise stated, incidental findings do not require dedicated follow up imaging Findings: There is minimal loss of vertebral height throughout, no fracture or subluxation. Probable area of hemangioma formation noted in the body of L1, no sclerotic or lytic lesions otherwise appreciated. There is multilevel mild loss of disc height throughout most marked in the lower thoracic spine and L5-S1 but no severe canal or foraminal stenosis is identified. The soft tissues demonstrate probable left renal cyst measuring 2.5 x 2 cm, there is a left adrenal nodule measuring 1.1 x 1.2 cm incompletely evaluated, outpatient adrenal MRI is suggested. Impression: No acute fracture. Incidental findings above Reviewed, dictated and finalized at location A. Impression: No acute fracture. Incidental findings above
--- OUTSIDE RECORDS SUMMARY | 2025-01-17 14:41 | XMS_ITS | Encounter Summary ---
Author Organization [facility] Healthcare Address [address] [place] [address] Care Team Providers Care K9 Handler Name Role Phone Carolyn Aggarwal DINKEY PRESS OPERATOR Primary Care Provider [phone] Alex Hoskins MD Unavailable [phone] Encounter Details Date Type Department Care Team (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 Gender Identity Not on file Sexual Orientation Not on file documented as of this encounter Plan of Treatment Not on file documented as of this encounter Procedures Procedure Name Priority Date/Time Associated Diagnosis Comments SCAN - LABS 02/23/2024 documented in this encounter Results * SCAN - LABS (02/23/2024) us Provider Scanning Final Result documented in this encounter Visit Diagnoses Not on filedocumented in this encounter Care Teams K9 Handler Relationship Specialty Start Date End Date Carolyn Aggarwal NP [address] [place] [address] PCP - General Family Medicine 11/16/23 Alex Hoskins MD [address] [place] [address] Referring Physician Obstetrics and Gynecology 02/23/24 documented as of this encounter
--- OUTSIDE RECORDS SUMMARY | 2025-01-17 14:41 | XMS_ITS | Clinical Summary ---
Author Organization [facility] Address [facility] [place] [address] Care Team Providers Care Patrol Inspector Name Role Phone Craolyn Aggarwal NP Primary Care Provider [phone] Alex Hoskins MD Unavailable [phone] Allergies No known active allergies Medications clonazePAM [...] (0.5 mg total) by mouth every morning 12/22/19 20 Active ergocalciferol (VITAMIN D) 50,000 unit capsuleIndicatio ns:supplement Take 1 capsule (50,000 Units total) by mouth once a week Wednesdays08/21/19 21 Active losartan (COZAAR) 25 mg tabletIndication s:hypertension Take 1 tablet (25 mg total) by mouth every morning 07/25/19 21 Active FeroSuL 325 mg (65 mg iron) tabletIndication s:supplement Take 1 tablet (325 mg total) by mouth every morning 10/02/19 23 Active venlafaxine XR (EFFEXOR-XR) 37.5 mg 24 hr capsuleIndicatio ns:Anxiety with Depression Take 1 capsule (37.5 mg total) by mouth every morning 04/13/20 23 Active primidone (MYSOLINE) 50 mg tabletIndication s:Essential Tremor Take 1 tablet (50 mg total) by mouth nightly 01/13/20 24 Active diphenoxylate-at ropine (LOMOTIL) 2.5-0.025 mg per tabletIndication s:diarrhea Take 1 tablet by mouth 2 (two) times a day as needed for diarrhea Active gabapentin (NEURONTIN) 300 mg capsuleIndicatio ns:Neuropathic Pain Take 1 capsule (300 mg total) by mouth 2 (two) times a day 02/23/20 24 Active ARIPiprazole (ABILIFY) 10 mg tabletIndication s:Depression Treatment Adjunct Take 1 tablet (10 mg total) by mouth every morning 02/25/20 24 Active busPIRone (BUSPAR) 15 mg tabletIndication s:Generalized Anxiety Disorder Take 1 tablet (15 mg total) by mouth 3 (three) times a day 12/28/19 24 Active levETIRAcetam (KEPPRA) 750 mg tabletIndication s:psuedo-seizure s Take 1 tablet (750 mg total) by mouth 2 (two) times a day 01/13/20 24 Active Safety Lancets 28 gauge misc TEST 3 TIMES A DAY 03/01/20 24 Active cholestyramine (QUESTRAN) 4 gram powderIndication s: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 Take 1 g by mouth 2 (two) times a day with meals 03/24/20 24 Active OneTouch Ultra Test strip 1 each by other route 03/01/20 24 Active ascorbic acid with paige hips 500 mg tabletIndication s:supplement Take 1 tablet/chew tab (500 mg total) by mouth every morning 04/14/20 24 Active acetaminophen (TYLENOL) 500 mg tablet Take 2 tablets (1,000 mg total) by mouth every 6 (six) hours as needed for pain for up to 30 doses 60 tablet 06/16/19 25 Active ibuprofen (ADVIL,MOTRIN) 600 mg tabletIndication s:Pain Take 1 tablet (600 mg total) by mouth every 6 (six) hours as needed for pain for up to 30 doses 30 tablet 06/16/19 25 Active cholestyramine light 4 gram packet MIX 1 PACKET IN 2-6 OZ OF WATER/NONCARB ONATED BEVERAGE AND DRINK TWICE DAILY 06/19/19 25 Active hydrOXYzine (ATARAX) 25 mg tablet 06/15/19 25 Active torsemide (DEMADEX) 20 mg tablet TAKE 1 TABLET(20 MG) BY MOUTH TWICE DAILY 180 tablet 1 08/17/19 25 Active isosorbide mononitrate ER (IMDUR) 120 mg 24 hr tablet TAKE 1 TABLET(120 MG) BY MOUTH EVERY MORNING 90 tablet 2 11/01/19 25 Active ranolazine ER (RANEXA) 1,000 mg 12 hr tablet TAKE 1 TABLET(1000 MG) BY MOUTH TWICE DAILY 180 tablet 3 11/09/19 25 Active potassium chloride ER 20 mEq CR tablet TAKE 1 TABLET(20 MEQ) BY MOUTH TWICE DAILY 180 tablet 12/06/19 25 Active nitroglycerin (NITROSTAT) 0.[address] 1 TABLET UNDER THE TONGUE EVERY 5 MINUTES NEEDED FOR CHEST PAIN 25 tablet 2 12/21/19 25 Active metoprolol tartrate (LOPRESSOR) 50 mg immediate release tablet TAKE 1 AND 1/2 TABLETS(75 MG) BY MOUTH TWICE DAILY 270 tablet 3 01/04/20 25 Active metoprolol tartrate (LOPRESSOR) 50 mg immediate release tablet TAKE 1 AND 1/2 TABLETS(75 MG) BY MOUTH TWICE DAILY 270 tablet 3 03/14/20 24 025 Discontinued nitroglycerin (NITROSTAT) 0.4 mg SL tabletIndication s:acute episode of anginal pain Place 1 tablet (0.4 mg total) under the tongue every 5 (five) minutes as needed for chest pain 25 tablet 2 06/30/19 25 025 Discontinued Active Problems Problem Noted Date Diagnosed Date Post-operative state 06/16/2024 Pelvic mass 03/01/2024 Periodic limb movement disorder 09/23/2023 Localized edema 05/05/2023 Coronary vasospasm 03/04/2023 PAT (paroxysmal atrial tachycardia) 10/08/2022 Sensorineural hearing loss, bilateral 06/20/2022 Sinus tarsi syndrome of right ankle 11/24/2021 Vertigo 10/18/2021 Congenital pes planus 10/04/2021 Polypharmacy 07/03/2021 Mixed hyperlipidemia 07/03/2021 Uncomplicated asthma 07/03/2021 Morbid obesity with BMI of 45.0-49.9, adult 0 06/2021 RORO on CPAP 07/03/2021 Accessory navicular bone of foot 01/11/2021 Tibialis posterior tendinitis 01/11/2021 Sinoatrial node dysfunction (CMS/HCC) 04/06/2020 Pacemaker 12/22/2019 Overview (01/05/2020): [employer] Dual Pacemaker. Dx; SSS, Sinus Bradycardia. 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 Gender Identity Not on file Sexual Orientation Not on file Obstetrics History Para Term AB IAB SAB Ectopic Multiple Livin g Live Births 3 3 3 3 Date Outcome GA Total Labor Labor/2nd/3rd Weight Sex Type Anes PTL Lulu A1 A5 Name Clin Term Term Term Last Filed Vital Signs Vital Sign Reading Time Taken Comments Blood Pressure 96/64 09/23/2024 1:13 PM CDT Pulse 71 09/23/2024 1:13 PM CDT Temperature 36.9 C (98.4 F) 08/01/2024 8:29 AM CDT Respiratory Rate 20 08/01/2024 8:29 AM CDT Oxygen Saturation 94% 09/23/2024 1:13 PM CDT Inhaled Oxygen Concentration - - Weight 119.3 kg (263 lb) 09/23/2024 1:13 PM CDT Height 157.5 cm (5' 2) 09/23/2024 1:13 PM CDT Body Mass Index 48.1 09/23/2024 1:13 PM CDT Plan of Treatment Health Maintenance Due Date Last Done Comments Breast Cancer Screening-Mammogram 1964 Colon Cancer Screening-Colonoscopy 1964 Depression Screening 1964 Hepatitis C Screening 1964 Hepatitis B Screening 1982 Regular Well Visit/Exam 18-64 1982 Zoster Vaccine (1 of 2) 2014 DTaP/Tdap/Td Vaccine (2 - Td or Tdap) 05/04/2018 05/04/2008 Covid-19 Vaccine (4 - 2024-2 6 season) 2025 01/02/2023, 08/28/2020, 07/31/2020 Influenza Vaccine (#1) 2025 , 02/02/2023, 01/02/2022, Additional history exists Pneumococcal vaccine <65 (3 of 3 - PCV20 or PCV21) 07/02/2025 07/02/2020, 02/01/2014 Medical Devices Implanted Type Area Lining Machine Tender Device Identifier Shelf Expiration Date Model / Serial / Lot Pacemaker Pacemaker Left: Chest Procedures Procedure Name Priority Date/Time Associated Diagnosis Comments DEVICE CHECK - REMOTE Routine 12/28/2024 11:05 AM CDT SSS (sick sinus syndrome) (HCC) Pacemaker Bradycardia from Last 3 Months Results * DEVICE CHECK - REMOTE (12/28/2024 11:05 AM CDT) Anatomical Region Laterality Modality Other Narrative 01/06/2025 12:42 PM CDT [employer] Dual Pacemaker. Dx; SSS, Sinus Bradycardia. DOI 02/04/2014-Dr Smith. Latitude remote monitoring. Routine DDD Pacemaker remote. Normal device function. Battery function-Ok, 2.5 years remaining battery life to DYLAN Appropriate lead measurements noted. Presenting rhythm: AP-VS, regular. AP-26%, SEWER REPAIRER-0%. 6-Atrial high rate episode noted, longest 1 minute duration, iegm's SVT- ATach. No ventricular high rate episodes noted. Medications; Lopressor, Imdur. See scanned report. Office pacemaker f/u 07/26/2025. Latitude remote f/u 03/29/2025. Mitra Emanuel RN Walter Sanchez MD [facility] PROC EDURES Final Result from Last [address] [address] [facility] MEDICARE ADVANTAGE IDPA IDPA [facility] MEDICARE ADVANTAGE Advance Directives For more information, please contact: [phone] * Full Code (Latest Code Status on File) Date Activated Date Inactivated Comments 06/16/2024 10:17 PM 06/17/2024 4:40 PM Care Teams Patrol Inspector Relationship Specialty Start Date End Date Carolyn Aggarwal NP [address] [place] [address] PCP - General Family Medicine 11/16/23 Alex Hoskins MD [address] [place] [address] Referring Physician Obstetrics and Gynecology 02/23/24
--- OUTSIDE RECORDS SUMMARY | 2025-01-17 14:41 | XMS_ITS | Clinical Summary ---
Author Organization [facility] Address [address] [place] [address] Care Team Providers Care Emergency Medicine Physician Name Role Phone Unavailable Primary Care Provider [...] Screening with HPV 1994 Mammogram Screening 2004 Pneumococcal Vaccine: 50+ Ye ars (1 of 1 - PCV) 2014 Zoster Vaccines (1 of 2) 2014 COVID-19 Vaccine ( - 2023-2 5 season) 2025 RSV Immunization or 60+ Years (1 - [...]
--- OUTSIDE RECORDS SUMMARY | 2025-01-17 14:41 | XMS_ITS | Patient Health Record ---
Author Organization [facility] [place] Address [address] [place] [address] Care Team Providers Care State Epidemiologist Name Role Phone Jamee Nelson MD Primary Care Provider Unavailab Monique Armstrong Unavailable [phone] Brianne Rios Unavailable [phone] Allergies No Known Allergies Reason For Referral No Information Medications Medication SIG (Take, Route, Frequency, Duration) Notes Start Date End Date Status busPIRone HCl 10 MG Tablet 1 tablet Oral ly 3 times a day; Duration: 90 days 01/03/2025 04/03/2025 Active ARIPiprazole 10 MG Tablet TAKE 1 TABLET BY MOUTH EVERY DAY AT BEDTIME Oral Once a day; Duration: 90 days 01/03/2025 Active Escitalopram Oxalate 20 MG Tablet TAKE 1 TABLET BY MOUTH DAILY Oral daily; Duration: 90 days Active clonazePAM 0.5 MG Tablet 1 tablet Oral t wice a day; Duration: 30 days 01/03/2025 Active Immunizations Vaccine Route Administration Date Status Comme nts COVID-19 (SARS-COV-2) vaccin e, unspecified Unknown 07/02/2020 Administered Influenza virus vaccine, quadrivalent (IIV4), split virus, 0.25 mL dosage Unknown 03/20/2015 Administered Influenza virus vaccine, quadrivalent (IIV4), split virus, 0.25 mL dosage Unknown 01/11/2016 Administered Influenza virus vaccine, quadrivalent (IIV4), split virus, 0.25 mL dosage Unknown 02/19/2017 Administered Influenza virus vaccine, quadrivalent (IIV4), split virus, 0.25 mL dosage Unknown 02/01/2018 Administered Influenza virus vaccine, quadrivalent (IIV4), split virus, 0.25 mL dosage Unknown 01/14/2019 Administered Influenza virus vaccine, quadrivalent (IIV4), split virus, 0.25 mL dosage Unknown 02/01/2019 Administered Influenza virus vaccine, quadrivalent (IIV4), split virus, 0.25 mL dosage Unknown 02/02/2020 Administered Influenza virus vaccine, quadrivalent (IIV4), split virus, 0.25 mL dosage Unknown 02/01/2021 Administered Influenza, high dose seasonal Unknown 02/01/2014 Admini stered Influenza, live, intranasal Unknown 01/02/2022 Administ ered Influenza, unspecified formulation Unknown 02/02/2023 A dministered Moderna Covid-19 Vaccine 1st dose Unknown 07/31/2020 Ad ministered Moderna Covid-19 Vaccine 1st dose Unknown 08/28/2020 Ad ministered Novel [id number], preservative free Unknown 01/14/2018 Administered Pfizer-Biontech Covid-19 Vac cine 1st dose Unknown 01/02/2023 Administered Pneumococcal polysaccharide PPV23 Unknown 02/01/2014 Ad ministered Tdap Unknown 05/04/2008 Administered Social History Tobacco Use: Social History Observation Description Date Details (start date - stop date) Never Smoker NA - NA Sex Assigned At : Social History Observation Description Sex Assigned At Female Social History Tobacco Use: Social Info Question Answer Notes Tobacco Control (Standard) Tobacco use: Nonsmoker Additional Details Category Social Info Options Details Migrated Social History Migrated Social History Alcohol Intake: Occasional 04/13/2023,Tobacco Years: Never smoker 06/10/2018,Smoking Status: 0 06/05/2023 Problems Problem Type SNOMED Code ICD Code Onset Dates Problem Status W/U Status Risk Notes Problem Bipolar affective disorder, currently depressed, mild (262936262) Bipolar disorder, current episode depressed, mild (F31.31) 4 Active confirmed Problem Generalized anxiety disorder (38325780) Generalized anxiety disorder (F41.1) 4 Active confirmed Problem Posttraumatic stress disorder (78793552) Post-traumatic stress disorder, chronic (F43.12) 4 Active confirmed Problem Primary insomnia (2338431) Primary insomnia (F51.01) 4 Active confirmed Problem Long-term current use of drug therapy (850402615) 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) 4 Active confirmed Problem Obsessive-compuls naomi disorder (070894632) Mixed obsessional thoughts and acts (F42.2) Active confirmed Problem Obsessive-compuls naomi disorder (581601997) Obsessive-compu lsive disorder, unspecified (F42.9) 4 Active confirmed Problem Posttraumatic stress disorder (19104925) Post traumatic stress disorder (PTSD) (F43.10) Active confirmed Vital Signs Heart Rate 77 /min 01/03/2025 Respiratory Rate 20 /min 01/03/2025 Height-cm 162.56 cm 01/03/2025 Blood pressure diastolic 70 mm Hg 01/03/2025 Weight-kg 116.12 kg 01/03/2025 Height 64.00 in 01/03/2025 Blood pressure systolic 108 mm Hg 01/03/2025 Weight 256 lbs 01/03/2025 BMI 43.94 kg/m2 01/03/2025 Encounters Encounter Location Date Provider Diagnosis [facility] [place] [address] [place] [address] 03/24/2024 [facility] [address] [facility] [address] [place] [address] 01/28/2024 [facility] [address] [place] [address] 02/11/2024 [employer] [facility] [address] [facility] [address] [place] [address] 03/03/2024 [employer] [facility] [address] [place] [address] 03/17/2024 [employer] [facility] [address] [place] [address] 03/28/2024 Monique Guadalupe [facility] [address] [place] [address] 04/05/2024 Monique Guadalupe Bipolar disorder, current episode depressed, mild F31.31 ; Generalized anxiety disorder F41.1 ; Post-traumatic stress disorder, chronic F43.12 ; Obsessive-compulsive disorder, unspecified F42.9 ; Primary insomnia F51.01 and Other skilled nursing (current) drug therapy Z79.899 [facility], [facility] [address] [place] [address] 05/19/2024 Brianne Rios [facility], [facility] [address] [place] [address] 05/26/2024 Brianne Rios [facility], [facility] [address] [place] [address] 06/02/2024 Brianne Rios [facility], [facility] [address] [place] [address] 06/06/2024 Brianne Rios Bipolar disorder, current episode depressed, mild F31.31 ; Generalized anxiety disorder F41.1 ; Post-traumatic stress disorder, chronic F43.12 and Mixed obsessional thoughts and acts F42.2 [facility] [address] [place] [address] 06/09/2024 Brianne Rios [facility], [facility] [address] [place] [address] 06/16/2024 Brianne Rios [facility], [facility] [address] [place] [address] 06/23/2024 Brianne Rios [facility], [facility] [address] [place] [address] 06/30/2024 Brianne Rios [facility], [facility] [address] [place] [address] 07/04/2024 Monique Guadalupe Generalized anxiety disorder F41.1 ; Bipolar disorder, current episode depressed, mild F31.31 ; Primary insomnia F51.01 ; Post traumatic stress disorder (PTSD) F43.10 ; Other middleware solutions architect (current) drug therapy Z79.899 ; Post-traumatic stress disorder, chronic F43.12 and Obsessive-compulsive disorder, unspecified F42.9 [facility] [address] [place] [address] 07/14/2024 Brianne Rios [facility], [facility] [address] [place] [address] 07/21/2024 Brianne Rios [facility], [facility] [address] [place] [address] 07/22/2024 Brianne Rios Encounter for screen ing for depression Z13.31 ; Bipolar disorder, current episode depressed, mild F31.31 ; Generalized anxiety disorder F41.1 ; Post traumatic stress disorder (PTSD) F43.10 and Mixed obsessional thoughts and acts F42.2 [facility] [employer], [facility] [address] [place] [address] 08/04/2024 [employer] [facility] [employer], [facility] [address] [place] [address] 08/11/2024 [facility] [employer], [facility] [address] [place] [address] 08/18/2024 [facility] [employer], [facility] [address] [place] [address] 08/25/2024 [facility] [employer], [facility] [address] [place] [address] 09/01/2024 [facility] [employer], [facility] [address] [place] [address] 09/08/2024 [facility] [employer], [facility] [address] [place] [address] 09/22/2024 [facility] [employer], [facility] [address] [place] [address] 09/29/2024 [employer] [employer], [facility] [address] [place] [address] 10/03/2024 Monique Collins Bipolar disorder, current episode depressed, mild F31.31 ; Encounter for screening for depression Z13.31 ; Generalized anxiety disorder F41.1 ; Primary insomnia F51.01 ; Post traumatic stress disorder (PTSD) F43.10 ; Other skilled nursing (current) drug therapy Z79.899 ; Obsessive-compulsive disorder, unspecified F42.9 and Encounter for screening for cardiovascular disorders Z13.6 [facility] [employer], [facility] [address] [place] [address] 10/13/2024 [facility] [employer], [facility] [address] [place] [address] 10/20/2024 [employer] [facility] [employer], [facility] [address] [place] [address] 10/27/2024 [facility] [employer], [facility] [address] [address] 12/15/2024 [facility], [facility] [address] [address] 12/22/2024 [facility], [facility] [address] [address] 01/03/2025 Monique Guadalupe Bipolar disorder, current episode depressed, mild F31.31 ; Encounter for screening for depression Z13.31 ; Generalized anxiety disorder F41.1 ; Primary insomnia F51.01 ; Post traumatic stress disorder (PTSD) F43.10 ; Other middleware solutions architect (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) drug therapy Z79.899 and Obsessive-compulsive disorder, unspecified F42.9 [facility] [place] [address] [address] 01/12/2025 Brianne DishOpinion [facility] [employer], [place] [address] [address] 02/02/2024 Monique Styliticsdarrell [facility], [place] [address] [address] 02/24/2024 Brianne Gabriel [facility], [facility] [address] [address] 05/05/2024 Monique Guadalupe [place] [address] [address] 06/23/2024 Monique Stylit[employer]darrell [facility], [place] [address] [address] 09/15/2024 Monique Guadalupe Generalized anxiety disorder F41.1 Assessments Encounter Date Diagnosis (ICD Code) Assessment Notes Treatment Notes Treatment Clinical Notes Section Notes 04/05/2024 Bipolar disorder, current episode depressed, mild (ICD-10 - F31.31) Learning About How to Get Help During a Mental Health Crisis material was published, Learning About Movement Disorders From Antipsychotic Medicines material was published, Learning About Mood Disorders material was published 1. Depressed bipolar I disorder - GDR 08/25 Abilify to 10 mg at campus monitor shaking, monitor depression, mood changes and bipolar s/s educated on all medications, benefits, side effects and risk, and educated on depression, anxiety, and mood d/o and educated on compliance of medications, metabolic and movement d/o education labs with Elian [facility] recently appointment's, continue therapy discussion with patient about course of treatment and patient instructions. AIMS= 2 missing teeth and dentures 04/18/22 AIMS 07/15/2022=2 missing dentia AIMS= 0 09/04/23 Patient is seeing Neurologist for tremors 2. Generalized anxiety disorder -Clonazepam 0.5 mg if continue to have pain medications education on risk mortality and respiratory distress on Benzo and pain medications, one month fill patient on short use opioid pain medications r/t fx right arm - educated not to take Clonazepam with pain rx cardiology report reviewed from 07/29/23 Radiology Orthopedic surgery report reviewed from 08/25 pulmonology report reviewed from 07/14/23 Effexor ER 37.5 mg daily in am for depression and anxiety - monitor B/P, and for emilio s/s- educated on rx Clonazepam 0.5 mg twice a day hx GDR educated on no pain medications and benzo obtain labs PCP random UDS Lexapro 20 mg daily Buspar 15 mg three times a day discuss may do GDR Lexapro or Buspar in near future Discussed and educated pt regarding benzodiazepines are generally not intended for prolonged use and that use can cause tolerance, dependence, depression, and associated memory issues including dementias (this list is not exhaustive). Benzodiazepine use is generally not recommended concurrently with pain medications and/or other controlled substances due to increased risks of profound sedation, respiratory depression, coma, and even . They are not to be used with any alcohol, as this combination can also be lethal. Patient was provided caution Educated on no control substance use with cannabis or other drug use 3. Posttraumatic stress disorder -Individual Therapy and group Medication Management and Follow-Up- Plan:- Schedule follow-up appointments every 2-3 months to monitor the patient's response to the medication regimen.- Reinforce the importance of avoiding recreational drug use due to potential neurotoxicity and interactions with prescribed medications. 4. Primary insomnia -Melatonin 3 mg PO HS 5. Obsessive-compuls naoim disorder -therapy 6. Long-term drug therapy Patient Instructionslabs with Elian Palm Gatherer recentlycontinue therapy 06/06/2024 Bipolar disorder, current episode depressed, mild (ICD-10 - F31.31) 06/06/2024 Generalized anxiety disorder (ICD-10 - F41.1) 07/04/2024 Bipolar disorder, current episode depressed, mild (ICD-10 - F31.31) Learning About How to Get Help During a Mental Health Crisis material was published, Learning About Movement Disorders From Antipsychotic Medicines material was published, Learning About Mood Disorders material was published 1. Depressed bipolar I disorder - GDR 08/25 Abilify to 10 mg at campus monitor shaking, monitor depression, mood changes and bipolar s/s educated on all medications, benefits, side effects and risk, and educated on depression, anxiety, and mood d/o and educated on compliance of medications, metabolic and movement d/o education labs with Elian [employer] Gat[employer]r recently appointment's, continue therapy discussion with patient about course of treatment and patient instructions. AIMS= 2 missing teeth and dentures 04/18/22 AIMS 07/15/2022=2 missing dentia AIMS= 0 09/04/23 Patient is seeing Neurologist for tremors on Gabapentin 2. Generalized anxiety disorder - Clonazepam 0.5 mg if continue to have pain medications education on risk mortality and respiratory distress on Benzo and pain medications, one month fill patient on short use opioid pain medications r/t fx right arm - educated not to take Clonazepam with pain rx cardiology report reviewed from 07/29/23 Radiology Orthopedic surgery report reviewed from 08/25 pulmonology report reviewed from 07/14/23 d/c Effexor ER 37.5 mg daily in am- monitor depression and anxiety monitor B/P, and for emilio s/s- educated on all rx Clonazepam 0.5 mg twice a day hx GDR educated on no pain medications and benzo obtain labs PCP random UDS Lexapro 20 mg daily Buspar 15 mg three times a day discuss may do GDR Lexapro or Buspar in near future Discussed and educated pt regarding benzodiazepines are generally not intended for prolonged use and that use can cause tolerance, dependence, depression, and associated memory issues including dementias (this list is not exhaustive). Benzodiazepine use is generally not recommended concurrently with pain medications and/or other controlled substances due to increased risks of profound sedation, respiratory depression, coma, and even . They are not to be used with any alcohol, as this combination can also be lethal. Patient was provided caution Educated on no control substance use with cannabis or other drug use 3. Posttraumatic stress disorder -Individual Therapy and group Medication Management and Follow-Up- Plan:- Schedule follow-up appointments every 2-3 months to monitor the patient's response to the medication regimen.- Reinforce the importance of avoiding recreational drug use due to potential neurotoxicity and interactions with prescribed medications. 4. Primary insomnia -Melatonin 3 mg PO HS 5. Obsessive-compuls naomi disorder -therapy 6. Long-term drug therapy Patient Instructionslabs with Elian Palm Gatherer recentlycontinue therapy 07/04/2024 Generalized anxiety disorder (ICD-10 - F41.1) Learning About Generalized Anxiety Disorder material was published, Learning About Anxiety Disorders material was published, Generalized Anxiety Disorder: Care Instructions material was published 1. Depressed bipolar I disorder - GDR 08/25 Abilify to 10 mg at campus monitor shaking, monitor depression, mood changes and bipolar s/s educated on all medications, benefits, side effects and risk, and educated on depression, anxiety, and mood d/o and educated on compliance of medications, metabolic and movement d/o education labs with Elian Palm Gatherer recently appointment's, continue therapy discussion with patient about course of treatment and patient instructions. AIMS= 2 missing teeth and dentures 04/18/22 AIMS 07/15/2022=2 missing dentia AIMS= 0 09/04/23 Patient is seeing Neurologist for tremors on Gabapentin 2. Generalized anxiety disorder - Clonazepam 0.5 mg if continue to have pain medications education on risk mortality and respiratory distress on Benzo and pain medications, one month fill patient on short use opioid pain medications r/t fx right arm - educated not to take Clonazepam with pain rx cardiology report reviewed from 07/29/23 Radiology Orthopedic surgery report reviewed from 08/25 pulmonology report reviewed from 07/14/23 d/c Effexor ER 37.5 mg daily in am- monitor depression and anxiety monitor B/P, and for emilio s/s- educated on all rx Clonazepam 0.5 mg twice a day hx GDR educated on no pain medications and benzo obtain labs PCP random UDS Lexapro 20 mg daily Buspar 15 mg three times a day discuss may do GDR Lexapro or Buspar in near future Discussed and educated pt regarding benzodiazepines are generally not intended for prolonged use and that use can cause tolerance, dependence, depression, and associated memory issues including dementias (this list is not exhaustive). Benzodiazepine use is generally not recommended concurrently with pain medications and/or other controlled substances due to increased risks of profound sedation, respiratory depression, coma, and even . They are not to be used with any alcohol, as this combination can also be lethal. Patient was provided caution Educated on no control substance use with cannabis or other drug use 3. Posttraumatic stress disorder -Individual Therapy and group Medication Management and Follow-Up- Plan:- Schedule follow-up appointments every 2-3 months to monitor the patient's response to the medication regimen.- Reinforce the importance of avoiding recreational drug use due to potential neurotoxicity and interactions with prescribed medications. 4. Primary insomnia -Melatonin 3 mg PO HS 5. Obsessive-compuls naomi disorder -therapy 6. Long-term drug therapy Patient Instructionslabs with Elian Palm Gatherer recentlycontinue therapy 07/22/2024 Bipolar disorder, current episode depressed, mild (ICD-10 - F31.31) 07/22/2024 Encounter for screening for depression (ICD-10 - Z13.31) 09/15/2024 Generalized anxiety disorder (ICD-10 - F41.1) 10/03/2024 Bipolar disorder, current episode depressed, mild (ICD-10 - F31.31) Learning About How to Get Help During a Mental Health Crisis material was published, Learning About Movement Disorders From Antipsychotic Medicines material was published, Learning About Mood Disorders material was published 1. Depressed bipolar I disorder - GDR 08/25 Abilify to 10 mg at night- stable monitor shaking, monitor depression, mood changes and bipolar s/s educated on all medications, benefits, side effects and risk, and educated on depression, anxiety, and mood d/o and educated on compliance of medications, metabolic and movement d/o education labs with Elian Palm Gatherer recently appointment's, continue therapy discussion with patient about course of treatment and patient instructions. AIMS= 2 missing teeth and dentures 04/18/22 AIMS 07/15/2022=2 missing dentia AIMS= 0 09/04/23 Patient is seeing Neurologist for tremors on Gabapentin- improved 2. Generalized anxiety disorder - Clonazepam 0.5 mg if continue to have pain medications education on risk mortality and respiratory distress on Benzo and pain medications, one month fill patient on short use opioid pain medications r/t fx right arm - educated not to take Clonazepam with pain rx cardiology report reviewed from 07/29/23 Radiology Orthopedic surgery report reviewed from 08/25 pulmonology report reviewed from 07/14/23 monitor B/P, and for emilio s/s- educated on all rx Clonazepam 0.5 mg twice a day- no refill needed today hx GDR educated on no pain medications and benzo obtain labs PCP random UDS Lexapro 20 mg daily- no refill needed today GDR will decrease Buspar 10 mg three times a day- no refill needed today- patient will use 15 mg dose has at home and split Discussed and educated pt regarding benzodiazepines are generally not intended for prolonged use and that use can cause tolerance, dependence, depression, and associated memory issues including dementias (this list is not exhaustive). Benzodiazepine use is generally not recommended concurrently with pain medications and/or other controlled substances due to increased risks of profound sedation, respiratory depression, coma, and even . They are not to be used with any alcohol, as this combination can also be lethal. Patient was provided caution Educated on no control substance use with cannabis or other drug use 3. Posttraumatic stress disorder -Individual Therapy and group Medication Management and Follow-Up- Plan:- Schedule follow-up appointments every 2-3 months to monitor the patient's response to the medication regimen.- Reinforce the importance of avoiding recreational drug use due to potential neurotoxicity and interactions with prescribed medications. 4. Primary insomnia -Melatonin 3 mg PO HS 5. Obsessive-compuls naomi disorder -therapy 6. Long-term drug therapy Patient Instructions labs with Elian Palm Gatherer recently continue therapy 10/03/2024 Encounter for screening for depression (ICD-10 - Z13.31) 1. Depressed bipolar I disorder - GDR 08/25 Abilify to 10 mg at night- stable monitor shaking, monitor depression, mood changes and bipolar s/s educated on all medications, benefits, side effects and risk, and educated on depression, anxiety, and mood d/o and educated on compliance of medications, metabolic and movement d/o education labs with [facility] recently appointment's, continue therapy discussion with patient about course of treatment and patient instructions. AIMS= 2 missing teeth and dentures 04/18/22 AIMS 07/15/2022=2 missing dentia AIMS= 0 09/04/23 Patient is seeing Neurologist for tremors on Gabapentin- improved 2. Generalized anxiety disorder - Clonazepam 0.5 mg if continue to have pain medications education on risk mortality and respiratory distress on Benzo and pain medications, one month fill patient on short use opioid pain medications r/t fx right arm - educated not to take Clonazepam with pain rx cardiology report reviewed from 07/29/23 Radiology Orthopedic surgery report reviewed from 08/25 pulmonology report reviewed from 07/14/23 monitor B/P, and for emilio s/s- educated on all rx Clonazepam 0.5 mg twice a day- no refill needed today hx GDR educated on no pain medications and benzo obtain labs PCP random UDS Lexapro 20 mg daily- no refill needed today GDR will decrease Buspar 10 mg three times a day- no refill needed today- patient will use 15 mg dose has at home and split Discussed and educated pt regarding benzodiazepines are generally not intended for prolonged use and that use can cause tolerance, dependence, depression, and associated memory issues including dementias (this list is not exhaustive). Benzodiazepine use is generally not recommended concurrently with pain medications and/or other controlled substances due to increased risks of profound sedation, respiratory depression, coma, and even . They are not to be used with any alcohol, as this combination can also be lethal. Patient was provided caution Educated on no control substance use with cannabis or other drug use 3. Posttraumatic stress disorder -Individual Therapy and group Medication Management and Follow-Up- Plan:- Schedule follow-up appointments every 2-3 months to monitor the patient's response to the medication regimen.- Reinforce the importance of avoiding recreational drug use due to potential neurotoxicity and interactions with prescribed medications. 4. Primary insomnia -Melatonin 3 mg PO HS 5. Obsessive-compuls naomi disorder -therapy 6. Long-term drug therapy Patient Instructions labs with [place] [facility] recently continue therapy 01/03/2025 Bipolar disorder, current episode depressed, mild (ICD-10 - F31.31) Learning About How to Get Help During a Mental Health Crisis material was published, Learning About Movement Disorders From Antipsychotic Medicines material was published, Learning About Mood Disorders material was published Transthoracic Echo (TTE) Complete W Doppler/CF (08/03/2024) Normal left ventricular systolic function. Moderate concentric left ventricular hypertrophy. Mild enlargement of left atrium. Mild mitral valve regurgitation. Mild aortic stenosis (Peak Velocity 2.21 m/s, Peak gradient 19.0 mmHg, Mean gradient 10.0 mmHg, Valve area 1.9 cm2). Moderate pulmonary hypertension (RVSP 46 mmHg). Mild tricuspid regurgitation. Dilated inferior vena cava with poor inspiratory collapse. Pro B-type natriuretic peptide (07/27/2024) SCRIBED NT PROBNP 105 (Abnormal) Cytology (06/21/2024) Pelvic washings: Negative for malignancy. Peripheral IV Catheter (06/16/2024) Peripheral IV catheter placed in hand, 18g, good blood return, occlusive dressing applied, patient tolerated procedure well with no complications.. 1. Depressed bipolar I disorder - GDR 08/25 Abilify to 10 mg at night- stable monitor shaking, monitor depression, mood changes and bipolar s/s educated on all medications, benefits, side effects and risk, and educated on depression, anxiety, and mood d/o and educated on compliance of medications, metabolic and movement d/o education labs with [place] [employer] [facility] recently appointment's, continue therapy discussion with patient about course of treatment and patient instructions. AIMS= 2 missing teeth and dentures 04/18/22 AIMS 07/15/2022=2 missing dentia AIMS= 0 09/04/23 Patient is seeing Neurologist for tremors on Gabapentin- improved 2. Generalized anxiety disorder - Clonazepam 0.5 mg if continue to have pain medications education on risk mortality and respiratory distress on Benzo and pain medications, one month fill monitor B/P, and for emilio s/s- educated on all rx Clonazepam 0.5 mg twice a day- hx GDR educated on no pain medications and benzo obtain labs PCP random UDS Lexapro 20 mg daily- Buspar 10 mg three times a day- Discussed and educated pt regarding benzodiazepines are generally not intended for prolonged use and that use can cause tolerance, dependence, depression, and associated memory issues including dementias (this list is not exhaustive). Benzodiazepine use is generally not recommended concurrently with pain medications and/or other controlled substances due to increased risks of profound sedation, respiratory depression, coma, and even . They are not to be used with any alcohol, as this combination can also be lethal. Patient was provided caution Educated on no control substance use with cannabis or other drug use 3. Posttraumatic stress disorder -Individual Therapy and group Medication Management and Follow-Up- Plan:- Schedule follow-up appointments every 2-3 months to monitor the patient's response to the medication regimen.- Reinforce the importance of avoiding recreational drug use due to potential neurotoxicity and interactions with prescribed medications. 4. Primary insomnia -Melatonin 3 mg PO HS 5. Obsessive-compuls naomi disorder -therapy 6. Long-term drug therapy Patient Instructions labs with [facility] recently continue therapy 01/03/2025 Encounter for screening for depression (ICD-10 - Z13.31) Transthoracic Echo (TTE) Complete W Doppler/CF (08/03/2024) Normal left ventricular systolic function. Moderate concentric left ventricular hypertrophy. Mild enlargement of left atrium. Mild mitral valve regurgitation. Mild aortic stenosis (Peak Velocity 2.21 m/s, Peak gradient 19.0 mmHg, Mean gradient 10.0 mmHg, Valve area 1.9 cm2). Moderate pulmonary hypertension (RVSP 46 mmHg). Mild tricuspid regurgitation. Dilated inferior vena cava with poor inspiratory collapse. Pro B-type natriuretic peptide (07/27/2024) SCRIBED NT PROBNP 105 (Abnormal) Cytology (06/21/2024) Pelvic washings: Negative for malignancy. Peripheral IV Catheter (06/16/2024) Peripheral IV catheter placed in hand, 18g, good blood return, occlusive dressing applied, patient tolerated procedure well with no complications.. 1. Depressed bipolar I disorder - GDR 08/25 Abilify to 10 mg at night- stable monitor shaking, monitor depression, mood changes and bipolar s/s educated on all medications, benefits, side effects and risk, and educated on depression, anxiety, and mood d/o and educated on compliance of medications, metabolic and movement d/o education labs with [facility] recently appointment's, continue therapy discussion with patient about course of treatment and patient instructions. AIMS= 2 missing teeth and dentures 04/18/22 AIMS 07/15/2022=2 missing dentia AIMS= 0 09/04/23 Patient is seeing Neurologist for tremors on Gabapentin- improved 2. Generalized anxiety disorder - Clonazepam 0.5 mg if continue to have pain medications education on risk mortality and respiratory distress on Benzo and pain medications, one month fill monitor B/P, and for emilio s/s- educated on all rx Clonazepam 0.5 mg twice a day- hx GDR educated on no pain medications and benzo obtain labs PCP random UDS Lexapro 20 mg daily- Buspar 10 mg three times a day- Discussed and educated pt regarding benzodiazepines are generally not intended for prolonged use and that use can cause tolerance, dependence, depression, and associated memory issues including dementias (this list is not exhaustive). Benzodiazepine use is generally not recommended concurrently with pain medications and/or other controlled substances due to increased risks of profound sedation, respiratory depression, coma, and even . They are not to be used with any alcohol, as this combination can also be lethal. Patient was provided caution Educated on no control substance use with cannabis or other drug use 3. Posttraumatic stress disorder -Individual Therapy and group Medication Management and Follow-Up- Plan:- Schedule follow-up appointments every 2-3 months to monitor the patient's response to the medication regimen.- Reinforce the importance of avoiding recreational drug use due to potential neurotoxicity and interactions with prescribed medications. 4. Primary insomnia -Melatonin 3 mg PO HS 5. Obsessive-compuls naomi disorder -therapy 6. Long-term drug therapy Patient Instructions labs with [facility] recently continue therapy 01/03/2025 Generalized anxiety disorder (ICD-10 - F41.1) Learning About Generalized Anxiety Disorder material was published, Learning About Anxiety Disorders material was published, Generalized Anxiety Disorder: Care Instructions material was published Transthoracic Echo (TTE) Complete W Doppler/CF (08/03/2024) Normal left ventricular systolic function. Moderate concentric left ventricular hypertrophy. Mild enlargement of left atrium. Mild mitral valve regurgitation. Mild aortic stenosis (Peak Velocity 2.21 m/s, Peak gradient 19.0 mmHg, Mean gradient 10.0 mmHg, Valve area 1.9 cm2). Moderate pulmonary hypertension (RVSP 46 mmHg). Mild tricuspid regurgitation. Dilated inferior vena cava with poor inspiratory collapse. Pro B-type natriuretic peptide (07/27/2024) SCRIBED NT PROBNP 105 (Abnormal) Cytology (06/21/2024) Pelvic washings: Negative for malignancy. Peripheral IV Catheter (06/16/2024) Peripheral IV catheter placed in hand, 18g, good blood return, occlusive dressing applied, patient tolerated procedure well with no complications.. 1. Depressed bipolar I disorder - GDR 08/25 Abilify to 10 mg at night- stable monitor shaking, monitor depression, mood changes and bipolar s/s educated on all medications, benefits, side effects and risk, and educated on depression, anxiety, and mood d/o and educated on compliance of medications, metabolic and movement d/o education labs with [facility] recently appointment's, continue therapy discussion with patient about course of treatment and patient instructions. AIMS= 2 missing teeth and dentures 12/16/22 AIMS 07/15/2022=2 missing dentia AIMS= 0 09/04/23 Patient is seeing Neurologist for tremors on Gabapentin- improved 2. Generalized anxiety disorder - Clonazepam 0.5 mg if continue to have pain medications education on risk mortality and respiratory distress on Benzo and pain medications, one month fill monitor B/P, and for emilio s/s- educated on all rx Clonazepam 0.5 mg twice a day- hx GDR educated on no pain medications and benzo obtain labs PCP random UDS Lexapro 20 mg daily- Buspar 10 mg three times a day- Discussed and educated pt regarding benzodiazepines are generally not intended for prolonged use and that use can cause tolerance, dependence, depression, and associated memory issues including dementias (this list is not exhaustive). Benzodiazepine use is generally not recommended concurrently with pain medications and/or other controlled substances due to increased risks of profound sedation, respiratory depression, coma, and even . They are not to be used with any alcohol, as this combination can also be lethal. Patient was provided caution Educated on no control substance use with cannabis or other drug use 3. Posttraumatic stress disorder -Individual Therapy and group Medication Management and Follow-Up- Plan:- Schedule follow-up appointments every 2-3 months to monitor the patient's response to the medication regimen.- Reinforce the importance of avoiding recreational drug use due to potential neurotoxicity and interactions with prescribed medications. 4. Primary insomnia -Melatonin 3 mg PO HS 5. Obsessive-compuls naomi disorder -therapy 6. Long-term drug therapy Patient Instructions labs with [facility] recently continue therapy 10/03/2024 Generalized anxiety disorder (ICD-10 - F41.1) Learning About Generalized Anxiety Disorder material was published, Learning About Anxiety Disorders material was published, Generalized Anxiety Disorder: Care Instructions material was published 1. Depressed bipolar I disorder - GDR 08/25 Abilify to 10 mg at night- stable monitor shaking, monitor depression, mood changes and bipolar s/s educated on all medications, benefits, side effects and risk, and educated on depression, anxiety, and mood d/o and educated on compliance of medications, metabolic and movement d/o education labs with [facility] recently appointment's, continue therapy discussion with patient about course of treatment and patient instructions. AIMS= 2 missing teeth and dentures 04/18/22 AIMS 07/15/2022=2 missing dentia AIMS= 0 09/04/23 Patient is seeing Neurologist for tremors on Gabapentin- improved 2. Generalized anxiety disorder - Clonazepam 0.5 mg if continue to have pain medications education on risk mortality and respiratory distress on Benzo and pain medications, one month fill patient on short use opioid pain medications r/t fx right arm - educated not to take Clonazepam with pain rx cardiology report reviewed from 07/29/23 Radiology Orthopedic surgery report reviewed from 08/25 pulmonology report reviewed from 07/14/23 monitor B/P, and for emilio s/s- educated on all rx Clonazepam 0.5 mg twice a day- no refill needed today hx GDR educated on no pain medications and benzo obtain labs PCP random UDS Lexapro 20 mg daily- no refill needed today GDR will decrease Buspar 10 mg three times a day- no refill needed today- patient will use 15 mg dose has at home and split Discussed and educated pt regarding benzodiazepines are generally not intended for prolonged use and that use can cause tolerance, dependence, depression, and associated memory issues including dementias (this list is not exhaustive). Benzodiazepine use is generally not recommended concurrently with pain medications and/or other controlled substances due to increased risks of profound sedation, respiratory depression, coma, and even . They are not to be used with any alcohol, as this combination can also be lethal. Patient was provided caution Educated on no control substance use with cannabis or other drug use 3. Posttraumatic stress disorder -Individual Therapy and group Medication Management and Follow-Up- Plan:- Schedule follow-up appointments every 2-3 months to monitor the patient's response to the medication regimen.- Reinforce the importance of avoiding recreational drug use due to potential neurotoxicity and interactions with prescribed medications. 4. Primary insomnia -Melatonin 3 mg PO HS 5. Obsessive-compuls naomi disorder -therapy 6. Long-term drug therapy Patient Instructions labs with [facility] recently continue therapy 07/22/2024 Generalized anxiety disorder (ICD-10 - F41.1) 07/04/2024 Primary insomnia (ICD-10 - F51.01) Insomnia: Care Instructions material was published, Learning About Sleeping Well material was published 1. Depressed bipolar I disorder - GDR 08/25 Abilify to 10 mg at campus monitor shaking, monitor depression, mood changes and bipolar s/s educated on all medications, benefits, side effects and risk, and educated on depression, anxiety, and mood d/o and educated on compliance of medications, metabolic and movement d/o education labs with [facility] recently appointment's, continue therapy discussion with patient about course of treatment and patient instructions. AIMS= 2 missing teeth and dentures 04/18/22 AIMS 07/15/2022=2 missing dentia AIMS= 0 09/04/23 Patient is seeing Neurologist for tremors on Gabapentin 2. Generalized anxiety disorder - Clonazepam 0.5 mg if continue to have pain medications education on risk mortality and respiratory distress on Benzo and pain medications, one month fill patient on short use opioid pain medications r/t fx right arm - educated not to take Clonazepam with pain rx cardiology report reviewed from 07/29/23 Radiology Orthopedic surgery report reviewed from 08/25 pulmonology report reviewed from 07/14/23 d/c Effexor ER 37.5 mg daily in am- monitor depression and anxiety monitor B/P, and for emilio s/s- educated on all rx Clonazepam 0.5 mg twice a day hx GDR educated on no pain medications and benzo obtain labs PCP random UDS Lexapro 20 mg daily Buspar 15 mg three times a day discuss may do GDR Lexapro or Buspar in near future Discussed and educated pt regarding benzodiazepines are generally not intended for prolonged use and that use can cause tolerance, dependence, depression, and associated memory issues including dementias (this list is not exhaustive). Benzodiazepine use is generally not recommended concurrently with pain medications and/or other controlled substances due to increased risks of profound sedation, respiratory depression, coma, and even . They are not to be used with any alcohol, as this combination can also be lethal. Patient was provided caution Educated on no control substance use with cannabis or other drug use 3. Posttraumatic stress disorder -Individual Therapy and group Medication Management and Follow-Up- Plan:- Schedule follow-up appointments every 2-3 months to monitor the patient's response to the medication regimen.- Reinforce the importance of avoiding recreational drug use due to potential neurotoxicity and interactions with prescribed medications. 4. Primary insomnia -Melatonin 3 mg PO HS 5. Obsessive-compuls naomi disorder -therapy 6. Long-term drug therapy Patient Instructionslabs with [facility] recentlycontinue therapy 06/06/2024 Post-traumatic stress disorder, chronic (ICD-10 - F43.12) 04/05/2024 Generalized anxiety disorder (ICD-10 - F41.1) Learning About Generalized Anxiety Disorder material was published, Learning About Anxiety Disorders material was published, Generalized Anxiety Disorder: Care Instructions material was published 1. Depressed bipolar I disorder - GDR 08/25 Abilify to 10 mg at campus monitor shaking, monitor depression, mood changes and bipolar s/s educated on all medications, benefits, side effects and risk, and educated on depression, anxiety, and mood d/o and educated on compliance of medications, metabolic and movement d/o education labs with [place] [employer] [facility] recently appointment's, continue therapy discussion with patient about course of treatment and patient instructions. AIMS= 2 missing teeth and dentures 04/18/22 AIMS 07/15/2022=2 missing dentia AIMS= 0 09/04/23 Patient is seeing Neurologist for tremors 2. Generalized anxiety disorder -Clonazepam 0.5 mg if continue to have pain medications education on risk mortality and respiratory distress on Benzo and pain medications, one month fill patient on short use opioid pain medications r/t fx right arm - educated not to take Clonazepam with pain rx cardiology report reviewed from 07/29/23 Radiology Orthopedic surgery report reviewed from 08/25 pulmonology report reviewed from 07/14/23 Effexor ER 37.5 mg daily in am for depression and anxiety - monitor B/P, and for emilio s/s- educated on rx Clonazepam 0.5 mg twice a day hx GDR educated on no pain medications and benzo obtain labs PCP random UDS Lexapro 20 mg daily Buspar 15 mg three times a day discuss may do GDR Lexapro or Buspar in near future Discussed and educated pt regarding benzodiazepines are generally not intended for prolonged use and that use can cause tolerance, dependence, depression, and associated memory issues including dementias (this list is not exhaustive). Benzodiazepine use is generally not recommended concurrently with pain medications and/or other controlled substances due to increased risks of profound sedation, respiratory depression, coma, and even . They are not to be used with any alcohol, as this combination can also be lethal. Patient was provided caution Educated on no control substance use with cannabis or other drug use 3. Posttraumatic stress disorder -Individual Therapy and group Medication Management and Follow-Up- Plan:- Schedule follow-up appointments every 2-3 months to monitor the patient's response to the medication regimen.- Reinforce the importance of avoiding recreational drug use due to potential neurotoxicity and interactions with prescribed medications. 4. Primary insomnia -Melatonin 3 mg PO HS 5. Obsessive-compuls naomi disorder -therapy 6. Long-term drug therapy Patient Instructionslabs with [facility] recentlycontinue therapy 04/05/2024 Post-traumatic stress disorder, chronic (ICD-10 - F43.12) Post-Traumatic Stress Disorder (PTSD): Care Instructions material was published 1. Depressed bipolar I disorder - GDR 08/25 Abilify to 10 mg at campus monitor shaking, monitor depression, mood changes and bipolar s/s educated on all medications, benefits, side effects and risk, and educated on depression, anxiety, and mood d/o and educated on compliance of medications, metabolic and movement d/o education labs with [facility] recently appointment's, continue therapy discussion with patient about course of treatment and patient instructions. AIMS= 2 missing teeth and dentures 04/18/22 AIMS 07/15/2022=2 missing dentia AIMS= 0 09/04/23 Patient is seeing Neurologist for tremors 2. Generalized anxiety disorder -Clonazepam 0.5 mg if continue to have pain medications education on risk mortality and respiratory distress on Benzo and pain medications, one month fill patient on short use opioid pain medications r/t fx right arm - educated not to take Clonazepam with pain rx cardiology report reviewed from 07/29/23 Radiology Orthopedic surgery report reviewed from 08/25 pulmonology report reviewed from 07/14/23 Effexor ER 37.5 mg daily in am for depression and anxiety - monitor B/P, and for emilio s/s- educated on rx Clonazepam 0.5 mg twice a day hx GDR educated on no pain medications and benzo obtain labs PCP random UDS Lexapro 20 mg daily Buspar 15 mg three times a day discuss may do GDR Lexapro or Buspar in near future Discussed and educated pt regarding benzodiazepines are generally not intended for prolonged use and that use can cause tolerance, dependence, depression, and associated memory issues including dementias (this list is not exhaustive). Benzodiazepine use is generally not recommended concurrently with pain medications and/or other controlled substances due to increased risks of profound sedation, respiratory depression, coma, and even . They are not to be used with any alcohol, as this combination can also be lethal. Patient was provided caution Educated on no control substance use with cannabis or other drug use 3. Posttraumatic stress disorder -Individual Therapy and group Medication Management and Follow-Up- Plan:- Schedule follow-up appointments every 2-3 months to monitor the patient's response to the medication regimen.- Reinforce the importance of avoiding recreational drug use due to potential neurotoxicity and interactions with prescribed medications. 4. Primary insomnia -Melatonin 3 mg PO HS 5. Obsessive-compuls anomi disorder -therapy 6. Long-term drug therapy Patient Instructionslabs with [facility] recentlycontinue therapy 06/06/2024 Mixed obsessional thoughts and acts (ICD-10 - F42.2) 07/22/2024 Post traumatic stress disorder (PTSD) (ICD-10 - F43.10) 10/03/2024 Primary insomnia (ICD-10 - F51.01) Insomnia: Care Instructions material was published, Learning About Sleeping Well material was published 1. Depressed bipolar I disorder - GDR 08/25 Abilify to 10 mg at night- stable monitor shaking, monitor depression, mood changes and bipolar s/s educated on all medications, benefits, side effects and risk, and educated on depression, anxiety, and mood d/o and educated on compliance of medications, metabolic and movement d/o education labs with [facility] recently appointment's, continue therapy discussion with patient about course of treatment and patient instructions. AIMS= 2 missing teeth and dentures 04/18/22 AIMS 07/15/2022=2 missing dentia AIMS= 0 09/04/23 Patient is seeing Neurologist for tremors on Gabapentin- improved 2. Generalized anxiety disorder - Clonazepam 0.5 mg if continue to have pain medications education on risk mortality and respiratory distress on Benzo and pain medications, one month fill patient on short use opioid pain medications r/t fx right arm - educated not to take Clonazepam with pain rx cardiology report reviewed from 07/29/23 Radiology Orthopedic surgery report reviewed from 08/25 pulmonology report reviewed from 07/14/23 monitor B/P, and for emilio s/s- educated on all rx Clonazepam 0.5 mg twice a day- no refill needed today hx GDR educated on no pain medications and benzo obtain labs PCP random UDS Lexapro 20 mg daily- no refill needed today GDR will decrease Buspar 10 mg three times a day- no refill needed today- patient will use 15 mg dose has at home and split Discussed and educated pt regarding benzodiazepines are generally not intended for prolonged use and that use can cause tolerance, dependence, depression, and associated memory issues including dementias (this list is not exhaustive). Benzodiazepine use is generally not recommended concurrently with pain medications and/or other controlled substances due to increased risks of profound sedation, respiratory depression, coma, and even . They are not to be used with any alcohol, as this combination can also be lethal. Patient was provided caution Educated on no control substance use with cannabis or other drug use 3. Posttraumatic stress disorder -Individual Therapy and group Medication Management and Follow-Up- Plan:- Schedule follow-up appointments every 2-3 months to monitor the patient's response to the medication regimen.- Reinforce the importance of avoiding recreational drug use due to potential neurotoxicity and interactions with prescribed medications. 4. Primary insomnia -Melatonin 3 mg PO HS 5. Obsessive-compuls naomi disorder -therapy 6. Long-term drug therapy Patient Instructions labs with [place] [facility] recently continue therapy 01/03/2025 Primary insomnia (ICD-10 - F51.01) Insomnia: Care Instructions material was published, [facility] material was published Transthoracic Echo (TTE) Complete W Doppler/CF (08/03/2024) Normal left ventricular systolic function. Moderate concentric left ventricular hypertrophy. Mild enlargement of left atrium. Mild mitral valve regurgitation. Mild aortic stenosis (Peak Velocity 2.21 m/s, Peak gradient 19.0 mmHg, Mean gradient 10.0 mmHg, Valve area 1.9 cm2). Moderate pulmonary hypertension (RVSP 46 mmHg). Mild tricuspid regurgitation. Dilated inferior vena cava with poor inspiratory collapse. Pro B-type natriuretic peptide (07/27/2024) SCRIBED NT PROBNP 105 (Abnormal) Cytology (06/21/2024) Pelvic washings: Negative for malignancy. Peripheral IV Catheter (06/16/2024) Peripheral IV catheter placed in hand, 18g, good blood return, occlusive dressing applied, patient tolerated procedure well with no complications.. 1. Depressed bipolar I disorder - GDR 08/25 Abilify to 10 mg at night- stable monitor shaking, monitor depression, mood changes and bipolar s/s educated on all medications, benefits, side effects and risk, and educated on depression, anxiety, and mood d/o and educated on compliance of medications, metabolic and movement d/o education labs with [facility] [employer] [facility] recently appointment's, continue therapy discussion with patient about course of treatment and patient instructions. AIMS= 2 missing teeth and dentures 04/18/22 AIMS 07/15/2022=2 missing dentia AIMS= 0 09/04/23 Patient is seeing Neurologist for tremors on Gabapentin- improved 2. Generalized anxiety disorder - Clonazepam 0.5 mg if continue to have pain medications education on risk mortality and respiratory distress on Benzo and pain medications, one month fill monitor B/P, and for emilio s/s- educated on all rx Clonazepam 0.5 mg twice a day- hx GDR educated on no pain medications and benzo obtain labs PCP random UDS Lexapro 20 mg daily- Buspar 10 mg three times a day- Discussed and educated pt regarding benzodiazepines are generally not intended for prolonged use and that use can cause tolerance, dependence, depression, and associated memory issues including dementias (this list is not exhaustive). Benzodiazepine use is generally not recommended concurrently with pain medications and/or other controlled substances due to increased risks of profound sedation, respiratory depression, coma, and even . They are not to be used with any alcohol, as this combination can also be lethal. Patient was provided caution Educated on no control substance use with cannabis or other drug use 3. Posttraumatic stress disorder -Individual Therapy and group Medication Management and Follow-Up- Plan:- Schedule follow-up appointments every 2-3 months to monitor the patient's response to the medication regimen.- Reinforce the importance of avoiding recreational drug use due to potential neurotoxicity and interactions with prescribed medications. 4. Primary insomnia -Melatonin 3 mg PO HS 5. Obsessive-compuls naomi disorder -therapy 6. Long-term drug therapy Patient Instructions labs with [facility] recently continue therapy 07/04/2024 Post traumatic stress disorder (PTSD) (ICD-10 - F43.10) 1. Depressed bipolar I disorder - GDR 08/25 Abilify to 10 mg at campus monitor shaking, monitor depression, mood changes and bipolar s/s educated on all medications, benefits, side effects and risk, and educated on depression, anxiety, and mood d/o and educated on compliance of medications, metabolic and movement d/o education labs with [facility] [employer] [facility] recently appointment's, continue therapy discussion with patient about course of treatment and patient instructions. AIMS= 2 missing teeth and dentures 04/18/22 AIMS 07/15/2022=2 missing dentia AIMS= 0 09/04/23 Patient is seeing Neurologist for tremors on Gabapentin 2. Generalized anxiety disorder - Clonazepam 0.5 mg if continue to have pain medications education on risk mortality and respiratory distress on Benzo and pain medications, one month fill patient on short use opioid pain medications r/t fx right arm - educated not to take Clonazepam with pain rx cardiology report reviewed from 07/29/23 Radiology Orthopedic surgery report reviewed from 08/25 pulmonology report reviewed from 07/14/23 d/c Effexor ER 37.5 mg daily in am- monitor depression and anxiety monitor B/P, and for emilio s/s- educated on all rx Clonazepam 0.5 mg twice a day hx GDR educated on no pain medications and benzo obtain labs PCP random UDS Lexapro 20 mg daily Buspar 15 mg three times a day discuss may do GDR Lexapro or Buspar in near future Discussed and educated pt regarding benzodiazepines are generally not intended for prolonged use and that use can cause tolerance, dependence, depression, and associated memory issues including dementias (this list is not exhaustive). Benzodiazepine use is generally not recommended concurrently with pain medications and/or other controlled substances due to increased risks of profound sedation, respiratory depression, coma, and even . They are not to be used with any alcohol, as this combination can also be lethal. Patient was provided caution Educated on no control substance use with cannabis or other drug use 3. Posttraumatic stress disorder -Individual Therapy and group Medication Management and Follow-Up- Plan:- Schedule follow-up appointments every 2-3 months to monitor the patient's response to the medication regimen.- Reinforce the importance of avoiding recreational drug use due to potential neurotoxicity and interactions with prescribed medications. 4. Primary insomnia -Melatonin 3 mg PO HS 5. Obsessive-compuls naomi disorder -therapy 6. Long-term drug therapy Patient Instructionslabs with [facility] recentlycontinue therapy 01/03/2025 Post traumatic stress disorder (PTSD) (ICD-10 - F43.10) Transthoracic Echo (TTE) Complete W Doppler/CF (08/03/2024) Normal left ventricular systolic function. Moderate concentric left ventricular hypertrophy. Mild enlargement of left atrium. Mild mitral valve regurgitation. Mild aortic stenosis (Peak Velocity 2.21 m/s, Peak gradient 19.0 mmHg, Mean gradient 10.0 mmHg, Valve area 1.9 cm2). Moderate pulmonary hypertension (RVSP 46 mmHg). Mild tricuspid regurgitation. Dilated inferior vena cava with poor inspiratory collapse. Pro B-type natriuretic peptide (07/27/2024) SCRIBED NT PROBNP 105 (Abnormal) Cytology (06/21/2024) Pelvic washings: Negative for malignancy. Peripheral IV Catheter (06/16/2024) Peripheral IV catheter placed in hand, 18g, good blood return, occlusive dressing applied, patient tolerated procedure well with no complications.. 1. Depressed bipolar I disorder - GDR 08/25 Abilify to 10 mg at night- stable monitor shaking, monitor depression, mood changes and bipolar s/s educated on all medications, benefits, side effects and risk, and educated on depression, anxiety, and mood d/o and educated on compliance of medications, metabolic and movement d/o education labs with [place] [employer] [facility] recently appointment's, continue therapy discussion with patient about course of treatment and patient instructions. AIMS= 2 missing teeth and dentures 04/18/22 AIMS 07/15/2022=2 missing dentia AIMS= 0 09/04/23 Patient is seeing Neurologist for tremors on Gabapentin- improved 2. Generalized anxiety disorder - Clonazepam 0.5 mg if continue to have pain medications education on risk mortality and respiratory distress on Benzo and pain medications, one month fill monitor B/P, and for emilio s/s- educated on all rx Clonazepam 0.5 mg twice a day- hx GDR educated on no pain medications and benzo obtain labs PCP random UDS Lexapro 20 mg daily- Buspar 10 mg three times a day- Discussed and educated pt regarding benzodiazepines are generally not intended for prolonged use and that use can cause tolerance, dependence, depression, and associated memory issues including dementias (this list is not exhaustive). Benzodiazepine use is generally not recommended concurrently with pain medications and/or other controlled substances due to increased risks of profound sedation, respiratory depression, coma, and even . They are not to be used with any alcohol, as this combination can also be lethal. Patient was provided caution Educated on no control substance use with cannabis or other drug use 3. Posttraumatic stress disorder -Individual Therapy and group Medication Management and Follow-Up- Plan:- Schedule follow-up appointments every 2-3 months to monitor the patient's response to the medication regimen.- Reinforce the importance of avoiding recreational drug use due to potential neurotoxicity and interactions with prescribed medications. 4. Primary insomnia -Melatonin 3 mg PO HS 5. Obsessive-compuls naomi disorder -therapy 6. Long-term drug therapy Patient Instructions labs with [facility] recently continue therapy 10/03/2024 Post traumatic stress disorder (PTSD) (ICD-10 - F43.10) 1. Depressed bipolar I disorder - GDR 08/25 Abilify to 10 mg at night- stable monitor shaking, monitor depression, mood changes and bipolar s/s educated on all medications, benefits, side effects and risk, and educated on depression, anxiety, and mood d/o and educated on compliance of medications, metabolic and movement d/o education labs with [facility] [employer] [facility] recently appointment's, continue therapy discussion with patient about course of treatment and patient instructions. AIMS= 2 missing teeth and dentures 04/18/22 AIMS 07/15/2022=2 missing dentia AIMS= 0 09/04/23 Patient is seeing Neurologist for tremors on Gabapentin- improved 2. Generalized anxiety disorder - Clonazepam 0.5 mg if continue to have pain medications education on risk mortality and respiratory distress on Benzo and pain medications, one month fill patient on short use opioid pain medications r/t fx right arm - educated not to take Clonazepam with pain rx cardiology report reviewed from 07/29/23 Radiology Orthopedic surgery report reviewed from 08/25 pulmonology report reviewed from 07/14/23 monitor B/P, and for emilio s/s- educated on all rx Clonazepam 0.5 mg twice a day- no refill needed today hx GDR educated on no pain medications and benzo obtain labs PCP random UDS Lexapro 20 mg daily- no refill needed today GDR will decrease Buspar 10 mg three times a day- no refill needed today- patient will use 15 mg dose has at home and split Discussed and educated pt regarding benzodiazepines are generally not intended for prolonged use and that use can cause tolerance, dependence, depression, and associated memory issues including dementias (this list is not exhaustive). Benzodiazepine use is generally not recommended concurrently with pain medications and/or other controlled substances due to increased risks of profound sedation, respiratory depression, coma, and even . They are not to be used with any alcohol, as this combination can also be lethal. Patient was provided caution Educated on no control substance use with cannabis or other drug use 3. Posttraumatic stress disorder -Individual Therapy and group Medication Management and Follow-Up- Plan:- Schedule follow-up appointments every 2-3 months to monitor the patient's response to the medication regimen.- Reinforce the importance of avoiding recreational drug use due to potential neurotoxicity and interactions with prescribed medications. 4. Primary insomnia -Melatonin 3 mg PO HS 5. Obsessive-compuls naomi disorder -therapy 6. 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 Depressed bipolar I disorder - GDR 08/25 Abilify to 10 mg at campus monitor shaking, monitor depression, mood changes and bipolar s/s educated on all medications, benefits, side effects and risk, and educated on depression, anxiety, and mood d/o and educated on compliance of medications, metabolic and movement d/o education labs with [facility] [employer] [facility] recently appointment's, continue therapy discussion with patient about course of treatment and patient instructions. AIMS= 2 missing teeth and dentures 04/18/22 AIMS 07/15/2022=2 missing dentia AIMS= 0 09/04/23 Patient is seeing Neurologist for tremors on Gabapentin 2. Generalized anxiety disorder - Clonazepam 0.5 mg if continue to have pain medications education on risk mortality and respiratory distress on Benzo and pain medications, one month fill patient on short use opioid pain medications r/t fx right arm - educated not to take Clonazepam with pain rx cardiology report reviewed from 07/29/23 Radiology Orthopedic surgery report reviewed from 08/25 pulmonology report reviewed from 07/14/23 d/c Effexor ER 37.5 mg daily in am- monitor depression and anxiety monitor B/P, and for emilio s/s- educated on all rx Clonazepam 0.5 mg twice a day hx GDR educated on no pain medications and benzo obtain labs PCP random UDS Lexapro 20 mg daily Buspar 15 mg three times a day discuss may do GDR Lexapro or Buspar in near future Discussed and educated pt regarding benzodiazepines are generally not intended for prolonged use and that use can cause tolerance, dependence, depression, and associated memory issues including dementias (this list is not exhaustive). Benzodiazepine use is generally not recommended concurrently with pain medications and/or other controlled substances due to increased risks of profound sedation, respiratory depression, coma, and even . They are not to be used with any alcohol, as this combination can also be lethal. Patient was provided caution Educated on no control substance use with cannabis or other drug use 3. Posttraumatic stress disorder -Individual Therapy and group Medication Management and Follow-Up- Plan:- Schedule follow-up appointments every 2-3 months to monitor the patient's response to the medication regimen.- Reinforce the importance of avoiding recreational drug use due to potential neurotoxicity and interactions with prescribed medications. 4. Primary insomnia -Melatonin 3 mg PO HS 5. Obsessive-compuls naomi disorder -therapy 6. Long-term drug therapy Patient Instructionslabs with [facility] recentlycontinue therapy 04/05/2024 Obsessive-compul sive disorder, unspecified (ICD-10 - F42.9) Obsessive-Compu lsive Disorder: Care Instructions material was published 1. Depressed bipolar I disorder - GDR 08/25 Abilify to 10 mg at campus monitor shaking, monitor depression, mood changes and bipolar s/s educated on all medications, benefits, side effects and risk, and educated on depression, anxiety, and mood d/o and educated on compliance of medications, metabolic and movement d/o education labs with [facility] [employer] [facility] recently appointment's, continue therapy discussion with patient about course of treatment and patient instructions. AIMS= 2 missing teeth and dentures 04/18/22 AIMS 07/15/2022=2 missing dentia AIMS= 0 09/04/23 Patient is seeing Neurologist for tremors 2. Generalized anxiety disorder -Clonazepam 0.5 mg if continue to have pain medications education on risk mortality and respiratory distress on Benzo and pain medications, one month fill patient on short use opioid pain medications r/t fx right arm - educated not to take Clonazepam with pain rx cardiology report reviewed from 07/29/23 Radiology Orthopedic surgery report reviewed from 08/25 pulmonology report reviewed from 07/14/23 Effexor ER 37.5 mg daily in am for depression and anxiety - monitor B/P, and for emilio s/s- educated on rx Clonazepam 0.5 mg twice a day hx GDR educated on no pain medications and benzo obtain labs PCP random UDS Lexapro 20 mg daily Buspar 15 mg three times a day discuss may do GDR Lexapro or Buspar in near future Discussed and educated pt regarding benzodiazepines are generally not intended for prolonged use and that use can cause tolerance, dependence, depression, and associated memory issues including dementias (this list is not exhaustive). Benzodiazepine use is generally not recommended concurrently with pain medications and/or other controlled substances due to increased risks of profound sedation, respiratory depression, coma, and even . They are not to be used with any alcohol, as this combination can also be lethal. Patient was provided caution Educated on no control substance use with cannabis or other drug use 3. Posttraumatic stress disorder -Individual Therapy and group Medication Management and Follow-Up- Plan:- Schedule follow-up appointments every 2-3 months to monitor the patient's response to the medication regimen.- Reinforce the importance of avoiding recreational drug use due to potential neurotoxicity and interactions with prescribed medications. 4. Primary insomnia -Melatonin 3 mg PO HS 5. Obsessive-compuls naomi disorder -therapy 6. Long-term drug therapy Patient Instructionslabs with [facility] recentlycontinue therapy 04/05/2024 Primary insomnia (ICD-10 - F51.01) Insomnia: Care Instructions material was published, [facility] material was published 1. Depressed bipolar I disorder - GDR 08/25 Abilify to 10 mg at campus monitor shaking, monitor depression, mood changes and bipolar s/s educated on all medications, benefits, side effects and risk, and educated on depression, anxiety, and mood d/o and educated on compliance of medications, metabolic and movement d/o education labs with [facility] [employer] [facility] recently appointment's, continue therapy discussion with patient about course of treatment and patient instructions. AIMS= 2 missing teeth and dentures 04/18/22 AIMS 07/15/2022=2 missing dentia AIMS= 0 09/04/23 Patient is seeing Neurologist for tremors 2. Generalized anxiety disorder -Clonazepam 0.5 mg if continue to have pain medications education on risk mortality and respiratory distress on Benzo and pain medications, one month fill patient on short use opioid pain medications r/t fx right arm - educated not to take Clonazepam with pain rx cardiology report reviewed from 07/29/23 Radiology Orthopedic surgery report reviewed from 08/25 pulmonology report reviewed from 07/14/23 Effexor ER 37.5 mg daily in am for depression and anxiety - monitor B/P, and for emilio s/s- educated on rx Clonazepam 0.5 mg twice a day hx GDR educated on no pain medications and benzo obtain labs PCP random UDS Lexapro 20 mg daily Buspar 15 mg three times a day discuss may do GDR Lexapro or Buspar in near future Discussed and educated pt regarding benzodiazepines are generally not intended for prolonged use and that use can cause tolerance, dependence, depression, and associated memory issues including dementias (this list is not exhaustive). Benzodiazepine use is generally not recommended concurrently with pain medications and/or other controlled substances due to increased risks of profound sedation, respiratory depression, coma, and even . They are not to be used with any alcohol, as this combination can also be lethal. Patient was provided caution Educated on no control substance use with cannabis or other drug use 3. Posttraumatic stress disorder -Individual Therapy and group Medication Management and Follow-Up- Plan:- Schedule follow-up appointments every 2-3 months to monitor the patient's response to the medication regimen.- Reinforce the importance of avoiding recreational drug use due to potential neurotoxicity and interactions with prescribed medications. 4. Primary insomnia -Melatonin 3 mg PO HS 5. Obsessive-compuls naomi disorder -therapy 6. Long-term drug therapy Patient Instructionslabs with [facility] recentlycontinue therapy 10/03/2024 Other skilled nursing (current) drug therapy (ICD-10 - Z79.899) Medication Refill: Care Instructions material was published 1. Depressed bipolar I disorder - GDR 08/25 Abilify to 10 mg at night- stable monitor shaking, monitor depression, mood changes and bipolar s/s educated on all medications, benefits, side effects and risk, and educated on depression, anxiety, and mood d/o and educated on compliance of medications, metabolic and movement d/o education labs with [facility] [employer] [facility] recently appointment's, continue therapy discussion with patient about course of treatment and patient instructions. AIMS= 2 missing teeth and dentures 04/18/22 AIMS 07/15/2022=2 missing dentia AIMS= 0 09/04/23 Patient is seeing Neurologist for tremors on Gabapentin- improved 2. Generalized anxiety disorder - Clonazepam 0.5 mg if continue to have pain medications education on risk mortality and respiratory distress on Benzo and pain medications, one month fill patient on short use opioid pain medications r/t fx right arm - educated not to take Clonazepam with pain rx cardiology report reviewed from 07/29/23 Radiology Orthopedic surgery report reviewed from 08/25 pulmonology report reviewed from 07/14/23 monitor B/P, and for emilio s/s- educated on all rx Clonazepam 0.5 mg twice a day- no refill needed today hx GDR educated on no pain medications and benzo obtain labs PCP random UDS Lexapro 20 mg daily- no refill needed today GDR will decrease Buspar 10 mg three times a day- no refill needed today- patient will use 15 mg dose has at home and split Discussed and educated pt regarding benzodiazepines are generally not intended for prolonged use and that use can cause tolerance, dependence, depression, and associated memory issues including dementias (this list is not exhaustive). Benzodiazepine use is generally not recommended concurrently with pain medications and/or other controlled substances due to increased risks of profound sedation, respiratory depression, coma, and even . They are not to be used with any alcohol, as this combination can also be lethal. Patient was provided caution Educated on no control substance use with cannabis or other drug use 3. Posttraumatic stress disorder -Individual Therapy and group Medication Management and Follow-Up- Plan:- Schedule follow-up appointments every 2-3 months to monitor the patient's response to the medication regimen.- Reinforce the importance of avoiding recreational drug use due to potential neurotoxicity and interactions with prescribed medications. 4. Primary insomnia -Melatonin 3 mg PO HS 5. Obsessive-compuls naomi disorder -therapy 6. 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 Moderate concentric left ventricular hypertrophy. Mild enlargement of left atrium. Mild mitral valve regurgitation. Mild aortic stenosis (Peak Velocity 2.21 m/s, Peak gradient 19.0 mmHg, Mean gradient 10.0 mmHg, Valve area 1.9 cm2). Moderate pulmonary hypertension (RVSP 46 mmHg). Mild tricuspid regurgitation. Dilated inferior vena cava with poor inspiratory collapse. Pro B-type natriuretic peptide (07/27/2024) SCRIBED NT PROBNP 105 (Abnormal) Cytology (06/21/2024) Pelvic washings: Negative for malignancy. Peripheral IV Catheter (06/16/2024) Peripheral IV catheter placed in hand, 18g, good blood return, occlusive dressing applied, patient tolerated procedure well with no complications.. 1. Depressed bipolar I disorder - GDR 08/25 Abilify to 10 mg at night- stable monitor shaking, monitor depression, mood changes and bipolar s/s educated on all medications, benefits, side effects and risk, and educated on depression, anxiety, and mood d/o and educated on compliance of medications, metabolic and movement d/o education labs with [facility] [facility] recently appointment's, continue therapy discussion with patient about course of treatment and patient instructions. AIMS= 2 missing teeth and dentures 04/18/22 AIMS 07/15/2022=2 missing dentia AIMS= 0 09/04/23 Patient is seeing Neurologist for tremors on Gabapentin- improved 2. Generalized anxiety disorder - Clonazepam 0.5 mg if continue to have pain medications education on risk mortality and respiratory distress on Benzo and pain medications, one month fill monitor B/P, and for emilio s/s- educated on all rx Clonazepam 0.5 mg twice a day- hx GDR educated on no pain medications and benzo obtain labs PCP random UDS Lexapro 20 mg daily- Buspar 10 mg three times a day- Discussed and educated pt regarding benzodiazepines are generally not intended for prolonged use and that use can cause tolerance, dependence, depression, and associated memory issues including dementias (this list is not exhaustive). Benzodiazepine use is generally not recommended concurrently with pain medications and/or other controlled substances due to increased risks of profound sedation, respiratory depression, coma, and even . They are not to be used with any alcohol, as this combination can also be lethal. Patient was provided caution Educated on no control substance use with cannabis or other drug use 3. Posttraumatic stress disorder -Individual Therapy and group Medication Management and Follow-Up- Plan:- Schedule follow-up appointments every 2-3 months to monitor the patient's response to the medication regimen.- Reinforce the importance of avoiding recreational drug use due to potential neurotoxicity and interactions with prescribed medications. 4. Primary insomnia -Melatonin 3 mg PO HS 5. Obsessive-compuls naomi disorder -therapy 6. Long-term drug therapy Patient Instructions labs with [facility] recently continue therapy 01/03/2025 Obsessive-compul sive disorder, unspecified (ICD-10 - F42.9) Obsessive-Compu lsive Disorder: Care Instructions material was published Transthoracic Echo (TTE) Complete W Doppler/CF (08/03/2024) Normal left ventricular systolic function. Moderate concentric left ventricular hypertrophy. Mild enlargement of left atrium. Mild mitral valve regurgitation. Mild aortic stenosis (Peak Velocity 2.21 m/s, Peak gradient 19.0 mmHg, Mean gradient 10.0 mmHg, Valve area 1.9 cm2). Moderate pulmonary hypertension (RVSP 46 mmHg). Mild tricuspid regurgitation. Dilated inferior vena cava with poor inspiratory collapse. Pro B-type natriuretic peptide (07/27/2024) SCRIBED NT PROBNP 105 (Abnormal) Cytology (06/21/2024) Pelvic washings: Negative for malignancy. Peripheral IV Catheter (06/16/2024) Peripheral IV catheter placed in hand, 18g, good blood return, occlusive dressing applied, patient tolerated procedure well with no complications.. 1. Depressed bipolar I disorder - GDR 08/25 Abilify to 10 mg at night- stable monitor shaking, monitor depression, mood changes and bipolar s/s educated on all medications, benefits, side effects and risk, and educated on depression, anxiety, and mood d/o and educated on compliance of medications, metabolic and movement d/o education labs with [facility] recently appointment's, continue therapy discussion with patient about course of treatment and patient instructions. AIMS= 2 missing teeth and dentures 04/18/22 AIMS 07/15/2022=2 missing dentia AIMS= 0 09/04/23 Patient is seeing Neurologist for tremors on Gabapentin- improved 2. Generalized anxiety disorder - Clonazepam 0.5 mg if continue to have pain medications education on risk mortality and respiratory distress on Benzo and pain medications, one month fill monitor B/P, and for emilio s/s- educated on all rx Clonazepam 0.5 mg twice a day- hx GDR educated on no pain medications and benzo obtain labs PCP random UDS Lexapro 20 mg daily- Buspar 10 mg three times a day- Discussed and educated pt regarding benzodiazepines are generally not intended for prolonged use and that use can cause tolerance, dependence, depression, and associated memory issues including dementias (this list is not exhaustive). Benzodiazepine use is generally not recommended concurrently with pain medications and/or other controlled substances due to increased risks of profound sedation, respiratory depression, coma, and even . They are not to be used with any alcohol, as this combination can also be lethal. Patient was provided caution Educated on no control substance use with cannabis or other drug use 3. Posttraumatic stress disorder -Individual Therapy and group Medication Management and Follow-Up- Plan:- Schedule follow-up appointments every 2-3 months to monitor the patient's response to the medication regimen.- Reinforce the importance of avoiding recreational drug use due to potential neurotoxicity and interactions with prescribed medications. 4. Primary insomnia -Melatonin 3 mg PO HS 5. Obsessive-compuls naomi disorder -therapy 6. Long-term drug therapy Patient Instructions labs with [facility] recently continue therapy 10/03/2024 Obsessive-compul sive disorder, unspecified (ICD-10 - F42.9) Obsessive-Compu lsive Disorder: Care Instructions material was published 1. Depressed bipolar I disorder - GDR 08/25 Abilify to 10 mg at night- stable monitor shaking, monitor depression, mood changes and bipolar s/s educated on all medications, benefits, side effects and risk, and educated on depression, anxiety, and mood d/o and educated on compliance of medications, metabolic and movement d/o education labs with [facility] recently appointment's, continue therapy discussion with patient about course of treatment and patient instructions. AIMS= 2 missing teeth and dentures 04/18/22 AIMS 07/15/2022=2 missing dentia AIMS= 0 09/04/23 Patient is seeing Neurologist for tremors on Gabapentin- improved 2. Generalized anxiety disorder - Clonazepam 0.5 mg if continue to have pain medications education on risk mortality and respiratory distress on Benzo and pain medications, one month fill patient on short use opioid pain medications r/t fx right arm - educated not to take Clonazepam with pain rx cardiology report reviewed from 07/29/23 Radiology Orthopedic surgery report reviewed from 08/25 pulmonology report reviewed from 07/14/23 monitor B/P, and for emilio s/s- educated on all rx Clonazepam 0.5 mg twice a day- no refill needed today hx GDR educated on no pain medications and benzo obtain labs PCP random UDS Lexapro 20 mg daily- no refill needed today GDR will decrease Buspar 10 mg three times a day- no refill needed today- patient will use 15 mg dose has at home and split Discussed and educated pt regarding benzodiazepines are generally not intended for prolonged use and that use can cause tolerance, dependence, depression, and associated memory issues including dementias (this list is not exhaustive). Benzodiazepine use is generally not recommended concurrently with pain medications and/or other controlled substances due to increased risks of profound sedation, respiratory depression, coma, and even . They are not to be used with any alcohol, as this combination can also be lethal. Patient was provided caution Educated on no control substance use with cannabis or other drug use 3. Posttraumatic stress disorder -Individual Therapy and group Medication Management and Follow-Up- Plan:- Schedule follow-up appointments every 2-3 months to monitor the patient's response to the medication regimen.- Reinforce the importance of avoiding recreational drug use due to potential neurotoxicity and interactions with prescribed medications. 4. Primary insomnia -Melatonin 3 mg PO HS 5. Obsessive-compuls naomi disorder -therapy 6. Long-term drug therapy Patient Instructions labs with [facility] recently continue therapy 07/04/2024 Post-traumatic stress disorder, chronic (ICD-10 - F43.12) Post-Traumatic Stress Disorder (PTSD): Care Instructions material was published 1. Depressed bipolar I disorder - GDR 08/25 Abilify to 10 mg at campus monitor shaking, monitor depression, mood changes and bipolar s/s educated on all medications, benefits, side effects and risk, and educated on depression, anxiety, and mood d/o and educated on compliance of medications, metabolic and movement d/o education labs with [facility] recently appointment's, continue therapy discussion with patient about course of treatment and patient instructions. AIMS= 2 missing teeth and dentures 04/18/22 AIMS 07/15/2022=2 missing dentia AIMS= 0 09/04/23 Patient is seeing Neurologist for tremors on Gabapentin 2. Generalized anxiety disorder - Clonazepam 0.5 mg if continue to have pain medications education on risk mortality and respiratory distress on Benzo and pain medications, one month fill patient on short use opioid pain medications r/t fx right arm - educated not to take Clonazepam with pain rx cardiology report reviewed from 07/29/23 Radiology Orthopedic surgery report reviewed from 08/25 pulmonology report reviewed from 07/14/23 d/c Effexor ER 37.5 mg daily in am- monitor depression and anxiety monitor B/P, and for emilio s/s- educated on all rx Clonazepam 0.5 mg twice a day hx GDR educated on no pain medications and benzo obtain labs PCP random UDS Lexapro 20 mg daily Buspar 15 mg three times a day discuss may do GDR Lexapro or Buspar in near future Discussed and educated pt regarding benzodiazepines are generally not intended for prolonged use and that use can cause tolerance, dependence, depression, and associated memory issues including dementias (this list is not exhaustive). Benzodiazepine use is generally not recommended concurrently with pain medications and/or other controlled substances due to increased risks of profound sedation, respiratory depression, coma, and even . They are not to be used with any alcohol, as this combination can also be lethal. Patient was provided caution Educated on no control substance use with cannabis or other drug use 3. Posttraumatic stress disorder -Individual Therapy and group Medication Management and Follow-Up- Plan:- Schedule follow-up appointments every 2-3 months to monitor the patient's response to the medication regimen.- Reinforce the importance of avoiding recreational drug use due to potential neurotoxicity and interactions with prescribed medications. 4. Primary insomnia -Melatonin 3 mg PO HS 5. Obsessive-compuls naomi disorder -therapy 6. Long-term drug therapy Patient Instructionslabs with [facility] recentlycontinue therapy 04/05/2024 Other skilled nursing (current) drug therapy (ICD-10 - Z79.899) Medication Refill: Care Instructions material was published 1. Depressed bipolar I disorder - GDR 08/25 Abilify to 10 mg at campus monitor shaking, monitor depression, mood changes and bipolar s/s educated on all medications, benefits, side effects and risk, and educated on depression, anxiety, and mood d/o and educated on compliance of medications, metabolic and movement d/o education labs with [facility] recently appointment's, continue therapy discussion with patient about course of treatment and patient instructions. AIMS= 2 missing teeth and dentures 04/18/22 AIMS 07/15/2022=2 missing dentia AIMS= 0 09/04/23 Patient is seeing Neurologist for tremors 2. Generalized anxiety disorder -Clonazepam 0.5 mg if continue to have pain medications education on risk mortality and respiratory distress on Benzo and pain medications, one month fill patient on short use opioid pain medications r/t fx right arm - educated not to take Clonazepam with pain rx cardiology report reviewed from 07/29/23 Radiology Orthopedic surgery report reviewed from 08/25 pulmonology report reviewed from 07/14/23 Effexor ER 37.5 mg daily in am for depression and anxiety - monitor B/P, and for emilio s/s- educated on rx Clonazepam 0.5 mg twice a day hx GDR educated on no pain medications and benzo obtain labs PCP random UDS Lexapro 20 mg daily Buspar 15 mg three times a day discuss may do GDR Lexapro or Buspar in near future Discussed and educated pt regarding benzodiazepines are generally not intended for prolonged use and that use can cause tolerance, dependence, depression, and associated memory issues including dementias (this list is not exhaustive). Benzodiazepine use is generally not recommended concurrently with pain medications and/or other controlled substances due to increased risks of profound sedation, respiratory depression, coma, and even . They are not to be used with any alcohol, as this combination can also be lethal. Patient was provided caution Educated on no control substance use with cannabis or other drug use 3. Posttraumatic stress disorder -Individual Therapy and group Medication Management and Follow-Up- Plan:- Schedule follow-up appointments every 2-3 months to monitor the patient's response to the medication regimen.- Reinforce the importance of avoiding recreational drug use due to potential neurotoxicity and interactions with prescribed medications. 4. Primary insomnia -Melatonin 3 mg PO HS 5. Obsessive-compuls naomi disorder -therapy 6. Long-term drug therapy Patient Instructionslabs with [facility] recentlycontinue therapy 07/04/2024 Obsessive-compul sive disorder, unspecified (ICD-10 - F42.9) Obsessive-Compu lsive Disorder: Care Instructions material was published 1. Depressed bipolar I disorder - GDR 08/25 Abilify to 10 mg at campus monitor shaking, monitor depression, mood changes and bipolar s/s educated on all medications, benefits, side effects and risk, and educated on depression, anxiety, and mood d/o and educated on compliance of medications, metabolic and movement d/o education labs with [facility] recently appointment's, continue therapy discussion with patient about course of treatment and patient instructions. AIMS= 2 missing teeth and dentures 04/18/22 AIMS 07/15/2022=2 missing dentia AIMS= 0 09/04/23 Patient is seeing Neurologist for tremors on Gabapentin 2. Generalized anxiety disorder - Clonazepam 0.5 mg if continue to have pain medications education on risk mortality and respiratory distress on Benzo and pain medications, one month fill patient on short use opioid pain medications r/t fx right arm - educated not to take Clonazepam with pain rx cardiology report reviewed from 07/29/23 Radiology Orthopedic surgery report reviewed from 08/25 pulmonology report reviewed from 07/14/23 d/c Effexor ER 37.5 mg daily in am- monitor depression and anxiety monitor B/P, and for emilio s/s- educated on all rx Clonazepam 0.5 mg twice a day hx GDR educated on no pain medications and benzo obtain labs PCP random UDS Lexapro 20 mg daily Buspar 15 mg three times a day discuss may do GDR Lexapro or Buspar in near future Discussed and educated pt regarding benzodiazepines are generally not intended for prolonged use and that use can cause tolerance, dependence, depression, and associated memory issues including dementias (this list is not exhaustive). Benzodiazepine use is generally not recommended concurrently with pain medications and/or other controlled substances due to increased risks of profound sedation, respiratory depression, coma, and even . They are not to be used with any alcohol, as this combination can also be lethal. Patient was provided caution Educated on no control substance use with cannabis or other drug use 3. Posttraumatic stress disorder -Individual Therapy and group Medication Management and Follow-Up- Plan:- Schedule follow-up appointments every 2-3 months to monitor the patient's response to the medication regimen.- Reinforce the importance of avoiding recreational drug use due to potential neurotoxicity and interactions with prescribed medications. 4. Primary insomnia -Melatonin 3 mg PO HS 5. Obsessive-compuls naomi disorder -therapy 6. Long-term drug therapy Patient Instructionslabs with [facility] recentlycontinue therapy 10/03/2024 Encounter for screening for cardiovascular disorders (ICD-10 - Z13.6) 1. Depressed bipolar I disorder - GDR 08/25 Abilify to 10 mg at night- stable monitor shaking, monitor depression, mood changes and bipolar s/s educated on all medications, benefits, side effects and risk, and educated on depression, anxiety, and mood d/o and educated on compliance of medications, metabolic and movement d/o education labs with [facility] recently appointment's, continue therapy discussion with patient about course of treatment and patient instructions. AIMS= 2 missing teeth and dentures 04/18/22 AIMS 07/15/2022=2 missing dentia AIMS= 0 09/04/23 Patient is seeing Neurologist for tremors on Gabapentin- improved 2. Generalized anxiety disorder - Clonazepam 0.5 mg if continue to have pain medications education on risk mortality and respiratory distress on Benzo and pain medications, one month fill patient on short use opioid pain medications r/t fx right arm - educated not to take Clonazepam with pain rx cardiology report reviewed from 07/29/23 Radiology Orthopedic surgery report reviewed from 08/25 pulmonology report reviewed from 07/14/23 monitor B/P, and for emilio s/s- educated on all rx Clonazepam 0.5 mg twice a day- no refill needed today hx GDR educated on no pain medications and benzo obtain labs PCP random UDS Lexapro 20 mg daily- no refill needed today GDR will decrease Buspar 10 mg three times a day- no refill needed today- patient will use 15 mg dose has at home and split Discussed and educated pt regarding benzodiazepines are generally not intended for prolonged use and that use can cause tolerance, dependence, depression, and associated memory issues including dementias (this list is not exhaustive). Benzodiazepine use is generally not recommended concurrently with pain medications and/or other controlled substances due to increased risks of profound sedation, respiratory depression, coma, and even . They are not to be used with any alcohol, as this combination can also be lethal. Patient was provided caution Educated on no control substance use with cannabis or other drug use 3. Posttraumatic stress disorder -Individual Therapy and group Medication Management and Follow-Up- Plan:- Schedule follow-up appointments every 2-3 months to monitor the patient's response to the medication regimen.- Reinforce the importance of avoiding recreational drug use due to potential neurotoxicity and interactions with prescribed medications. 4. Primary insomnia -Melatonin 3 mg PO HS 5. Obsessive-compuls naomi disorder -therapy 6. Long-term drug therapy Patient Instructions labs with [facility] recently continue therapy 06/06/2024 Other Client reports conflict with her roommate. He does most of the housekeeping as client's physical and mental health. He has been complaining of late that she makes it difficult for him to keep the place clean and clutter free. Therapist actively listened to client and utilized a cognitive behavioral intervention to help client explore simple strategies to help keep the peace at home. PHQ=8 mild ANNE-MARIE=9 mild 07/22/2024 Other Client reports an increase in [...] not yelled at). PHQ=4 minimal ANNE-MARIE=5 minimal 10/03/2024 Other Post-Traumatic Stress Disorder (PTSD): Care Instructions material was published 1. Depressed bipolar I disorder - GDR 08/25 Abilify to 10 mg at night- stable monitor shaking, monitor depression, mood changes and bipolar s/s educated on all medications, benefits, side effects and risk, and educated on depression, anxiety, and mood d/o and educated on compliance of medications, metabolic and movement d/o education labs with [facility] recently appointment's, continue therapy discussion with patient about course of treatment and patient instructions. AIMS= 2 missing teeth and dentures 04/18/22 AIMS 07/15/2022=2 missing dentia AIMS= 0 09/04/23 Patient is seeing Neurologist for tremors on Gabapentin- improved 2. Generalized anxiety disorder - Clonazepam 0.5 mg if continue to have pain medications education on risk mortality and respiratory distress on Benzo and pain medications, one month fill patient on short use opioid pain medications r/t fx right arm - educated not to take Clonazepam with pain rx cardiology report reviewed from 07/29/23 Radiology Orthopedic surgery report reviewed from 08/25 pulmonology report reviewed from 07/14/23 monitor B/P, and for emilio s/s- educated on all rx Clonazepam 0.5 mg twice a day- no refill needed today hx GDR educated on no pain medications and benzo obtain labs PCP random UDS Lexapro 20 mg daily- no refill needed today GDR will decrease Buspar 10 mg three times a day- no refill needed today- patient will use 15 mg dose has at home and split Discussed and educated pt regarding benzodiazepines are generally not intended for prolonged use and that use can cause tolerance, dependence, depression, and associated memory issues including dementias (this list is not exhaustive). Benzodiazepine use is generally not recommended concurrently with pain medications and/or other controlled substances due to increased risks of profound sedation, respiratory depression, coma, and even . They are not to be used with any alcohol, as this combination can also be lethal. Patient was provided caution Educated on no control substance use with cannabis or other drug use 3. Posttraumatic stress disorder -Individual Therapy and group Medication Management and Follow-Up- Plan:- Schedule follow-up appointments every 2-3 months to monitor the patient's response to the medication regimen.- Reinforce the importance of avoiding recreational drug use due to potential neurotoxicity and interactions with prescribed medications. 4. Primary insomnia -Melatonin 3 mg PO HS 5. Obsessive-compuls naomi disorder -therapy 6. Long-term drug therapy Patient Instructions labs with [place] [facility] recently continue therapy 01/03/2025 Other Post-Traumatic Stress Disorder (PTSD): Care Instructions material was published Transthoracic Echo (TTE) Complete W Doppler/CF (08/03/2024) Normal left ventricular systolic function. Moderate concentric left ventricular hypertrophy. Mild enlargement of left atrium. Mild mitral valve regurgitation. Mild aortic stenosis (Peak Velocity 2.21 m/s, Peak gradient 19.0 mmHg, Mean gradient 10.0 mmHg, Valve area 1.9 cm2). Moderate pulmonary hypertension (RVSP 46 mmHg). Mild tricuspid regurgitation. Dilated inferior vena cava with poor inspiratory collapse. Pro B-type natriuretic peptide (07/27/2024) SCRIBED NT PROBNP 105 (Abnormal) Cytology (06/21/2024) Pelvic washings: Negative for malignancy. Peripheral IV Catheter (06/16/2024) Peripheral IV catheter placed in hand, 18g, good blood return, occlusive dressing applied, patient tolerated procedure well with no complications.. 1. Depressed bipolar I disorder - GDR 08/25 Abilify to 10 mg at night- stable monitor shaking, monitor depression, mood changes and bipolar s/s educated on all medications, benefits, side effects and risk, and educated on depression, anxiety, and mood d/o and educated on compliance of medications, metabolic and movement d/o education labs with Elian Palm Gatherer recently appointment's, continue therapy discussion with patient about course of treatment and patient instructions. AIMS= 2 missing teeth and dentures 04/18/22 AIMS 07/15/2022=2 missing dentia AIMS= 0 09/04/23 Patient is seeing Neurologist for tremors on Gabapentin- improved 2. Generalized anxiety disorder - Clonazepam 0.5 mg if continue to have pain medications education on risk mortality and respiratory distress on Benzo and pain medications, one month fill monitor B/P, and for emilio s/s- educated on all rx Clonazepam 0.5 mg twice a day- hx GDR educated on no pain medications and benzo obtain labs PCP random UDS Lexapro 20 mg daily- Buspar 10 mg three times a day- Discussed and educated pt regarding benzodiazepines are generally not intended for prolonged use and that use can cause tolerance, dependence, depression, and associated memory issues including dementias (this list is not exhaustive). Benzodiazepine use is generally not recommended concurrently with pain medications and/or other controlled substances due to increased risks of profound sedation, respiratory depression, coma, and even . They are not to be used with any alcohol, as this combination can also be lethal. Patient was provided caution Educated on no control substance use with cannabis or other drug use 3. Posttraumatic stress disorder -Individual Therapy and group Medication Management and Follow-Up- Plan:- Schedule follow-up appointments every 2-3 months to monitor the patient's response to the medication regimen.- Reinforce the importance of avoiding recreational drug use due to potential neurotoxicity and interactions with prescribed medications. 4. Primary insomnia -Melatonin 3 mg PO HS 5. Obsessive-compuls naomi disorder -therapy 6. Long-term drug therapy Patient Instructions labs with Elian Palm Gatherer recently continue therapy Plan Of Treatment Next Appt Details Provider Name:Brianne Rios , 01/19/2025 02:00:00 PM, [address], [place], [address], Provider Name:Brianne Rios , 01/20/2025 01:00:00 PM, [address], [address], [place], [address], Provider Name:Brianne Rios , 01/26/2025 02:00:00 PM, [address], [address], [place], [address], Provider Name:Brianne K Gabriel , 01/27/2025 02:00:00 PM, [address], [place], [address], Provider Name:Brianne Rios , 02/02/2025 02:00:00 PM, [address], [address], [place], [address], Provider Name:Brianne Rios , 02/03/2025 03:00:00 PM, [address], [place], [address], Provider Name:Brianne Rios , 02/09/2025 02:00:00 PM, [facility], [place], [address], Provider Name:Brianne Rios , 02/10/2025 03:00:00 PM, [address], [place], [address], Provider Name:Brianne Rios , 02/16/2025 02:00:00 PM, [facility], [place], [address], Provider Name:Brianne Rios , 02/23/2025 02:00:00 PM, [facility], [place], [address], Provider Name:Brianne Rios , 03/02/2025 02:00:00 PM, [facility], [place], [address], Provider Name:Brianne Rios , 03/09/2025 02:00:00 PM, [facility], [place], [address], Provider Name:Brianne Rios , 03/16/2025 02:00:00 PM, [address], [place], [address], Provider Name:Brianne Rios , 03/23/2025 02:00:00 PM, [address], [place], [address], Provider Name:Monique Collins , 03/28/2025 11:30:00 AM, [address], [place], [address], Provider Name:Brianne Rios , 04/06/2025 02:00:00 PM, [address], [place], [address], Provider Name:Brianne Rios , 04/13/2025 02:00:00 PM, [address], [place], [address], Provider Name:Brianne Rios , 04/20/2025 02:00:00 PM, [address], [place], [address], Provider Name:Brianne Rios , 05/11/2025 02:00:00 PM, [address], [place], [address], Provider Name:Brianne Rios , 05/18/2025 02:00:00 PM, [address], [place], [address], Provider Name:Brianne Rios , 05/25/2025 02:00:00 PM, [address], [place], [address], Provider Name:Brianne Rios , 06/01/2025 02:00:00 PM, [address], [place], [address], Provider Name:Brianne Rios , 06/08/2025 02:00:00 PM, [address], [place], [address], Provider Name:Brianne Rios , 06/15/2025 02:00:00 PM, [address], [place], [address], Provider Name:Brianne Rios , 06/22/2025 02:00:00 PM, [address], [place], [address], Provider Name:Brianne Rios , 06/29/2025 02:00:00 PM, [address], [place], [address], Provider Name:Brianne Rios , 07/06/2025 02:00:00 PM, [address], [place], [address], Provider Name:Brianne Rios , 07/13/2025 02:00:00 PM, [address], [place], [address], Provider Name:Brianne Rios , 07/20/2025 02:00:00 PM, [address], [place], [address], Provider Name:Brianne Rios , 07/27/2025 02:00:00 PM, [address], [place], [address], Provider Name:Brianne Rios , 08/03/2025 02:00:00 PM, [address], [place], [address], Provider Name:Brianne Rios , 08/10/2025 02:00:00 PM, [address], [place], [address], Provider Name:Brianne Rios , 08/17/2025 02:00:00 PM, [address], [place], [address], Provider Name:Brianne Rios , 08/24/2025 02:00:00 PM, [address], [place], [address], Provider Name:Brianne Rios , 08/31/2025 02:00:00 PM, [address], [place], [address], Provider Name:Brianne Rios , 09/07/2025 02:00:00 PM, [address], [place], [address], Provider Name:Brianne Rios , 09/14/2025 02:00:00 PM, [address], [place], [address], Provider Name:Brianne Rios , 09/21/2025 02:00:00 PM, [address], [place], [address], Insurance Providers Payer Name Payer Address Payer Phone Subscriber Number Group Number Insured Name Patient Relationship to Insured Coverage Start Date Coverage End Date [facility] Medicare Replacement/ Advantage - Ppo [address] [address] [place] [address] [id number] VIVIEN Jalloh LISA Self - patient is the insured [place] [address] [address] [place] [phone] [id number] VIVIEN Jalloh LISA Self - patient is the insured Medical (General) History Medical History History ICD Code Problems: Depressed bipolar I disorder Generalized anxiety disorder Grief finding Long-term drug therapy Movement disorder Obsessive-compulsive disorder Posttraumatic stress disorder Primary insomnia Psychologic conversion disorder Recurrent major depressive episodes, mod erate Weight gain , Surgical History Surgery Date(Month/Year) Hysterectomy (23248) 08/02/1998 Removal of gallbladder (32840) 0 Mass on the Ovaries Removed 06/16/2024
== END 2025-01-17 12:57 | disposition home or self-care (01) ==
PROVIDERS: Visit Provider Nurse Practitioner Adult Health
DX: M54.9 Dorsalgia, unspecified (principal); M54.6 Pain in thoracic spine
CPT/HCPCS: 72128; 72131

== ENCOUNTER 2025-02-22 18:21 | Emergency (ER) | payer MEDICARE, MEDICAID, SELFPAY ==
--- OUTSIDE RECORDS SUMMARY | 2025-02-03 10:00 | XMS_ITS ---
Author Organization [facility] Address [facility] [facility] [address] [place] [address] Care Team Providers Care Feed Crusher Name Role Phone Jamee Nelson MD Primary Care Provider Unavailab Monique Armstrong Unavailable [phone] Brianne Rios Unavailable [phone] REASON FOR VISIT LVM to R/S Social History Sex Assigned At : Social History Observation Description Sex Assigned At Female Encounters Encounter Location Date Provider Diagnosis [facility] [employer] [place] [address] [facility] [address] [place] [address] 02/03/2025 Brianne Rios Plan Of Treatment Next Appt Details Provider Name:Brianne Rios , 02/23/2025 02:00:00 PM, [address], [address], [address], Provider Name:Brianne Rios , 03/02/2025 02:00:00 PM, [address], [address], [address], Provider Name:Brianne Rios , 03/06/2025 01:00:00 PM, [facility], [address], Provider Name:Brianne Rios , 03/09/2025 02:00:00 PM, [address], [address], [address], Provider Name:Brianne Rios , 03/16/2025 02:00:00 PM, [facility] [address], [place], [address], Provider Name:Brianne Rios , 03/20/2025 02:00:00 PM, [address], [place], [address], Provider Name:Brianne Rios , 03/23/2025 02:00:00 PM, [address], [place], [address], Provider Name:Monique Collins , 03/28/2025 11:30:00 AM, [address], [place], [address], Provider Name:Brianne Rios , 04/03/2025 02:00:00 PM, [address], [place], [address], Provider Name:Brianne Rios , 04/06/2025 02:00:00 PM, [address], [place], [address], Provider Name:Brianne Rios , 04/13/2025 02:00:00 PM, [address], [place], [address], Provider Name:Brianne Rios , 04/20/2025 02:00:00 PM, [address], [place], [address], Provider Name:Brianne Rios , 05/11/2025 02:00:00 PM, [address], [place], [address], Provider Name:Brianne Rios , 05/18/2025 02:00:00 PM, [address], [place], [address], Provider Name:Brianne Rios , 05/25/2025 02:00:00 PM, [address], [place], [address], Provider Name:Brianne K Gabriel , 06/01/2025 02:00:00 PM, [address], [place], [address], Provider Name:Brianne Pratt Gabriel , 06/08/2025 02:00:00 PM, [address], [place], [address], Provider Name:Brianne Rios , 06/15/2025 02:00:00 PM, [address], [place], [address], Provider Name:Brianne Rios , 06/22/2025 02:00:00 PM, [address], [place], [address], Provider Name:Brianne Rios , 06/29/2025 02:00:00 PM, [facility], [place], [address], Provider Name:Brianne Rios , 07/06/2025 02:00:00 PM, [address], [place], [address], Provider Name:Brianne Rios , 07/13/2025 02:00:00 PM, [address], [address], [place], [address], Provider Name:Brianne Rios , 07/20/2025 02:00:00 PM, [address], [place], [address], Provider Name:Brianne Rios , 07/27/2025 02:00:00 PM, [facility], [place], [address], Provider Name:Brianne Rios , 08/03/2025 02:00:00 PM, [address], [place], [address], Provider Name:Brianne Rios , 08/10/2025 02:00:00 PM, [address], [place], [address], Provider Name:Brianne Santa Gabriel , 08/17/2025 02:00:00 PM, [address], [address], [place], [address], Provider Name:Brianne Rios , 08/24/2025 02:00:00 PM, [address], [place], [address], Provider Name:Brianne Rios , 08/31/2025 02:00:00 PM, [address], [place], [address], Provider Name:Brianne Rios , 09/07/2025 02:00:00 PM, [facility], [facility] [address], [place], [address], Provider Name:Brianne Rios , 09/14/2025 02:00:00 PM, [facility], [facility] [address], [place], [address], Provider Name:Brianne Rios , 09/21/2025 02:00:00 PM, [facility], [facility] [address], [place], [address], Progress Notes * LISA GREGGB:[birth year] (59 yo F)Acc No.[id number]:02/03/2025 Patient: Dhruv LISA SPEARS Provider: Roverto RIOS LCSW :1965 A ge:59 Y S ex:Female Date:02/03/2025 Phone: Address:[address] [place], [place] [phone] Pcp:Jamee Nelson MD Data: * Chief Complaints: * L VM to R/S Billing Information: * Procedure Codes: * Electronic signature of Shari Rios LCSW on 02/22/2025 at 08:28 PM CDT Sign off status: Pending Signatures: No Ad Hoc Signature Added * Provider: Roverto RIOS LCSW Date: 1 Generated for Sabine Lyman on: 1 08:28 PM CDT
--- NOTE | ~2025-02-22 | XR_ITS ---
XR foot LT min 3V INDICATION: pain toe 3/4 . COMPARISON: None. FINDINGS: Frontal, lateral and oblique views of the left foot demonstrate no acute fracture or dislocation. Degenerative calcaneal spurs noted. There is surgical staple infiltrate first metatarsal. IMPRESSION: No acute fracture or dislocation. Reviewed, dictated and finalized at location S.
[2025-02-22 18:23] VITALS: BP 144/86; PULSE 80; RESP 16; TEMP 36.4; O2SAT 100
--- OUTSIDE RECORDS SUMMARY | 2025-02-22 20:28 | XMS_ITS | Encounter Summary ---
Author Organization [facility] Healthcare Address [address] [place] [address] Care Team Providers Care Truck Operator Name Role Phone Carolyn Aggarwal MODELER Primary Care Provider [phone] Alex Hoskins MD Unavailable [phone] Encounter Details Date Type Department Care Team ([facility] st Contact Info) Description 02/23/2024 Orders Only [facility] [place] [address] [place] [address] Scanning, Provider Social History Tobacco Use Types Packs/Day Years Used Date Smoking Tobacco: Former Cigarettes 0.3 43.9 S tarted: 04/1981 Smokeless Tobacco: Never Alcohol Use Standard Drinks/Week Comments Not Currently 0 (1 standard drink = 0.6 oz pur e alcohol) Comments Unknown Sex and Gender Information Value Date Recorded Sex Assigned at Not on file 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
--- OUTSIDE RECORDS SUMMARY | 2025-02-22 20:28 | XMS_ITS | Clinical Summary ---
Author Organization [facility] Address [address] [place] [address] Care Team Providers Care Grocery Packer Name Role Phone Unavailable Primary Care Provider [...] Vaccine ( - 2023-2 5 season) 2025 Influenza Adult (#1) 2025 RSV Immunization or 60+ Years (1 - 1-dose 75+ series) 2039 Hepatitis A Vaccines Aged Out No long er eligible based on patient's age to complete this topic Meningococcal B Vaccine Aged Out No l onger eligible based on patient's age to complete this topic Meningococcal Vaccine Aged Out No lexie rhys eligible based on patient's age to complete this topic RSV Immunizations Under 20 Months Aged Out No longer eligible based on patient's age to complete this topic
--- OUTSIDE RECORDS SUMMARY | 2025-02-22 20:28 | XMS_ITS | Clinical Summary ---
Author Organization [facility] Address [facility] [place] [address] Care Team Providers Care Outside Maintenance Worker Name Role Phone Carolyn Aggarwal NP Primary Care Provider [phone] Alex Hoskins MD Unavailable [phone] Allergies No known active allergies Medications [...] (ATARAX) 25 mg tablet 06/15/19 25 Active isosorbide mononitrate ER (IMDUR) 120 [...] DAILY 270 tablet 3 01/04/20 25 Active torsemide (DEMADEX) 20 mg tablet TAKE 1 TABLET(20 MG) BY MOUTH TWICE DAILY 180 tablet 1 02/21/20 25 Active torsemide (DEMADEX) 20 mg tablet TAKE 1 TABLET(20 MG) BY MOUTH TWICE DAILY 180 tablet 1 08/17/19 25 025 Discontinued Active Problems Problem Noted [...] Morbid obesity with BMI of 45.0-49.9, adult /06/2021 RORO on CPAP 07/03/2021 Accessory navicular bone of foot 01/11/2021 Tibialis posterior tendinitis 01/11/2021 Sinoatrial node dysfunction (CMS/HCC) 04/06/2020 Pacemaker 12/22/2019 Overview (01/05/2020): [employer] Dual Pacemaker. Dx; SSS, Sinus Bradycardia. 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 INTER[employer] Gender Identity Not on file Sexual Orientation [...] 07/02/2020, 02/01/2014 Medical Devices Implanted Type Area Dictating Machine Transcriber Device Identifier Shelf Expiration Date Model / Serial / Lot Pacemaker Pacemaker Left: Chest Procedures Procedure Name Priority Date/Time Associated Diagnosis Comments DEVICE CHECK - REMOTE Routine 12/28/2024 11:05 AM CDT SSS (sick sinus syndrome) (HCC) Pacemaker Bradycardia from Last 3 Months Results * DEVICE CHECK - REMOTE (12/28/2024 11:05 AM CDT) Anatomical Region Laterality Modality Other Narrative 01/06/2025 12:42 PM CDT [employer] Dual Pacemaker. Dx; SSS, Sinus Bradycardia. DOI 02/04/2014-Dr Smith. Latitude remote monitoring. Routine DDD Pacemaker remote. Normal device function. Battery function-Ok, 2.5 years remaining battery life to DYLAN Appropriate lead measurements noted. Presenting rhythm: AP-VS, regular. AP-26%, INVENTORY CONTROL CLERK-0%. 6-Atrial high rate episode noted, longest 1 minute duration, iegm's SVT- ATach. No ventricular high rate episodes noted. Medications; Lopressor, Imdur. See scanned report. Office pacemaker f/u 07/26/2025. Latitude remote f/u 03/29/2025. Mitra Emanuel, JARON Walter Sanchez MD [facility] PROC EDURES Final Result from Last [address] [place] [address] [place] [address] [facility] MEDICARE ADVANTAGE IDPA IDPA [facility] MEDICARE ADVANTAGE Advance Directives For more information, please contact: [phone] * Full Code (Latest Code Status on File) Date Activated Date Inactivated Comments 06/16/2024 10:17 PM 06/17/2024 4:40 PM Care Teams Outside Maintenance Worker Relationship Specialty Start Date End Date Carolyn Aggarwal NP [facility] [place] [address] PCP - General Family Medicine 11/16/23 Alex Hoskins MD [address] [place] [address] Referring Physician Obstetrics and Gynecology 02/23/24
--- OUTSIDE RECORDS SUMMARY | 2025-02-22 20:29 | XMS_ITS | Data Portability ---
Author Organization [facility] Paul Address [address] [place] [address] Assessment No assessment recorded. Plan of Treatment Reminders Order Date Submit Date Provider Last Modified By Organization Details Last Modified Time Details Appointments None recorded. Lab None recorded. Referral None recorded. Procedures None recorded. Surgeries None recorded. Imaging US, pelvis 2023 [email or web address] [address], [place], [address], 12:11:19 US, transvagina l 2023 [email or web address] [address], [place], [address], 12:11:19 Medication Orders oxycodone-a cetaminophe n 5 mg-325 mg tablet 2023 [id number], [address], [place], [place], [id number], 12:22:31 Patient TargetsNo targets recorded. Patient InstructionsNo instructions recorded. Reason for Referral None Reported. Results Created Date Observation Date Name Description Value Unit Range Abnormal Flag Note LastModifiedBy Organization Detail LastModifiedTime 02/05/2002/05/2024 urina lysis , dipst ick Leukocytes - Not Available Yue dillard [address], [place], [address], 02/05/2024 11:34:10 02/05/20 24 02/05/2024 urina lysis , dipst ick Nitrite - Not Available Paul [address], [place], [address], 02/05/2024 11:34:10 02/05/2002/05/2024 urina lysis , dipst ick Urobilinogen - Not Available [facility] bev [address], [place], [address], 02/05/2024 11:34:10 02/05/2002/05/2024 urina lysis , dipst ick Protein - Not Available Paul [address], [place], [address], 02/05/2024 11:34:10 02/05/2002/05/2024 urina lysis , dipst ick pH 5 Not Available Paul [address], [place], [address], 02/05/2024 11:34:10 02/05/2002/05/2024 urina lysis , dipst ick Specific Av[place] 1.000 Not Available [facility] [address], [place], [address], 02/05/2024 11:34:10 02/05/2002/05/2024 urina lysis , dipst ick Ketone - Not Available Paul [address], [place], [address], 02/05/2024 11:34:10 02/05/2002/05/2024 urina lysis , dipst ick Bilirubin - Not [facility] [address], [place], [address], 02/05/2024 11:34:10 02/05/2002/05/2024 urina lysis , dipst ick Glucose - Not Available Paul [address], [place], [address], 02/05/2024 11:34:10 02/05/20 24 02/05/2024 urina lysis , dipst ick Appearance clear Not Available [facility] nishant [address], [place], [address], 02/05/2024 11:34:10 02/05/20 24 02/05/2024 urina lysis , dipst ick Color yellow Not Available Paul [address], [place], [address], 02/05/2024 11:34:10 02/16/20 24 02/16/2024 OVA 1 scan result See Scanne d Result Not Available [facility] (Lab) [address], [place], [address], 02/19/2024 10:30:34 02/09/2002/08/2024 CT, abdom en + pelvi s, w/ contr ast No observ ation record ed. [email or web address] [address], [place], [address], 02/12/2024 09:13:32 02/16/20 24 02/16/2024 US, pelvi s No observ ation record ed. [email or web address] Paul [address], [place], [address], 02/16/2024 12:11:33 02/16/20 24 02/16/2024 US, trans vagin al No observ ation record ed. [email or web address] Paul [address], [place], [address], 02/16/2024 12:11:43 02/16/20 24 02/16/2024 US, pelvi s No observ ation record ed. [email or web address] Maureen [address], [place], [address], 02/17/2024 10:03:44 Result Notes None recorded. Procedures Surgical History Date Name Laterality Status Provider Name and Address Organization Details Recorded Time 05/04/19 23 Date of Last Mammogram completed [facility] 02/05/2024 11:19:04 11/02/19 22 Date of Last Pap Smear completed [facility] 02/05/2024 11:17:55 05/04/19 21 Date of Last Colonoscopy completed [facility] 02/05/2024 11:20:16 05/04/19 [address] [facility] 02/05/2024 10:45:42 05/04/18 99 Partial hysterectomy completed [facility] 02/05/2024 11:25:13 Imaging Results None recorded. Procedure Notes None recorded. Medical Equipment None Reported. Allergies No known drug allergies Medications Name Sig Start Date Stop Date Status Note LastModified by Organization Details LastModified Time primidone 50 mg tablet Take 2 tablets every day by oral route. active Not Available Not Available No t Available clonazepam 0.5 mg tablet Take 1 tablet 3 times a day by oral route. active Not Available Not Available No t Available omeprazole 40 mg capsule,del ayed release Take 1 capsule every day by oral route. active Not Available Not Available No t Available metoprolol tartrate 100 mg-hydrochl orothiazide 50 mg tablet Take 1 tablet every day by oral route. active Not Available Not Available No t Available oxycodone-a cetaminophe n 5 mg-325 mg tablet Take 1 tablet every 6 hours by oral route. 2023 active Not Available Not Available Not Avai lable venlafaxine 37.5 mg tablet Take 1 tablet twice a day by oral route. active Not Available Not Available No t Available losartan 25 mg tablet Take 1 tablet every day by oral route. active Not Available Not Available No t Available levetiracet am 750 mg tablet Take 1 tablet twice a day by oral route. active Not Available Not Available No t Available buspirone 15 mg tablet Take 1 tablet twice a day by oral route. active Not Available Not Available No t Available magnesium 200 mg tablet Take by oral route. active Not Available Not Available No t Available escitalopra m 20 mg tablet Take 1 tablet every day by oral route. active Not Available Not Available No t Available metoprolol tartrate 02/18 completed Not Available Not Available Not Available isosorbide mononitrate 02/18 completed Not Available Not Available Not Available clonazepam 02/18 completed Not Available Not Available Not Available pantoprazol e 02/18 completed Not Available Not Available Not Available aripiprazol e 15 mg disintegrat ing tablet Place 1 tablet every day by transling ual route. active Not Available Not Available No t Available Vitals Date Recorded Body height Body mass index (BMI) Body weight Systolic And Diastolic Provider Name and Address Organization Details Last Updated DateTime 02/05/2024 162.56 cm 46.3 kg/m2 884401.5 g 114/77 mm[Hg] Elizabeth Beavers [facility] 02/05/2024 11:12:36 Date Recorded Body height Body mass index (BMI) Body weight Systolic And Diastolic Provider Name and Address Organization Details Last Updated DateTime 02/19/2024 162.56 cm 47.7 kg/m2 699418.68 g 114/72 mm[Hg] Salma Caldwell [facility] 02/19/2024 11:30:02 Social History Question Answer Notes LastModified by Organizat ion Details LastModified Time Tobacco Smoking Status Never [facility]oker [facility] 02/05/2024 10:50:11 Do You Have An Advance Directive? No Information not available 02/05/2024 Are You Blind Or Do You Have Difficulty Seeing? No [email or web address] Information not available 02/05/2024 What Is Your Level Of Caffeine Consumption? None [email or web address] Information not available 02/05/2024 In The 14 Days Before Symptom Onset, Have You Had Close [facility] While That Case Was Ill? No [email or web address] Information not available 02/05/2024 In The 14 Days Before Symptom Onset, Have You Had Close Contact With A Person Who Is Under Investigation For COVID-19 While That Person Was Ill? No [email or web address] Information not available 02/05/2024 Have You Been To An Area Known To Be High Risk For COVID-19? No [email or web address] Information not available 02/05/2024 Are You Deaf Or Do You Have Serious Difficulty Hearing? Yes Hearing Aids [email or web address] Information not available 02/05/2024 What Type Of Diet Are You Following? REGULAR [email or web address] Information not available 02/05/2024 What Is The Highest Grade Or Level Of School You Have Completed Or The Highest Degree You Have Received? FW04007-5 [email or web address] Information not available 02/05/2024 Are There Any Guns Present In Your Home? No [email or web address] Information not available 02/05/2024 Do You Use Your Seat Belt Or Car Seat Routinely? Yes [email or web address] Information not available 02/05/2024 Are You Sexually Active? No [email or web address] Information not available 02/05/2024 Do You Have Smoke And Carbon Monoxide Detectors In Your Home? Yes [email or web address] Information not available 02/05/2024 Do You Use Sunscreen Routinely? No [email or web address] Information not available 02/05/2024 Has Tobacco Cessation Counseling Been Provided? No [email or web address] Information not available 02/05/2024 Do You Have Difficulty Walking Or Climbing Stairs? Yes [email or web address] Information not available 02/05/2024 Sex: Female Functional Status Question Answer Note LastModified by Organizat ion Details LastModified Time Do you use any illicit or recreational drugs? No [email or web address] Information not available 02/05/2024 Do you or have you ever used any other forms of tobacco or nicotine? No [email or web address] Information not available 02/05/2024 What is your level of alcohol consumption? None [email or web address] Information not available 02/05/2024 Are you currently employed? No disabled [email or web address] Information not available 02/05/2024 Are you able to walk independently without assistance or assistive devices? YESASSIST Pt has a cane at home [email or web address] Information not available 02/05/2024 Are you able to care for yourself independently? Yes [email or web address] Information not available 02/05/2024 Do you have difficulty dressing, bathing, grooming, or toileting? No [email or web address] Information not available 02/05/2024 What is your exercise level? None Information not available 02/05/2024 Mental Status Question Answer Note LastModified by Organization D etails LastModified Time Do you feel stressed (tense, restless, nervous, or anxious, or unable to sleep at night)? [id number] [email or web address] Information not available 02/05/2024 Family History Relationship Description Onset Age of this Age Resolved Age Notes LastModified by Organization Details LastModified Time Mother Diabetes mellitus [email or web address] Not available 2023 10:50:18 Mother Hypercholest erolemia [email or web address] Not available 2023 10:50:24 Mother Seizure [email or web address] Not available 02/05/2024 10:50:35 Mother Hypertensive disorder [email or web address] Not available 2023 10:51:34 Medical History Condition Response Allergies (Food, seasonal, environmental ) N Other Y Breast Cancer N Drug/Latex Allergies/Reactions N Blood Transfusion N Dermatologic Disorders N Lung Disease N Defects or Inherited Disease N Breast Problem N Gestational Diabetes N Hematologic disorders N Anesthesia Complications N History of STI N Deep Vein Thrombosis N Polycystic ovary syndrome N Anxiety Disorder N Autoimmune disease N Arthritis N Infertility N Polyps N Acid Reflux (GERD) Y History of abnormal pap N Cancer N Stroke N Varicosities N Neurologic/Epilepsy N Endometriosis N High Cholesterol Y Headaches N Fibromyalgia N Kidney Disease N Heart Problems N Kidney or Bladder Problems N Thyroid Problems N GI Problems N Eating Disorder N Anemia N Art (IVF or FET) N Psychiatric Illness N Ovarian Cancer N Diabetes Y Pulmonary (TB, Asthma) N Hepatitis/Liver Disease N No Past Medical History N Eczema N Urinary Tract Infection N Abuse/Domestic Violence N Asthma N Trauma/Violence N Depression/ depression N Heart Disease N Pre-Eclampsia N Hypertension N Osteoporosis N Thrombophilias N Gynecological History Statement/Question Response Abnormal Pap N Date of Last Mammogram 05/04/2022 On BCP's at Conception? N STIs/STDs N HPV Vaccine N Current Control Method Menopause Age at First Child 17 Date of Last Colonoscopy 05/04/2020 Sexually Active? N Menses Monthly N Age of first menstrual cycle 14 Date of Last Pap Smear 11/01/2021 Sexual Problems? N LMP Unknown Obstetrics History GPAL:G 3 P 3 0 0 2 Type Value Full Term 3 Living 2 Total 3 Past Encounters Encounter ID Performer Location Encounter Start Date Encounter Closed Date Diagnosis/Indication Diagnosis SNOMED-CT Code Diagnosis ICD10 Code Diagnosis IMO Codes Diagnosis Note [id number] Alex Hoskins MD Paul [address] [address] 02/05/2024 09:51:15 02/09/2024 10:09:19 Pain in pelvis 27474746 R10.2 58-YEAR-OL D FEMALE WITH A LARGE PELVIC MASS. TO OBTAIN CT OF THE ABDOMEN AND PELVIS. TO DISCUSS THE RESULTS. LIKELY NEEDS GYNE ONC CONSULT. Pelvic mass 71519303 R19 .00 [id number] Alex Hoskins MD Paul [address] [address] 02/16/2024 09:49:46 02/16/2024 12:06:10 Imaging result abnormal [id number] R93.89 R19.09 [id number] Alex Hoskins MD Paul [address] [address] 02/19/2024 10:50:21 02/20/2024 10:00:09 Abdominal pain 46833652 R10.9 Pelvic mass 38143119 R19 .00 this patient is a 58-year-ol d female with pelvic mass. She was found to have a pelvic mass on pelvic exam. She is status post hysterecto my. CT of the abdomen and pelvis was obtained. There was a mass in the pelvis touching the vagina that was fed by the gonadal Artery. Ultrasound showed an 8 cm mass that had very little ultrasound penetratio n. The mass appears to be from gynecologi c origin. Likely left ovary. She will be referred to Gynecology Oncology. The referral arrangemen ki will be made. I spoke to radiology about the CT image report, due to its ambiguity. Got a clarificat ion that was helpful in triage in the patient. She will be referred to gynecology oncology. Spent over 20 minutes with the patient. Health Concerns Section Related Observation LastModified by Organization Detai ls LastModified Time None Recorded Concern Status LastModified by Organization Details LastModified Time None Recorded Advance Directives Directive N: Payers Insurance Date Sequence Insurance Name Policy Number Policy Cooper Covered Member ID Cooper Member ID Guarantor Name 02/22/2024 1 [facility] (MEDICARE REPLACEMENT/A DVANTAGE - PPO) [id number] Glendy Gorman [id number] Glendy Gorman 02/05/2024 2 MEDICAID[place]: [facility] Glendy Gorman [id number] Glendy Gorman Notes Date Note Type Note Provider Name and Address Organization Details Recorded Time 4 text/html Pelvic Pain/PressureReported by PatientHPIFor associated symptoms, patient reportsback pain,diarrhea, andincontinencebut reportsno constipation,no pain with urination,normal emptying of bladder,no nausea, andno vomiting. For location, patient reportsbilateral. For quality, patient reportspressureandpain. For severity, patient reportsmild. For duration, patient reportspresent for 2-3 weeks. For context, patient reportshistory of urinary tract infectionandhistory of kidney stones. For alleviating factors, patient reportsnone. For onset/timing, (gradual). For aggravating factors, (walkng). Alex Hoskins MD [address], [place], [address], [facility] 02/08/2024 21:11:27 4 text/html this patient is a 58-year-old female with pelvic mass. She was found to have a pelvic mass on pelvic exam. She is status post hysterectomy. CT of the abdomen and pelvis was obtained. There was a mass in the pelvis touching the vagina that was fed by the gonadal Artery. Ultrasound showed an 8 cm mass that had very little ultrasound penetration. The mass appears to be from gynecologic origin. Likely left ovary. She will be referred to Gynecology Oncology. The referral arrangements will be made. I spoke to radiology about the CT image report, due to its ambiguity. Got a clarification that was helpful in triage in the patient. She will be referred to gynecology oncology. Spent over 20 minutes with the patient. Alex Hoskins MD [address], [place], [address], [facility] 02/19/2024 18:12:18 OBGyn Episode Ob Episode Information Episode Created Date Number of Fetuses Patient Bloodtype Patient rh Status Prepregnancy Weight lbs Domestic Partner Domestic Partner Phone Father Name Hot Walker Status 02/05/20 24 1 CLOSED Fetus Data First Name Last Name Admitted to NICU Weight (g) Sex Living Outcome Pediatric Complications Fetus ID Race Codes Race Delivery Type 7427.56 9 F Full Term [id number] Vaginal Delivery Florentin Calculation Initial Florentin Date Initial Exam Date Initial Exam Provider Initial Ultrasound Date Last Menstrual Period Date Ultra Sound Weeks Gestation 0 Eighteen To Twenty Week Florentin Update Ultra Sound Date Fundal Height At Umbil Quickening Date Ultra Sound Latest Weeks Gestation Final Florentin Confirmed By Final Florentin Confirmed Date Final Florentin Date Ultra Sound Latest Days Gestation 0 0 Menstrual History Last Menstrual Date Menses Monthly On Bcp Conception Prior Menses Frequency Hcg Plus Date Menarche Onset Age Delivery Information Delivery Date Delivery Type Labor Anesthesia Weeks Gestation Incision Type Labor Labor Length Hrs Delivered By Post Complications Tubal Sterilization Discharge Date Comments 9 40 Discharge Information Feeding Method Contraceptive Method Maternal HG B and HCT Levels Ob Episode Information Episode Created Date Number of Fetuses Patient Bloodtype Patient rh Status Prepregnancy Weight lbs Domestic Partner Domestic Partner Phone Father Name Hot Walker Status 02/05/20 24 1 CLOSED Fetus Data First Name Last Name Admitted to NICU Weight (g) Sex Living Outcome Pediatric Complications Fetus ID Race Codes Race Delivery Type 2664.85 3 M Full Term [id number] Vaginal Delivery Florentin Calculation Initial Florentin Date Initial Exam Date Initial Exam Provider Initial Ultrasound Date Last Menstrual Period Date Ultra Sound Weeks Gestation 0 Eighteen To Twenty Week Florentin Update Ultra Sound Date Fundal Height At Umbil Quickening Date Ultra Sound Latest Weeks Gestation Final Florentin Confirmed By Final Florentin Confirmed Date Final Florentin Date Ultra Sound Latest Days Gestation 0 0 Menstrual History Last Menstrual Date Menses Monthly On Bcp Conception Prior Menses Frequency Hcg Plus Date Menarche Onset Age Delivery Information Delivery Date Delivery Type Labor Anesthesia Weeks Gestation Incision Type Labor Labor Length Hrs Delivered By Post Complications Tubal Sterilization Discharge Date Comments 3 40 Discharge Information Feeding Method Contraceptive Method Maternal HG B and HCT Levels Ob Episode Information Episode Created Date Number of Fetuses Patient Bloodtype Patient rh Status Prepregnancy Weight lbs Domestic Partner Domestic Partner Phone Father Name Hot Walker Status 02/05/20 24 1 CLOSED Fetus Data First Name Last Name Admitted to NICU Weight (g) Sex Living Outcome Pediatric Complications Fetus ID Race Codes Race Delivery Type 6973.97 7 F Full Term [id number] Vaginal Delivery Florentin Calculation Initial Florentin Date Initial Exam Date Initial Exam Provider Initial Ultrasound Date Last Menstrual Period Date Ultra Sound Weeks Gestation 0 Eighteen To Twenty Week Florentin Update Ultra Sound Date Fundal Height At Umbil Quickening Date Ultra Sound Latest Weeks Gestation Final Florentin Confirmed By Final Florentin Confirmed Date Final Florentin Date Ultra Sound Latest Days Gestation 0 0 Menstrual History Last Menstrual Date Menses Monthly On Bcp Conception Prior Menses Frequency Hcg Plus Date Menarche Onset Age Delivery Information Delivery Date Delivery Type Labor Anesthesia Weeks Gestation Incision Type Labor Labor Length Hrs Delivered By Post Complications Tubal Sterilization Discharge Date Comments 6 40 Discharge Information Feeding Method Contraceptive Method Maternal HG B and HCT Levels
--- OUTSIDE RECORDS SUMMARY | 2025-02-22 20:29 | XMS_ITS | Patient Health Record ---
Author Organization [facility] Address [address] [place] [address] Care Team Providers Care Supervisor Asbestos Removal Name Role Phone Jamee Nelson MD Primary Care Provider Unavailab Monique Armstrong Unavailable [phone] GabrielBrianne Unavailable [phone] Allergies No Known Allergies Reason For Referral No Information Medications Medication SIG (Take, Route, Frequency, Duration) Notes Start Date End Date Status clonazePAM 0.5 MG Tablet 1 tablet Oral t wice a day; Duration: 30 days 01/03/2025 Active ARIPiprazole 10 MG Tablet TAKE 1 TABLET BY MOUTH EVERY DAY AT BEDTIME Oral Once a day; Duration: 90 days 01/03/2025 Active Escitalopram Oxalate 20 MG Tablet TAKE 1 TABLET BY MOUTH DAILY Oral daily; Duration: 90 days Active busPIRone HCl 10 MG Tablet 1 tablet Oral ly 3 times a day; Duration: 90 days 01/03/2025 04/03/2025 Active Immunizations Vaccine Route Administration Date Status [...] 1st dose Unknown 08/28/2020 Ad ministered Novel [id number], preservative free Unknown 01/14/2018 Administered Pfizer-Biontech Covid-19 [...] Problem Bipolar affective disorder, currently depressed, mild (198990935) Bipolar disorder, current episode depressed, mild (F31.31) 4 Active confirmed Problem Generalized anxiety disorder (31241902) Generalized anxiety disorder (F41.1) 4 Active confirmed Problem Posttraumatic stress disorder (72441410) Post-traumatic stress disorder, chronic (F43.12) 4 Active confirmed Problem Primary insomnia (7546956) Primary insomnia (F51.01) 4 Active confirmed Problem Long-term current use of drug therapy (082550121) Other fpc (current) drug therapy (Z79.899) 4 Active confirmed Problem Obsessive-compuls naomi disorder (791011782) Mixed obsessional thoughts and acts (F42.2) Active confirmed Problem Obsessive-compuls naomi disorder (291113376) Obsessive-compu lsive disorder, unspecified (F42.9) 4 Active confirmed Problem Posttraumatic stress disorder (78764231) Post traumatic stress disorder (PTSD) (F43.10) Active confirmed Vital Signs Heart Rate 77 /min 01/03/2025 Respiratory Rate 20 /min 01/03/2025 Height-cm 162.56 cm 01/03/2025 Blood pressure diastolic 70 mm Hg 01/03/2025 Weight-kg 116.12 kg 01/03/2025 Height 64.00 in 01/03/2025 Blood pressure systolic 108 mm Hg 01/03/2025 Weight 256 lbs 01/03/2025 BMI 43.94 kg/m2 01/03/2025 Encounters Encounter Location Date Provider Diagnosis [facility] [employer] [place] [address] [facility] [address] [place] [address] 03/24/[address] [facility] [employer] [place] [address] [address] 03/03/[address] [facility] [employer] [facility] [address] [address] 03/17/[address] [facility] [employer] [place] [address] [address] 03/28/[address] [facility] [employer] [place] [address] [facility] [address] [place] [address] 04/05/2024 Monique Guadalupe Bipolar disorder, current episode depressed, mild F31.31 ; Generalized anxiety disorder F41.1 ; Post-traumatic stress disorder, chronic F43.12 ; Obsessive-compulsive disorder, unspecified F42.9 ; Primary insomnia F51.01 and Other fpc (current) drug therapy Z79.899 [facility] [employer] [place] [address] [place] [address] 05/19/[address] [facility] [employer] [facility] [address] [facility] [address] [place] [address] 05/26/2024 Brianne Rios [facility], [facility] [address] [place] [address] 06/02/2024 Brianne Rios [facility], [facility] [address] [place] [address] 06/06/2024 Brianne Rios Bipolar disorder, current episode depressed, mild F31.31 ; Generalized anxiety disorder F41.1 ; Post-traumatic stress disorder, chronic F43.12 and Mixed obsessional thoughts and acts F42.2 [facility], [facility] [address] [place] [address] 06/09/2024 Brianne Rios [facility], [facility] [address] [place] [address] 06/16/2024 Brianne Rios [facility], [facility] [address] [place] [address] 06/23/2024 Brianne Rios [facility], [facility] [address] [place] [address] 06/30/2024 Brianne Rios [facility], [facility] [address] [place] [address] 07/04/2024 Monique Guadalupe Generalized anxiety disorder F41.1 ; Bipolar disorder, current episode depressed, mild F31.31 ; Primary insomnia F51.01 ; Post traumatic stress disorder (PTSD) F43.10 ; Other fpc (current) drug therapy Z79.899 ; Post-traumatic stress disorder, chronic F43.12 and Obsessive-compulsive disorder, unspecified F42.9 [place] [address] [place] [address] 07/14/2024 Brianne Rios [facility], [facility] [address] [place] [address] 07/21/2024 Brianne Rios [facility], [facility] [address] [place] [address] 07/22/2024 Brianne Rios Encounter for screen ing for depression Z13.31 ; Bipolar disorder, current episode depressed, mild F31.31 ; Generalized anxiety disorder F41.1 ; Post traumatic stress disorder (PTSD) F43.10 and Mixed obsessional thoughts and acts F42.2 [facility], [place] [address] [place] [address] 08/04/[address] [facility] [employer], [facility] [address] [place] [address] 08/11/[facility] [address] [place] [address] 08/18/2024 [facility], [facility] [address] [place] [address] 08/25/2024 [facility], [facility] [address] [place] [address] 09/01/2024 [facility], [facility] [address] [place] [address] 09/08/2024 [employer], [facility] [address] [place] [address] 09/22/2024 [facility], [facility] [address] [place] [address] 09/29/2024 [employer] [employer], [facility] [address] [place] [address] 10/03/2024 Monique Guadalupe Bipolar disorder, current episode depressed, mild F31.31 ; Encounter for screening for depression Z13.31 ; Generalized anxiety disorder F41.1 ; Primary insomnia F51.01 ; Post traumatic stress disorder (PTSD) F43.10 ; Other fpc (current) drug therapy Z79.899 ; Obsessive-compulsive disorder, unspecified F42.9 and Encounter for screening for cardiovascular disorders Z13.6 [facility] [employer], [facility] [address] [place] [address] 10/13/[address] [facility] [employer], [facility] [address] [place] [address] 10/20/[address] [facility] [employer], [facility] [address] [place] [address] 10/27/[address] [facility] [employer], [facility] [address] [place] [address] 12/15/[address] [facility] [employer], [facility] [address] [place] [address] 12/22/[address] [facility] [employer], [facility] [address] [place] [address] 01/03/2025 Monique Guadalupe Bipolar disorder, current episode depressed, mild F31.31 ; Encounter for screening for depression Z13.31 ; Generalized anxiety disorder F41.1 ; Primary insomnia F51.01 ; Post traumatic stress disorder (PTSD) F43.10 ; Other fpc (current) drug therapy Z79.899 and Obsessive-compulsive disorder, unspecified F42.9 [facility] [address] [place] [address] 01/12/2025 [facility], [facility] [address] [place] [address] 01/19/2025 Brianne Gabriel [facility], [facility] [address] [place] [address] 01/20/2025 Brianne Gabriel [facility], [facility] [address] [place] [address] 01/24/2025 Brianne Rios Bipolar disorder, current episode depressed, mild F31.31 ; Generalized anxiety disorder F41.1 ; Post traumatic stress disorder (PTSD) F43.10 and Mixed obsessional thoughts and acts F42.2 [facility] [address] [place] [address] 01/26/2025 Brianne Gabriel [facility], [facility] [address] [place] [address] 02/02/2025 [facility] [address] [place] [address] 02/06/2025 Brianne Rios Bipolar disorder, current episode depressed, mild F31.31 ; Generalized anxiety disorder F41.1 ; Post traumatic stress disorder (PTSD) F43.10 and Mixed obsessional thoughts and acts F42.2 [facility] [address] [place] [address] 02/16/2025 Brianne Rios [facility], [facility] [address] [place] [address] 02/20/2025 Brianne Rios Bipolar disorder, current episode depressed, mild F31.31 ; Generalized anxiety disorder F41.1 ; Post traumatic stress disorder (PTSD) F43.10 and Mixed obsessional thoughts and acts F42.2 [facility] [employer] [facility] [address] [place] [address] 02/24/2024 Brianne Rios [facility] [address] [place] [address] 05/05/2024 [facility] [address] [facility] [address] [place] [address] 06/23/2024 [facility] [address] [place] [address] 09/15/2024 Monique Guadalupe Generalized anxiety disorder F41.1 [...] GDR 08/25 Abilify to 10 mg at night baker shaking, monitor depression, mood changes and bipolar s/s educated on all medications, benefits, side effects and risk, and educated on depression, anxiety, and mood d/o and educated on compliance of medications, metabolic and movement d/o education labs with [employer] Charge Nurse recently appointment's, continue therapy discussion with patient [...] Long-term drug therapy Patient Instructionslabs with [employer] Charge Nurse recentlycontinue therapy 06/06/2024 Bipolar disorder, current episode [...] GDR 08/25 Abilify to 10 mg at night baker shaking, monitor depression, mood changes and bipolar s/s educated on all medications, benefits, side effects and risk, and educated on depression, anxiety, and mood d/o and educated on compliance of medications, metabolic and movement d/o education labs with [employer] Charge Nurse recently appointment's, continue therapy discussion with patient [...] Long-term drug therapy Patient Instructionslabs with [employer] Charge Nurse recentlycontinue therapy 07/04/2024 Generalized anxiety disorder (ICD-10 - F41.1) [employer] Generalized Anxiety Disorder material was published, [employer] Anxiety Disorders material was published, Generalized Anxiety Disorder: Care Instructions material was published 1. Depressed bipolar I disorder - GDR 08/25 Abilify to 10 mg at night baker shaking, monitor depression, mood changes and bipolar s/s educated on all medications, benefits, side effects and risk, and educated on depression, anxiety, and mood d/o and educated on compliance of medications, metabolic and movement d/o education labs with [employer] Charge Nurse recently appointment's, continue therapy discussion with patient [...] Long-term drug therapy Patient Instructionslabs with [employer] Charge Nurse recentlycontinue therapy 07/22/2024 Bipolar disorder, current episode [...] and movement d/o education labs with [employer] Charge Nurse recently appointment's, continue therapy discussion with patient [...] reviewed from 07/14/23 monitor B/P, and for emliio s/s- educated on all rx Clonazepam 0.5 [...] drug therapy Patient Instructions labs with [employer] Charge Nurse recently continue therapy 10/03/2024 Encounter for screening [...] and movement d/o education labs with [employer] Charge Nurse recently appointment's, continue therapy discussion with patient [...] drug therapy Patient Instructions labs with [employer] Charge Nurse recently continue therapy 01/03/2025 Bipolar disorder, current [...] and movement d/o education labs with [employer] Charge Nurse recently appointment's, continue therapy discussion with patient [...] Long-term drug therapy Patient Instructions labs with [employer] Charge Nurse recently continue therapy 01/03/2025 Encounter for screening [...] and movement d/o education labs with [employer] Charge Nurse recently appointment's, continue therapy discussion with patient [...] drug therapy Patient Instructions labs with [employer] Charge Nurse recently continue therapy 01/24/2025 Bipolar disorder, current episode depressed, mild (ICD-10 - F31.31) 02/06/2025 Bipolar disorder, current episode depressed, mild (ICD-10 - F31.31) 02/20/2025 Bipolar disorder, current episode depressed, mild (ICD-10 - F31.31) 02/20/2025 Generalized anxiety disorder (ICD-10 - F41.1) 02/06/2025 Generalized anxiety disorder (ICD-10 - F41.1) 01/24/2025 Generalized anxiety disorder (ICD-10 - F41.1) 01/03/2025 Generalized anxiety disorder (ICD-10 - F41.1) [...] metabolic and movement d/o education labs with [employer] Charge Nurse recently appointment's, continue therapy discussion with patient [...] drug therapy Patient Instructions labs with [employer] Charge Nurse recently continue therapy 10/03/2024 Generalized anxiety disorder [...] and movement d/o education labs with [employer] Charge Nurse recently appointment's, continue therapy discussion with patient [...] drug therapy Patient Instructions labs with [employer] Charge Nurse recently continue therapy 07/22/2024 Generalized anxiety disorder (ICD-10 - F41.1) 07/04/2024 Primary insomnia (ICD-10 - F51.01) Insomnia: Care Instructions material was published, [employer] Sleeping Well material was published 1. Depressed bipolar I disorder - GDR 08/25 Abilify to 10 mg at night baker shaking, monitor depression, mood changes and bipolar s/s educated on all medications, benefits, side effects and risk, and educated on depression, anxiety, and mood d/o and educated on compliance of medications, metabolic and movement d/o education labs with [employer] Charge Nurse recently appointment's, continue therapy discussion with patient [...] Long-term drug therapy Patient Instructionslabs with [employer] Charge Nurse recentlycontinue therapy 06/06/2024 Post-traumatic stress disorder, chronic (ICD-10 - F43.12) 04/05/2024 Generalized anxiety disorder (ICD-10 - F41.1) [employer] Generalized Anxiety Disorder material was published, Learning About Anxiety Disorders material was published, Generalized Anxiety Disorder: Care Instructions material was published 1. Depressed bipolar I disorder - GDR 08/25 Abilify to 10 mg at night baker shaking, monitor depression, mood changes and bipolar s/s educated on all medications, benefits, side effects and risk, and educated on depression, anxiety, and mood d/o and educated on compliance of medications, metabolic and movement d/o education labs with [employer] Charge Nurse recently appointment's, continue therapy discussion with patient [...] Long-term drug therapy Patient Instructionslabs with [employer] Charge Nurse recentlycontinue therapy 04/05/2024 Post-traumatic stress disorder, chronic (ICD-10 - F43.12) Post-Traumatic Stress Disorder (PTSD): Care Instructions material was published 1. Depressed bipolar I disorder - GDR 08/25 Abilify to 10 mg at night baker shaking, monitor depression, mood changes and bipolar s/s educated on all medications, benefits, side effects and risk, and educated on depression, anxiety, and mood d/o and educated on compliance of medications, metabolic and movement d/o education labs with [employer] Charge Nurse recently appointment's, continue therapy discussion with patient [...] Long-term drug therapy Patient Instructionslabs with [employer] Charge Nurse recentlycontinue therapy 06/06/2024 Mixed obsessional thoughts and [...] and movement d/o education labs with [employer] Charge Nurse recently appointment's, continue therapy discussion with patient [...] Long-term drug therapy Patient Instructions labs with [employer] Charge Nurse recently continue therapy 01/03/2025 Primary insomnia (ICD-10 [...] and movement d/o education labs with [employer] Charge Nurse recently appointment's, continue therapy discussion with patient [...] Long-term drug therapy Patient Instructions labs with [employer] Charge Nurse recently continue therapy 07/04/2024 Post traumatic stress disorder (PTSD) (ICD-10 - F43.10) 1. Depressed bipolar I disorder - GDR 08/25 Abilify to 10 mg at night baker shaking, monitor depression, mood changes and bipolar s/s educated on all medications, benefits, side effects and risk, and educated on depression, anxiety, and mood d/o and educated on compliance of medications, metabolic and movement d/o education labs with [employer] Charge Nurse recently appointment's, continue therapy discussion with patient [...] Long-term drug therapy Patient Instructionslabs with [employer] Charge Nurse recentlycontinue therapy 01/24/2025 Post traumatic stress disorder (PTSD) (ICD-10 - F43.10) 02/06/2025 Post traumatic stress disorder (PTSD) (ICD-10 - F43.10) 02/20/2025 Post traumatic stress disorder (PTSD) (ICD-10 - F43.10) 02/20/2025 Mixed obsessional thoughts and acts (ICD-10 - F42.2) 02/06/2025 Mixed obsessional thoughts and acts (ICD-10 - F42.2) 01/24/2025 Mixed obsessional thoughts and acts (ICD-10 - F42.2) 01/03/2025 Post traumatic stress disorder (PTSD) (ICD-10 [...] metabolic and movement d/o education labs with [employer] Charge Nurse recently appointment's, continue therapy discussion with patient [...] drug therapy Patient Instructions labs with [employer] Charge Nurse recently continue therapy 10/03/2024 Post traumatic stress [...] and movement d/o education labs with [employer] Charge Nurse recently appointment's, continue therapy discussion with patient [...] drug therapy Patient Instructions labs with [employer] Charge Nurse recently continue therapy 07/22/2024 Mixed obsessional thoughts and acts (ICD-10 - F42.2) 07/04/2024 Other fpc (current) drug therapy (ICD-10 - Z79.899) Medication Refill: Care Instructions material was published 1. Depressed bipolar I disorder - GDR 08/25 Abilify to 10 mg at night baker shaking, monitor depression, mood changes and bipolar s/s educated on all medications, benefits, side effects and risk, and educated on depression, anxiety, and mood d/o and educated on compliance of medications, metabolic and movement d/o education labs with [employer] Charge Nurse recently appointment's, continue therapy discussion with patient [...] Long-term drug therapy Patient Instructionslabs with [employer] Charge Nurse recentlycontinue therapy 04/05/2024 Obsessive-compul sive disorder, unspecified (ICD-10 - F42.9) Obsessive-Comp ulsive Disorder: Care Instructions material was published 1. Depressed bipolar I disorder - GDR 08/25 Abilify to 10 mg at night baker shaking, monitor depression, mood changes and bipolar s/s educated on all medications, benefits, side effects and risk, and educated on depression, anxiety, and mood d/o and educated on compliance of medications, metabolic and movement d/o education labs with [employer] Charge Nurse recently appointment's, continue therapy discussion with patient [...] Long-term drug therapy Patient Instructionslabs with [employer] Charge Nurse recentlycontinue therapy 04/05/2024 Primary insomnia (ICD-10 - F51.01) Insomnia: Care Instructions material was published, [employer] About Sleeping Well material was published 1. 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 (ICD-10 - Z79.899) Medication [...] and movement d/o education labs with [employer] Charge Nurse recently appointment's, continue therapy discussion with patient [...] drug therapy Patient Instructions labs with [employer] Charge Nurse recently continue therapy 01/03/2025 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 (ICD-10 - Z79.899) Medication [...] metabolic and movement d/o education labs with [employer] Charge Nurse recently appointment's, continue therapy discussion with patient [...] drug therapy Patient Instructions labs with [employer] Charge Nurse recently continue therapy 01/03/2025 Obsessive-compul sive disorder, unspecified (ICD-10 - F42.9) Obsessive-Comp ulsive Disorder: Care Instructions material was published Transthoracic [...] metabolic and movement d/o education labs with [employer] Charge Nurse recently appointment's, continue therapy discussion with patient [...] drug therapy Patient Instructions labs with [employer] Charge Nurse recently continue therapy 10/03/2024 Obsessive-compul sive disorder, unspecified (ICD-10 - F42.9) Obsessive-Comp ulsive Disorder: Care Instructions material was published 1. Depressed bipolar I disorder - GDR 08/25 Abilify to 10 mg at night- stable monitor shaking, monitor depression, mood changes and bipolar s/s educated on all medications, benefits, side effects and risk, and educated on depression, anxiety, and mood d/o and educated on compliance of medications, metabolic and movement d/o education labs with [employer] Charge Nurse recently appointment's, continue therapy discussion with patient [...] drug therapy Patient Instructions labs with [employer] Charge Nurse recently continue therapy 07/04/2024 Post-traumatic stress disorder, chronic (ICD-10 - F43.12) Post-Traumatic Stress Disorder (PTSD): Care Instructions material was published 1. 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 Depressed bipolar I disorder - GDR 08/25 Abilify to 10 mg at night baker shaking, monitor depression, mood changes and bipolar s/s educated on all medications, benefits, side effects and risk, and educated on depression, anxiety, and mood d/o and educated on compliance of medications, metabolic and movement d/o education labs with [facility] Charge Nurse recently appointment's, continue therapy discussion with patient [...] Long-term drug therapy Patient Instructionslabs with [facility] Charge Nurse recentlycontinue therapy 07/04/2024 Obsessive-compul sive disorder, unspecified (ICD-10 - F42.9) Obsessive-Comp ulsive Disorder: Care Instructions material was published 1. Depressed bipolar I disorder - GDR 08/25 Abilify to 10 mg at night baker shaking, monitor depression, mood changes and bipolar s/s educated on all medications, benefits, side effects and risk, and educated on depression, anxiety, and mood d/o and educated on compliance of medications, metabolic and movement d/o education labs with [facility] Charge Nurse recently appointment's, continue therapy discussion with patient [...] Long-term drug therapy Patient Instructionslabs with [facility] Charge Nurse recentlycontinue therapy 10/03/2024 Encounter for screening for [...] metabolic and movement d/o education labs with [facility] Charge Nurse recently appointment's, continue therapy discussion with patient [...] drug therapy Patient Instructions labs with [facility] Charge Nurse recently continue therapy 06/06/2024 Other Client reports [...] and movement d/o education labs with [facility] Charge Nurse recently appointment's, continue therapy discussion with patient [...] drug therapy Patient Instructions labs with [facility] Charge Nurse recently continue therapy 01/03/2025 Other Post-Traumatic Stress [...] and movement d/o education labs with [facility] Charge Nurse recently appointment's, continue therapy discussion with patient [...] drug therapy Patient Instructions labs with [facility] Charge Nurse recently continue therapy 01/24/2025 Other Client reports that she struggles with guilt and self worth. Therapist actively listened to client and asked questions for clarification. Therapist then utilized a cognitive behavioral intervention to help client start to minimize her guilt and improve her self worth (simple accomplishments and self affirmations). 02/06/2025 Other Client has jacki murray working on affirmations to help improve her self worth. She is requesting help to complete a series of cards she will use as reminders to improve her self worth. Utilizing a cognitive intervention, therapist and client brainstormed positive statements for client to put on index cards to get up around her apartment to help her; remember what she wants to be doing and how she wants to be feeling. 02/20/2025 Other Client states she feels she needs help in composing a simple accomplishments list. The list is to help client feel better about herself simply based on daily tasks and activities that she does not give herself credit for. Alla woo actively listened to client and utilited a solution focused intervention to assist client by helping to prompt her thoughts of items to add to the list. Plan Of Treatment Next Appt Details Provider Name:Brianne Rios , 02/23/2025 02:00:00 PM, [facility], [address], Provider Name:Brianne Rios , 03/02/2025 02:00:00 PM, [address], [address], [address], Provider Name:Brianne Rios , 03/06/2025 01:00:00 PM, [address], [address], [address], Provider Name:Brianne Rios , 03/09/2025 02:00:00 PM, [facility], [address], Provider Name:Brianne Rios , 03/16/2025 02:00:00 PM, [address], [address], [address], Provider Name:Brianne Rios , 03/20/2025 02:00:00 PM, [address], [address], [address], Provider Name:Brianne Rios , 03/23/2025 02:00:00 PM, [address], [address], [place], [address], Provider Name:Monique Guadalupe , 03/28/2025 11:30:00 AM, [address], [address], [place], [address], Provider Name:Brianne Rios , 04/03/2025 02:00:00 PM, [address], [address], [place], [address], Provider Name:Brianne Rios , 04/06/2025 02:00:00 PM, [address], [address], [place], [address], Provider Name:Brianne Rios , 04/13/2025 02:00:00 PM, [address], [address], [place], [address], Provider Name:Brianne Rios , 04/20/2025 02:00:00 PM, [address], [address], [place], [address], Provider Name:Brianne Rios , 05/11/2025 02:00:00 PM, [address], [address], [place], [address], Provider Name:Brianne Rios , 05/18/2025 02:00:00 PM, [address], [address], [place], [address], Provider Name:Brianne Rios , 05/25/2025 02:00:00 PM, [address], [address], [place], [address], Provider Name:Brianne Rios , 06/01/2025 02:00:00 PM, [address], [address], [place], [address], Provider Name:Brianne Rios , 06/08/2025 02:00:00 PM, [address], [address], [place], [address], Provider Name:Brianne Rios , 06/15/2025 02:00:00 PM, [address], [address], [place], [address], Provider Name:Brianne Rios , 06/22/2025 02:00:00 PM, [address], [address], [place], [address], Provider Name:Brianne Rios , 06/29/2025 02:00:00 PM, [address], [address], [place], [address], Provider Name:Brianne Rios , 07/06/2025 02:00:00 PM, [address], [address], [place], [address], Provider Name:Brianne Rios , 07/13/2025 02:00:00 PM, [address], [address], [place], [address], Provider Name:Brianne Rios , 07/20/2025 02:00:00 PM, [address], [address], [place], [address], Provider Name:Brianne Rios , 07/27/2025 02:00:00 PM, [address], [address], [place], [address], Provider Name:Brianne Rios , 08/03/2025 02:00:00 PM, [address], [address], [place], [address], Provider Name:Brianne Rios , 08/10/2025 02:00:00 PM, [address], [address], [place], [address], Provider Name:Brianne Rios , 08/17/2025 02:00:00 PM, [address], [address], [place], [address], Provider Name:Brianne Pratt Gabriel , 08/24/2025 02:00:00 PM, [address], [address], [place], [address], Provider Name:Brianne Pratt Gabriel , 08/31/2025 02:00:00 PM, [address], [address], [place], [address], Provider Name:Brianne Rios , 09/07/2025 02:00:00 PM, [address], [address], [place], [address], Provider Name:Brianne Santa Rios , 09/14/2025 02:00:00 PM, [address], [address], [place], [address], Provider Name:Brianne Santa Rios , 09/21/2025 02:00:00 PM, [address], [address], [place], [address], Insurance Providers Payer Name Payer Address Payer Phone Subscriber Number Group Number Insured Name Patient Relationship to Insured Coverage Start Date Coverage End Date [facility] Medicare Replacement/ Advantage - Ppo [address] [address] [place] [address] [id number] VIVIEN Jalloh LISA Self - patient is the insured [place] [address] [address] [place] [address] [id number] VIVIEN Jalloh LISA Self - patient is the insured Medical (General) History Medical History History ICD Code Problems: Depressed bipolar I disorder Generalized anxiety disorder Grief finding Long-term drug therapy Movement disorder Obsessive-compulsive disorder Posttraumatic stress disorder Primary insomnia Psychologic conversion disorder Recurrent major depressive episodes, mod erate Weight gain , Surgical History Surgery Date(Month/Year) Hysterectomy (48843) 08/02/1998 Removal of gallbladder (01333) 0 Mass on the Ovaries Removed 06/16/2024
--- OUTSIDE RECORDS SUMMARY | 2025-02-22 20:29 | XMS_ITS | Data Portability ---
Author Organization [place] - [facility] [employer], Main Office Address [address] [place] [address] Care Team Providers Care Weatherization Specialist Name Role Phone MARY ARIAS Primary Care Provider MARY ARIAS Referring Provider [phone] Assessment Encounter Date Assessment Date Assessment LastModified by Organization Details LastModified Time 10/14/2023 10/14/2023 Assessment: Mild OSAHS, AHI = [...] challenge test Chest CT 03/18/21 BLL atelectasis [facility] home sleep study 01/22/15 AHI = 8 [facility] titration sleep study 03/27/15 sleep onset = [...] PAP machines have integrated humidifiers. Humidification is ome when dealing with symptoms of dry mouth [...] carrier. Patient will setup an appointment with [facility] for supplies and pressure adjustments. A [...] 3 months, January 2024 Not available 10/14/2023 12:06:01/14/2024 01/14/2024 Assessment: Mild OSAHS, AHI = 8 [...] challenge test Chest CT 03/18/21 BLL atelectasis [facility] home sleep study 01/22/15 AHI = 8 [facility] titration sleep study 03/27/15 sleep onset = [...] carrier. Patient will setup an appointment with [facility] for supplies and pressure adjustments. A major [...] further management. Follow-up: 3 months, April 2024 Not available 01/14/2024 13:37:09 04/14/2024 04/14/2024 Assessment: [...] challenge test Chest CT 03/18/21 BLL atelectasis [facility] home sleep study 01/22/15 AHI = 8 [facility] titration sleep study 03/27/15 sleep onset = [...] carrier. Patient will [facility] an appointment with [facility] for supplies and pressure adjustments. A [...] further management. Follow-up: 3 months, July 2024 [facility] Not available 04/28/2024 12:32:01 08/22/2024 08/22/2024 Assessment: Mild OSAHS, AHI = 8 Iron [...] challenge test Chest CT 03/18/21 BLL atelectasis [facility] home sleep study 01/22/15 AHI = 8 [facility] titration sleep study 03/27/15 sleep onset = 43.5 minutes, REM onset = 169.5 minutes, Respironics large Clari View full face mask @ 7-15 cmH2O, PLMI = 7 ESR 09/23/23 35 mm/hr Ferritin 09/23/23 32 ng/mL Ferritin 01/14/24 58 ng/mL Ferritin 04/14/24 57 ng/mL Ferritin 08/19/24 128 ng/mL Keep albuterol HFA as needed for acute bronchitic episodes. Elevation in periodic limb movement index may [...] 325 mg + Vit C 500 mg but decrease from daily to every other day to keep the ferritin > 75 ng/ml. Check ferritin one week before return. We will hold off on dopaminergic therapy for now. PAP compliance downloaded and interpreted x 20 minutes. Data reviewed and explained to the patient. Average apnea/hypopnea index (AHI) is 2.2. Patient used PAP > 4 hours 45% of the time. PAP is set at 7-14 cmH2O. PAP will be reset at 7-13 cmH2O. Keep ramp off. Oxygen supplementation: none [...] carrier. Patient will setup an appointment with [facility] for supplies and pressure adjustments. A [...] records to PCP for further management. Follow-up: 6 months, February 2025 Not available 08/22/2024 16:01:04 01/09/2025 01/09/2025 Assessment: Mild OSAHS, AHI = 8 Iron [...] challenge test Chest CT 03/18/21 BLL atelectasis [facility] home sleep study 01/22/15 AHI = 8 [facility] titration sleep study 03/27/15 sleep onset = 43.5 minutes, REM onset = 169.5 minutes, Respironics large Clari View full face mask @ 7-15 cmH2O, PLMI = 7 ESR 09/23/23 35 mm/hr Ferritin 09/23/23 32 ng/mL Ferritin 01/14/24 58 ng/mL Ferritin 04/14/24 57 ng/mL Ferritin 08/19/24 128 ng/mL Ferritin 01/09/25 91 ng/mL Keep albuterol HFA as needed for acute bronchitic episodes. Elevation in periodic limb movement index may [...] 325 mg + Vit C 500 mg every other day to keep the ferritin > 75 ng/ml. Check ferritin one week before return. We will hold off on dopaminergic therapy for now. PAP is set at 7-13 cmH2O. PAP will remain at 7-13 cmH2O. Keep ramp off. Oxygen supplementation: none [...] carrier. Patient will [facility] an appointment with [facility] for supplies and pressure adjustments. A [...] records to PCP for further management. Follow-up: 6 months, July 2025 Not available 01/10/2025 15:26:24 Plan of Treatment Reminders Order Date Submit Date Provider Last Modified By Organization Details Last Modified Time Details Appointments Follow Up 30 2025 10:00A Fiona Bedoya MD Not available Not available Not available Lab ferritin , serum or plasma [address] (Lab), [address] [place], [address], 01/09/2025 11:48:36 ferritin , serum or plasma 2024 [email or web address] [place] [address] (Lab), [address] [place], [address], 02/14/2025 16:21:55 ferritin , serum or plasma [email or web address] (Lab), [address] [place], [address], 08/19/2024 11:21:48 ferritin , serum or plasma 2023 024 [facility] (Lab), [address] [place], [address], 04/14/2024 13:58:27 ferritin , serum or plasma 2023 024 [facility] (Lab), [address] [place], [address], 01/14/2024 12:33:39 Referral None recorded . Procedures None recorded . Surgeries None recorded . Imaging None recorded . Medication Orders Vitamin C 500 mg tablet 2024 025 [facility] [address], [place], [id number], 01/09/2025 11:48:44 ferrous sulfate 325 mg (65 mg iron) tablet [address] [facility]99526, [address], [place], [id number], 01/09/2025 11:48:59 Vitamin C 500 mg tablet 2024 025 [facility] #41970, [address], [place], [id number], 08/22/2024 16:02:20 ferrous sulfate 325 mg (65 mg iron) tablet 2024 025 [facility] #19359, [address], [place], [id number], 08/22/2024 15:51:10 Vitamin C 500 mg tablet 2023 024 [facility] #77603, [address], [place], [id number], 04/14/2024 12:48:19 ferrous sulfate 325 mg (65 mg iron) tablet [address] [facility]55533, [address], [place], [id number], 04/14/2024 12:48:28 Vitamin C 500 mg tablet 2023 024 [facility] #11870, [address], [place], [id number], 01/14/2024 11:46:57 ferrous sulfate 325 mg (65 mg iron) tablet 2023 024 [facility] #92360, [address], [place], [id number], 01/14/2024 11:46:55 Vitamin C 500 mg tablet 2023 024 [facility] #89126, [address], [place], [id number], 10/14/2023 11:35:13 ferrous sulfate 325 mg (65 mg iron) tablet 2023 024 [facility], [address] [facility], [place], [place], [phone], 10/14/2023 11:35:13 Patient TargetsNo targets recorded. Patient InstructionsNo instructions recorded. Reason for Referral None Reported. Results Created Date Observation Date Name Description Value Unit Range Abnormal Flag Note LastModifiedBy Organization Detail LastModifiedTime 08/20/1908/20/2024 SOCORRO TIN ferritin 128 NG/mL 15-150 normal Not Available [facility] ([facility]) [address] [place], [address], 08/20/2024 07:48:59 01/10/20 25 01/10/2025 SOCORRO TIN ferritin 91 NG/mL 15-150 normal Not Available [facility] ([facility]) [address] [facility], [place], [address], 01/10/2025 12:36:41 Result Notes None recorded. Problems Name Problem SNOMED Code Status Onset Date Resolution Date Notes Provider Name and Address Organization Details Recorded Time Obstructiv e sleep apnea syndrome 80313230 Active Not Available [facility] 3 00:51:50 Depressive disorder 72446724 Active 2016 Not Available [facility] 3 00:51:49 Essential hypertensi on 90803361 Active 2016 Not Available [facility] 3 00:51:50 Ex-smoker 1243051 Active 2016 Not Available [facility] 3 00:51:50 Body mass index 40+ - severely obese 902565040 Active 2017 Not Available [facility] 3 00:51:49 Accessory navicular bone of foot 100328926 Active 2020 Not Available [facility] 3 00:51:48 Tibialis posterior tendinitis 702882520 Active 2020 Not Available [facility] 3 00:51:49 Congenital pes planus 12396216 Active 2021 Not Available [facility] 3 00:51:49 Sinus tarsi syndrome of right ankle 4540831957716 9107 Active 2021 Not Available [facility] 3 00:51:48 Periodic limb movement disorder 735657503 Active 2023 David Bedoya MD [address] [facility] [facility] [address], [place], [address] , [facility] 4 16:31:37 Iron deficiency 19198977 Active 2023 David Bedoya MD [email or web address], [place], [address] , [facility] 4 11:34:22 Notes:Medical History: Depre ssion/Anxiety Bilateral hearing loss/tinnitus Rhinitis Eosinophils 140/uL AAT PiMM 167 mg% BLL atelectasis Obesity with mild OSAHS, AHI = 8, 01/22/15 on [facility] CPAP c/o [facility] Hypertension Hyperlipidemia Hepatic steatosis PLMD Vit D deficiency Thoracic DDD Congenital pes planus Procedure History: AVA 1998 Cholecystectomy 1999 SSS s/p PPP 2013 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 Procedures Surgical History Date Name Laterality Status Provider Name and Address Organization Details Recorded Time operative procedure on foot completed Not Available [facility] 07/02/2022 00:43:11 Imaging Results None recorded. Procedure Notes None [...] 1 tablet every day by oral route. 01/09 completed Not Available Not Available Not Available cholestyram ine (bulk) powder 10/13 completed Not Available Not Available Not Available atorvastati n 40 mg tablet Take 1 tablet every day by oral route. active Not Available Not Available No t Available buspirone 5 mg tablet Take 1 tablet twice a day by oral route. 10/13 completed Not Available Not Available Not Available primidone 50 mg tablet TAKE 2 TABLETS BY MOUTH EVERY NIGHT AT BEDTIME active Not Available Not Available No t Available venlafaxine ER 37.5 mg capsule,ext ended release 24 hr TAKE 1 CAPSULE BY MOUTH DAILY WITH FOOD active Not Available Not Available No t Available gabapentin 600 mg tablet TAKE 1 TABLET BY MOUTH IN THE MORNING AND IN THE EVENING active Not Available Not Available No t Available benztropine 0.5 mg tablet Take 1 tablet twice a day by oral route. active Not Available Not Available No t Available torsemide 20 mg tablet active Not Available Not Available Not Available albuterol sulfate 2.5 mg/3 mL (0.083 %) solution for nebulizatio n INHALE THE CONTENTS OF 1 VIAL VIA NEBULIZER EVERY 4-6 HOURS NEEDED FOR WHEEZING. active Not Available Not Available No t Available Vitamin C 500 mg tablet TAKE 1 TABLET BY MOUTH EVERY OTHER DAY active Not Available Not Available No t Available trazodone 50 mg tablet active Not Available [...] MOUTH EVERY 6 HOURS NEEDED FOR PAIN 01/09 completed Not Available Not Available Not Available Q-Dryl 25 mg capsule active Not [...] TAKE 1 TABLET BY MOUTH TWICE DAILY active Not Available Not Available No t Available Alcohol Pads TEST 2 TIMES A DAY 01/09 completed Not Available Not Available Not Available sertraline 100 mg tablet TK 1 T PO QD 11/20 completed Not Available Not Available Not Available clonazepam 1 mg tablet active Not Available Not Available Not Available diphenoxyla te-atropine 2.5 mg-0.025 mg tablet TAKE 2 TABLETS BY MOUTH FOUR TIMES DAILY NEEDED 01/09 completed Not Available Not Available Not Available [...] active Not Available Not Available Not Available peg-electro lyte solution 420 gram oral solution FOLLOW DIRECTION S FROM THE OFFICE 01/09 completed Not Available Not Available Not Available omeprazole [...] Cholestyram ine Light 4 gram powder for suspension in a packet MIX 1 PACKET IN 2-6 OZ OF WATER/NON CARBONATE D BEVERAGE AND DRINK TWICE DAILY 01/09 completed Not Available Not Available Not Available isosorbide mononitrate ER 120 mg tablet,exte [...] Available Not Available buspirone 10 mg tablet TAKE 1 TABLET BY [...] IN THE MORNING AND IN THE EVENING 01/09 completed Not Available Not Available Not Available diclofenac sodium 75 mg tablet,henrry yed [...] 1 TABLET BY MOUTH THREE TIMES DAILY 01/09 completed Not Available Not Available Not Available escitalopra m 10 mg tablet TK [...] tablet TAKE 1 TABLET BY MOUTH EVERY OTHER DAY active Not Available Not Available No t Available Cholestyram ine Light 4 gram oral powder USE 1 SCOOP UTD BID active Not Available Not Available No t Available ranolazine ER 1,000 mg tablet,exte nded release,12 hr TAKE 1 TABLET BY MOUTH TWICE DAILY FOR CHRONIC ANGINA active Not Available Not Available No t Available omeprazole 20 mg tablet,henrry yed release 09/03 completed Not Available Not Available Not Available azelastine 205.5 mcg (0.15 %) nasal spray [place] 2 sprays twice a day by intranasa l route for 30 days. active Not Available Not Available No t Available Probiotic OTC, takes daily 08/25 completed Not Available Not Available Not Available Contour Next Test Strips TEST 2 TIMES A DAY 01/09 completed Not Available Not Available Not Available Contour Next EZ Meter USE DIRECTED 01/09 completed Not Available Not Available Not Available Safety Lancets 28 gauge TEST 2 TIMES A DAY 01/09 completed Not Available Not Available Not Available [...] Not Available Not Available Not Available ranolazine 1,000 mg granules,ex tended release in packet Take 1 packet twice a day by oral route. 10/13 completed Not Available Not Available Not Available Vitals Date Recorded Heart rate Respiratory rate Body mass index (BMI) Body weight Provider Name and Address Organization Details Last Updated DateTime 08/22/2024 71 /min 14 /min 44.8 kg/m2 080179.61 g David Bedoya MD [address] [employer], [place], [address], [facility] [employer] [facility] 08/22/2024 15:59:27 Date Recorded Body height Body temperature Heart rate Oxygen saturation Oxygen saturation in Arterial blood by Pulse oximetry Systolic And Diastolic Provider Name and Address Organization Details Last Updated DateTime 5 162.56 cm 98.5 [degF] 71 /min 96 % 96 % 124/72 mm[Hg] Alisha Ace MA [facility] [employer] [facility] 5 15:53:14 Date Recorded Heart rate Respiratory rate Provider N connie and Address Organization Details Last Updated DateTime 10/14/2023 72 /min 15 /min David Bedoya MD [address], [place], [address], [facility] [employer] [facility] 10/14/2023 11:39:16 Date Recorded Body height Body mass index (BMI) Body weight Body temperature Oxygen saturation Oxygen saturation in Arterial blood by Pulse oximetry Heart rate Systolic And Diastolic Provider Name and Address Organization Details Last Updated DateTime 4 162.56 cm 45.5 kg/m2 334021. 98 g 97.8 [degF] 97 % 97 % 72 /min 122/68 mm[Hg] Biju Arroyo CMA [facility] [employer] [facility] 4 10:47:02 Date Recorded Heart rate Respiratory rate Provider N connie and Address Organization Details Last Updated DateTime 01/09/2025 75 /min 15 /min David Bedoya MD [address], [address] [employer] [facility] 01/09/2025 11:35:06 Date Recorded Body height Body mass index (BMI) Body weight Heart rate Body temperature Oxygen saturation Oxygen saturation in Arterial blood by Pulse oximetry Systolic And Diastolic Provider Name and Address Organization Details Last Updated DateTime 5 162.56 cm 46 kg/m2 107924. 76 g 75 /min 98.2 [degF] 96 % 96 % 122/76 mm[Hg] Alisha Ace MA [facility] [employer] [facility] 5 11:26:28 Date Recorded Heart rate Respiratory rate Provider N connie and Address Organization Details Last Updated DateTime 01/14/2024 75 /min 14 /min David Bedoya MD [address], [place], [address], [facility] [employer] 01/14/2024 11:57:22 Date Recorded Body height Body mass index (BMI) Body weight Heart rate Oxygen saturation Oxygen saturation in Arterial blood by Pulse oximetry Body temperature Systolic And Diastolic Provider Name and Address Organization Details Last Updated DateTime 4 162.56 cm 45.7 kg/m2 823776. 57 g 75 /min 95 % 95 % 98 [degF] 120/68 mm[Hg] Biju Arroyo CMA [facility] [employer] [facility] 4 11:11:48 Date Recorded Heart rate Respiratory rate Provider N connie and Address Organization Details Last Updated DateTime 04/14/2024 73 /min 15 /min David Bedoya MD [address], [place], [address] [employer] [facility] 04/14/2024 12:52:36 Date Recorded Body height Body mass index (BMI) Body weight Heart rate Oxygen saturation Oxygen saturation in Arterial blood by Pulse oximetry Body temperature Systolic And Diastolic Provider Name and Address Organization Details Last Updated DateTime 4 162.56 cm 46.2 kg/m2 823297. 35 g 73 /min 94 % 94 % 98.2 [degF] 122/70 mm[Hg] Alisha Ace MA [employer] 12:29:28 Social History Question Answer Notes LastModified by [employer] Details LastModified Time Tobacco Smoking Status Former Smoker Alisha Ace MA null, [employer] 12/12/2022 14:22:46 What Is Your Level Of Caffeine Consumption? Heavy Information not available 04/14/2024 In The 14 Days Before Symptom Onset, Have You Had Close Contact With A Laboratory-confirm ed COVID-19 While That Case Was Ill? No [id number] Information not available 07/02/2022 In The 14 Days Before Symptom Onset, Have You Had Close Contact With A Person Who Is Under Investigation For COVID-19 While That Person Was Ill? No [id number] Information not available 07/02/2022 What Type Of Diet Are You Following? CARDIAC Information n ot available 04/14/2024 Do You Have An Electrostatic Air Filter? No Information not available 04/14/2024 When Did You Quit Smoking? 16+yearssinc elastcigaret te Information not available 12/12/2022 Do You Have A Humidifier? No Information not available 04/14/2024 Do You Have Moisture Problems In Your Home? No Information not available 04/14/2024 What Was The Date Of Your Most Recent Tobacco Screening? 01/09/2025 Information not available 01/09/2025 Do You Have Any Pets? Yes Information not available 04/14/2024 Do You Have Smoke And Carbon Monoxide Detectors In Your Home? Yes Information not available 04/14/2024 Are You Passively Exposed To Smoke? Yes Information no t available 04/14/2024 Do You Use Sunscreen Routinely? No Information not available 04/14/2024 Have You Recently Traveled Abroad? No [id number] Information not available 07/02/2022 Sex: Unknown Functional Status Question Answer Note LastModified by [employer] Details LastModified Time Do you use any illicit or recreational drugs? No Information not available 04/14/2024 Do you or have you ever used any other forms of tobacco or nicotine? No Information not available 01/09/2025 What is your level of alcohol consumption? None Information not available 04/14/2024 Have you been exposed to chemicals or toxins? not that aware of Information not available 04/14/2024 What is your occupation? disability [id number] Information not available 07/02/2022 What is your exercise level? Occasional [id number] Information not available 07/02/2022 Mental Status Question Answer Note LastModified by Organization D etails LastModified Time Do you feel stressed (tense, restless, nervous, or anxious, or unable to sleep at night)? [id number] [email or web address] Information not available 09/23/2023 Family History Relationship Description Onset Age of this Age Resolved Age Notes LastModified by Organization Details LastModified Time Mother Diabetes mellitus Not available 2023 15:56:33 Mother Stented coronary artery [email or web address] Not available 2023 15:56:45 Maternal Grandmother Coronary [...] 16:25:55 Medical History Condition Response ARTHRITIS Y SEIZURES/EPILEPSY Y ANXIETY DISORDER Y OBESITY Y ALLERGIES/HAYFEVER Y DEPRESSION (INCLUDING POST ) Y BACK / NECK PROBLEMS Y HIGH CHOLESTEROL / HYPERLIPIDEMIA Y Gynecological HistoryNo gynecological history recorded. Obstetrics History GPAL:G 0 P 0 0 0 0 Immunizations Vaccine Type Date Status Note Provider Nam e and Address Organization Details Recorded Time COVID-19, mRNA, LNP-S, PF, 100 mcg/0.5mL dose or 50 mcg/0.25mL dose 08/28/2020 completed Not Available [facility] 3 01:03:02 COVID-19, mRNA, LNP-S, PF, 100 mcg/0.5mL dose or 50 mcg/0.25mL dose 07/31/2020 completed Not Available [facility] 3 01:03:02 Influenza, split virus, quadrivalent, PF 02/27/2020 completed Not Available [facility] 3 01:03:03 Past Encounters Encounter ID Performer Location Encounter Start Date Encounter Closed Date Diagnosis/Indication Diagnosis SNOMED-CT Code Diagnosis ICD10 Code Diagnosis IMO Codes Diagnosis Note [id number] [facility] [place] [address] [place] [address] 12/31/2020 00:00:00 12/31/2020 13:28:39 [id number] [facility] _ATHENA_M IGRATION_ DEFAULT_1 _1 , 01/11/2021 00:00:00 01/11/2021 11:24:46 [id number] [facility] _ATHENA_M IGRATION_ DEFAULT_1 _1 , 02/08/2021 00:00:00 02/10/2021 14:14:36 [id number] [facility] [place] [address] [place] [address] 03/18/2021 00:00:00 03/22/2021 13:38:55 [id number] [facility] [place] [address] [place] [address] 04/01/2021 00:00:00 04/01/2021 21:40:32 [id number] [facility] [place] [address] [place] [address] 04/02/2021 00:00:00 04/02/2021 13:26:04 [id number] [facility] _ATHENA_M IGRATION_ DEFAULT_1 _1 , 04/12/2021 00:00:00 04/16/2021 11:32:29 [id number] [facility] _ATHENA_M IGRATION_ DEFAULT_1 _1 , 10/04/2021 00:00:00 10/04/2021 12:40:27 [id number] [facility] _ATHENA_M IGRATION_ DEFAULT_1 _1 , 11/22/2021 00:00:00 11/24/2021 12:27:51 [id number] Nereida Molina, FITTING ROOM INSPECTOR-[facility] [place] [address] [place] [address] 12/12/2022 14:08:08 12/12/2022 15:59:19 Asthma 520826271 J45.909 RAST and IGE normal.Alp hickman 1 normal MMPFT completed ep eat PFT and walk testing orderedRep eat CXRContinu e inhaled therapy - Symbicort and IncruseIns tructed on techniqueD iscussed reportable signs and symptoms.R TC in 2 months, PRN for concerns. Obstructiv e sleep apnea syndrome 94463090 G47.33 Download for the last year with [...] negative. IGG and BNP normalRech belkis 6MWT [id number] Nereida Tracy, FITTING ROOM INSPECTOR-[facility] [place] [address] [place] [address] 02/27/2023 15:09:04 02/27/2023 15:48:44 Asthma [id number] J45.909 RAST and IGE normal.Alp hickman 1 normal MMPFT completed ep eat PFT normalRepe at CXR normalCont inue inhaled therapy - Symbicort and IncruseIns tructed on techniqueD iscussed reportable signs and symptoms.S he should follow up in 6 months Dyspnea on exertion 6084 5006 R06.09 Multifacto ralWeight lossIncrea se exerciseQu antiferon GOLD negative.I GG and BNP [id number] normalOrde r for nebulizer for PRN use today [id number] David Bedoya MD [facility] [address] [address] 09/23/2023 15:27:41 09/23/2023 16:53:03 Periodic limb movement disorder 840168974 G47.61 D50.8 E83.42 Obstructiv e sleep apnea syndrome 11686584 G47.33 [id number] David Bedoya MD [facility] Pulmonolo [address] [address] 10/14/2023 10:25:02 10/15/2023 08:57:22 Obstructive sleep apnea syndrome 08870499 G47.33 Iron deficiency 79362097 E61.1 [id number] David Bedoya MD [facility] [address] [address] 01/14/2024 10:49:42 01/15/2024 11:29:53 Iron deficiency 65140521 E61.1 Obstructiv e sleep apnea syndrome 09427552 G47.33 [id number] David Bedoya MD [facility] [place] [address] 04/14/2024 12:07:29 05/02/2024 12:53:43 Iron deficiency 92478622 E61.1 Obstructiv e sleep apnea syndrome 87620515 G47.33 [id number] David Bedoya MD [facility] [place] [id number] 0 08/22/2024 15:35:26 08/23/2024 16:05:55 Iron deficiency 78375139 E61.1 Obstructiv e sleep apnea syndrome [id number] G47.33 [id number] David Bedoya MD [facility] [id number] 0 01/09/2025 11:02:58 01/11/2025 15:50:13 Iron deficiency [id number] E61.1 Obstructiv e sleep apnea syndrome [id number] G47.33 Health Concerns Section Related Observation LastModified by Organization Detai ls LastModified Time None Recorded Concern Status LastModified by Organization Details LastModified Time None Recorded Advance Directives Directive None Recorded Payers Insurance Date Sequence Insurance Name Policy Number Policy Cooper Covered Member ID Cooper Member ID Guarantor Name 01/06/2025 1 [facility] (MEDICARE REPLACEMENT/ADVA NTAGE - PPO) [id number] Glendy Gorman [id number] Glendy Gorman 01/07/2025 2 [place] DEPARTMENT [place] Glendy Gorman [id number] Glendy Gorman 08/19/2024 [employer] - DMEPOS ASSIGNED (MEDICARE [facility]) Glendy Gorman [id number] Glendy Gorman 08/19/2024 [place]ICAID [place] DURABLE MEDICAL EQUIPMENT Glendy Gorman [id number] Glendy Gorman Notes Date Note Type Note Provider Name and Address Organization Details Recorded Time 10/14/2023 text/html Primary care/Referring provider: Dayana Mc NP During the [facility] home sleep study on 01/22/15, AHI = 8. During the [facility] titration sleep study on 03/27/15, sleep onset [...] moderate chance of dozing. David Bedoya MD [address] [place] [address], [phone], [facility] [employer] 10/14/2023 12:06:35 01/14/2024 text/html Primary care/Referring provider: Carolyn Arroyo NP During the [facility] home sleep study on 01/22/15, AHI = 8. During the [facility] titration sleep study on 03/27/15, sleep onset [...] moderate chance of dozing. David Bedoya MD [address] [place] [address], [facility] [address], [place], [phone], [facility] [employer] [facility] [employer] 01/14/2024 13:37:25 04/14/2024 text/html Primary care/Referring provider: Carolyn Arroyo NP During the [facility] home sleep study on 01/22/15, AHI = 8. During the [facility] titration sleep study on 03/27/15, sleep onset [...] moderate chance of dozing. David Bedoya MD [address] [place] [address], [place] [address], [place], [address], [place] [facility] [employer] [facility] 04/28/2024 12:32:40 08/22/2024 text/html Primary care/Referring provider: Carolyn Arroyo NP During the [facility] home sleep study on 01/22/15, AHI = 8. During the [facility] titration sleep study on 03/27/15, sleep onset = 43.5 minutes, REM onset = 169.5 minutes, Respironics large Clari View full face mask @ 7-15 cmH2O. PLMI = 7 and she is on iron supplements. At home since 04/14/24, the patient uses a Resvent iBreeze Auto [...] in the afternoon when circumstances permit - 1Sitting and talking to someone - 2Sitting quietly after lunch without alcohol - 1In a car, while stopped for a few minutes in the traffic - 0TOTAL SCORE 13Subjectively, patient has a moderate chance of dozing. David Bedoya MD [address] [place] [address], [phone], [facility] 08/22/2024 16:09:22 01/09/2025 text/html Primary care/Referring provider: Carolyn Aggarwal NP During the [facility] home sleep study on 01/22/15, AHI = 8. During the [facility] titration sleep study on 03/27/15, sleep onset = 43.5 minutes, REM onset = 169.5 minutes, Respironics large Clari View full face mask @ 7-15 cmH2O. PLMI = 7 and she is on iron supplements. At home since 08/22/24, the patient uses a Resvent iBreeze Auto [...] place (e.g. a theater or meeting) - 3As a passenger in a car for an hour without a break - 1Lying down to rest in the afternoon when circumstances permit - 2Sitting and talking to someone - 3Sitting quietly after lunch without alcohol - 1In a car, while stopped for a few minutes in the traffic - 1TOTAL SCORE 17Subjectively, patient has a high chance of dozing. David Bedoya MD [address] [place] [address], [place], [address], [place] [facility] 01/10/2025 15:27:14 OBGyn Episode No OBEpisode recorded.
[2025-02-22 20:58] VITALS: BP 145/78; PULSE 85; RESP 14; TEMP 36.6; O2SAT 99
--- NOTE | 2025-02-22 21:38 | ED.LOWEXIN ---
HPI - Extremity Injury (Lower) General Chief Complaint: Extremity Problem,Nontraumatic Stated Complaint: I got two toes that are painful Time Seen by Provider: 02/22/25 20:53 History of Present Illness HPI Narrative: Patient is a 5-year-old female who presents ER with pain to the left 3rd and 4th digit. She has had pain for 6 months a redness the toes for the last 2 months. No fevers or chills or sweats. No known trauma. She follows up with her cigar tobacco rehandler in 1 month. The pain persisted today so she opted to come in for evaluation. No swelling of her leg. No weeping sores. Related Data Home Medications ?Medication ?Instructions ?Recorded ?Confirmed ?Last Taken ?Type albuterol sulfate 90 mcg/actuation inhalation 02/15/20 12/22/24 Unknown History aerosol inhaler (Ventolin HFA) buspirone 15 mg tablet 15 mg PO TID 02/15/20 12/22/24 Unknown History cholestyramine (with sugar) 4 gram ea 02/15/20 12/22/24 Unknown History oral powder ergocalciferol (vitamin D2) 1,250 1,250 mcg PO WEEKLY 02/15/20 12/22/24 Unknown History mcg (50,000 unit) capsule escitalopram oxalate 20 mg tablet mg 02/15/20 12/22/24 Unknown History aripiprazole 10 mg tablet 10 mg PO QHS 12/16/21 12/22/24 Unknown History benztropine 0.5 mg tablet 0.5 mg PO DAILY 12/16/21 12/22/24 Unknown History clonazepam 0.5 mg tablet 0.5 mg PO TID PRN 12/16/21 12/22/24 Unknown History famotidine 40 mg tablet 40 mg PO DAILY 12/16/21 12/22/24 Unknown History furosemide 40 mg tablet 40 mg PO BID 12/16/21 12/22/24 Unknown History losartan 25 mg tablet 25 mg PO DAILY 12/16/21 12/22/24 Unknown History magnesium oxide 400 mg (241.3 mg 400 mg PO DAILY 12/16/21 12/22/24 Unknown History magnesium) tablet melatonin 3 mg tablet 3 mg PO QHS 12/16/21 12/22/24 Unknown History metoprolol tartrate 75 mg tablet 75 mg PO BID 12/16/21 12/22/24 Unknown History nitroglycerin 0.4 mg sublingual 0.4 mg sublingual ONCE PRN 12/16/21 12/22/24 Unknown History tablet omeprazole 40 mg capsule,delayed 40 mg PO DAILY 12/16/21 12/22/24 Unknown History release potassium chloride 20 mEq 20 meq PO DAILY 12/16/21 12/22/24 Unknown History tablet,extended release ferrous sulfate 325 mg (65 mg 325 mg PO DAILY 05/28/23 12/22/24 Unknown History iron) tablet (FeroSul) ranolazine 1,000 mg 1,000 mg PO Q12H 05/28/23 12/22/24 Unknown History tablet,extended release,12 hr umeclidinium 62.5 mcg/actuation 1 inh inhalation DAILY 05/28/23 12/22/24 Unknown History blister powder for inhalation (Incruse Ellipta) venlafaxine 37.5 mg 37.5 mg PO DAILY 05/28/23 12/22/24 Unknown History capsule,extended release 24 hr gabapentin 600 mg tablet 600 mg PO BID 12/22/24 12/22/24 Unknown History Allergies Allergy/AdvReac Type Severity Reaction Status Date / Time No Known Allergies Allergy Verified 02/22/25 18:23 Review of Systems Constitutional: Constitutional: Reports no additional constitutional complaints Cardiovascular: Cardiovascular: Reports no additional cardiovascular complaints Respiratory: Respiratory: Reports no additional respiratory complaints Genitourinary: Genitourinary: Reports no additional female genitourinary complaints Musculoskeletal: Musculoskeletal: Reports no additional musculoskeletal complaints [facility] Past Medical History Medical History (Updated 02/22/25 @ 22:22 by Thaddeus Meng MD) Thoracic back pain Cervicalgia Dorsalgia Paresthesia of both feet Pain in both feet Peripheral neuropathy Tremor Angina pectoris Prediabetes Pacemaker History of asthma History of hyperlipidemia Hypertension Seizures Anxiety Depression Surgical History Surgical History History of hysterectomy History of permanent cardiac pacemaker placement 02/04/2014 History of cholecystectomy Family History Family History Other Heart disease Social History Social History (Updated 12/22/24 @ 09:29 by Nohemi Prabhakar MA) Smoking status: Never smoker Alcohol intake: current Alcohol use details: occasional Substance use: never Substance use type: does not use Do You Feel Safe in your Home?: Yes Lack of Transportation: No Lack of Food: Sometimes True Current Housing: I Have Housing Concerned About Future Housing: No Difficulty Paying Gas/Electric Bills: No Difficulty Paying for Meds: No Currently Unemployed: YES Education: High School Diploma/GED Difficulty w/ Childcare or Family Care: No Living arrangements: alone Occupation/Education: unemployed Additional occupation/education comments: disability Gender identity (if verbalized by the patient): Female Exam Narrative: GENERAL: Well-appearing, well-nourished, and in no acute distress. HEAD: Normocephalic, atraumatic. ENT: Mucous membranes moist. CHEST: Clear to auscultation. No respiratory distress. HEART: Regular rate and rhythm. Normal peripheral pulses. EXTREMITIES: Normal range of motion. No edema. Tender palpation left 3rd and 4th toe other slight redness the distal tips of the toes but no deformity. There is dried skin and then a for callus on the plantar aspect of the 3rd digit. No lymphangitic streaking or significant warmth. SKIN: Warm, dry, no rash. NEURO: Alert and oriented x3. PSYCH: Normal mood and affect. Course Course Emergency Course: Elevated white blood cell count as well as CRP and ESR. X-ray without deformity of the toe or obvious evidence of osteomyelitis. Will place on oral antibiotics for cellulitis in recommend she follow-up with her cigar tobacco rehandler. Vital Signs Vital signs: Vital Signs Temperature 97.6 F 02/22/25 18:23 Pulse Rate 80 02/22/25 18:23 Respiratory Rate 16 02/22/25 18:23 Blood Pressure 144/86 H 02/22/25 18:23 Pulse Oximetry 100 02/22/25 18:23 Temperature 97.8 F 02/22/25 20:58 Pulse Rate 85 02/22/25 20:58 Respiratory Rate 14 02/22/25 20:58 Blood Pressure 145/78 H 02/22/25 20:58 Pulse Oximetry 99 02/22/25 20:58 Oxygen Delivery Room Air 02/22/25 20:58 MDM - Extremity Injury (Lower) Lab Data Attestation: I reviewed the patient's lab results. Lab results narrative: Lab Results 02/22/25 Range/Units 21:45 WBC 14.6 H (4.5-10.0) K/mm3 RBC 4.50 (4.2-5.4) M/mm3 Hgb 12.9 (12.0-15.0) g/dL Hct 41.4 (37.0-47.0) % MCV 92.0 (80-100) fl MCH 28.7 (26-34) pg MCHC 31.2 L (32-36) g/dl RDW 15.5 H (11.5-14.5) % Plt Count 260 (150-375) k/mm3 MPV 10.7 H (7.4-10.4) fl Immature Gran % (Auto) 0.3 (0-0.5) % Neut % (Auto) 67.5 (45.5-73.1) % Lymph % (Auto) 23.5 (18.3-44.2) % [place] % (Auto) 6.4 (2.6-8.5) % Eos % (Auto) 2.0 (0-4.4) % Baso % (Auto) 0.3 (0.2-1.2) % Lymph # (Auto) 3.44 H (0.9-3.2) K/mm3 [place] # (Auto) 0.9 H (0.1-0.6) K/mm3 Eos # (Auto) 0.3 (0-0.3) K/mm3 Baso # (Auto) 0.0 (0.0-0.1) K/mm3 Abs Immat Gran (auto) 0.05 H (0.00-0.031) K/mm3 Absolute Neuts (auto) 9.9 H (1.3-6.7) K/mm3 Absolute Nucleated RBC 0.000 (0.0-0.012) K/mm3 Nucleated RBC % 0.0 (0.0-0.2) % ESR 23 H (0-20) mm/hr Sodium 139 (137-145) mmol/L Potassium 3.7 (3.4-5.0) mmol/L Chloride 101 (98-107) mmol/L Carbon Dioxide 30 (22-30) mmol/L Anion Gap 8 (4-12) mmol/L BUN 6 L D (7-17) mg/dL Creatinine 0.70 (0.7-1.0) mg/dL Estim Creat Clear Calc 96 ml/min Estimated GFR > 60 (59 - ) Glucose 93 (65-110) mg/dL Calcium 8.5 (8.4-10.2) mg/dL C-Reactive Protein 2.3 H (<1.0) mg/dL Imaging Data Radiologist's impression: ITS Impressions Foot X-Ray 02/22/25 21:23 IMPRESSION: No acute fracture or dislocation. Discharge Plan Discharge Clinical Impression: Infection of toe Patient Disposition: Home Condition: Stable Instructions: Foot Care for People with Diabetes (ED) Additional Instructions: Return ER if you have red streaking up your leg, you have fever 100.4? F, you start having pus or fluid leak from your toe, or your toe becomes of black in color. Contact your cigar tobacco rehandler for close follow-up. Patient Language: Egyptian Prescriptions: New cephalexin 500 mg capsule 500 mg PO Q12H Qty: 20 0RF hydrocodone-acetaminophen 5-325 mg tablet 1 tablet PO Q6H PRN (Reason: pain) Qty: 12 0RF doxycycline hyclate 100 mg tablet 100 mg PO BID Qty: 20 0RF No Action famotidine 40 mg tablet 40 mg PO DAILY losartan 25 mg tablet 25 mg PO DAILY ferrous sulfate [FeroSul] 325 mg (65 mg iron) tablet 325 mg PO DAILY Incruse Ellipta 62.5 mcg/actuation blister with device 1 inh inhalation DAILY ranolazine 1,000 mg tablet extended release 12 hr 1,000 mg PO Q12H venlafaxine 37.5 mg capsule,extended release 24hr 37.5 mg PO DAILY levetiracetam [Keppra] 750 mg tablet 750 mg PO Q12H Qty: 180 4RF gabapentin 600 mg tablet 600 mg PO BID ergocalciferol (vitamin D2) 1,250 mcg (50,000 unit) Capsule 1,250 mcg PO WEEKLY albuterol sulfate [Ventolin HFA] 90 mcg/actuation HFA aerosol inhaler INHALATION buspirone 15 mg Tablet 15 mg PO TID escitalopram oxalate 20 mg tablet cholestyramine (with sugar) 4 gram Powder nitroglycerin 0.4 mg tablet, sublingual 0.4 mg sublingual ONCE PRN metoprolol tartrate 75 mg tablet 75 mg PO BID omeprazole 40 mg capsule,delayed release(DR/EC) 40 mg PO DAILY potassium chloride 20 mEq tablet extended release 20 meq PO DAILY melatonin 3 mg tablet 3 mg PO QHS magnesium oxide 400 mg (241.3 mg magnesium) tablet 400 mg PO DAILY furosemide 40 mg tablet 40 mg PO BID aripiprazole 10 mg tablet 10 mg PO QHS benztropine 0.5 mg tablet 0.5 mg PO DAILY clonazepam 0.5 mg tablet 0.5 mg PO TID PRN primidone [Mysoline] 50 mg tablet 50 mg PO QHS Qty: 60 6RF Rx Instructions: start with 1 tablet at bedtime for 2 weeks and then 2 tablets at bedtime to continue Follow-up/Referrals: Carolyn Aggarwal [Other] Andrea Garcia Jr., DPM [Physician, Podiatry] - 1 Week
[2025-02-22 21:51] LABS: Hematocrit 41.4 % (37.0-47.0); Hemoglobin 12.9 g/dL (12.0-15.0); Immature Granulocyte Percent A 0.3 % (0-0.5); Lymphocytes Absolute Auto 3.44 K/mm3 (0.9-3.2); Mean Corpuscular HGB Conc 31.2 g/dl (32-36); Mean Corpuscular Hemoglobin 28.7 pg (26-34); Mean Corpuscular Volume 92.0 fl (80-100); Nucleated Red Blood Cells Absolute Auto 0.000 K/mm3 (0.0-0.012); Nucleated Red Blood Cells Perc 0.0 % (0.0-0.2); Platelet Count Result 260 k/mm3 (150-375); Red Blood Count 4.50 M/mm3 (4.2-5.4); White Blood Count 14.6 K/mm3 (4.5-10.0)
[2025-02-22 22:04] LABS: Anion Gap 8 mmol/L (4-12); Blood Urea Nitrogen 6 mg/dL (7-17); CRP 2.3 mg/dL (<1.0); Calcium 8.5 mg/dL (8.4-10.2); Carbon Dioxide 30 mmol/L (22-30); Chloride 101 mmol/L (98-107); Estimated CRCL calculation 96 ml/min; Estimated Glomerular Filt Rate > 60; Glucose 93 mg/dL (65-110); Potassium 3.7 mmol/L (3.4-5.0); Sodium 139 mmol/L (137-145)
== END 2025-02-22 22:37 | disposition home or self-care (01) ==
PROVIDERS: Emergency Provider Emergency Medicine
DX: L08.9 Local infection of the skin and subcutaneous tissue, unspecified (principal); I10 Essential (primary) hypertension; J45.909 Unspecified asthma, uncomplicated; E78.5 Hyperlipidemia, unspecified; G62.9 Polyneuropathy, unspecified; R73.03 Prediabetes; F41.9 Anxiety disorder, unspecified; F32.A Depression, unspecified; Z95.0 Presence of cardiac pacemaker; Z90.710 Acquired absence of both cervix and uterus; Z90.49 Acquired absence of other specified parts of digestive tract; Z79.899 Other long term (current) drug therapy
CPT/HCPCS: 36415; 73630; 80048; 85025; 85652; 86140; 99283